=== PATIENT | female | born 1965 | race Caucasian/White ===

== ENCOUNTER → 2017-10-30 14:32 | Outpatient (CLI) | payer MEDICAID, SELFPAY ==
--- NOTE | 2017-10-30 14:34 | RAD_ITS ---
STUDY: X-RAY - LEFT KNEE REASON FOR EXAM: Female, 52 years old. Atraumatic left knee pain. TECHNIQUE: 4 view(s) of the knee. COMPARISON: None. FINDINGS: Normal visualized distal femur. Normal visualized proximal tibia and fibula. Normal proximal tibiofibular articulation. Normal medial femorotibial compartment. Normal lateral femorotibial compartment. Normal patellofemoral articulation. The soft tissue structures are unremarkable. RAD/Knee 4 or More Views IMPRESSION: Normal x-ray examination of the knee. Electronically Signed: Julienne Saxena MD at 17:50 EST , Service support ,
== END ==
PROVIDERS: Visit Provider Orthopaedic Surgery
DX: M25.562 Pain in left knee (principal)
CPT/HCPCS: 73564

== ENCOUNTER → 2018-01-26 06:00 | Outpatient (CLI) | payer MEDICAID, SELFPAY ==
--- NOTE | 2018-01-26 10:19 | EKG12_ITS ---
Test Reason : PRE OP Blood Pressure : / mmHG Vent. Rate : 061 BPM Atrial Rate : 061 BPM P-R Int : 166 ms QRS Dur : 088 ms QT Int : 416 ms P-R-T Axes : 041 001 011 degrees QTc Int : 418 ms Normal sinus rhythm with sinus arrhythmia Normal ECG Confirmed by AMARJIT ROSAS, JULIETA ([id number]), film or videotape editor PATRICK STEWARD ([id number]) on 01/28/2018 12:56:30 PM Referred By: Leonardo Alan Confirmed By:JULIETA OCASIO MD
[2018-01-26 10:39] LABS: Hematocrit 38.6 % (37-47); Hemoglobin 12.2 g/dl (12.0-15.0); Mean Corp Hgb Conc 31.6 g/gl (32-36); Mean Corpuscular Hgb 30.7 pg (27.0-32.0); Mean Platelet Vol. 11.2 fl (6.2-12.0); Platelet Count 225 K/mm3 (150-450); RBC Distribution Width CV 13.1 % (11.6-14.6); RBC Distribution Width SD 46.3 fl (35.1-43.9); Red Blood Count 3.98 M/mm3 (4.2-5.4); Scan Indicated on CBC? Y/N NO; White Blood Count 5.9 K/mm3 (4.4-11.0)
[2018-01-26 10:47] LABS: International Normalized Ratio 1.1; Partial Thromboplast Time 28.6 Seconds (24.1-36.2); Prothrombin Time (Protime)PT. 14.1 SECONDS (11.7-14.9)
[2018-01-26 11:11] LABS: AST(SGOT) 19 U/L (15-37); Alanine Aminotransfer ALT/SGPT 27 U/L (13-56); Albumin, Serum 3.4 g/dL (3.2-5.0); Alkaline Phosphatase 68 U/L (45-117); Anion Gap 5 (5-15); BUN 17 mg/dL (7-18); BUN/Creat Ratio 19.5 RATIO (10-20); Calcium,Total 8.8 mg/dL (8.5-10.1); Chloride 106 mmol/L (98-107); Creatinine, Serum 0.87 mg/dL (0.55-1.02); EST Glomerular Filtration Rate 72 mL/min (>60); Est Glom Filt Rate - Afr Amer 87 mL/min (>60); Globulin 3.7 g/dL (2.2-4.2); Glucose 71 mg/dL (74-106); Potassium 4.1 mmol/L (3.5-5.1); Protein, Total 7.1 g/dL (6.4-8.2); Sodium Level 142 mmol/L (136-145); Thyroid Stim Hormone (TSH) 0.33 uIU/mL (0.358-3.74)
--- OUTSIDE RECORDS SUMMARY | 2018-02-25 20:07 | XMS RPT_ITS ---
:1965 Author Organization OHIP Support Name Relationship Address Phone February Unavailable [address] + [place] [address] SERVANDO ABDUL Unavailable [address] + [place] [address] UE Unavailable Unavailable February Unavailable [address] + [place] [address] SERVANDO ABDUL Unavailable [address] + [place] [address] UE Unavailable Unavailable Unavailable February Unavailable [address] + [place] [address] SERVANDO ABDUL Unavailable [address] + [place] [address] UE Unavailable Unavailable February Unavailable [address] + [place] [address] SERVANDO ABDUL Unavailable [address] + [place] [address] UE Unavailable Unavailable February Unavailable [address] + [place] [address] SERVANDO ABDUL Unavailable [address] + [place] [address] UE Unavailable Unavailable Unavailable February Unavailable [address] + [place] [address] SERVANDO ABDUL Unavailable [address] + [place] [address] UE Unavailable Unavailable February Unavailable [address] + [place] [address] SERVANDO ABDUL Unavailable [address] + [place] [address] UE Unavailable Unavailable Unavailable February Unavailable [address] + [place] [address] RICCO SERVANDO Unavailable [address] + [place] [address] UE Unavailable Unavailable Unavailable February Unavailable [address] + [place] [address] SERVANDO ABDUL Unavailable [address] + [place] [address] UE Unavailable Unavailable Unavailable February Unavailable [address] + [place] [address] RICCO SERVANDO Unavailable [address] + [place] [address] UE Unavailable Unavailable Unavailable February Unavailable [address] + [place] [address] SERVANDO ABDUL Unavailable [address] + [place] [address] UE Unavailable Unavailable Unavailable February Unavailable [address] + [place] [address] RICCO SERVANDO Unavailable [address] + [place] [address] UE Unavailable Unavailable Unavailable February Unavailable [address] + [place] [address] SERVANDO ABDUL Unavailable [address] + [place] [address] UE Unavailable Unavailable Unavailable February Unavailable [address] + [place] [address] RICCO SERVANDO Unavailable [address] + [place] [address] UE Unavailable Unavailable Unavailable Care Team Providers Name Role Phone Brayan, Almas Chi Attending Unavailable Brayan, Almas Chi Primary Care Unavailable Brayan, Almas Chi Attending Unavailable Brayan, Almas Chi Primary Care Unavailable Brayan, Almas Chi Attending Unavailable Brayan, Almas Chi Primary Care Unavailable Brayan, Almas Chi Attending Unavailable Brayan, Almas Chi Primary Care Unavailable Arturo Bueno Attending Unavailable Brayan, Almas Chi Primary Care Unavailable Brayan, Almas Chi Attending Unavailable Brayan, Almas Chi Referring Unavailable Brayan, Almas Chi Attending Unavailable Waqas, Leonardo Attending Unavailable Waqas, Leonardo Attending Unavailable Waqas, Leonardo Attending Unavailable Waqas, Leonardo Attending Unavailable Brayan, Almas Chi Primary Care Unavailable Waqas, Leonardo Referring Unavailable Waqas, Leonardo Attending Unavailable Brayan, Almas Chi Referring Unavailable Waqas, Leonardo Attending Unavailable Brayan, Almas Chi Referring Unavailable Brayan, Almas Chi Primary Care Unavailable Brayan, Almas Chi Primary Care Unavailable Waqas, Leonardo Attending Unavailable Waqas, Leonardo Referring Unavailable PROBLEMS PROBLEMS DATE TYPE CONDITION / CODE ATTENDING STATUS SOURCE 10/30/2017 Unknown M25.562 - Pain in Leonardo Alan Active [place] left knee / Community M25.562(ICD-10) Hospital Repository 10/06/2017 Unknown L81.9 - Disorder Brayan, Almas Chi Active [place] of pigmentation, [facility] unspecified / Hospital L81.9(ICD-10) Repository 04/27/2017 Unknown SOLITARY Bueno, Active [facility] PULMONARY NODULE [facility] / R91.1(ICD-10) Hospital Repository 05/14/2017 Unknown UNILATERAL Brayan, Almas Chi Active [facility] PRIMARY Community OSTEOARTHRITIS, Hospital LEFT KNEE / Repository M17.12(ICD-10) 04/23/2017 Unknown VITAMIN D Brayan, Almas Chi Active [facility] DEFICIENCY, [facility] UNSPECIFIED / Hospital E55.9(ICD-10) Repository 04/23/2017 Unknown OTHER FATIGUE / Brayan, Almas Chi Active [place] R53.83(ICD-10) [facility] Hospital Repository 04/23/2017 Unknown PAIN IN LEFT KNEE Brayan, Almas Chi Active [place] / M25.562(ICD-10) [facility] Hospital Repository 04/23/2017 Unknown GOUT, UNSPECIFIED Brayan, Almas Chi Active [place] / M10.9(ICD-10) [facility] Hospital Repository PROCEDURES PROCEDURES No Procedure Records FoundRESULTS RESULTS INITAL EVALUATION (1) Observed: 02/10/2018 Status: F Source: [place] - PT 1:50 PM [facility] [address] [place] [address] [phone] FaxREHABILITATION SERVICESINITIAL EVALUATIONMR#: [id number] Acct: [id number]: ALEISHA ABDUL Rep #: [id number]: 1965 53 From: Laura L Laporte DPTReferring DrChantel: Leonardo Alan DO Status: REG RCRInsurance: [facility] PAY INSURANCEPatient's Visit InformationALEISHA ABDUL is a 53 year old F referred to Physical Therapy by Leonardo Alan DO with adiagnosis of Left Knee Pain.Date of Evaluation: 02/10/18Physical Therapist: Laura Olivia- Visit PlanFrequency: 2x /WeekDuration: 4 WeeksPlan: Aquatic Therapy- focus on LE strength and core s/s for functional mobility- SubjectiveSubjective: Left knee pain for a couple of years- insidious onset. Pain is getting worse.Pain is located in the knee area under the knee cap- no radiating pain to the hip or ankle.Describes the pain as dull and achy other times it feels like a knife is turning. Worst: 10/10Agg: standing up/sitting down, walking up/down stairs, walking. Best:5/10 Eases: none. [facility] motorized cart. Has been using a cane for about 2weeks. X-rays and MRI. Has been denied surgery 4x from her insurance company. Sleep:disturbed- hard to get comfortable and wakes her up. Sometimes has to pick her leg up and moveit over. Goes back to see Dr. Alan in 4 weeks. PMHx: thyroid, depression. Meds:levothyrixin, prevastatin, esatalopram. Work: does not work outside of her home. 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 Gait: antalgic- uses quad cane in theright hand- poor heel/toe pattern. Stairs: non recip with 2 HR. Palpation: tender alongmedial joint line. HR/TR: able but reports feeling it with TR. Balance: 10 sec withincreased pressure. ROM: 0-115 degrees. Strength: Ankle: 5/5, Knee: 4+/5, Hip: 4/5 Core:fair minus. Flex: HS: moderate, Gastroc: moderate- GoalsGoal 1:: Patient will be I with HEP and progressionGoal Time Frame: 4-6 WeeksGoal 2:: Patient will demo 5/5 strength in LEGoal Time Frame: 4 -6 WeeksGoal 3:: Patient will report 2/10 pain for 1 weekGoal Time Frame: 4-6 WeeksGoal 4:: Patient will ambulate >300 feet with a normalized gait patternGoal Time Frame: 4-6 WeeksGoal 5:: Patient will asc/desc 8 recip with 1 HRGoal Time Frame: 4-6 Weeks- Rehabilitation PotentialPhysical Therapy Diagnosis: Patient presents with hypomobility- she has decreased strength andmuscular endurance leading to increased pain and difficulty with ADL's.Rehabilitation Potential: Fair- Anticipated InterventionsPatient/Client Instruction: Educate patient on: Benefits of Fitness ProgramFor the Purpose of:: To improve ability to perform ADL'sTherapeutic Exercise to Include: Strength training, Endurance training, Balance training,Agility training, Body mechanics, Postural training, Flexibilty training, Gait and locomotortraining, In an aquatic setting, Dynamic Lumbar StabilizationThank you for the opportunity to evaluate your patient.For Medicare and Medicare HMO plans, please review the plan of care and approve it.It will need to be FAXED BACK to us at [phone] for Medicare purposes.Please let me know if there are questions or concerns regarding this plan of care.Physician Signature: Date: &lt ;Electronically signed by Laura Olivia DPT> 02/10/18 1350CC: Leonardo Alan DO; Almas Schmidt MD DT: 02/10/18ELRSignedFor Medicare only, by signing this I certify the plan of care. Physicians Signature Date Observed: 01/29/2018 Status: F Source: [place] MRSA/SAID SCREEN 1:30 PM [facility] REPOSITORY MRSA/SAID SCRNS. AUREUS S. aureus NegativeMRSA MRSA Negative Performed By: #### M100.651 ####[facility] [address] [place], [address] 12 LEAD ELECTROCARDIOGRAM Observed: 01/28/2018 Status: F Source: [place] 12:57 PM [facility] RE[facility]ITORY [facility] [address] [place] [place], [place] [id number] Lead EKG001/26/18 1031MR#: [id number] Acct: [id number]: ROMY ABDULGary Zelaya Rep #: [id number]: 1965 52 From: Kt Ocasio MDAttending Dr: Leonardo Alan DO Status: PRE SDCOrdering Dr: Leonardo Alan DO Date: 01/26/18Location: [place] Sex: F CAdmitted:Test Reason : PRE OPBlood Pressure : / mmHGVent. Rate : 061 BPM Atrial Rate : 061 BPMP-R Int : 166 ms QRS Dur : 088 msQT Int : 416 ms P-R-T Axes : 041 001 011 degreesQTc Int : 418 msNormal sinus rhythm with sinus arrhythmiaNormal ECGConfirmed by AMARJIT ROSAS, KT ([id number]), editor continuity and script PATRICK STEWARD ([id number]) on 2017 12:56:30 PMReferred By: Leonardo Alan Confirmed By:KT OCASIO MD 1256Date Kt Ocasio MDCC: Leonardo Alan DO; Almas Schmidt MD Signed CBC-COMPLETE BLOOD CNT Collected: 01/26/2018 Status: F Source: [place] NO DIFF 10:09 AM [facility] REPOSITORY TYPE CODE TESTS RESULT OUT OF RANGE REFERENCE UNITS LAB L100.1000 Normal 4.4-11.0 K/mm3 WBC 5.9 LAB L100.1200 Low 4.2-5.4 M/mm3 RBC 3.98 LAB L100.1300 Normal 12.0-15.0 g/dl HGB 12.2 LAB L100.1400 Normal 37-47 % HCT 38.6 LAB L100.1500 Normal 81-99 fL MCV 97.0 LAB L100.1600 Normal 27.0-32.0 pg MCH 30.7 LAB L100.1700 Low 32-36 g/gl MCHC 31.6 LAB L100.1810 Normal 11.6-14.6 % RDW 13.1 CV LAB L100.1820 High 35.1-43.9 fl RDW 46.3 SD LAB L100.1900 Normal 150-450 K/mm3 PLT 225 LAB L100.2000 Normal 6.2-12.0 fl MPV 11.2 Performed By: #### L100.0500 ####[facility] [address] [place], [address] PROTHROMBIN TIME W/INR Collected: 01/26/2018 Status: F Source: [place] 10:09 AM [facility] REPOSITORY TYPE CODE TESTS RESULT OUT OF RANGE REFERENCE UNITS LAB L300.4150 Normal 11.7-14.9 SECONDS PROTIME 14.1 LAB L300.4200 Normal INR 1.1 Performed By: #### L300.3900, L300.4310 ####[facility] [address] [place], [place], [address] PARTIAL THROMBOPLAST Collected: 01/26/2018 Status: F Source: [place] TIME 10:09 AM [facility] REPOSITORY TYPE CODE TESTS RESULT OUT OF RANGE REFERENCE UNITS LAB L300.4310 Normal 24.1-36.2 Seconds PTT 28.6 Performed By: #### L300.3900, L300.4310 ####[facility] [address] [place], [address] BASIC METABOLIC Collected: 01/26/2018 Status: F Source: [place] PROFILE (BMP) 10:09 AM [facility] REPOSITORY TYPE CODE TESTS RESULT OUT OF RANGE REFERENCE UNITS LAB L501.0100 Low 74-106 mg/dL GLU 71 Result Comment: Please note revised GLUCOSE reference range jdjbsrinx10/02/2018. LAB L501.1000 Normal 7-18 mg/dL BUN 17 LAB L501.1100 Normal 0.55-1.02 mg/dL CREAT,SERUM 0.87 Result Comment: The validity of the calculated GFR AND GFRAA in patients over70 years has not been determined. Clinical correlation isessential. LAB L501.1110 Normal >60 mL/min EST GFR 72 Result Comment: Non- GFR Calc LAB L501.1115 Normal >60 mL/min EST GFR - 87 AA Result Comment: GFR Calc LAB L501.1300 Normal 10-20 RATIO BUN/CRE 19.5 LAB L501.2200 Normal 8.5-10.1 mg/dL CA 8.8 LAB L501.5300 Normal 136-145 mmol/L NA 142 LAB L501.5600 Normal 3.5-5.1 mmol/L K 4.1 LAB L501.5900 Normal 98-107 mmol/L CL 106 LAB L501.6100 Normal 21.0-32.0 mmol/L CO2 31.0 LAB L501.6200 Normal 5-15 GAP 5 Performed By: #### L500.2500, L500.3400, L501.9520 #### [facility] [address] [facility] [place], [place], [id number] LIVER PROFILE Collected: 01/26/2018 Status: F Source: [place] 10:09 AM [facility] REPOSITORY TYPE CODE TESTS RESULT OUT OF RANGE REFERENCE UNITS LAB L501.1500 Normal 6.4-8.2 g/dL T 7.1 PROT LAB L501.1800 Normal 3.2-5.0 g/dL ALB 3.4 LAB L501.1950 Normal 2.2-4.2 g/dL GLOB 3.7 LAB L501.4100 Normal 15-37 U/L AST 19 LAB L501.4305 Normal 45-117 U/L ALK P 68 LAB L501.4405 Normal 13-56 U/L ALT 27 LAB L501.4600 Normal 0.20-1.00 mg/dL T 0.60 BILI LAB L501.4700 Normal 0.00-0.30 mg/dL D 0.10 BILI Performed By: #### L500.2500, L500.3400, L501.9520 #### [facility] [address] [facility] [address] [place], [place], [id number] THYROID STIM HORMONE Collected: 01/26/2018 Status: F Source: [place] (TSH) 10:09 AM [facility] REPOSITORY TYPE CODE TESTS RESULT OUT OF RANGE REFERENCE UNITS LAB L501.9520 Low 0.358-3.74 uIU/mL TSH 0.33 Performed By: #### L500.2500, L500.3400, L501.9520 #### [facility] [address] [place], [address] ORTHOPEDIC VISIT Observed: 01/13/2018 Status: F Source: [place] REPORT 3:35 PM [facility] REPOSITORY [facility] [address] [phone] VISITDate of Service: 01/11/18MR#: [id number] Acct: [id number]: ALEISHA ABDUL Rep #: [id number]: 1965 Provider: Leonardo Alan DOAge/Sex: 52/F [place] [facility] [place]SMOStatus: SignedIntakeIntakeVisit Reasons: LEFT KNEEIs patient in pain? : YesAllergiestetanus shot Allergy (Mild, Uncoded 12/22/17 14:04)swellingSHELFISH Allergy (Uncoded 12/22/17 14:04)SwellingMedicationsLevothyroxine [Synthroid] 100 mcg PO MOTUWETHFRSA 05/30/15 [History Confirmed 12/22/17]Pravastatin [Pravachol] 40 mg PO QHS 05/30/15 [History Confirmed 12/22/17]calcium carbonate 500 mg calcium (1, 250 mg) tablet 500 mg PO BID tab 10/30/17 [HistoryConfirmed 12/22/17]ergocalciferol ( vitamin D2) 50,000 unit capsule 50,000 unit PO QMONTH 10/30/17 [HistoryConfirmed 12/22/17]escitalopram 20 mg tablet 20 mg PO QDAY 10/30/17 [History Confirmed 12/22/17]multivitamin tablet 1 tab PO QAM 10/30/17 [History Confirmed 12/22/17]Levothyroxine [Synthroid] 50 mcg PO LOUIS 12/22/17 [History Confirmed 12/22/17]PFSHMedical HistoryAsthma (Chronic)Depression (Chronic)Hypothyroidism (Chronic)Seasonal allergies (Chronic)Surgical HistoryS/P (Inactive)S/ P breast biopsy (Inactive)S/P tonsillectomy (Inactive)Family HistoryOther Breast cancerSocial HistorySmoking Status: Never smokerHPILEFT KNEE:Details: ALEISHA ABDUL is a 52 year old F here today for continued left knee pain. She notesthat she continues to have knee pain and describes her pain as a sharp pain. She has popping,clicking and instability. Patients pain is over her anterior knee and around her patella.Patient has increased pain with ambulation. Her surgery was denied by her insurance company andshe would like to discuss her options.ROSConstReports system reviewed and no additional complaints, except as docuEyesReports system reviewed and no additional complaints, except as docuENTReports system reviewed and no additional complaints, except as docuCardReports system reviewed and no additional complaints, except as docuRespReports system reviewed and no additional complaints, except as docuGIReports system reviewed and no additional complaints, except as docuGUReports system reviewed and no additional complaints, except as docuMuscReports joint pain, Reports stiffnessSkin/BreastReports system reviewed and no additional complaints, except as docuNeuroYes system reviewed and no additional complaints, except as docuPsychReports system reviewed and no additional complaints, except as docuEndoReports system reviewed and no additional complaints, except as docuOrtho ExamRight KneeSkin/Wound: Yes CDIContralateral Normal: YesSwelling: NoHomans Sign: NoKnee ROM: Yes ROM-Extension -20 to 0, Yes ROM-Passive Flexion 0-140, Yes ROM-Flexion 0-140, YesROM-Passive Extension -10 to 0Quad Atrophy: NoStability: NML: Anterior Drawer, NML: Delma, NML: Posterior Drawer, NML: Valgus 0, NML: Valgus 30, NML: Varus 0, NML: Varus 30, NML: Dial 90, NML: Dial 30Popliteal Adenopathy: NoPatella Translation: 1Apprehension with Lateral Translation: NoPatellar Tilt Normal: YesPatella Grind: NoLeft KneeContralateral Normal: YesSwelling: YesHomans Sign: No1+: EffusionKnee ROM: Yes ROM-Extension -20 to 0, Yes ROM-Flexion 0-140 , Yes ROM-Passive Extension -10 to0, Yes ROM-Passive Flexion 0-140Examination: Yes Pain with flexion, Yes Crepitus, Yes TTP inf pole patellaQuad Atrophy: NoStability: NML: Anterior Drawer, NML: Delma, NML: Posterior Drawer, NML: Valgus 0, NML: Valgus 30, NML: Varus 0, NML: Varus 30, NML: Dial 90, NML: Dial 30Popliteal Adenopathy: NoPatella Translation: 1Apprehension with Lateral Translation: NoPatellar Tilt Normal: YesPatella Grind: YesKNEE: General:well developed, well nourished in no acute distress.Head:normocephalic and atraumaticPulses:pulses normal in all 4 extremities.Neurologic:no focal deficits, cranial nerves II-XII grossly intact with normal sensation, reflexed,coordination, muscle strength and tone.Axillary Nodes:no significant adenopathy.Psych:alert and cooperative, normal mood and affect, normal attention span and concentration.Heart regular S1-S2 lungs clear to auscultation bilaterally abdomen soft nontender nondistendedno gross specimen or megaly.Patient continues have patellofemoral crepitus pain with palpation she has a +1 effusion.Remains otherwise ligaments stable. She has no calf pain negative Homans. Intact from theL1-S1 distributions.MRI and plain film radiographs have been previously evaluated. Patient shows patellofemoralarthrosis and degenerative changes. Medial lateral compartment appear to be relativelywell-preserved. Knee effusion noted.Assessment AND PlanProblems1. Chronic pain of left knee M25.562; G89.292. Osteoarthritis of left patellofemoral joint M17.12PlanAssessment: Left knee pain left knee patellofemoral Jayce this.Plan: At this point time patient is failed conservative measures to include NSAIDs activemodifications physical therapy and injections. Patient continues to be affected by activitiesof daily living with her associated knee pain and would like to proceed with intervention.Patient was denied a diagnostic knee scope chondroplasty and evaluation of the medialcompartment of patellofemoral joint for possible OCD allograft possible tibial tubercleosteotomy as a staged procedure. There is no significant recommendation by the insurancecompany or the peer to peer review that was provided. At this point time I discussed with thepatient her surgical options and the patient would like to go ahead and proceed with apatellofemoral arthroplasty. I feel this is the best treatment option for the patient due tothe limitations that are provided by her insurance coverage. Patient understands risks andbenefits to include damage to nerves muscles arteries veins, DVT PE infection or .Patient aware that she needs work on good range of motion. Patient had a discussion withmyself about outpatient physical therapy and I will start that within 2 weeks of her initialevaluation. Patient will have a 23 hour observation stay in order to prevent infection andprovide appropriate IV antibiotic coverage and start DVT prophylaxis to include aspirin 325p.o. twice daily with GI prophylaxis. Patient would like to proceed with intervention. It wasmy recommendation the patient get a new insurance plan as I feel in the long run her insurancecompany has failed her in terms of providing adequate care.CodingLevel of Care CodeOff vis,est,level 4DiagnosesChronic pain of left knee M25.562; G89.29Chronicity: chronicOsteoarthritis of left patellofemoral joint M17.12Laterality: left01/13/18 1535 <Electronically signed by Leonardo Alan DO>Date Leonardo Alan DOCosigner Signature: Date (if applicable)CC: ORTHOPEDIC VISIT Observed: 12/13/2017 Status: F Source: [place] REPORT 10:45 AM [facility] REPOSITORY [facility] [id number] [phone] VISITDate of Service: 12/09/17#: [id number] Acct: [id number]: ALEISHA ABDUL Rep #: [id number]: 1965 Provider: Leonardo Alan DOAge/Sex: 52/F [place] [facility] [place]SMOStatus: SignedIntakeIntakeVisit Reasons: LEFT KNEEIs patient in pain? : Yes Pain scale (1-10): 8Allergiestetanus shot Allergy (Mild, Uncoded 10/30/17 14:28)swellingSHELFISH Allergy (Uncoded 09/01/14 21:09)SwellingMedicationsLevothyroxine [Synthroid] 100 mcg PO DAILY 05/30/15 [ History Confirmed 12/09/17]Pravastatin [Pravachol] 20 mg PO QHS 05/30/15 [History Confirmed 12/09/17]calcium carbonate 500 mg calcium (1,250 mg) tablet 500 mg PO BID tab 10/30/17 [HistoryConfirmed 12/09/17]ergocalciferol (vitamin D2) 50,000 unit capsule 50,000 unit PO QMONTH 10/30/17 [HistoryConfirmed 12/09/17]escitalopram 20 mg tablet 20 mg PO QDAY 10/30/17 [History Confirmed 12/09/17]multivitamin tablet 1 tab PO QAM 10/30/17 [History Confirmed 12/09/17]PFSHMedical History Asthma (Chronic)Depression (Chronic)Hypothyroidism (Chronic) Seasonal allergies (Chronic)Surgical History S /P (Inactive)S/P breast biopsy (Inactive)S/P tonsillectomy (Inactive) Family History Other Breast cancerSocial HistorySmoking Status: Never smokerHPILEFT KNEE:Details: ALEISHA ABDUL is a 52 year old F here today for f/u from her left knee injection10/30/17. She states that the injection was not helpful except the first couple days. She hasan antalgic gait today, denies any swelling or locking. She would like to discuss her optionsfor surgery. Denies numbness, tingling or other associated symptoms.ROSMuscReports abnormal walking, Reports joint pain, Reports muscle weakness, Reports decreased musclemass, Reports limited joint movement, Reports stiffness, Reports as per HPINeuroYes abnormal walkingOrtho ExamRight KneeSkin/Wound: Yes CDIContralateral Normal: YesSwelling: NoHomans Sign: NoKnee ROM: Yes ROM-Extension -20 to 0, Yes ROM-Passive Flexion 0-140, Yes ROM-Flexion 0-140, YesROM-Passive Extension -10 to 0Quad Atrophy: NoStability: NML: Anterior Drawer, NML: Delma, NML: Posterior Drawer, NML: Valgus 0, NML:Valgus 30, NML: Varus 0, NML: Varus 30, NML: Dial 90 , NML: Dial 30Popliteal Adenopathy: NoPatella Translation: 1Apprehension with Lateral Translation: NoPatellar Tilt Normal: YesPatella Grind: NoLeft KneeSkin/Wound: Yes CDIContralateral Normal: YesSwelling: YesHomans Sign: No1+: EffusionKnee ROM: Yes ROM-Flexion 0-140Examination: Yes TTP inf pole patella, Yes Pain with flexion, Yes Crepitus, No med jt linetenderness, No Lat jt line tenderness, No Bertha's Test, No Dial at 90, No Dial at 60, NoDuck WalkQuad Atrophy: NoStability: NML: Anterior Drawer, NML: Delma, NML: Posterior Drawer, NML: Valgus 0, NML:Valgus 30, NML : Varus 0, NML: Varus 30, NML: Dial 90, NML: Dial 30Popliteal Adenopathy: NoPatella Translation: 1Apprehension with Lateral Translation: NoPatellar Tilt Normal: NoPatella Grind: YesKNEE: General:well developed, well nourished in no acute distress.Head:normocephalic and atraumaticPulses:pulses normal in all 4 extremities.Neurologic:no focal deficits, cranial nerves II-XII grossly intact with normal sensation, reflexed,coordination, muscle strength and tone.Axillary Nodes:no significant adenopathy.Psych:alert and cooperative, normal mood and affect, normal attention span and concentration.Heart regular S1-S2 lungs clear to auscultation bilaterally abdomen is soft nontendernondistended with no gross hepatosplenomegaly.Left knee continue tender palpation with direct compression of the patella and some crepitus.Remains ligamentously stable. No medial lateral joint line tenderness.X-rays MRI previously evaluated: Patient shows degenerative arthrosis across the patellofemoraljoint. Her medial lateral compartments however appear relatively preserved.Assessment AND PlanProblems1. Osteoarthritis of left patellofemoral joint M17.122. Chronic pain of left knee M25.562; G89.29PlanAssessment: Left knee osteoarthritis and internal derangement the knee [place] Niall of theiliofemoral joint and left knee pain.Plan: At this point time the patient is failed conservative measures to include NSAIDs activitymodifications physical therapy injections and bracing. I discussed with the patient hersurgical options. They include a diagnostic knee scope chondroplasty and global evaluation ofthe knee joint as well as the patient's would be a better candidate either for osteochondralallograft transplantation patella and possible tibial tubercle osteotomy, patellofemoralarthroplasty or total knee arthroplasty. At this point time patient's really most globalchanges across the patellofemoral joint and my plan is for a knee scope and chondroplastypatella again evaluate whether or not she is a better candidate for unicompartmental Orthoplastthe warfarin OCD allograft. I think that her medial lateral compartments are well preservedand she does not require any form of arthroplasty to total knee study. Patient agrees toproceed with a left knee arthroscopy chondroplasty and synovectomy as needed. An evaluationfor future intervention to include patellofemoral arthroplasty versus OCD allograft.Reviewed the pre-operative plans with the patient. Risks and benefits of the procedure werefully explained, including but not limited to infection, neurovascular injury, continued pain,arthritis, stiffness, need for further surgery, re-injury, DVT, PE, general risks ofanesthesia, and loss of limb or life. The patient understands all the risks and does wish toproceed with written consent.CodingLevel of Care CodeOff vis,est,level 4DiagnosesOsteoarthritis of left patellofemoral joint M17.12Laterality: leftChronic pain of left knee M25.562; G89.29Chronicity: /01/18 1045 <Electronically signed by Leonardo Alan DO>Date Leonardo Alan DOCosigner Signature: Date (if applicable)CC: ORTHOPEDIC VISIT Observed: 11/02/2017 Status: F Source: [place] REPORT 8:07 AM [facility] REPOSITORY [facility] [address] [id number] VISITDate of Service: 10/30/17MR#: [id number] Acct: [id number]: ALEISHA ABDUL Rep #: [id number]: 1965 Provider: Leonardo Alan DOAge/Sex: 52/F [place] [facility] [place] SignedIntakeVital Signs10/30/17 Height 5 ft 6 in10/30/17 Weight: 233 lb10/30/17 Body Mass Index (BMI) 37.5IntakeVisit Reasons: left kneeIs patient in pain?: Yes Pain scale (1-10): 7Allergiestetanus shot Allergy (Mild, Uncoded 10/30/17 14:28)swellingSHELFISH Allergy (Uncoded 09/01/14 21:09)SwellingMedicationsLevothyroxine [Synthroid] 100 mcg PO DAILY 05/30/15 [History Confirmed 10/30/17]Pravastatin [Pravachol] 20 mg PO QHS 05/30 [History Confirmed 10/30/17]calcium carbonate 500 mg calcium (1,250 mg) tablet 500 mg PO BID tab 10/30/17 [HistoryConfirmed 10/30/17]ergocalciferol (vitamin D2) 50, 000 unit capsule 50,000 unit PO QMONTH 10/30/17 [HistoryConfirmed 10/30/17] escitalopram 20 mg tablet 20 mg PO QDAY 10/30/17 [History Confirmed 10/30/17]multivitamin tablet 1 tab PO QAM 10/30/17 [History Confirmed 10/30/17]PFSHMedical History Asthma (Chronic)Depression (Chronic)Hypothyroidism (Chronic)Seasonal allergies (Chronic)Surgical HistoryS/ P (Inactive)S/P breast biopsy (Inactive)S/P tonsillectomy (Inactive) Family HistoryOther Breast cancerSocial HistorySmoking Status: Never smokerHPIleft knee:Details: ALEISHA ABDUL is a 52 year old F here today for left knee. She complains ofintermittent pain behind her knee cap, mostly when she is walking or active. No injury. Shedenies radiation of pain. No swelling. No tingling/ numbness. Occasionally the knee will giveout. Denies locking. She was seen by Dr. Schmidt who referred her to our office. No prior x-ray.No prior injection.ROSConstReports system reviewed and no additional complaints, except as docuEyesReports system reviewed and no additional complaints, except as docuENTReports system reviewed and no additional complaints, except as docuCardReports system reviewed and no additional complaints, except as docuRespReports system reviewed and no additional complaints, except as docuGIReports system reviewed and no additional complaints, except as docuGUReports system reviewed and no additional complaints, except as docuMuscReports joint painSkin/BreastReports system reviewed and no additional complaints, except as docuNeuroYes system reviewed and no additional complaints, except as docuPsychReports system reviewed and no additional complaints, except as docuEndoReports system reviewed and no additional complaints, except as docuHema/LymphReports system reviewed and no additional complaints, except as docuAller/ImmunReports system reviewed and no additional complaints, except as docuOrtho ExamRight KneeSkin/ Wound: Yes CDIContralateral Normal: YesSwelling: NoHomans Sign: NoKnee ROM: Yes ROM-Extension -20 to 0, Yes ROM-Passive Flexion 0-140, Yes ROM-Flexion 0-140, YesROM-Passive Extension -10 to 0Quad Atrophy: NoStability: NML: Anterior Drawer, NML: Delma, NML: Posterior Drawer, NML: Valgus 0, NML:Valgus 30, NML: Varus 0 , NML: Varus 30, NML: Dial 90, NML: Dial 30Popliteal Adenopathy: NoPatella Translation : 1Apprehension with Lateral Translation: NoPatellar Tilt Normal: YesPatella Grind: NoLeft KneeSkin/Wound: Yes CDIContralateral Normal: YesSwelling: YesHomans Sign : No1+: EffusionKnee ROM: Yes ROM-Extension -20 to 0, Yes ROM-Flexion 0-140, Yes ROM-Passive Extension -10 to0, Yes ROM-Passive Flexion 0-140Examination: Yes Crepitus, Yes Pain with flexion, Yes TTP inf pole patellaQuad Atrophy: NoStability: NML: Anterior Drawer, NML: Delma, NML: Posterior Drawer, NML: Valgus 0, NML: Valgus 30, NML: Varus 0, NML: Varus 30, NML: Dial 90, NML: Dial 30Popliteal Adenopathy : NoPatella Translation: 1Apprehension with Lateral Translation: NoPatellar Tilt Normal: YesPatella Grind: YesKNEE: Patient is alert and oriented 3 in no acute distress. Appropriate eye contact andaffect. Otherwise intact from L1-S1 distributions. She has a +2 pulses. Patient walks anonantalgic gait. She has no calf pain negative Homans EHL anterior gastrocsoleus peronealsquads hamstrings 5 out of 5. Patient is otherwise ligamentously stable in all planes to herleft knee. She is tender palpation across the patella and has pain with direct compressionacross the patellofemoral joint and positive compression. She has no patellar apprehension orinstability just pain translation and the grinding sensation. Otherwise minimal pain acrossmedial lateral joint lines of popliteal masses.X-rays: Evaluated myself patient joint spaces otherwise were very well-preserved to the mediallateral compartments and easy and even to the patellofemoral joint. MRI: Evaluated myselfpatient-I will review the patient's MRI she shows significant degenerative changes across thepatellofemoral joint she has no cartilage identified through a large area of her patella andshows a patella pop top change. She has a small knee effusion currently. Medial lateralcompartments otherwise well-preserved.Office ProceduresOrtho InjectionsInjectionsYes Knee LeftDetails: Obtained consent for injection. Under sterile conditions, injected the patients rightknee with a 10cc cocktail of 8cc bupivacaine and 2cc kenalog. The patient tolerated theinjection well without any noted complication. Patient should call our office if rednessdevelops, pain worsens or if they have any concerns.Office MedsKenalogPerforming Provider : Leonardo Alan DOAdministered by: Zunilda Rachel DO on 10/30/17 15:13Dose Route Admin Location Lot Number Expiration DateNDC Manufacturer2 mg Intra-Articularleft knee [id number] 11/12/18 7966-1731-81 [facility]ssessment AND PlanProblems1. Osteoarthritis of left patellofemoral joint M17.122. Chronic pain of left knee M25.562; G89.29PlanAssessment: Left knee osteoarthritis patellofemoral joint left knee pain.End: At this point time an extensive discussion with the patient about operative versusnonoperative management. Told the patient for treatment for her patellofemoral changes asneeded consideration for patellofemoral arthroplasty based on what the trochlea looked likeversus consideration for either osteochondral allograft transplantation or patellar total jointarthroplasty. I think that would be not a good choice at this point time based on thepatient's medial lateral compartments. I think consideration could be made for thepatellofemoral arthroplasty but they will will wear out. I think ultimately the patient willdecide about operative intervention I would consider scoping her knee first to evaluate thepatellofemoral joint evaluate of the remaining portion of the knee in which option that she maybe the best for her. Patient does have some history of poor healing ulcers to the legs and isalways concerned about bony healing potentially. We will address that as needed. For now wewill proceed with a left knee injection and see how the patient responds. May give her somerelief.Obtained consent for injection. Under sterile conditions, injected the patients left knee witha 10cc cocktail of 8cc bupivacaine and 2cc kenalog . The patient tolerated the injection wellwithout any noted complication. Patient should call our office if redness develops, painworsens or if they have any concerns.OrdersOrders:MedicationsDiscontinued:Kenalog (triamcinolone acetonide ) 2 mg (0.2 mL) Intra-Articular ONCE NM25.562 Dinesh MaurerDiscontinued Reason: Office MedicaStion has been Documented as givenCodingLevel of Care CodeOff vis,est, level 4DiagnosesOsteoarthritis of left patellofemoral joint M17.12Laterality: leftChronic pain of left knee M25.562; G89.29Chronicity: chronicAdditional Codesrcp.knee ([id number])11/02/17 0807 <Electronically signed by Leonardo Alan DO>Date Leonardo Alan DOCosigner Signature: Date (if applicable)CC: KNEE 4 OR MORE Observed: 10/30/2017 Status: F Source: [facility] 2:35 PM [facility]IT[facility] [address] [place], [place] [address]Thqk 4 or More ViewsMR#: [id number] Acct: [id number]: ALEISHA ABDUL Rep #: [id number]: 1965 F 52 From: Julienne Saxena MDPCP: Status: REG CLIStudy: Knee 4 or More Views Date of Exam: 10/30/17Exam# [id number] Ordering Dr: Leonardo Alan DOSTUDY: X-RAY - LEFT KNEEREASON FOR EXAM: Female, 52 years old. Atraumatic left knee pain.TECHNIQUE: 4 view(s) of the knee.COMPARISON: None. FINDINGS:Normal visualized distal femur. Normal visualized proximal tibia andfibula. Normal proximal tibiofibular articulation.Normal medial femorotibial compartment. Normal lateral femorotibialcompartment. Normal patellofemoral articulation.The soft tissue structures are unremarkable. ORDER #: [id number] RAD/Knee 4 or More ViewsIMPRESSION:Normal x-ray examination of the knee.Electronically Signed:Julienne Saxena MD at 17:50 ESTTel , Service support , [place]: Leonardo Alan DO Tread Cutter:Signed LESION (CHOOSE SITE) Observed: 10/06/2017 Status: F Source: [place] 12:00 AM [facility] REPOSITORY Patient: ALEISHA ABDUL : 1965 (52/F) Acct Num: [id number] Phys: Brayan ROSAS,Almas [facility] Unit Num: [id number] Loc: POLAB3 Specimen: [id number] Received: 10/06/171649 Spec Type: Lesion TISSUES TISSUES: A. Skin of arm B. Skin of leg, NOS C. Hip, NOS GROSS DESCRIPTION A - Received in fixative is one container labeled with the patient's name and designated right arm. The specimen consists of a piece of alvarez-white skin measuring 0.5 x 0.5 x 0.3 cm. The specimen is inked and submitted entirely in one cassette. It will be bisected at the time of embedding. B - Received in fixative is one container labeled with the patient 's name and designated right thigh. The specimen consists of a shave biopsy of alvarez-white skin measuring 0.6 x 0.5 x 0.1 cm. The specimen is inked and submitted entirelyin one cassette. It will be bisected at the time of embedding. C - Received in fixative is one container labeled with the patient's name and designated right hip. The specimen consists of a shave biopsy of alvarez-white skin measuring 0.6 x 0.5 x 0.1 cm. The specimen is inked and submitted entirelyin one cassette. It will be bisected at the time of embedding. / YVES:klai 10/07/17 TC:5 CPT: 30816 x3 HEADER OPERATION: Not noted PRE-OP DIAGNOSIS: L81.9 TISSUE SUBMITTED: A Right arm lesion, B Right thigh lesion, C Left hip lesion MICROSCOPIC DESCRIPTION Slides are reviewed. MICROSCOPIC DIAGNOSIS A. Right arm lesion, biopsy: Verrucoid keratosis. B. Skin lesion of right thigh, biopsy: Verrucoid keratosis. C. Skin lesion of left hip, biopsy: Verrucoid keratosis. AM:kali 10/08/17 Signed Regulo Margarita 10/08/17 < signature on file> Performed By: #### PLES ####[facility] [address] [place], [address] HIP 2-3 VIEWS WITH Observed: 10/05/2017 Status: F Source: [place] PELVIS 12:25 PM [facility] REPOSITORY [facility]ENTERIm[facility] [address] [facility] [place] [place], [place] [address]Tir 2-3 Views with PelvisMR#: [id number] Acct: [id number]: ALEISHA ABDUL Rep #: [id number]: 1965 F 52 From: Galileo Overton [facility] CENTERCP: Status: REG CLIStudy: Hip 2-3 Views with Pelvis Date of Exam: 10/05/17Exam# [id number] Ordering Dr: Almas Schmidt MDSTUDY: X-RAY - PELVIS AND RIGHT HIPREASON FOR EXAM: Female, 52 years old. Six-month history of right hippain.TECHNIQUE: Radiological exam, hip, unilateral, with pelvis whenperformed; 2 or 3 views.COMPARISON: None. FINDINGS:There is a non-specific bowel gas pattern. There are multiple calcifiedphleboliths.Normal bilateral iliac wings, sacroiliac joints and visualized sacrum.Normal bilateral superior and inferior pubic rami. Normal pubic symphysis.Normal bilateral ischial tuberosities.Normal visualized femoral head. Normal acetabulum. Normal hip joint. ORDER #: [id number] RAD/Hip 2-3 Views with PelvisIMPRESSION:Normal x-ray examination of the pelvis and hip.Electronically Signed:Galileo Overton MD at 19:44 ESTTel [phone], Service support , BD: Almas Schmidt MD Tread Cutter:Signed CBC W/DIFF, AUTOMATED Collected: 10/05/2017 Status: F Source: [place] 11:46 AM [facility] REPOSITORY TYPE CODE TESTS RESULT OUT OF RANGE REFERENCE UNITS LAB L100.1000 High 4.4-11.0 K/mm3 WBC 12.9 LAB L100.1200 Low 4.2-5.4 M/mm3 RBC 3.99 LAB L100.1300 Normal 12.0-15.0 g/dl HGB 12.8 LAB L100.1400 Normal 37-47 % HCT 38.8 LAB L100.1500 Normal 81-99 fL MCV 97.2 LAB L100.1600 High 27.0-32.0 pg MCH 32.1 LAB L100.1700 Normal 32-36 g/gl MCHC 33.0 LAB L100.1810 Normal 11.6-14.6 % RDW 13.9 CV LAB L100.1820 High 35.1-43.9 fl RDW 48.1 SD LAB L100.1900 Normal 150-450 K/mm3 PLT 250 LAB L100.2000 Normal 6.2-12.0 fl MPV 11.2 LAB L100.2100 High 47-70 % NEUT% 80.4 LAB L100.2200 Low 19-41 % LY% 12.2 LAB L100.2300 Normal 0-10 % MONO% 6.6 LAB L100.2400 Normal 0-5 % EO% 0.5 LAB L100.2500 Normal 0-1 % BASO% 0.1 LAB L100.2550 Normal 0.0-0.9 % IM 0.200 GRAN % Result Comment: IG% - Immature Granulocytes (promyelocytes, myelocytes andmetamyelocytes) > 1% indicates that a LEFT SHIFT is Present. LAB L100.2620 High 2.0-7.7 X10 3/uL Absolute Neut 10.4 LAB L100.2720 Normal 0.83-4.51 X10 3/ul Absolute Lymph 1.58 Performed By: #### L100.0100 ####[facility] [address] [place], [address] VITAMIN D,25 HYDROXY Collected: 10/05/2017 Status: F Source: [place] 11:46 AM [facility] REPOSITORY TYPE CODE TESTS RESULT OUT OF RANGE REFERENCE UNITS LAB L506.1000 Normal ng/mL Vitamin 38.8 D 25-OH Result Comment: Vitamin D 25(OH) Status Range Deficiency <20 ng/mL (50nmol/L) Insuffciency 20 - 30 ng/mL (50 - 75 nmol/L) Sufficiency 30 - 100 ng/mL (75 - 250 nmol/L) Toxicity >100 ng/mL (>250 nmol/L) Performed By: #### L506.1000 ####[facility] [address] [place], [address] COMPREHENSIVE METABOLIC Collected: 10/05/2017 Status: F Source: [facility] 11:46 AM [facility] REPOSITORY TYPE CODE TESTS RESULT OUT OF RANGE REFERENCE UNITS LAB L501.0100 Normal 70-110 mg/dL GLU 106 LAB L501.1000 High 7-18 mg/dL BUN 19 LAB L501.1100 Normal 0.55-1.02 mg/dL 1.01 CREAT,SERUM Result Comment: The validity of the calculated GFR AND GFRAA in patients over70 years has not been determined. Clinical correlation isessential. LAB L501.1110 Normal >60 mL/min EST GFR 61 Result Comment: Non- GFR Calc LAB L501.1115 Normal >60 mL/min EST GFR - 73 AA Result Comment: GFR Calc LAB L501.1300 Normal 10-20 RATIO BUN/CRE 18.8 LAB L501.1500 Normal 6.4-8.2 g/dL T PROT 7.3 LAB L501.1800 Normal 3.4-5.0 g/dL ALB 3.6 Result Comment: Please note revised Albumin AND Globulin reference rangeeffective 2017. LAB L501.1950 Normal 2.2-4.2 g/dL GLOB 3.7 LAB L501.2000 Normal 0.9-2.4 RATIO A/G 1.0 LAB L501.2200 Normal 8.5-10.1 mg/dL CA 9.1 LAB L501.4100 Normal 15-37 U/L AST 19 LAB L501.4305 Normal 45-117 U/L ALK P 62 LAB L501.4405 Normal 12-78 U/L ALT 36 LAB L501.4600 Normal 0.20-1.00 mg/dL T BILI 0.60 LAB L501.5300 Normal 136-145 mmol/L NA 139 LAB L501.5600 Normal 3.5-5.1 mmol/L K 4.5 LAB L501.5900 Normal 98-107 mmol/L CL 102 LAB L501.6100 Normal 21.0-32.0 mmol/L CO2 29.0 LAB L501.6200 Normal 5-15 GAP 8 Performed By: #### L500.4050, L501.9520 ####[facility] [address] [place], [address] THYROID STIM HORMONE Collected: 10/05/2017 Status: F Source: [place] (TSH) 11:46 AM [facility] REPOSITORY TYPE CODE TESTS RESULT OUT OF RANGE REFERENCE UNITS LAB L501.9520 Normal 0.358-3.74 uIU/mL TSH 1.00 Performed By: #### L500.4050, L501.9520 ####[facility] [address] [place], [place], [address] HEPATITIS C ANTIBODIES Collected: 10/05/2017 Status: F Source: [place] 11:46 AM [facility] REPOSITORY TYPE CODE TESTS RESULT OUT OF RANGE REFERENCE UNITS LAB L3100.0650 Normal 0.0-0.9 s/co ratio HEP C <0.1 AB Result Comment: Negative: < 0.8 Indeterminate: 0.8 - 0.9 Positive: > 0.9 The CDC recommends that a positive HCV antibody result be followed up with a HCV Nucleic Acid Amplification test (161281) .Performed at: - [facility] [address] [id number] Director: Chan Matta PhD, Phone: [phone] Performed By: #### L3100.0625 ####[facility] (refer to report for specific site)refer to report for address and phone number LESION (CHOOSE SITE) Observed: 04/22/2017 Status: F Source: [place] 12:00 AM [facility] REPOSITORY Patient: ALEISHA ABDUL : 1965 (52/F) Acct Num: [id number] Phys: Ximena ROSAS,[place] Unit Num: [id number] Loc: LABSPEC Specimen: [id number] Received: 04/22/171803 Spec Type: Lesion TISSUES TISSUES: COMMENT Clinical correlation and appropriate follow up are necessary. GROSS DESCRIPTION Received in fixative is one container labeled with the patient's name and designated right lower lid. The specimen consists of a single irregular fragment of alvarez tissue measuring 0.4 x 0.4 x 0.2 cm. The specimen is totally submitted in one cassette. / AM:kali 04/23/17 TC:1 CPT: 13794 HEADER OPERATION: RLL lesion PRE-OP DIAGNOSIS: Increased size with scabbing RLL TISSUE SUBMITTED: RLL lesion MICROSCOPIC DESCRIPTION Slides are reviewed. MICROSCOPIC DIAGNOSIS RLL lesion, biopsy: Superficial fragment of squamous papilloma. See comment. SJ:kali 04/24 Signed Marco Juarez <signature on file> Performed By: #### PLES ####[facility] [address] [place], [address] LOWER EXT JOINT ONLY Observed: 04/14/2017 Status: F Source: [place] (ROUTINE) 1:29 PM [facility]IT[facility] [address] [place] [address]Rfdchog 4dLower Ext Joint Only (Routine)MR#: [id number] Acct: [id number]: ALEISHA ABDUL Rep #: [id number]: 1965 F 52 From: Guido Rm MDPCP: Brayan ROSAS,Almas Gant Status : REG CLIStudy: Lower Ext Joint Only (Routine) Date of Exam: 04/14/17Exam# [id number] Ordering Dr: Almas Schmidt MDSTUDY: MRI LEFT KNEEREASON FOR EXAM: Female, 52 years old. Left knee pain posterior to thepatella for 6 months. No known injuryTECHNIQUE: Standardized fat and water weighted pulse sequences wereobtained in all 3 orthogonal planes.COMPARISON: None. FINDINGS:Normal medial meniscus. Normal hyaline cartilage of the medialfemorotibial compartment. Normal medial femoral condyle and tibialplateau.Normal medial collateral ligamentous complex (MCL). Normal distalsemimembranosus, gracilis and semitendinosus tendons.Normal lateral meniscus. Normal hyaline cartilage of the lateralfemorotibial compartment. Normal lateral femoral condyle and tibialplateau.Normal proximal tibiofibular articulation. Normal lateral collateral(fibular) ligament. Normal popliteus tendon. Normal biceps femoristendon.Normal anterior cruciate ligament (ACL). Normal posterior cruciateligament (PCL).Normal congruent patellofemoral articulation. There is diffuse, greaterthan 50% thickness articular cartilage loss of the patellofemoralcompartment with predominant involvement of the lateral facet of thepatella. Normal medial and lateral patellar retinaculum.Normal quadriceps tendon. Normal patellar tendon. Normal Hoffa's fat pad.There is a small volume joint effusion.The soft tissues are unremarkable. The otherwise visualized osseousstructures are unremarkable. ORDER #: [id number] MRI/Lower Ext Joint Only (Routine)IMPRESSION:Moderate patellofemoral degenerative arthrosis.Small joint effusion.No meniscal or ligamentous lesions noted.Electronically Signed:Guido Rm MD, TYBO9305/08/01 at 14:32 [facility] [phone], Service support , SI: Almas Schmidt MD Tread Cutter:Signed CBC W/DIFF, AUTOMATED Collected: 04/07/2017 Status: F Source: [place] 1:04 PM [facility] REPOSITORY TYPE CODE TESTS RESULT OUT OF RANGE REFERENCE UNITS LAB L100.1000 Normal 4.4-11.0 K/mm3 WBC 8.6 LAB L100.1200 Low 4.2-5.4 M/mm3 RBC 4.13 LAB L100.1300 Normal 12.0-15.0 g/dl HGB 13.0 LAB L100.1400 Normal 37-47 % HCT 41.0 LAB L100.1500 High 81-99 fL MCV 99.3 LAB L100.1600 Normal 27.0-32.0 pg MCH 31.5 LAB L100.1700 Low 32-36 g/gl MCHC 31.7 LAB L100.1810 Normal 11.6-14.6 % RDW 13.5 CV LAB L100.1820 High 35.1-43.9 fl RDW 49.1 SD LAB L100.1900 Normal 150-450 K/mm3 PLT 246 LAB L100.2000 Normal 6.2-12.0 fl MPV 11.5 LAB L100.2100 Normal 47-70 % NEUT% 64.5 LAB L100.2200 Normal 19-41 % LY% 23.7 LAB L100.2300 High 0-10 % MONO% 10.3 LAB L100.2400 Normal 0-5 % EO% 1.1 LAB L100.2500 Normal 0-1 % BASO% 0.2 LAB L100.2550 Normal 0.0-0.9 % IM 0.200 GRAN % Result Comment: IG% - Immature Granulocytes (promyelocytes, myelocytes andmetamyelocytes) > 1% indicates that a LEFT SHIFT is Present. LAB L100.2620 Normal 2.0-7.7 X10 3/uL Absolute Neut 5.5 LAB L100.2720 Normal 0.83-4.51 X10 3/ul Absolute Lymph 2.03 Performed By: #### L100.0100 ####[facility] [address] [place], [address] COMPREHENSIVE METABOLIC Collected: 04/07/2017 Status: F Source: [place] PROFIL 1:04 PM [facility] REPOSITORY TYPE CODE TESTS RESULT OUT OF RANGE REFERENCE UNITS LAB L501.0100 Normal 70-110 mg/dL GLU 104 LAB L501.1000 Normal 7-18 mg/dL BUN 18 LAB L501.1100 High 0.55-1.02 mg/dL 1.05 CREAT,SERUM Result Comment: The validity of the calculated GFR AND GFRAA in patients over70 years has not been determined. Clinical correlation isessential. LAB L501.1110 Low >60 mL/min EST GFR 58 Result Comment: Non- GFR Calc LAB L501.1115 Normal >60 mL/min EST GFR - 70 AA Result Comment: GFR Calc LAB L501.1300 Normal 10-20 RATIO BUN/CRE 17.1 LAB L501.1500 Normal 6.4-8.2 g/dL T PROT 7.3 LAB L501.1800 Normal 3.4-5.0 g/dL ALB 3.6 LAB L501.1950 High 2.3-3.5 g/dL GLOB 3.7 LAB L501.2000 Normal 0.9-2.4 RATIO A/G 1.0 LAB L501.2200 Normal 8.5-10.1 mg/dL CA 8.7 LAB L501.4100 Normal 15-37 U/L AST 25 LAB L501.4305 Normal 45-117 U/L ALK P 69 LAB L501.4405 Normal 12-78 U/L ALT 37 LAB L501.4600 Normal 0.20-1.00 mg/dL T BILI 0.30 LAB L501.5300 Normal 136-145 mmol/L NA 142 LAB L501.5600 Normal 3.5-5.1 mmol/L K 4.5 LAB L501.5900 Normal 98-107 mmol/L CL 104 LAB L501.6100 Normal 21.0-32.0 mmol/L CO2 30.0 LAB L501.6200 Normal 5-15 GAP 8 Performed By: #### L500.4050, L501.1400, L501.9520 #### [facility] [address] [place], [address] URIC ACID Collected: 04/07/2017 Status: F Source: SAMI 1:04 PM [facility] REPOSITORY TYPE CODE TESTS RESULT OUT OF RANGE REFERENCE UNITS LAB L501.1400 Normal 2.6-6.0 mg/dL URIC 5.2 Result Comment: The drugs N-Acetylcysteine and Metamizole may falsely deressthis assay. Performed By: #### L500.4050, L501.1400, L501.9520 #### [facility] [address] [place], [address] THYROID STIM HORMONE Collected: 04/07/2017 Status: F Source: SAMI (TSH) 1:04 PM [facility] REPOSITORY TYPE CODE TESTS RESULT OUT OF RANGE REFERENCE UNITS LAB L501.9520 Normal 0.358-3.74 uIU/mL TSH 0.51 Performed By: #### L500.4050, L501.1400, L501.9520 #### [facility] [address] [place], [address] VITAMIN D,25 HYDROXY Collected: 04/07/2017 Status: F Source: SAMI 1:04 PM [facility] REPOSITORY TYPE CODE TESTS RESULT OUT OF RANGE REFERENCE UNITS LAB L506.1000 Normal ng/mL Vitamin 44.3 D 25-OH Result Comment: Vitamin D 25(OH) Status Range Deficiency <20 ng/mL (50nmol/L) Insuffciency 20 - 30 ng/mL (50 - 75 nmol/L) Sufficiency 30 - 100 ng/mL (75 - 250 nmol/L) Toxicity >100 ng/mL (>250 nmol/L) Performed By: #### L506.1000 ####[facility] [address] [place], [address] PT D/C SUMMARY (1) Observed: 04/06/2017 Status: F Source: SAMI 1:47 PM [facility] RE[facility]ORY [facility] [address] [facility], [place] [phone] [phone] FaxREHABILITATION SERVICESDISCHARGE SUMMARYMR#: [id number] Acct: [id number]: ALEISHA ABDUL Rep #: [id number]: 1965 52 From: Naima Castro Dr.: Almas Schmidt MD Status: REG RCRInsurance: [facility] - [facility] D/C SummaryIt has been my pleasure to treat ALEISHA ABDUL under orders from Almas Schmidt, for thediagnosis of Left Knee Pain for a total of 9 visit(s).Discharge Date: 04/06/17Please see the following information for a summary of their discharge status.- SubjectiveSubjective: Patient reports her knee has been feeling good. She has had increase hip pain thelast couple weeks but reports the last couple days it has felt good. She states that hip painmostly noticeable. States she had a sharp pain behind left knee on thursday that gave hersensation that it was going to give out.- Pain left kneePain Intensity (Out of 10): 0- Overall Improvement% Improvement: 25- ObjectiveObjective/Function: Patient re-checked at today's therapy session: Posture: Static standingwith weight equally distributed between BLE. Palpation/Appearance: No tenderness or apparantswelling around right knee; Mild swelling that is pitting (patient has compression socks ) inBLE; L knee cap mobility good with grinding posterior to the knee cap with mobility sarah. sup/inferior glides and R knee cap mobility good no apparent grinding. Balance: Tandem stancebilaterally 30 seconds with mild sway. Strength: BLE grossly 5/5 strength except bilateral hipflexion 4+/5, abduction (seated) 4+/5, bilateral hip extension (seated) 4+/5, bilateral ER 4+/5, left IR 4+/5. Range of Motion: BLE WNL; Right Knee 0-130* L Knee 0-130*. Flexibility: Mildtightness in bilateral hamstrings. Gait: Patient ambulating with slightly antalgic gait withdecrease stance on left lower extremity. She ambulates with a heel/toe progression bilaterallywith weight slightly shifted toward the right. Stair Negotiation: Patient ascends and descendsstairs using an alternating foot pattern with L handrail support and weight turned and shiftedtoward the right mildly. Patient reports a little pain with disco test to medial left knee- GoalsGoal 1:: Patient will increase BLE strength grossly by 1 muscle grade for improved performancewith functional activitiesGoal Progress : Goal MetGoal 2:: Patient will perform a tandem stance for 30 seconds with minimal ankle swayGoal Progress: Goal MetGoal 3:: Patient will increase left knee motion to match right for improved mobilityGoal Progress: Goal MetGoal 4:: Patient will ambulate with a heel/toe foot progression with equal stance time betweenBLE and without sensation of knee giving out to promote improved mobilityGoal Progress: ProgressingGoal 5 :: Patient will ascend/descend stairs using an alternating foot pattern with handrailsupport and without knee pain for improved mobilityGoal Progress: Goal MetGoal 6:: Patient will be independent with HEPGoal Progress: Goal Met- PlanPlan: Discharge with continued HEP- D/C InformationDischarge Comments: Patient demonstrates increased strength, range of motion and balance of BLEresulting in decrease knee pain. She continues to have medial knee pain with special testsincluding disco test. She also continues to have discomfort and grinding with patellamobilization. She has met most of her therapeutic goals. Plan to discharge patient withcontinued HEP and to follow up with referring physician.If there are questions or concerns regarding this patient's physical therapy, please feel freeto call me at [phone]. Thank you for the referral of this patient.Sincerely,Naima Steward, PT<Electronically signed by Naima Steward PT> 04/06/17 1347CC: Almas Schmidt MD DD: JMMSigned INITAL EVALUATION (1) Observed: 03/06/2017 Status: F Source: [place] - PT 2:24 PM [facility] RE[facility] [address] [facility] [place] [address] [phone] [phone] FaxREHABILITATION SERVICESINITIAL EVALUATIONMR#: [id number] Acct: [id number]: ALEISHA ABDUL Rep #: [id number]: 1965 52 From: Naima Steward PTReferring Dr.: Almas Schmidt MD Status: REG RCRInsurance: [facility]Patient's Visit InformationALEISHA ABDUL is a 52 year old F referred to Physical Therapy by Almas Schmidt with adiagnosis of Left Knee Pain.Date of Evaluation: 03/06/17Physical Therapist: Naima Steward, PT- Visit PlanFrequency: 2x /WeekDuration: 4 WeeksPlan: Therapeutic exercises and activities to target BLE strength to provide more hip and kneestability. Exercises and activities also to target balance on stable/unstable surfaces, kneerange of motion, flexibility, gait training and functional mobility. Modalities and Manual asneeded to decrease pain and inflammation and improve range of motion. Incorporate HEP topromote maintainence and independence.- SubjectiveSubjective: Patient presents in therapy with chief complaint of left knee pain. Pain firststarted a couple months ago with no known mechanism of injury. She reports doctor x-ray and noarthritis present. States she normally doesnt have pain until standing, turning or walking shewill get a sharp pain and feel like knee was going to give out. Patient lives in a split leveland states she has to use a lot of stairs which she is fearful due to knee sensation of givingout. No numbness or tingling in BLE. She reports that she doesnt take anything due to painonly lasting duration of sensation of falling. Reports mild pain when turning over in bed.- Pain left kneePain Intensity (Out of 10): 0Pain Intensity Range: 9- ObjectivePosture: Static standing with slight weight shift on RLE. Palpation/ Appearance: No tendernessor apparant swelling around right knee; Moderate swelling that is pitting (patient hascompression socks) in BLE; L knee cap mobility good with grinding posterior to the knee capwith mobility sarah. sup/inferior glides. Balance: Tandem stance bilaterally 30 seconds withmoderate sway. Strength: BLE grossly 4+/5 strength except bilateral hip abduction (seated) 4/5, bilateral hip extension (seated) 4/5, bilateral ER 4-/5, left IR 4/5. Range of Motion: BLEWNL; Right Knee 0-125* L Knee 0-118*. Flexibility: Moderate tightness in bilateral hamstrings.Gait: Patient ambulating with an antalgic gait pattern with decrease stance time on the left.She ambulates with a heel/toe progression on the right and flat foot on the left with weightshifted more on the right. Stair Negotiation: Patient ascends and descends stairs using analternating foot pattern with L handrail support and weight turned and shifted toward theright.- Special TestsL Knee Disco Test - Meniscus: Positive- GoalsGoal 1:: Patient will increase BLE strength grossly by 1 muscle grade for improved performancewith functional activitiesGoal Time Frame: 4-6 WeeksGoal 2:: Patient will perform a tandem stance for 30 seconds with minimal ankle swayGoal Time Frame: 4-6 WeeksGoal 3:: Patient will increase left knee motion to match right for improved mobilityGoal Time Frame: 4-6 WeeksGoal 4:: Patient will ambulate with a heel/toe foot progression with equal stance time betweenBLE and without sensation of knee giving out to promote improved mobilityGoal Time Frame: 4-6 WeeksGoal 5:: Patient will ascend/descend stairs using an alternating foot pattern with handrailsupport and without knee pain for improved mobilityGoal Time Frame: 4-6 WeeksGoal 6:: Patient will be independent with HEPGoal Time Frame: 4-6 Weeks- Rehabilitation PotentialPhysical Therapy Diagnosis: Muscle Weakness, Impaired MobilityRehabilitation Potential: Good- Anticipated InterventionsPatient/Client Instruction: Educate patient on: Condition, Plan of CareFor the Purpose of:: To decrease pain, To decrease swelling/inflammation, To increase ROM, Toimprove muscle performance and motor function, To improve ability to perform ADL's, To improveability of physical actions for home/community/work/leisure, To improve gait and locomotorfunctions, To increase flexibility/ROM, To improve endurance, To improve balance, To improvesafety with gaitTherapeutic Exercise to Include: Strength training, Endurance training, Balance training,Flexibilty training, Gait and locomotor training, Passive ROM, Active ROMFor the Purpose of:: To decrease pain, To increase ROM, To improve muscle performance and motorfunction, To improve ability to perform ADL's, To improve ability of physical actions for home/community/work/leisure, To improve gait and locomotor functions, To increase flexibility/ROM,To improve endurance, To improve balance, To improve safety with gaitFunctional Training to Include: ADL Training, Gait trainingFor the Purpose of:: To improve ability to perform ADL's, To improve ability of physicalactions for home/community/work/ leisure, To improve gait and locomotor functions, To improvesafety with gaitComment: MASSAGE NOT COVEREDFor the Purpose of:: To decrease pain, To decrease swelling/inflammation, To increase ROMIontophoresis (with Dexamethozone, with Acetic acid): - NOT COVEREDFor the Purpose of:: To decrease pain, To decrease swelling/inflammation, To increase ROMThank you for the opportunity to evaluate your patient.For Medicare and Medicare HMO plans, please review the plan of care and approve it.It will need to be FAXED BACK to us at [phone] for Medicare purposes.Please let me know if there are questions or concerns regarding this plan of care.Physician Signature: Date: &lt ;Electronically signed by Naima Steward PT> 03/06/17 1424CC: Almas Schmidt MD DD: JMMSignedFor Medicare only, by signing this I certify the plan of care. Physicians Signature Date CBC W/DIFF, AUTOMATED Collected: 03/05/2017 Status: F Source: SAMI 3:15 PM [facility] REPOSITORY TYPE CODE TESTS RESULT OUT OF RANGE REFERENCE UNITS LAB L100.1000 Normal 4.4-11.0 K/mm3 WBC 9.0 LAB L100.1200 Low 4.2-5.4 M/mm3 RBC 4.13 LAB L100.1300 Normal 12.0-15.0 g/dl HGB 12.9 LAB L100.1400 Normal 37-47 % HCT 40.7 LAB L100.1500 Normal 81-99 fL MCV 98.5 LAB L100.1600 Normal 27.0-32.0 pg MCH 31.2 LAB L100.1700 Low 32-36 g/gl MCHC 31.7 LAB L100.1810 Normal 11.6-14.6 % RDW 13.6 CV LAB L100.1820 High 35.1-43.9 fl RDW 49.1 SD LAB L100.1900 Normal 150-450 K/mm3 PLT 255 LAB L100.2000 Normal 6.2-12.0 fl MPV 11.6 LAB L100.2100 Normal 47-70 % NEUT% 65.3 LAB L100.2200 Normal 19-41 % LY% 25.6 LAB L100.2300 Normal 0-10 % MONO% 7.5 LAB L100.2400 Normal 0-5 % EO% 1.3 LAB L100.2500 Normal 0-1 % BASO% 0.2 LAB L100.2550 Normal 0.0-0.9 % IM 0.100 GRAN % Result Comment: IG% - Immature Granulocytes (promyelocytes, myelocytes andmetamyelocytes) > 1% indicates that a LEFT SHIFT is Present. LAB L100.2620 Normal 2.0-7.7 X10 3/uL Absolute Neut 5.9 LAB L100.2720 Normal 0.83-4.51 X10 3/ul Absolute Lymph 2.29 Performed By: #### L100.0100, L101.9900 ####[facility] [address] [place], [place], [address] ERYTHROCYTE SED RATE Collected: 03/05/2017 Status: F Source: SAMI 3:15 PM [facility] REPOSITORY TYPE CODE TESTS RESULT OUT OF RANGE REFERENCE UNITS LAB L102.0000 Normal 0-30 mm/hr SED 14 RATE Performed By: #### L100.0100, L101.9900 ####[facility] [address] [place], [place], [address] BASIC METABOLIC Collected: 03/05/2017 Status: F Source: SAMI PROFILE (BMP) 3:15 PM [facility] REPOSITORY TYPE CODE TESTS RESULT OUT OF RANGE REFERENCE UNITS LAB L501.0100 Normal 70-110 mg/dL GLU 106 LAB L501.1000 High 7-18 mg/dL BUN 22 LAB L501.1100 High 0.55-1.02 mg/dL 1.20 CREAT,SERUM Result Comment: The validity of the calculated GFR AND GFRAA in patients over70 years has not been determined. Clinical correlation isessential. LAB L501.1110 Low >60 mL/min EST GFR 50 Result Comment: Non- GFR Calc LAB L501.1115 Normal >60 mL/min EST GFR - 60 AA Result Comment: GFR Calc LAB L501.1300 Normal 10-20 RATIO BUN/CRE 18.3 LAB L501.2200 Normal 8.5-10.1 mg/dL CA 9.2 LAB L501.5300 Normal 136-145 mmol/L NA 138 LAB L501.5600 Normal 3.5-5.1 mmol/L K 4.3 LAB L501.5900 Normal 98-107 mmol/L CL 102 LAB L501.6100 Normal 21.0-32.0 mmol/L CO2 29.0 LAB L501.6200 Normal 5-15 GAP 7 Performed By: #### L500.2500, L501.1400, L501.6710 #### [facility] [address] [facility] [address] [place], [place], [address] URIC ACID Collected: 03/05/2017 Status: F Source: [place] 3:15 PM [facility] REPOSITORY TYPE CODE TESTS RESULT OUT OF RANGE REFERENCE UNITS LAB L501.1400 Normal 2.6-6.0 mg/dL URIC 5.9 Result Comment: The drugs N-Acetylcysteine and Metamizole may falsely deressthis assay. Performed By: #### L500.2500, L501.1400, L501.6710 #### [facility] [address] [place], [place], [address] CRP Collected: 03/05/2017 Status: F Source: [place] 3:15 PM [facility] REPOSITORY TYPE CODE TESTS RESULT OUT OF RANGE REFERENCE UNITS LAB L501.6710 Normal 0.0-3.0 mg/L < C-REACTIVE 2.90 PROT Result Comment: C-Reactive Protein (CRP) provides useful information for thediagnosis, therapy and monitoring of inflammatory processesand associated diseases. For the evaluation of Relative Riskfor Cardiovascular Disease, a High Sensitivity CRP (HSCRP)should be ordered. Performed By: #### L500.2500, L501.1400, L501.6710 #### [facility] [address] [place], [address] ALLERGIES ALLERGIES DATE TYPE / CODE NAME / CODE REACTION SEVERITY SOURCE 01/19/2018 Miscellaneous SHELFISH Swelling Unknown Sami Allergy/[id number]([facility] CT) Hospital Repository 01/19/2018 Miscellaneous tetanus shot Swelling AL Sami Allergy/[id number]([facility] CT) Hospital Repository 09/01/2014 FT/[id number](SNOMED SHELFISH Swelling [place]) [facility] Hospital Repository ENCOUNTERS ENCOUNTERS ADMIT/DISCHARGE ACCOUNT ADMITTING ENCOUNTER LOCATION SOURCE NUMBER CLASS 02/10/2018 [id number] Ambulatory Sami [facility] 8 [facility] ing:PT Repository 02/03/2018/ [id number] Ambulatory BMSBuilding:B Sami 8 1 [facility] Repository 01/11/2018/ [id number] Ambulatory BMSBuilding:B Sami 8 6 [facility] Repository 12/22/2017 [id number] Ambulatory [place]i [place] 2 [facility] Hospital ing:SDC Repository 12/09/2017/ [id number] Ambulatory BMSBuilding:B [place] 8 5 [facility] Repository 10/30/2017 [id number] Ambulatory [place] 4 [facility] Hospital ing:HPRAD Repository 10/30/2017/ [id number] Ambulatory BMSBuilding:B [place] 8 2 [facility] Repository 10/06/2017 [id number] [place] [facility] Hospital ing:POLAB3 Repository 10/05/2017 [id number] Ambulatory [place] 8 [facility] Hospital ing:RAD Repository 04/22/2017 [id number] Ambulatory Sami [place] 4 [facility] Hospital ing:LABSPEC Repository 04/14/2017 [id number] Ambulatory Sami [place] 4 [facility] Hospital ing:MRI Repository 04/07/2017 [id number] Ambulatory Sami [place] 5 [facility] Hospital ing:POLAB3 Repository 04/06/2017/ [id number] Ambulatory Sami [place] 7 9 [facility] ing:PT Repository 03/05/2017 [id number] Ambulatory Sami [place] 6 [facility] ing:POLAB3 Repository PAYERS PAYERS ENCOUNTER GUARANTOR PAYER SUBSCRIBER SOURCE 02/10/2018 ALEISHA Zelaya Primary ALEISHA [id number] [place] Insurance:BUCKEYE JOHNSONDOB: [facility] [id number] Hospital [address]Zbz: (330) PLANPolicy Number: Repository [phone] () [id number] Date:0118-66-96AB [address] [place] [address]3007VX: 02/10/2018 Secondary NOT GIVENUNK [place] Insurance:SELF PAY [facility] Number: Effective Repository Date:2018 2018 ALEISHA Zelaya Primary ALEISHA [id number] [place] Insurance:BUCKEYE RICCODOB: [facility] [id number] Hospital [address]Mkg: (330) PLANPolicy Number: Repository [phone] () [id number] Date:6101-39-34SQ [address] [place] [address] 49008VU: 2018 Secondary NOT GIVENUNK [place] Insurance:SELF PAY [facility] Number: Effective Repository Date:2018 01/11/2018 ALEISHA Zelaya Primary ALEISHA [id number] [place] Insurance:BUCKEYE JOHNSONDOB: [facility] [id number] Hospital [address]Vuj: (330) PLANPolicy Number: Repository [phone] () [id number] Date:6698-89-81PW [address] [place] [address] 88231DR: 01/11/2018 Secondary NOT GIVENUNK [place] Insurance:SELF PAY [facility] Number: Effective Repository Date:2018-01-11 12/22/2017 ALEISHA Zelaya Primary ALEISHA [id number] [place] Insurance:BUCKEYE JOHNSONDOB: [address] [address]Tsa: (330) PLANPolicy Number: Repository [phone] () [id number] Date:9602-13-69GI [address] [place] [address] 97561XK: 12/22/2017 Secondary NOT GIVENUNK [place] Insurance:SELF PAY [facility] Effective Repository Date:2017-12-14 12/09/2017 ALEISHA Zelaya Primary ALEISHA [id number] [place] Insurance:BUCKEYE RICCODOB: [place] [id number]: (330) PLANPolicy Number: Repository [phone] () [id number] Date:4200-04-04EW [address] [place] [address] 768[address]EV: 12/09/2017 Secondary NOT GIVENUNK [place] Insurance:SELF PAY [facility] Number: Effective Repository Date:2017-12-09 10/30/2017 ALEISHA Zelaya Primary ALEISHA [id number] [place] Insurance:BUCKEYE RICCODOB: [address] [address]Zrt: (330) PLANPolicy Number: Repository [phone] () [id number] Date:5791-28-07ST [address] [place] [address] 40318ZT: 10/30/2017 Secondary NOT GIVENUNK [place] Insurance:SELF PAY [facility] Number: Effective Repository Date:2017-10-30 10/30/2017 ALEISHA Zelaya Primary ALEISHA [id number] [place] Insurance:BUCKEYE JOHNSONDOB: [address] [address]Xmv: (330) PLANPolicy Number: Repository [phone] () [id number] Date:9376-99-25QR [address] [place] [address] [place] [address]YI: 10/30/2017 Secondary NOT GIVENUNK [place] Insurance:SELF PAY [facility] Number: Effective Repository Date:2017-10-26 10/06/2017 Aleisha Zelaya Primary Aleisha [id number] [place] Insurance:CESAR AvilesB: [facility] [id number] Hospital [address]Xsl: (330) PLANPolicy Number: Repository [phone] () [id number] Date:6046-07-83KV [address] [place] [address]98[address]MH: 10/06/2017 Secondary NOT GIVENUNK [place] Insurance:SELF PAY [facility] Effective Repository Date:2017-10-06 10/05/2017 Aleisha Zelaya Primary Aleisha Abdul5747 [place] Insurance:CESAR AvilesB: [facility] [id number] [id number]: (330) PLANPolicy Number: Repository [phone] () [id number] Date:0093-00-37RM [address] [place] [address] 84[address]HO: 10/05/2017 Secondary NOT GIVENUNK [place] Insurance:SELF PAY [facility] Number: Effective Repository Date:2017-10-05 04/22/2017 ALEISHA Zelaya Primary ALEISHA [id number] [place] Insurance:CESAR AVILESB: [facility] [id number] [address]Jsg: (330) PLANPolicy Number: Repository [phone] () [id number] Date:3162-15-92HJ [address] [place] [address]DR: 04/14/2017 ALEISHA Zelaya Primary ALEISHA [id number] [place] Insurance:CESAR AVILESB: [facility] [id number] [place]ille [id number]: (330) PLANPolicy Number: Repository [phone] () [id number] Date:4654-24-55JO [address] [place] [address] 448[address]WB: 04/07/2017 ALEISHA Zelaya Primary ALEISHA [id number] [place] Insurance:CESAR AVILESB: [facility] [id number] Ville [id number]: (330) PLANPolicy Number: Repository [phone] () [id number] Date:4699-03-38RT [address] [address]WH: 04/06/2017 ALEISHA Nathalie Primary ALEISHA Zelaya Samikorina [id number] [place] Insurance:CESAR AVILESB: [address]05-23[place] [id number]: (330) PLANPolicy Number: Repository [phone] () [id number] Date:8772-61-28HI [address] [address]YN: 03/05/2017 ALEISHA Nathalie Primary ALEISHA [id number] [place] Insurance:CESAR AVILESB: [address]05[place] [id number]: (330) PLANPolicy Number: Repository [phone] () [id number] Date:9560-82-34SD [address] [place] [address]27[address]YU:
== END ==
PROVIDERS: Family Provider Family Medicine Geriatric Medicine; PCP Family Medicine Geriatric Medicine; Visit Provider Orthopaedic Surgery
DX: Z01.818 Encounter for other preprocedural examination (principal)
CPT/HCPCS: 36415; 80048; 80076; 84443; 85027; 85610; 85730; 87081; 93005

== ENCOUNTER 2018-03-12 12:30 | Outpatient (RCR) | payer MEDICAID, SELFPAY ==
--- NOTE | 2018-02-10 13:50 | HP.PTEVAL_ITS ---
Patient's Visit Information LIANNA CHACKO is a 53 year old F referred to Physical Therapy by Leonardo Alan DO with a diagnosis of Left Knee Pain. Date of Evaluation: 02/10/18 Physical Therapist: Laura Olivia - Visit Plan Frequency: 2x /Week Duration: 4 Weeks Plan: Aquatic Therapy- focus on LE strength and core s/s for functional mobility - Subjective Subjective: Left knee pain for a couple of years- insidious onset. Pain is getting worse. Pain is located in the knee area under the knee cap- no radiating pain to the hip or ankle. Describes the pain as dull and achy other times it feels like a knife is turning. Worst: 10/10 Agg: standing up/sitting down, walking up/down stairs, walking. Best:5/10 Eases: none. When she goes to [facility] she has to use the motorized cart. Has been using a cane for about 2 weeks. X-rays and MRI. Has been denied surgery 4x from her insurance company. Sleep: disturbed- hard to get comfortable and wakes her up. Sometimes has to pick her leg up and move it over. Goes back to see Dr. Alan in 4 weeks. PMHx: thyroid, depression. Meds: levothyrixin, prevastatin, esatalopram. Work: does not work outside of her home. 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 - Objective Posture: FH, RS, Increased kyphosis- pt is overweight. Gait: antalgic- uses quad cane in the right hand- poor heel/toe pattern. Stairs: non recip with 2 HR. Palpation: tender along medial joint line. HR/TR: able but reports feeling it with TR. Balance: 10 sec with increased pressure. ROM: 0-115 degrees. Strength: Ankle: 5/5, Knee: 4+/5, Hip: 4/5 Core: fair minus. Flex: HS : moderate, Gastroc: moderate - Goals Goal 1:: Patient will be I with HEP and progression Goal Time Frame: 4-6 Weeks Goal 2:: Patient will demo 5/5 strength in LE Goal Time Frame: 4-6 Weeks Goal 3:: Patient will report 2/10 pain for 1 week Goal Time Frame: 4-6 Weeks Goal 4:: Patient will ambulate >300 feet with a normalized gait pattern Goal Time Frame: 4-6 Weeks Goal 5:: Patient will asc/desc 8 recip with 1 HR Goal Time Frame: 4-6 Weeks - Rehabilitation Potential Physical Therapy Diagnosis: Patient presents with hypomobility- she has decreased strength and muscular endurance leading to increased pain and difficulty with ADL's. Rehabilitation Potential: Fair - Anticipated Interventions Patient/Client Instruction: Educate patient on: Benefits of Fitness Program For the Purpose of:: To improve ability to perform ADL's Therapeutic Exercise to Include: Strength training, Endurance training, Balance training, Agility training, Body mechanics, Postural training, Flexibilty training, Gait and locomotor training, In an aquatic setting, Dynamic Lumbar Stabilization Thank you for the opportunity to evaluate your patient. For Medicare and Medicare HMO plans, please review the plan of care and approve it. It will need to be FAXED BACK to us at [phone] for Medicare purposes. Please let me know if there are questions or concerns regarding this plan of care. Physician Signature: Date:
--- NOTE | 2018-03-12 12:47 | HP.PTREVAL_ITS ---
Leonardo Alan, DO, It has been my pleasure to treat LIANNA CHACKO over the last 9 visits for Left Knee Pain. Please see the progress note below for an update on the physical therapy plan of care! Subjective: Patient reports that she is better. She has a new brace from the MD and is wearing it. Patient reports less pain in the knee. She really likes the pool- has changed her posture and its much better. Has a pool at home. Sees MD on Thursday. No pain unless she is going up/down stairs and not thinking 5/10. Objective/Function: Posture: FH, RS, Increased kyphosis- pt is overweight. Gait : no deviation noted Stairs:recip with 1 HR. Palpation: not tender. HR/TR: able Balance: 10 sec with increased pressure. ROM: 0-115 degrees. Strength : Ankle: 5/5, Knee: 4+/5, Hip: 4+/5 Core: fair minus. Flex: HS: moderate, Gastroc: moderate Plan Plan: Cont with POC Goals Goal 1:: Patient will be I with HEP and progression Goal Time Frame: 4-6 Weeks Goal Progress: Goal Met Goal 2:: Patient will demo 5/5 strength in LE Goal Time Frame: 4-6 Weeks Goal Progress: Progressing Goal 3:: Patient will report 2/10 pain for 1 week Goal Time Frame: 4-6 Weeks Goal Progress: Progressing Goal 4:: Patient will ambulate >300 feet with a normalized gait pattern Goal Time Frame: 4-6 Weeks Goal Progress: Goal Met Goal 5:: Patient will asc/desc 8 recip with 1 HR Goal Time Frame: 4-6 Weeks Goal Progress: Goal Met Anticipated Interventions Patient/Client Instruction: Educate patient on: Benefits of Fitness Program For the Purpose of:: To improve ability to perform ADL's Therapeutic Exercise to Include: Strength training, Endurance training, Balance training, Agility training, Body mechanics, Postural training, Flexibilty training, Gait and locomotor training, In an aquatic setting, Dynamic Lumbar Stabilization Please do not hesitate to contact me at [phone] by phone or Fax: if you have questions or concerns regarding this new plan of care! Sincerely, Laura Olivia
--- NOTE | 2018-06-07 16:45 | HP.PT.NRP ---
HP - Discharge Summary (1) - Patient Information LIANNA CHACKO was seen in my office for initial evaluation on 02/10/18. The following Plan of Care was established for this patient: Initial Frequency: 2x /Week Initial Duration: 4 Weeks - Anticipated Interventions Patient/Client Instruction: Educate patient on: Benefits of Fitness Program For the Purpose of:: To improve ability to perform ADL's Therapeutic Exercise to Include: Strength training, Endurance training, Balance training, Agility training, Body mechanics, Postural training, Flexibilty training, Gait and locomotor training, In an aquatic setting, Dynamic Lumbar Stabilization This patient was last seen in our office . Pertinent comments regarding their Physical therapy will appear below: Patient has not attended physical therapy in over 8 weeks and is appropriate for d/c. At this point I will be discontinuing this patient from physical therapy. I would be happy to see this patient again in the future if found appropriate by the physician. Thank you! Laura Olivia
== END 2018-03-12 19:00 | disposition home or self-care (01) ==
LOC: PT 12:30
PROVIDERS: Family Provider Family Medicine Geriatric Medicine; PCP Family Medicine Geriatric Medicine; Visit Provider Orthopaedic Surgery
DX: M22.42 Chondromalacia patellae, left knee (principal)
CPT/HCPCS: 97113; 97162; 97164

== ENCOUNTER 2018-03-22 21:58 | Emergency (ER) | payer MEDICAID, SELFPAY ==
[2018-03-22 21:59] VITALS: BP 146/82; PULSE 69; RESP 18; TEMP 36.6; O2SAT 99; BMI 38.2
--- NOTE | 2018-03-22 23:03 | ED.VISSUMM ---
- ER Visit Summary Date of Service: 03/22/18 Chief Complaint: Laceration anterior left leg secondary to blunt trauma History of Present Illness: The patient is a 53 F who presents with laceration to her left leg. This occurred when she bumped into a shop vac. This occurred approximately 1 hour prior to presentation. She states she is allergic to tetanus immunization. She denies any paresthesia, anesthesia motors. She is not diabetic. She is on no immunosuppressive meds. She was placed recently on prednisone for sciatica. Physical Examination: Vital signs are marked for an elevated blood pressure 146/82. Patient has venous stasis dermatitis secondary to chronic lymphedema. There is a flap laceration anterior left leg. There is no erythema, warmth, fluctuance, drainage or lymphangitis. DP PT pulses are palpable. There is no pain the patient over the tibia or fibula. Test Results: None Emergency Department Course and Treatment: The wound was anesthetized with 1% lidocaine for local nutrition. The wound was irrigated with 200 cc of normal saline. The wound was closed using luisana. The wound was then cleansed. Bacitracin was applied followed by a non-adhesive dressing. The area was then Escobar wrapped. Treatment Plan: Keep wound absolutely clean and dry for the next 48 hours. [place] out in 14 days. Disposition: Discharged to home with spouse in stable improved condition Impression: 4.8 cm laceration anterior left leg initial encounter This note was generated with [employer] dictation software. It may contain incorrect words, spelling, and punctuation that were not noted in review of the chart prior to signing ED Disposition - Plan for ED Patient: Disposition: Home or Assisted Living Chief Complaint: Laceration Instructions: ED Laceration Ext Sutr Stap Tape Referrals: Almas Schmidt Chi, MD [Primary Care Provider] - 10-14 Days suture removal Additional Instructions: Keep dressing absolutely clean and dry for the next 48 hours. Change dressing twice a day. Sutures out in 14 days April 05.
--- NOTE | 2018-03-22 23:07 | ED.DCSUM_ITS ---
- ER Visit Summary Date of Service: 03/22/18 Chief Complaint: Laceration anterior left leg secondary to blunt trauma History of Present Illness: The patient is a 53 F who presents with laceration to her left leg. This occurred when she bumped into a shop vac. This occurred approximately 1 hour prior to presentation. She states she is allergic to tetanus immunization. She denies any paresthesia, anesthesia motors. She is not diabetic. She is on no immunosuppressive meds. She was placed recently on prednisone for sciatica. Physical Examination: Vital signs are marked for an elevated blood pressure 146/ 82. Patient has venous stasis dermatitis secondary to chronic lymphedema. There is a flap laceration anterior left leg. There is no erythema, warmth, fluctuance, drainage or lymphangitis. DP PT pulses are palpable. There is no pain the patient over the tibia or fibula. Test Results: None Emergency Department Course and Treatment: The wound was anesthetized with 1% lidocaine for local nutrition. The wound was irrigated with 200 cc of normal saline. The wound was closed using luisana. The wound was then cleansed. Bacitracin was applied followed by a non-adhesive dressing. The area was then Escobar wrapped. Treatment Plan: Keep wound absolutely clean and dry for the next 48 hours. [place] out in 14 days. Disposition: Discharged to home with spouse in stable improved condition Impression: 4.8 cm laceration anterior left leg initial encounter This note was generated with [employer] dictation software. It may contain incorrect words, spelling, and punctuation that were not noted in review of the chart prior to signing ED Disposition - Plan for ED Patient: Disposition: Home or Assisted Living Chief Complaint: Laceration Instructions: ED Laceration Ext Sutr Stap Tape Referrals: Almas Schmidt Chi, MD [Primary Care Provider] - 10-14 Days suture removal Additional Instructions: Keep dressing absolutely clean and dry for the next 48 hours. Change dressing twice a day. Sutures out in 14 days April 05.
[2018-03-22 23:18] VITALS: RESP 18
== END 2018-03-22 23:20 | disposition home or self-care (01) ==
PROVIDERS: Emergency Provider Emergency Medicine; Family Provider Family Medicine Geriatric Medicine; PCP Family Medicine Geriatric Medicine
DX: S81.812A Laceration without foreign body, left lower leg, initial encounter (principal); W22.8XXA Striking against or struck by other objects, initial encounter; Y93.9 Activity, unspecified; Y92.9 Unspecified place or not applicable; E66.9 Obesity, unspecified; Z68.38 Body mass index [BMI] 38.0-38.9, adult; E78.00 Pure hypercholesterolemia, unspecified; Z79.899 Other long term (current) drug therapy
CPT/HCPCS: 12002; 99284

== ENCOUNTER → 2018-04-05 16:16 | Outpatient (CLI) | payer MEDICAID, SELFPAY ==
[2018-04-05 17:10] LABS: Absolute Lymphocyte Count 2.22 X10^3/ul (0.83-4.51); Absolute Neutrophil Count 5.9 X10^3/uL (2.0-7.7); Basophil# 0.03 X10^3/uL; Basophil% 0.3 % (0-1); Eosinophil# 0.11 X10^3/uL; Eosinophils% 1.2 % (0-5); Hematocrit 38.7 % (37-47); Hemoglobin 12.5 g/dl (12.0-15.0); Lymphocyte # 2.22 X10^3/ul (4.0); Lymphocyte % 24.5 % (19-41); Mean Corp Hgb Conc 32.3 g/gl (32-36); Mean Corpuscular Hgb 30.9 pg (27.0-32.0); Mean Corpuscular Volume 95.6 fL (81-99); Mean Platelet Vol. 11.4 fl (6.2-12.0); Monocyte# 0.82 X10^3/uL; Monocyte% 9.1 % (0-10); Neutrophil # 5.86 X10^3/uL (2.7-7.7); Neutrophil % 64.7 % (47-70); Platelet Count 239 K/mm3 (150-450); RBC Distribution Width CV 13.8 % (11.6-14.6); RBC Distribution Width SD 46.7 fl (35.1-43.9); Red Blood Count 4.05 M/mm3 (4.2-5.4); White Blood Count 9.1 K/mm3 (4.4-11.0)
[2018-04-05 17:33] LABS: ALB/GLOB Ratio 0.9 RATIO (0.9-2.4); AST(SGOT) 29 U/L (15-37); Alanine Aminotransfer ALT/SGPT 42 U/L (13-56); Albumin, Serum 3.4 g/dL (3.2-5.0); Alkaline Phosphatase 78 U/L (45-117); Anion Gap 4 (5-15); BUN 23 mg/dL (7-18); BUN/Creat Ratio 23.3 RATIO (10-20); Calcium,Total 8.6 mg/dL (8.5-10.1); Chloride 106 mmol/L (98-107); Creatinine, Serum 0.99 mg/dL (0.55-1.02); EST Glomerular Filtration Rate 62 mL/min (>60); Est Glom Filt Rate - Afr Amer 75 mL/min (>60); Globulin 3.7 g/dL (2.2-4.2); Glucose 110 mg/dL (74-106); Potassium 4.2 mmol/L (3.5-5.1); Protein, Total 7.1 g/dL (6.4-8.2); Sodium Level 140 mmol/L (136-145); Thyroid Stim Hormone (TSH) 0.65 uIU/mL (0.358-3.74); Vitamin D,25 Hydroxy 50.6 ng/mL (29.95-100.01)
[2018-04-05 18:17] LABS: POSITIVE COUNT NO; POSITIVE DIFFERENTIAL NO; POSITIVE MORPHOLOGY NO
== END ==
PROVIDERS: Family Provider Family Medicine Geriatric Medicine; PCP Family Medicine Geriatric Medicine; Visit Provider Family Medicine Geriatric Medicine
DX: E55.9 Vitamin D deficiency, unspecified (principal); R53.83 Other fatigue
CPT/HCPCS: 36415; 80053; 82306; 84443; 85025

== ENCOUNTER → 2018-04-08 16:25 | Outpatient (CLI) | payer MEDICAID, SELFPAY | PROVIDERS: Family Provider Family Medicine Geriatric Medicine; PCP Family Medicine Geriatric Medicine; Visit Provider Chiropractor | DX: M99.03 Segmental and somatic dysfunction of lumbar region (principal) | CPT/HCPCS: 72100 ==

== ENCOUNTER 2018-05-05 10:30 | Outpatient (RCR) | payer MEDICAID, SELFPAY ==
--- NOTE | 2018-04-08 18:43 | HP.PTEVAL_ITS ---
Patient's Visit Information LIANNA CHACKO is a 53 year old F referred to Physical Therapy by Almas Schmidt with a diagnosis of sciatica R. Date of Evaluation: 04/08/18 Physical Therapist: Ronan Nelson DPT, OC - Visit Plan Frequency: 2x /Week Duration: 4-6 Weeks Plan: 2x/week for 4-6 weeks for. 1. Monitor Frank ext ex for progression of forces/mobs if needed adn helpful. 2. DLS with postural focus. 3. remodelling flexion ex when no pain in leg]. May need to change to flexion bias , NS ex if leg pain persists. - Subjective Subjective: Had R sciatica for about a year and it is worsening. May have started with bending to pick something up and it has been over a year. Thought it was a pulled muscle and now it got worse and it can't sleep at night. Dr. Schmidt put her on meds whcih did not help and has quit taking some because they made her feel strange in head. Saw ER doctor who took her off the prednisone. Pain is R buttocks and down to R lateral ankle and it is constant but worse at times with steps, lying and rolling in bed or bending too much. Getting up from sitting is problematic. Saw chiropractor who ordered x ray. Sleep is OK now but sleeping pill has helped. 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 Home life makes steps harder. Was on vacation and lots of walking made her worse. - Pain R leg and buttock Pain Intensity (Out of 10): 4 Pain Intensity Range: 4, 9 Comment: rolling in bed worst - Objective reflexes 2/3 patella and achilles. sensation LE WNL to gross light touch. Strength LE 4/5 and symmetrical. LB AROM ext min limited and R pain, R SB hurts , L SB OK, flexion full and painfree. - slump and + SLR R. PA pressure L/S causes R leg symptoms transiently to wrosen. Posture is slouched FW and loss of lordosis in L/S. Repeated ext in lying seems to increae motion SB and ext but no change to pain. Walking is slightly limping on L as she has arthritic knee with brace and dressed cut on L [place]. - Goals Goal 1:: Full L/S AROM without pain Goal Time Frame: 4-6 Weeks Goal 2:: Patient report a 90% decrease in leg pain and 1/10 at worst Goal Time Frame: 4-6 Weeks Goal 3:: Sleep without waking due to pain. Goal Time Frame: 4-6 Weeks Goal 4:: I approp HEP to maintain improvements. Goal Time Frame: 4-6 Weeks - Rehabilitation Potential Physical Therapy Diagnosis: R sciatica, possibly discal pathology Rehabilitation Potential: Fair - Anticipated Interventions Patient/Client Instruction: Educate patient on: Condition, Plan of Care For the Purpose of:: To decrease pain, To increase ROM, To improve ability of physical actions for home/community/work/leisure Therapeutic Exercise to Include: Flexibilty training, Passive ROM, Active ROM, Dynamic Lumbar Stabilization, Frank Exercises For the Purpose of:: To decrease pain, To increase ROM Manual Therapy Techniques to Include: Mobilization Comment: ext For the Purpose of:: To decrease pain, To increase ROM TENS: Yes Thermo therapy (hot pack): Yes For the Purpose of:: To decrease pain, To increase ROM Thank you for the opportunity to evaluate your patient. For Medicare and Medicare HMO plans, please review the plan of care and approve it. It will need to be FAXED BACK to us at [phone] for Medicare purposes. Please let me know if there are questions or concerns regarding this plan of care. Physician Signature: Date:
--- NOTE | 2018-05-05 10:57 | HP.PTDCSUM ---
HP - PT D/C Summary It has been my pleasure to treat LIANNA CHACKO under orders from Almas Schmidt, for the diagnosis of sciatica R for a total of 8 visit(s). Discharge Date: 05/05/18 Please see the following information for a summary of their discharge status. - Subjective Subjective: Did exercises 8x/day bending to floor in chair and no change to overall pain. Sleeping is still hard when it comes to the pain. Pain lying to 8/10 at night and uses heat to try to relieve. Coughing increases pain. Pain still shoots in right leg and denies numbness or tingling. Weekly to 2x/week chirpractic is not helping. - Pain R leg and buttock Pain Intensity (Out of 10): 4 - Overall Improvement % Improvement: 10 - Objective Objective/Function: Spoke with Mary at doctor Dossis office regarding patient. LB AROM ext adn flexion still minimally limited and painful L LB, SB are painfree. strength in LE is symmetrical and 4/5. reflexes patella and achilles 2/3. Sensation WNL in LE grossly to light touch. Pt mildly frustrated with lack of improvement. SHE HAS WORKED AT THERAPY BUT SHOWN VERY LIMITED IMPROVEMENT. RECOMMEND BACK TO DOCTOR FOR NEXT MEDICAL STEP. - Goals Goal 1:: Full L/S AROM without pain Goal Progress: Not Progressing Goal 2:: Patient report a 90% decrease in leg pain and 1/10 at worst Goal Progress: Not Progressing Goal 3:: Sleep without waking due to pain. Goal Progress: Not Progressing Goal 4:: I approp HEP to maintain improvements. Goal Progress: Not Progressing - Plan Plan: D/C, pt to schedule back with Dr. Schmidt for next medical step. - D/C Information Discharge Comments: Pt not responding to PT, recommend back to doctor for next medical step due to patient's frustration with losing sleep to pain. If there are questions or concerns regarding this patient's physical therapy, please feel free to call me at [phone]. Thank you for the referral of this patient. Sincerely, Ronan Nelson, DPT, OC
== END 2018-05-05 19:00 | disposition home or self-care (01) ==
LOC: PT 10:30
PROVIDERS: Family Provider Family Medicine Geriatric Medicine; PCP Family Medicine Geriatric Medicine; Visit Provider Family Medicine Geriatric Medicine
DX: M54.30 Sciatica, unspecified side (principal); M99.03 Segmental and somatic dysfunction of lumbar region
CPT/HCPCS: 72100; 97110; 97140; 97162; 97530

== ENCOUNTER → 2018-05-11 12:32 | Outpatient (CLI) | payer MEDICAID, SELFPAY | PROVIDERS: Family Provider Family Medicine Geriatric Medicine; PCP Family Medicine Geriatric Medicine; Visit Provider Family Medicine Geriatric Medicine | DX: M51.86 Other intervertebral disc disorders, lumbar region (principal) | CPT/HCPCS: 72100 ==

== ENCOUNTER → 2018-08-03 13:36 | Outpatient (CLI) | payer MEDICAID, SELFPAY ==
[2018-05-05 11:07] VITALS: BMI 35.9
--- NOTE | 2018-08-03 13:38 | RAD_ITS ---
STUDY: X-RAY - LEFT KNEE REASON FOR EXAM: Pain. TECHNIQUE: 4 view(s) of the knee. COMPARISON: Radiographs 10/30/2017. FINDINGS: Normal visualized distal femur. Normal visualized proximal tibia and fibula. Normal proximal tibiofibular articulation. Normal medial femorotibial compartment. Normal lateral femorotibial compartment. Normal patellofemoral articulation. The soft tissue structures are unremarkable. RAD/Knee 4 or More Views IMPRESSION: Normal x-ray examination of the left knee. Electronically Signed: Lalo Pedro MD at 15:23 EST Tel , Service support ,
== END ==
PROVIDERS: Family Provider Family Medicine Geriatric Medicine; PCP Family Medicine Geriatric Medicine; Referring Provider Orthopaedic Surgery; Visit Provider Orthopaedic Surgery
DX: M25.562 Pain in left knee (principal)
CPT/HCPCS: 73564

== ENCOUNTER 2018-10-11 13:00 | Outpatient (RCR) | payer MEDICAID, SELFPAY ==
--- NOTE | 2018-08-10 13:49 | HP.PTEVAL ---
Patient's Visit Information LIANNA CHACKO is a 53 year old F referred to Physical Therapy by Zunilda Rachel DO with a diagnosis of Left knee OA. Date of Evaluation: 08/10/18 Physical Therapist: Laura Olivia - Visit Plan Frequency: 1x/Week Duration: 6 Weeks Plan: I HEP every 2 weeks - Subjective Findings: Gato reports the left knee has progressively gotten worse over the last few years. Saw Dr. Alan who sent her to therapy-it did not help- he wanted to scope the knee- Marielena declined it and they continued to send in documentation. Went to see Chiro which didnt help. Saw Dr. Auguste who told her she had to start at the beginning again- had an x-ray and she had to start therapy over again. She wants her to do 6 weeks of PT but only come a few times for a home exercise program. Does not have a HEP currently but does wear a brace. It doesn't help. Pain is located behind the knee cap- Worst: 05/24 Agg: steps (up is worse than down- tends to go down backwards), Rolling over in bed, walking Best: 10 Eases: hasn't found anything - had tried meds, ice, heat, brace. No radiating pain- Describes the pain as continuous pain is more of a shooting pain- but when its really bad it feels like a knife turning. Sounds of popping and grinding happen all the time. Does not feel the knee is getting any beter. Sleep: sometimes disturbed- back sleeper- no pillow under the knees normally but will if it gets really bad. No N/T in the toes. X-rays no current MRI. Patient reports the leg mani- thats why she uses the cane all the time. PMHx: thyroid, cholesterol Meds: synthroid, cholesterol medication, estaloprin - Objective Posture: Fh, rs, increased kyphosis. Gait: slightly antalgic- quad cane- decreased stance on the left LE with poor heel/toe pattern. Stairs: non recip with 1 HR and quad cane and reports pain and buckling. HR/TR: able but reports pain and requires UE A. SLS: unable but can weight shift. Sensation: WNL. ROM:0-110 with pain at end range. Strength: Ankle: 5/5, Knee:4+/5, Hip: 4-/5 throughout - Goals Goal 1:: Patient will be I with HEP and progression Goal Time Frame: 2-4 Weeks Goal 2:: Patient will ambulate >300 feet with LRD and normalized gait pattern Goal Time Frame: 4-6 Weeks Goal 3:: Patient will asc/desc 8 stairs recip with 1 HR and cane Goal 4:: Patient will demo 5/5 strength in LE Goal Time Frame: 4-6 Weeks - Rehabilitation Potential Physical Therapy Diagnosis: Patient presents with hypomobility- she has decreased strength, flexibility and muscular endurance leading to abnormal gait and increased pain with ADL's. Rehabilitation Potential: Fair - Anticipated Interventions Patient/Client Instruction: Educate patient on: Benefits of Fitness Program Therapeutic Exercise to Include: Strength training, Endurance training, Balance training, Body mechanics, Postural training, Flexibilty training, Gait and locomotor training, Dynamic Lumbar Stabilization Thank you for the opportunity to evaluate your patient. For Medicare and Medicare HMO plans, please review the plan of care and approve it. It will need to be FAXED BACK to us at [phone] for Medicare purposes. For Medicare only, by signing this I certify the plan of care. Please let me know if there are questions or concerns regarding this plan of care. Physician Signature: Date:
--- NOTE | 2018-09-10 11:05 | HP.PTEVAL2_ITS ---
Patient's Visit Information LIANNA CHACKO is a 53 year old F referred to Physical Therapy by Zunilda Rachel DO with a diagnosis of LUMBAR PAIN, LUMBOSACRAL RADICULOPATHY, ARTHROPATHY OF LUMBAR FACET JOINT.. Date of Evaluation: 09/10/18 Physical Therapist: Hannah Doherty, PT, Cert MDT - Visit Plan Frequency: 2-3x /Week Duration: 4-6 Weeks Plan: LUMBAR US, E-STIM WITH MH AND STM. POSTURE CORRECTION/STRENGTHENING, INSTRUCTION IN APPROPRIATE BODY MECHANICS AND ACTIVITY MODIFICATIONS. DLS STARTING WITH A NEUTRAL SPINE PROGRESSING ROM TOLERATED. OSKAR LE ROM, STRETCHING AND STRENGTHENING. HEP INSTRUCTION. 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 Disability: YES. ON DISABILITY SINCE APR 2018 FOR MULTIPLE CONDITIONS. Present symptoms: RIGHT LOW BACK AND HIP PAIN. PAIN RADIATING DOWN RIGHT LE TO ANKLE. NO NUMBNESS OR TINGLING. NO PAIN RADIATING DOWN LEFT LE BUT BUT LEFT TKR PENDING. Present since: MARCH 2017. Pain Scale: WORST 9/10, LEAST 5/10. Currently: 6/10. 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 Symptoms at onset: RIGHT BACK. Worse: BENDING, LYING IN BED, TWISTING, TURNING, STEPS, SITTING, GETTING IN/OUT OF VEHICLES, WALKING, LIFTING, AND LAUNDRY, DISHES AND PROLONGED STANDING. Better: NOT TOO MUCH OF ANYTHING HEAT. Disturbed sleep: YES. Previous history/Previous treatment: UNREMARABLE PRIOR TO ONE YEAR AGO. THIS EPISODE SAW DR. CHEATHAM ABOUT 2 TIMES A WEEK FOR 6 WEEKS STARTING IN APR 2018 BUT DIDN'T HELP SO WENT TO PAIN MGMT. NO PAIN MGMT PROCEEDURES YET. NO BACK SURGERY. NO RUSSEL'S. Coughing/sneezing/straining: POSTITIVE. Gait: TIME AND DISTANCE LIMITED. PATIENT REPORTS THAT EVERY TIME SHE STEPS WITH HER RIGHT LEG IT HURTS HER BACK. THE MORE SHE USES HER RIGHT LEG THE WORSE HER PAIN GETS. WALKING SOMETIMES CAUSES SHARP RIGHT LOW BACK PAIN. USES A CANE DUE TO BACK PAIN AND LEFT KNEE PAIN. THE BACK PAIN CAUSE HER TO LIMP. Difficulty initiating urinatin: NO. Accidents: NO. Unexplained weight loss: NO. Imaging: YES - LUMBAR X-RAY APR 2018 - COMPLETELY NORMAL - SEE [facility] EMR. PMH: SEE BELOW. TALKING ABOUT DOING A LEFT TKR SOON. CURRENTLY DEALING WITH CYSTS IN MOUTH FROM UNKNOWN CAUSE AND MAY NEED SURGERY. PLOF (Prior Level of Function): BEGINNING OF THIS YEAR STARTED HAVING PAIN FURTHER DOWN THE RIGHT LEG AND MORE TROUBLW WALKING. WORSENING. STARTED USING THE CANE IN JANUARY 2018. HAS NOT FALLEN SINCE GOT CANE. OTHER: PATIENT REPORTS SHE HAS HAD TO MODIFY HER EX'S FOR HER LEFT KNEE DUE TO THEM INCREASING HER BACK PAIN. - Objective Objective: Sitting/Standing Posture: POOR. Lordosis: REDUCED. Lateral shift: NO. Relevant shift: N/A. Active Correction of posture: WORSE. Other Observations: INDEP ANTALGIC GAIT INTO PT WITH STRAIGHT CANE IN RIGHT UE DUE TO LEFT KNEE PAIN MAINLY BUT ALSO DUE TO RANDOM PAINS DOWN RIGHT LE. PATIENT WALKS WITH DECREASED CADNACE, INCREASED TRUNK FLEXION AND DECREASED OSKAR STRIDE LENGTH. PATIENT UNABLE TO TRANSFER SIT TO STAND WITHOUT UE ASSIST. Motor deficit: LLE NT. PATIENT CURRENTLY IN PT HERE WITH BEULAH RANSOM FOR LEFT KNEE. Sensory deficit: OSKAR LE LIGHT TOUCH SENSATION INTACT AND SYMMETRICAL. ROM deficit: RIGHT LE WFL. Reflexes: 2/3. Dural Signs: POSITIVE RIGHT LE. Lumbar mvmt loss: flex - MIN - INCREASES RIGHT LBP. ext - JAMA - INCREASES RIGHT LBP. R SG - JAMA - INCREASES RIGHT LBP. L SG - MOD - INCREASES RIGHT LBP. Core strength: POOR. Palpation: NO ACUTE TENDERNESS WITH PALPATION OF THE LOWER THORACIC, ENTIRE LUMBAR, SACRAL AND RIGHT HIP REGIONS AND INTO BUTTOCKS. - Goals Goal 1:: DECREASE C/O RIGHT LOW BACK AND LE PAIN Goal Time Frame: 4-6 Weeks Goal 2:: IMPROVE SITTING, STANDING, WALKING, LYING DOWN, SLEEP, BENDING, LIFTING, ADL, TRANSFER AND STAIR CLIMBING FUNCTION Goal Time Frame: 4-6 Weeks Goal 3:: INSTRUCT IN PROPHYLAXIS Goal Time Frame: 4-6 Weeks - Rehabilitation Potential Rehabilitation Potential: Fair - Anticipated Interventions Patient/Client Instruction: Educate patient on: Condition, Plan of Care, Risk Factors, Benefits of Fitness Program For the Purpose of:: To improve self management Therapeutic Exercise to Include: Strength training, Body mechanics, Postural training, Flexibilty training, Gait and locomotor training, Active ROM, Dynamic Lumbar Stabilization For the Purpose of:: To decrease pain, To increase ROM, To improve muscle performance and motor function, To increase tolerance to activity/condition/position, To improve ability of physical actions for home/community/work/leisure, To improve gait and locomotor functions Manual Therapy Techniques to Include: Soft tissue mobilization For the Purpose of:: To decrease pain, To improve nutrient delivery to tissue TENS: Yes IF ES: Yes Cryotherapy (ice pack, ice massage): Yes Thermo therapy (hot pack): Yes Ultrasound (thermal/non thermal): Yes For the Purpose of:: To decrease pain, To decrease swelling/inflammation, To increase ROM, To improve nutrient delivery to tissue Thank you for the opportunity to evaluate your patient. For Medicare and Medicare HMO plans, please review the plan of care and approve it. It will need to be FAXED BACK to us at [phone] for Medicare purposes. For Medicare only, by signing this I certify the plan of care. Please let me know if there are questions or concerns regarding this plan of care. Physician Signature: Date:
--- NOTE | 2018-09-10 11:16 | HP.PTDCSUM ---
HP - PT D/C Summary It has been my pleasure to treat LIANNA CHACKO under orders from Zunilda Rachel DO, for the diagnosis of Left knee OA for a total of 3 visit(s). Discharge Date: Please see the following information for a summary of their discharge status. - Subjective Subjective: Has a pinched nerve in her back and is going to see PT Hannah Doherty 3x a week for 3 weeks. The knee is not getting any better- had to revise the exercises due to her back pain. No changes. Sees Dr. Hudson in the next few weeks and she is hoping that he is going to get the knee taken care of. Worst: 04/23 Agg: walking, turning, steps Eases: nothing Best: 01/21. - Objective Objective/Function: Posture: Fh, rs, increased kyphosis- does not correct with verbal cueing. Gait: slightly antalgic- quad cane- decreased stance on the left LE with poor heel/toe pattern. Stairs: non recip with 1 HR and quad cane descend she turns her body to the right. HR/TR: able but reports pain and requires UE A. SLS: able for appox 3 seconds then required UE A and putting the other foot down and reports pain. Sensation: WNL. ROM:0-110 with pain at end range. Strength: Ankle: 5/5, Knee:4+/5, Hip: 4-/5 throughout all knee and ankle strength increases pain - Goals Goal 1:: Patient will be I with HEP and progression Goal Progress: Goal Met Goal 2:: Patient will ambulate >300 feet with LRD and normalized gait pattern Goal Progress: Not Progressing Goal 3:: Patient will asc/desc 8 stairs recip with 1 HR and cane Goal Progress: Not Progressing Goal 4:: Patient will demo 5/5 strength in LE Goal Progress: Not Progressing - Plan Plan: Discharge to MD for further evaluation - D/C Information If there are questions or concerns regarding this patient's physical therapy, please feel free to call me at [phone]. Thank you for the referral of this patient. Sincerely, Laura Olivia DPT
--- NOTE | 2018-10-01 14:53 | HP.PTREVAL ---
Zunilda Rachel, DO, It has been my pleasure to treat LIANNA CHACKO over the last 3 visits for Left knee OA. Please see the progress note below for an update on the physical therapy plan of care! Subjective: Has a pinched nerve in her back and is going to see PT Hannah Doherty 3x a week for 3 weeks. The knee is not getting any better- had to revise the exercises due to her back pain. No changes. Sees Dr. Hudson in the next few weeks and she is hoping that he is going to get the knee taken care of. Worst: 04/23 Agg: walking, turning, steps Eases: nothing Best: 01/21. Objective/Function: Posture: Fh, rs, increased kyphosis- does not correct with verbal cueing. Gait: slightly antalgic- quad cane- decreased stance on the left LE with poor heel/toe pattern. Stairs: non recip with 1 HR and quad cane descend she turns her body to the right. HR/TR: able but reports pain and requires UE A. SLS: able for appox 3 seconds then required UE A and putting the other foot down and reports pain. Sensation: WNL. ROM:0-110 with pain at end range. Strength: Ankle: 5/5, Knee:4+/5, Hip: 4-/5 throughout all knee and ankle strength increases pain Plan Plan: Discharge to MD for further evaluation Goals Goal 1:: Patient will be I with HEP and progression Goal Time Frame: 2-4 Weeks Goal Progress: Goal Met Goal 2:: Patient will ambulate >300 feet with LRD and normalized gait pattern Goal Time Frame: 4-6 Weeks Goal Progress: Not Progressing Goal 3:: Patient will asc/desc 8 stairs recip with 1 HR and cane Goal Progress: Not Progressing Goal 4:: Patient will demo 5/5 strength in LE Goal Time Frame: 4-6 Weeks Goal Progress: Not Progressing Anticipated Interventions Patient/Client Instruction: Educate patient on: Benefits of Fitness Program Therapeutic Exercise to Include: Strength training, Endurance training, Balance training, Body mechanics, Postural training, Flexibilty training, Gait and locomotor training, Dynamic Lumbar Stabilization Please do not hesitate to contact me at [phone] by phone or if you have questions or concerns regarding this new plan of care! Sincerely, Hannah Doherty, PT, Cert MDT
--- NOTE | 2018-10-01 14:58 | HP.PTRE(2) ---
Zunilda Rachel, DO, It has been my pleasure to treat LIANNA CHACKO over the last 7 visits for LUMBAR PAIN, LUMBOSACRAL RADICULOPATHY, ARTHROPATHY OF LUMBAR FACET JOINT.. Please see the progress note below for an update on the physical therapy plan of care! Subjective: PATIENT REPORTS HER LOW BACK PAIN IS GOOD. HOME EX PROGRAM IS GOING GOOD. NOT EVEN HAVING LEFT KNEE PAIN. SHE REPORTS SHE IS WALKING BETTER AND EVEN PLANS TO GROCERY SHOP AFTER PT SESSION TODAY. PATIENT REPORTS HER BACK PAIN IS TO ALMOST ZERO NOW BUT THERE IS SOMETHING LITTLE STILL THERE. PATIENT REPORTS THE TREATMENTS HAVE HELPED A LOT AND WOULD LIKE TO TRY ONE MORE US IF POSSIBLE. STATES SHE BROUGHT HER CANE TODAY DUE TO RECENT ORAL SURGERY BUT STATES SHE REALLY DOESN'T NEED IT ANYMORE. STATES HER LEGS HAVE NOT BEEN GIVING OUT ON HER AND SHE CAN GO UP AND DOWN STEPS NORMALLY NOW. PATIENT REPORTS SHE HAD A FOLLOW UP WITH DR. GRANT SHE DECLINED MRI BECAUSE SHE IS SO MUCH BETTER. SHE PLANS TO FOLLOW UP WITH PAIN MGMT 10/13/18 AND HOPING TO BE DISCHARGED. PATIENT REPORTS SHE IS AFRAID TO STOP PT TOO SOON THOUGH. Objective/Function/Assessment: PATIENT TOLERATED NEW EX'S WELL. WRITTEN INSTRUCTIONS GIVEN. NO PAIN AT DEPARTURE. GREAT PROGRESS TOWARD ALL PT GOALS. UPON EXAM TODAY: PATIENT DEMO'S INDEP AND SAFE GAIT INTO PT WITHOUT DEPENDENCE ON CANE. SHE IS ABLE TO TRANSFER INDEP'LY FROM SIT TO STAND WITHOUT UE ASSIST. SHE IS ABLE TO BALANCE ON EACH LE X > 10 SEC WITHOUT UE OTTONIEL OR LOB. Motor deficit: OSKAR LE STRENGTH 5/5 WITH MMT'ING. Sensory deficit: OSKAR LE LIGHT TOUCH SENSATION INTACT AND SYMMETRICAL. ROM deficit: OSKAR LE'S WFL. Dural Signs: NEGATIVE OSKAR LE'S. Lumbar mvmt loss: flex - MIN. ext - MIN. R SG - MIN. L SG - MIN. PATIENT DENIES INCREASED PAIN WITH TESTING. Core strength: POOR. Palpation: NO ACUTE TENDERNESS. Plan Plan: CONT PER POC X 2-4 MORE WEEKS TO PROGRESS HEP FOR CORE AND LE STRENGTH AND STABILITY TOLERATED. PATIENT IS AGREEABLE. Goals - Goals Goal 1:: DECREASE C/O RIGHT LOW BACK AND LE PAIN Goal Time Frame: 4-6 Weeks Goal 2:: IMPROVE SITTING, STANDING, WALKING, LYING DOWN, SLEEP, BENDING, LIFTING, ADL, TRANSFER AND STAIR CLIMBING FUNCTION Goal Time Frame: 4-6 Weeks Goal 3:: INSTRUCT IN PROPHYLAXIS Goal Time Frame: 4-6 Weeks Anticipated Interventions Patient/Client Instruction: Educate patient on: Condition, Plan of Care, Risk Factors, Benefits of Fitness Program For the Purpose of:: To improve self management Therapeutic Exercise to Include: Strength training, Body mechanics, Postural training, Flexibilty training, Gait and locomotor training, Active ROM, Dynamic Lumbar Stabilization For the Purpose of:: To decrease pain, To increase ROM, To improve muscle performance and motor function, To increase tolerance to activity/condition/position, To improve ability of physical actions for home/community/work/leisure, To improve gait and locomotor functions Manual Therapy Techniques to Include: Soft tissue mobilization For the Purpose of:: To decrease pain, To improve nutrient delivery to tissue TENS: Yes IF ES: Yes Cryotherapy (ice pack, ice massage): Yes Thermo therapy (hot pack): Yes Ultrasound (thermal/non thermal): Yes For the Purpose of:: To decrease pain, To decrease swelling/inflammation, To increase ROM, To improve nutrient delivery to tissue Please do not hesitate to contact me at [phone] by phone or if you have questions or concerns regarding this new plan of care! Sincerely, Hannah Doherty, PT, Cert MDT
[2018-10-06 17:23] LABS: Absolute Lymphocyte Count 2.02 X10^3/ul (0.83-4.51); Basophil# 0.03 X10^3/uL; Basophil% 0.4 % (0-1); Eosinophil# 0.21 X10^3/uL; Hematocrit 38.6 % (37-47); Hemoglobin 12.5 g/dl (12.0-15.0); Lymphocyte # 2.02 X10^3/ul (4.0); Lymphocyte % 28.8 % (19-41); Mean Corp Hgb Conc 32.4 g/gl (32-36); Mean Corpuscular Hgb 31.7 pg (27.0-32.0); Mean Platelet Vol. 11.9 fl (6.2-12.0); Monocyte# 0.75 X10^3/uL; Monocyte% 10.7 % (0-10); Neutrophil # 3.99 X10^3/uL (2.7-7.7); Platelet Count 212 K/mm3 (150-450); RBC Distribution Width CV 13.3 % (11.6-14.6); Red Blood Count 3.94 M/mm3 (4.2-5.4)
[2018-10-06 17:34] LABS: POSITIVE COUNT NO; POSITIVE DIFFERENTIAL NO; POSITIVE MORPHOLOGY NO
[2018-10-06 17:42] LABS: Vitamin D,25 Hydroxy 50.3 ng/mL (29.95-100.01)
[2018-10-06 17:52] LABS: ALB/GLOB Ratio 1.1 RATIO (0.9-2.4); AST(SGOT) 20 U/L (15-37); Alanine Aminotransfer ALT/SGPT 31 U/L (13-56); Albumin, Serum 3.7 g/dL (3.2-5.0); Alkaline Phosphatase 73 U/L (45-117); Anion Gap 9 (5-15); BUN 14 mg/dL (7-18); BUN/Creat Ratio 13.1 RATIO (10-20); Calcium,Total 9.2 mg/dL (8.5-10.1); Chloride 105 mmol/L (98-107); Creatinine, Serum 1.07 mg/dL (0.55-1.02); EST Glomerular Filtration Rate 56 mL/min (>60); Est Glom Filt Rate - Afr Amer 68 mL/min (>60); Globulin 3.4 g/dL (2.2-4.2); Glucose 105 mg/dL (74-106); Potassium 4.2 mmol/L (3.5-5.1); Protein, Total 7.1 g/dL (6.4-8.2); Sodium Level 143 mmol/L (136-145); Uric Acid 5.4 mg/dL (2.6-6.0)
--- NOTE | 2018-10-11 13:59 | HP.PTDCS(2) ---
HP - PT D/C Summary (2) It has been my pleasure to treat LIANNA CHACKO under orders from Zunilda Rachel DO, for the diagnosis of LUMBAR PAIN, LUMBOSACRAL RADICULOPATHY, ARTHROPATHY OF LUMBAR FACET JOINT. for a total of 10 visit(s). Discharge Date: Please see the following information for a summary of their discharge status. - Subjective Subjective: PATIENT REPORTS SHE IS DOING A LOT BETTER OVER-ALL. SHE IS PLANNING A TRIP TO SEE HER SISTER IN [place] AND SHE IS GOING TO FLY. SHE REPORTS SHE ISN'T SURE WHAT GYM SHE IS GOING TO JOIN YET BUT PLANS TO CONTINUE HER HEP IN THE MEAN TIME. PATIENT REPORTS PARENTS ARE BACK FROM [place] VACATION AND SURPRISED TO SEE HOW GOOD PATIENT IS DOING AND THAT SHE IS NOT USING HER CANE ANYMORE. - Overall Improvement % Improvement: 85 - Objective Objective/Function/Assessment: NO PAIN POST SESSION. ALL GOALS MET. D/C TO INDEP HOME AND/OR GYM EX. UPON EXAM TODAY: PATIENT DEMO'S INDEP AND SAFE GAIT INTO PT WITHOUT AD. SHE IS ABLE TO TRANSFER INDEP'LY FROM SIT TO STAND WITHOUT UE ASSIST. Motor deficit: OSKAR LE STRENGTH 5/5 WITH MMT'ING. Sensory deficit: OSKAR LE LIGHT TOUCH SENSATION INTACT AND SYMMETRICAL. ROM deficit: OSKAR LE'S WFL. Dural Signs: NEGATIVE OSKAR LE'S. Lumbar mvmt loss: flex - MIN. ext - MIN. R SG - MIN. L SG - MIN. PATIENT DENIES INCREASED PAIN WITH TESTING. Core strength: POOR - Goals Patient Goals: Improve Mobility, Improve Function, Decrease Pain, Walk Normal, Maneuver Steps, Improve ROM, Sleep Normal Goal 1:: DECREASE C/O RIGHT LOW BACK AND LE PAIN Goal Progress: Goal Met Goal 2:: IMPROVE SITTING, STANDING, WALKING, LYING DOWN, SLEEP, BENDING, LIFTING, ADL, TRANSFER AND STAIR CLIMBING FUNCTION Goal Progress: Goal Met Goal 3:: INSTRUCT IN PROPHYLAXIS Goal Progress: Goal Met - Plan Plan: D/C - PATIENT AGREEABLE. - D/C Information If there are questions or concerns regarding this patient's physical therapy, please feel free to call me at [phone]. Thank you for the referral of this patient. Sincerely, Hannah Doherty, PT, Cert MDT
== END 2018-10-11 19:00 | disposition home or self-care (01) ==
LOC: PT 13:00
PROVIDERS: Family Provider Family Medicine Geriatric Medicine; PCP Family Medicine Geriatric Medicine; Referring Provider Orthopaedic Surgery; Visit Provider Orthopaedic Surgery
DX: M22.42 Chondromalacia patellae, left knee (principal); M17.12 Unilateral primary osteoarthritis, left knee
CPT/HCPCS: 36415; 80053; 82306; 84443; 84550; 85025; 97014; 97035; 97110; 97161; 97164; 97530; G0283

== ENCOUNTER → 2018-11-20 10:39 | Outpatient (CLI) | payer MEDICAID, SELFPAY ==
[2018-05-05 11:07] VITALS: BMI 35.9
--- NOTE | 2018-11-20 10:46 | BI_ITS ---
MAMMOGRAPHY - BILATERAL SCREENING REASON FOR EXAM: Female, 53 years old. Routine annual screening examination. PERTINENT HISTORY: Grandmother with breast cancer. Aunt with breast cancer. Prior left stereotactic breast biopsy and left ultrasound-guided breast biopsy. TECHNIQUE: Digital bilateral breast jeison (3D mammographic acquisition) in the CC and MLO projections. 2-D mediolateral oblique (MLO) and craniocaudad (CC) views of both breasts were obtained. CAD: Full Field Digital Mammography with Computer Added Detection was performed. COMPARISON: Comparison is made with prior study dated November 03, 2016 and October 03, 2014. FINDINGS: Breast Composition: The breasts are heterogeneously dense, which may obscure small masses. There are no dominant masses or suspicious calcifications. A tissue clip marker is once again seen in the slightly upper lateral aspect of the left breast. No other significant abnormalities are identified. There has been no significant change since the prior study. BI/SCREENING MAMM (CAD), BILAT IMPRESSION: Stable bilateral screening mammogram. Yearly follow-up mammogram recommended. (A) ASSESSMENT CATEGORY: BIRADS Category 2: Benign. A letter regarding these results will be sent to the patient by the facility within 30 days. Approximately 10% of breast cancers are not detected by mammography. A normal mammogram should not delay biopsy of a clinically suspicious abnormality. [id number] Electronically Signed: Galileo Overton, at 10:20 EDT , Service support ,
== END ==
PROVIDERS: Family Provider Family Medicine Geriatric Medicine; PCP Family Medicine Geriatric Medicine; Visit Provider Family Medicine Geriatric Medicine
DX: Z12.31 Encounter for screening mammogram for malignant neoplasm of breast (principal); Z80.3 Family history of malignant neoplasm of breast
CPT/HCPCS: 77063; 77067

== ENCOUNTER → 2018-11-30 16:40 | Outpatient (CLI) | payer SELFPAY ==
--- NOTE | 2018-11-30 17:10 | RAD_ITS ---
HISTORY: right second digit pain, swelling and pain in foot x 1 week COMPARISON: None FINDINGS: XR right foot 3 views No fracture, dislocation, or bony abnormality. Joint spaces appear preserved. No bony erosions. The plantar arch is maintained. As visualized, the soft tissues are negative. RAD/Foot min 3 Views IMPRESSION: Normal examination, right foot. at 0321 Reported and signed by: Salvador Silveira MD Electronically Signed: Salvador Silveira, at 3:20 EDT Tel , Service support ,
[2018-11-30 17:37] LABS: Absolute Lymphocyte Count 2.47 X10^3/ul (0.83-4.51); Absolute Neutrophil Count 3.5 X10^3/uL (2.0-7.7); Basophil# 0.03 X10^3/uL; Basophil% 0.4 % (0-1); Eosinophil# 0.12 X10^3/uL; Eosinophils% 1.7 % (0-5); Hematocrit 39.9 % (37-47); Hemoglobin 12.5 g/dl (12.0-15.0); Lymphocyte # 2.47 X10^3/ul (4.0); Mean Corp Hgb Conc 31.3 g/gl (32-36); Mean Corpuscular Hgb 30.5 pg (27.0-32.0); Mean Corpuscular Volume 97.3 fL (81-99); Mean Platelet Vol. 11.7 fl (6.2-12.0); Monocyte# 0.72 X10^3/uL; Monocyte% 10.5 % (0-10); Neutrophil # 3.52 X10^3/uL (2.7-7.7); Neutrophil % 51.3 % (47-70); Platelet Count 222 K/mm3 (150-450); RBC Distribution Width CV 13.1 % (11.6-14.6); RBC Distribution Width SD 45.4 fl (35.1-43.9); White Blood Count 6.9 K/mm3 (4.4-11.0)
[2018-11-30 17:58] LABS: POSITIVE COUNT NO; POSITIVE DIFFERENTIAL NO; POSITIVE MORPHOLOGY NO
[2018-11-30 18:02] LABS: Anion Gap 8 (5-15); BUN 17 mg/dL (7-18); BUN/Creat Ratio 17.6 RATIO (10-20); CRP < 2.90 mg/L (0.0-3.0); Chloride 105 mmol/L (98-107); Creatinine, Serum 0.97 mg/dL (0.55-1.02); EST Glomerular Filtration Rate 64 mL/min (>60); Erythrocyte Sedimentation Rate 9 mm/hr (0-30); Est Glom Filt Rate - Afr Amer 77 mL/min (>60); Glucose 95 mg/dL (74-106); Potassium 4.3 mmol/L (3.5-5.1); Sodium Level 141 mmol/L (136-145)
[2018-11-30 19:57] LABS: M R Staph aureus DNA By PCR Negative (Negative); Staph aureus DNA By PCR POSITIVE (Negative)
[2018-11-30 19:58] LABS: Probe Check PASS
== END ==
LOC: POLAB3 16:41 → RAD 16:59
PROVIDERS: Family Provider Family Medicine Geriatric Medicine; PCP Family Medicine Geriatric Medicine; Referring Provider Family Medicine Geriatric Medicine; Visit Provider Family Medicine Geriatric Medicine
DX: M79.671 Pain in right foot (principal); L03.039 Cellulitis of unspecified toe; L03.119 Cellulitis of unspecified part of limb; B95.62 Methicillin resistant Staphylococcus aureus infection as the cause of diseases classified elsewhere
CPT/HCPCS: 36415; 73630; 80048; 85025; 85652; 86140; 87070; 87077; 87186; 87205; 87640

== ENCOUNTER → 2019-03-24 12:52 | Outpatient (CLI) | payer OTHER, SELFPAY ==
[2019-03-08 12:11] VITALS: BMI 38.7
--- NOTE | 2019-03-24 12:55 | ECHOCS_ITS ---
Reason For Study: DYSPNEA Procedure This was a 2D Doppler, Color Flow transthoracic echocardiogram. The exam was of fair technical quality due to body habitus. Exam performed in department. Left Ventricle Normal LV size. Left ventricular systolic function is normal. The estimated ejection fraction is 65 %. Stage 2 diastolic dysfunction. No regional wall motion abnormalities noted. Right Ventricle Normal RV size. Normal systolic function. Atria The left atrium is mildly enlarged. Normal right atrium. Mitral Valve Normal mitral valve. Tricuspid Valve Normal tricuspid valve. Aortic Valve Normal aortic valve. Pulmonic Valve Normal pulmonic valve. Great Vessels Normal aortic root. The pulmonary artery is normal size. Normal inferior vena cava. Pericardium/Pleural No pericardial effusion. Medication 22 gauge I.V. with prn adaptor inserted into right arm. Diluted definity 2ml given slow IV push to enhance endocardial definition. MMode/2D Measurements & Calculations LVIDd: 4.7 cm IVSd: 0.73 cm Ao root diam: 2.8 cm LVIDs: 3.6 cm LVPWd: 0.73 cm RVDd: 3.3 cm FS: 23.9 % LAV(MOD-bp): 54.2 ml EDV(MOD-sp4): 103.7 ml EDV(MOD-sp2): 113.9 ml LAV(MOD-bp) Indexed: 25.4 ml/m2 ESV(MOD-sp4): 43.4 ml EF(MOD-sp2): 68.0 % LAV(MOD-sp2): 39.1 ml EF(MOD-sp4): 58.1 % LAV(MOD-sp4): 63.8 ml SV(MOD-sp4): 60.2 ml SV(MOD-sp2): 77.4 ml LA A4 area: 21.5 cm2 LA dimension(2D): 3.6 cm RA A4 area: 13.8 cm2 Time Measurements MV dec time: 0.21 sec Doppler Measurements & Calculations MV E max radhames: 85.8 cm/sec Lat Peak E' Radhames: 11.3 cm/sec Med Peak E' Radhames: 10.3 cm/sec MV A max radhames: 44.4 cm/sec E/E' lat: 7.6 E/E' med: 8.4 MV E/A: 1.9 Ao V2 max: 147.1 cm/sec LV V1 max: 140.1 cm/sec PA V2 max: 101.9 cm/sec Ao max P.7 mmHg LV V1 max P.9 mmHg TR max radhames: 229.7 cm/sec TR max P.2 mmHg Interpretation Summary Normal LV size. Left ventricular systolic function is normal. The estimated ejection fraction is 65 %. Stage 2 diastolic dysfunction. Contrast injection was performed. Ordering Physician: Ronny Mallory Referring Physician: LITZY VILLEGAS CHI Performed By: Pooja Martinez, KELLY, RVT
== END ==
PROVIDERS: Family Provider Family Medicine Geriatric Medicine; PCP Family Medicine Geriatric Medicine; Referring Provider Internal Medicine Cardiovascular Disease; Visit Provider Internal Medicine Cardiovascular Disease
DX: R60.0 Localized edema (principal)
CPT/HCPCS: 93306; Q9957; A4216; C8929

== ENCOUNTER 2019-03-26 12:31 | Emergency (ER) | payer OTHER, SELFPAY ==
[2019-03-08 12:11] VITALS: BMI 38.7
[2019-03-26 12:32] VITALS: BP 117/66; PULSE 75; RESP 18; TEMP 36.2; O2SAT 95; BMI 38.9
--- NOTE | 2019-03-26 13:08 | ED.VIS.GEN ---
History of Present Illness Chief Complaint: Wound Informant: Patient Onset: Today Timing: Continuous Current Severity: Mild Maximum Severity: Mild Narrative: Patient has a chronic right lower extremity wound, it was healing well, she went swimming and the scab came off. Apparently it was getting slightly worse before that and she is now on antibiotics for the past 4 days. She has no fever chills or any other symptoms. She wants to make sure the infection is not any worse. Past Medical History - Allergies and Home Meds Allergies/Adverse Reactions: Allergies SHELFISH Allergy (Severe, Uncoded 03/26/19 12:35) Swelling tetanus shot Allergy (Mild, Uncoded 03/26/19 12:35) swelling Primary Care Physician: Almas Schmidt Chi, MD [Primary Care Provider] - Past Medical History: - - Hypercholesterolemia Smoking Status: Never smoker Review of Systems General: Denies: Fever Musculoskeletal: Reports: Extremity Pain Skin: Reports: Wounds Neurological: Denies: Weakness Hematologic: Denies: Easy bleeding Physical Exam Vital Signs/Narrative: Vital Signs Temp Pulse Resp BP Pulse Ox 03/26/19 12:32 97.2 F L 75 18 117/66 95 General: Well nourished, Well developed Cardiovascular: Regular rate, Regular rhythm Respiratory: No distress, CTA bilaterally Abdomen: Soft Back: Normal Inspection Extremities: - - There is a 2 cm wound lower extremity lateral mid tibial region. There is pink granulation tissue, there is no surrounding erythema, no Callard no signs of infection. Skin: - - As above Neurological: Normal Sensation Diagnostic/Tx/Re-eval - Medical Decision Making Patient is reassured, there is no signs of infections I will discharge her she is to continue her antibiotics. Discharge stable condition ED Disposition - Plan for ED Patient: Disposition: Home or Assisted Living Diagnosis: Wound dehiscence Instructions: Wound Care Referrals: Almas Schmidt Chi, MD [Primary Care Provider] - 3-5 Days
[2019-03-26 13:25] VITALS: RESP 18
== END 2019-03-26 13:26 | disposition home or self-care (01) ==
LOC: ED 13:19
PROVIDERS: Emergency Provider Emergency Medicine; Family Provider Family Medicine Geriatric Medicine; PCP Family Medicine Geriatric Medicine
DX: T81.30XA Disruption of wound, unspecified, initial encounter (principal)
CPT/HCPCS: 99282

== ENCOUNTER → 2019-04-07 08:51 | Outpatient (CLI) | payer OTHER, SELFPAY ==
[2019-03-26 12:32] VITALS: BMI 38.9
[2019-04-07 17:04] LABS: Absolute Lymphocyte Count 2.01 X10^3/uL (0.83-4.51); Absolute Neutrophil Count 3.5 X10^3/uL (2.0-7.7); Basophil# 0.03 X10^3/uL; Basophil% 0.5 % (0-1); Eosinophil# 0.12 X10^3/uL; Eosinophils% 1.9 % (0-5); Hematocrit 39.5 % (37-47); Hemoglobin 13.1 g/dL (12.0-15.0); Lymphocyte # 2.01 X10^3/ul (4.0); Lymphocyte % 32.2 % (19-41); Mean Corp Hgb Conc 33.2 g/dL (32-36); Mean Corpuscular Hgb 31.6 pg (27.0-32.0); Mean Corpuscular Volume 95.2 fL (81-99); Mean Platelet Vol. 11.9 fl (6.2-12.0); Monocyte# 0.63 X10^3/uL; Monocyte% 10.1 % (0-10); NRBC Flagged by Analyzer 0 % (0-5); Neutrophil # 3.45 X10^3/uL (2.7-7.7); Neutrophil % 55.1 % (47-70); Platelet Count 226 K/mm3 (150-450); RBC Distribution Width CV 12.9 % (11.6-14.6); RBC Distribution Width SD 45.3 fl (35.1-43.9); Red Blood Count 4.15 M/mm3 (4.2-5.4); White Blood Count 6.3 K/mm3 (4.4-11.0)
[2019-04-07 17:51] LABS: Vitamin D,25 Hydroxy 48.6 ng/mL (29.95-100.01)
[2019-04-07 18:02] LABS: ALB/GLOB Ratio 1.1 RATIO (0.9-2.4); AST(SGOT) 30 U/L (15-37); Alanine Aminotransfer ALT/SGPT 42 U/L (13-56); Albumin, Serum 3.8 g/dL (3.2-5.0); Alkaline Phosphatase 82 U/L (45-117); Anion Gap 9 (5-15); BUN 18 mg/dL (7-18); BUN/Creat Ratio 17.8 RATIO (10-20); Calcium,Total 8.9 mg/dL (8.5-10.1); Chloride 102 mmol/L (98-107); Creatinine, Serum 1.01 mg/dL (0.55-1.02); EST Glomerular Filtration Rate 60 mL/min (>60); Est Glom Filt Rate - Afr Amer 73 mL/min (>60); Globulin 3.6 g/dL (2.2-4.2); Glucose 109 mg/dL (74-106); Potassium 4.1 mmol/L (3.5-5.1); Protein, Total 7.4 g/dL (6.4-8.2); Sodium Level 140 mmol/L (136-145); Thyroid Stim Hormone (TSH) 1.62 uIU/mL (0.358-3.74); Uric Acid 6.7 mg/dL (2.6-6.0)
== END ==
PROVIDERS: Family Provider Family Medicine Geriatric Medicine; PCP Family Medicine Geriatric Medicine; Visit Provider Family Medicine Geriatric Medicine
DX: E55.9 Vitamin D deficiency, unspecified (principal); M10.9 Gout, unspecified; R53.83 Other fatigue
CPT/HCPCS: 36415; 80053; 82306; 84443; 84550; 85025

== ENCOUNTER → 2019-10-11 15:13 | Outpatient (CLI) | payer OTHER, SELFPAY ==
[2019-08-23 13:49] VITALS: BMI 35.8
[2019-10-11 16:52] LABS: Absolute Lymphocyte Count 2.14 X10^3/uL (0.83-4.51); Absolute Neutrophil Count 4.5 X10^3/uL (2.0-7.7); Basophil# 0.03 X10^3/uL; Basophil% 0.4 % (0-1); Eosinophil# 0.14 X10^3/uL; Eosinophils% 1.9 % (0-5); Hematocrit 39.3 % (37-47); Hemoglobin 12.8 g/dL (12.0-15.0); Lymphocyte # 2.14 X10^3/ul (4.0); Lymphocyte % 29.2 % (19-41); Mean Corp Hgb Conc 32.6 g/dL (32-36); Mean Corpuscular Hgb 32.2 pg (27.0-32.0); Mean Corpuscular Volume 98.7 fL (81-99); Mean Platelet Vol. 11.3 fl (6.2-12.0); Monocyte# 0.53 X10^3/uL; Monocyte% 7.2 % (0-10); NRBC Flagged by Analyzer 0 % (0-5); Neutrophil # 4.48 X10^3/uL (2.7-7.7); Neutrophil % 61.2 % (47-70); Platelet Count 228 K/mm3 (150-450); RBC Distribution Width SD 50.9 fl (35.1-43.9); Red Blood Count 3.98 M/mm3 (4.2-5.4); White Blood Count 7.3 K/mm3 (4.4-11.0)
[2019-10-11 17:12] LABS: Vitamin D,25 Hydroxy 58.2 ng/mL (29.95-100.01)
[2019-10-11 17:13] LABS: AST(SGOT) 23 U/L (15-37); Alanine Aminotransfer ALT/SGPT 37 U/L (13-56); Albumin, Serum 3.7 g/dL (3.2-5.0); Alkaline Phosphatase 80 U/L (45-117); Anion Gap 5 (5-15); BUN 21 mg/dL (7-18); BUN/Creat Ratio 17.4 RATIO (10-20); Calcium,Total 9.1 mg/dL (8.5-10.1); Chloride 103 mmol/L (98-107); Creatinine, Serum 1.21 mg/dL (0.55-1.02); EST Glomerular Filtration Rate 49 mL/min (>60); Est Glom Filt Rate - Afr Amer 59 mL/min (>60); Globulin 3.8 g/dL (2.2-4.2); Glucose 119 mg/dL (74-106); Potassium 3.6 mmol/L (3.5-5.1); Protein, Total 7.5 g/dL (6.4-8.2); Sodium Level 138 mmol/L (136-145); Thyroid Stim Hormone (TSH) 1.15 uIU/mL (0.358-3.74); Uric Acid 6.2 mg/dL (2.6-6.0)
== END ==
PROVIDERS: PCP Family Medicine Geriatric Medicine; Visit Provider Family Medicine Geriatric Medicine
DX: E55.9 Vitamin D deficiency, unspecified (principal); M10.9 Gout, unspecified; R53.83 Other fatigue
CPT/HCPCS: 36415; 80053; 82306; 84443; 84550; 85025

== ENCOUNTER → 2020-04-10 14:12 | Outpatient (CLI) | payer MEDICARE, SELFPAY ==
[2019-08-23 13:49] VITALS: BMI 35.8
[2020-04-10 15:49] LABS: Absolute Lymphocyte Count 2.01 X10^3/uL (0.83-4.51); Absolute Neutrophil Count 3.1 X10^3/uL (2.0-7.7); Basophil# 0.05 X10^3/uL; Basophil% 0.9 % (0-1); Eosinophil# 0.08 X10^3/uL; Eosinophils% 1.4 % (0-5); Hematocrit 39.9 % (37-47); Hemoglobin 12.8 g/dL (12.0-15.0); Lymphocyte # 2.01 X10^3/ul (4.0); Lymphocyte % 34.2 % (19-41); Mean Corp Hgb Conc 32.1 g/dL (32-36); Mean Corpuscular Hgb 31.8 pg (27.0-32.0); Monocyte% 10.2 % (0-10); NRBC Flagged by Analyzer 0 % (0-5); Neutrophil # 3.12 X10^3/uL (2.7-7.7); Neutrophil % 53.1 % (47-70); Platelet Count 228 K/mm3 (150-450); RBC Distribution Width SD 47.5 fl (35.1-43.9); Red Blood Count 4.03 M/mm3 (4.2-5.4); White Blood Count 5.9 K/mm3 (4.4-11.0)
[2020-04-10 16:17] LABS: Vitamin D,25 Hydroxy 56.8 ng/mL
[2020-04-10 16:21] LABS: AST(SGOT) 21 U/L (15-37); Alanine Aminotransfer ALT/SGPT 31 U/L (13-56); Albumin, Serum 3.6 g/dL (3.2-5.0); Alkaline Phosphatase 86 U/L (45-117); Anion Gap 1 (5-15); BUN 19 mg/dL (7-18); Calcium,Total 8.7 mg/dL (8.5-10.1); Chloride 106 mmol/L (98-107); EST Glomerular Filtration Rate 61 mL/min (>60); Est Glom Filt Rate - Afr Amer 74 mL/min (>60); Globulin 3.7 g/dL (2.2-4.2); Glucose 96 mg/dL (74-106); Potassium 4.1 mmol/L (3.5-5.1); Protein, Total 7.3 g/dL (6.4-8.2); Sodium Level 139 mmol/L (136-145); Thyroid Stim Hormone (TSH) 1.76 uIU/mL (0.358-3.74)
== END ==
PROVIDERS: PCP Family Medicine Geriatric Medicine; Visit Provider Family Medicine Geriatric Medicine
DX: E55.9 Vitamin D deficiency, unspecified (principal); M10.9 Gout, unspecified; R53.83 Other fatigue
CPT/HCPCS: 36415; 80053; 82306; 84443; 84550; 85025

== ENCOUNTER → 2020-05-10 17:45 | Outpatient (CLI) | payer MEDICARE, SELFPAY ==
[2019-08-23 13:49] VITALS: BMI 35.8
== END ==
PROVIDERS: PCP Family Medicine Geriatric Medicine; Referring Provider Family Medicine Geriatric Medicine; Visit Provider Family Medicine Geriatric Medicine
DX: R53.83 Other fatigue (principal)
CPT/HCPCS: 87635; U0003

== ENCOUNTER → 2020-07-18 10:59 | Outpatient (CLI) | payer MEDICARE, SELFPAY ==
[2020-05-17 14:21] VITALS: BMI 35.8
--- NOTE | 2020-07-18 13:41 | NEURO_ITS ---
NCS and/or EMG Patient Report Ordering Doctor: Almas Schmidt Chi DATE OF SERVICE: 07/18/20 Aleisha Abdul is a 55-year-old female who presents for electrodiagnostic testing of the upper limbs. She reports pain in both hands and wrists with some tingling in the left hand. Electrodiagnostic findings: Median motor nerve demonstrates normal distal latency, amplitude and conduction velocity bilaterally. Normal ulnar motor response bilaterally, including conduction across the elbow. Normal median and ulnar F waves. Sensory responses are normal bilaterally. Needle EMG, all muscles tested in the upper limbs show no evidence of denervation with normal motor unit action potentials. Electrodiagnostic assessment: This is a normal electrodiagnostic study in the upper limbs. There is no electrodiagnostic evidence for peripheral neuropathy, including carpal tunnel or cubital tunnel syndrome. There is no electrodiagnos tic evidence for cervical radiculopathy. If there are any further questions, please not hesitate to contact me.
== END ==
PROVIDERS: PCP Family Medicine Geriatric Medicine; Referring Provider Family Medicine Geriatric Medicine; Visit Provider Family Medicine Geriatric Medicine
DX: G56.00 Carpal tunnel syndrome, unspecified upper limb (principal); M79.642 Pain in left hand; M79.641 Pain in right hand
CPT/HCPCS: 95886; 95913

== ENCOUNTER → 2020-10-15 13:10 | Outpatient (CLI) | payer MEDICARE, SELFPAY ==
--- NOTE | 2020-10-15 13:57 | RAD_ITS ---
HISTORY: WATERY STOOLS X 6 MONTHS ADDITIONAL HISTORY: None. COMPARISON: None EXAMINATION/TECHNIQUE: XR Abdomen W/ Decub and/or Erect Views Number of images including paperwork: 3 FINDINGS: FREE AIR: None detected. BOWEL GAS PATTERN: Nonobstructive. CALCIFICATIONS: No definite urinary tract calculi. ORGANS: Prominent hepatic shadow. SOFT TISSUES: Unremarkable. BONES: No acute skeletal findings. DEVICES: None. RAD/Abd Inc Decub and/or Erect IMPRESSION: No acute abdominal abnormality is radiographically apparent. Hepatomegaly. at 0736 Reported and signed by: Marilee Zabala MD Electronically Signed: Marilee Zabala MD at 7:36 EST Tel , Service support ,
[2020-10-15 14:45] LABS: Absolute Lymphocyte Count 1.92 X10^3/uL (0.83-4.51); Absolute Neutrophil Count 3.7 X10^3/uL (2.0-7.7); Basophil# 0.04 X10^3/uL; Basophil% 0.6 % (0-1); Eosinophil# 0.11 X10^3/uL; Eosinophils% 1.7 % (0-5); Hematocrit 38.5 % (37-47); Hemoglobin 12.8 g/dL (12.0-15.0); Lymphocyte # 1.92 X10^3/ul (4.0); Lymphocyte % 29.6 % (19-41); Mean Corp Hgb Conc 33.2 g/dL (32-36); Mean Corpuscular Hgb 32.7 pg (27.0-32.0); Mean Corpuscular Volume 98.2 fL (81-99); Mean Platelet Vol. 11.4 fl (6.2-12.0); Monocyte# 0.75 X10^3/uL; Monocyte% 11.6 % (0-10); NRBC Flagged by Analyzer 0 % (0-5); Neutrophil # 3.66 X10^3/uL (2.7-7.7); Neutrophil % 56.3 % (47-70); Platelet Count 209 K/mm3 (150-450); RBC Distribution Width CV 13.6 % (11.6-14.6); RBC Distribution Width SD 48.8 fl (35.1-43.9); Red Blood Count 3.92 M/mm3 (4.2-5.4); White Blood Count 6.5 K/mm3 (4.4-11.0)
[2020-10-15 15:05] LABS: Vitamin D,25 Hydroxy 45.4 ng/mL
[2020-10-15 15:45] LABS: AST(SGOT) 18 U/L (15-37); Alanine Aminotransfer ALT/SGPT 32 U/L (13-56); Albumin, Serum 3.6 g/dL (3.2-5.0); Alkaline Phosphatase 84 U/L (45-117); Anion Gap 5 (5-15); BUN 17 mg/dL (7-18); BUN/Creat Ratio 17.1 RATIO (10-20); Calcium,Total 8.9 mg/dL (8.5-10.1); Chloride 106 mmol/L (98-107); EST Glomerular Filtration Rate 61 mL/min (>60); Est Glom Filt Rate - Afr Amer 74 mL/min (>60); Globulin 3.5 g/dL (2.2-4.2); Glucose 92 mg/dL (74-106); Potassium 4.2 mmol/L (3.5-5.1); Protein, Total 7.1 g/dL (6.4-8.2); Sodium Level 139 mmol/L (136-145); Thyroid Stim Hormone (TSH) 2.77 uIU/mL (0.358-3.74); Uric Acid 4.7 mg/dL (2.6-6.0)
== END ==
PROVIDERS: PCP Family Medicine Geriatric Medicine; Visit Provider Family Medicine Geriatric Medicine
DX: E55.9 Vitamin D deficiency, unspecified (principal); M10.9 Gout, unspecified; R53.83 Other fatigue
CPT/HCPCS: 36415; 74019; 80053; 82306; 84443; 84550; 85025

== ENCOUNTER → 2020-10-18 08:58 | Outpatient (CLI) | payer MEDICARE, SELFPAY ==
--- NOTE | 2020-10-18 09:22 | US_ITS ---
STUDY: ABDOMINAL ULTRASOUND - RIGHT UPPER QUADRANT REASON FOR VISIT: Female, 55 years old hepatomegaly TECHNIQUE: Ultrasound evaluation of the right upper quadrant was performed with real-time and static gupta-scale imaging. TECHNICAL QUALITY: Adequate. COMPARISON: None. FINDINGS: Liver: The liver measures 17.2 cm. There is increased echogenicity consistent with mild degree of fatty infiltration. The bile ducts are within normal limits. There is hepatic color flow. The direction of portal flow is hepatopetal. There is no demonstrated mass lesion. Gallbladder: Normal distended gallbladder. The gallbladder wall measures 2.0 mm. There is a negative sonographic Jose''s sign. There is no pericholecystic fluid. There are no gallstones. Common Bile Duct (C.B.D.): The common bile duct measures 2.6 mm. Pancreas: Normal size of the head, body of the pancreas. The tail portion is obscured due to overlying bowel gas. There is normal echogenicity of the pancreas. There is no demonstrated pancreatic mass or cyst. Right Kidney: Normal size of the right kidney. The right kidney measures 9.2 cm x 4.8 cm x 4.3 cm. Normal renal cortex. The right cortex measures 1.5 cm. There is no demonstrated renal mass or cyst. There is no right hydronephrosis. US/Abdomen Limited IMPRESSION: Mild degree of fatty infiltration of the liver. Electronically Signed: Galileo Overton MD at 10:47 EST , Service support ,
== END ==
PROVIDERS: PCP Family Medicine Geriatric Medicine; Referring Provider Family Medicine Geriatric Medicine; Visit Provider Family Medicine Geriatric Medicine
DX: R19.7 Diarrhea, unspecified (principal)
CPT/HCPCS: 76705; 82274; 83630; 87177; 87209; 87506

== ENCOUNTER → 2020-10-30 07:56 | Outpatient (CLI) | payer MEDICARE, SELFPAY ==
--- NOTE | 2020-10-30 07:58 | US_ITS ---
STUDY: ABDOMINAL ULTRASOUND - ELASTOGRAPHY REASON FOR VISIT: Female, 55 years old. Fatty infiltration of the liver. TECHNIQUE: Liver stiffness measurements were obtained on a JDF RS 85 ultrasound machine using a CA 1-7 probe following the SRU guidelines. 3 measurements were obtained using a 2-D-SWE method. The IQR/M was 22% suggesting a quality data set. TECHNICAL QUALITY: Adequate. COMPARISON: Comparison is made with prior sonogram dated 10/18/2020. FINDINGS: Liver: Diffuse fatty infiltration of the liver. Median liver stiffness measured 6.5 kPa. US/Elastography Parenchyma/Organ IMPRESSION: Liver stiffness measures 6.5 kPa compatible with F2 --F 3 Metavir score. Electronically Signed: Galileo Overton MD at 9:36 EST , Service support ,
== END ==
PROVIDERS: PCP Family Medicine Geriatric Medicine; Referring Provider Family Medicine Geriatric Medicine; Visit Provider Family Medicine Geriatric Medicine
DX: K76.0 Fatty (change of) liver, not elsewhere classified (principal)
CPT/HCPCS: 76981

== ENCOUNTER → 2021-04-08 13:25 | Outpatient (CLI) | payer MEDICARE, SELFPAY ==
[2021-02-13 13:06] VITALS: BMI 35.8
[2021-04-08 14:21] LABS: Absolute Lymphocyte Count 1.81 X10^3/uL (0.83-4.51); Absolute Neutrophil Count 2.7 X10^3/uL (2.0-7.7); Basophil# 0.04 X10^3/uL; Basophil% 0.7 % (0-1); Eosinophil# 0.11 X10^3/uL; Hematocrit 42.3 % (37-47); Hemoglobin 13.8 g/dL (12.0-15.0); Lymphocyte # 1.81 X10^3/ul (0.83-4.51); Lymphocyte % 33.6 % (19-41); Mean Corp Hgb Conc 32.6 g/dL (32-36); Mean Corpuscular Hgb 31.2 pg (27.0-32.0); Mean Corpuscular Volume 95.5 fL (81-99); Mean Platelet Vol. 11.1 fl (6.2-12.0); Monocyte# 0.74 X10^3/uL; Monocyte% 13.8 % (0-10); NRBC Flagged by Analyzer 0 % (0-5); Neutrophil # 2.67 X10^3/uL (2.7-7.7); Neutrophil % 49.7 % (47-70); Platelet Count 253 K/mm3 (150-450); RBC Distribution Width CV 12.9 % (11.6-14.6); Red Blood Count 4.43 M/mm3 (4.2-5.4); White Blood Count 5.4 K/mm3 (4.4-11.0)
[2021-04-08 14:34] LABS: ALB/GLOB Ratio 0.9 RATIO (0.9-2.4); AST(SGOT) 34 U/L (15-37); Alanine Aminotransfer ALT/SGPT 47 U/L (13-56); Albumin, Serum 3.6 g/dL (3.2-5.0); Alkaline Phosphatase 84 U/L (45-117); Anion Gap 7 (5-15); BUN 13 mg/dL (7-18); BUN/Creat Ratio 11.2 RATIO (10-20); Calcium,Total 8.9 mg/dL (8.5-10.1); Chloride 103 mmol/L (98-107); Creatinine, Serum 1.16 mg/dL (0.55-1.02); EST Glomerular Filtration Rate 51 mL/min (>60); Est Glom Filt Rate - Afr Amer 62 mL/min (>60); Globulin 4.1 g/dL (2.2-4.2); Glucose 119 mg/dL (74-106); Potassium 4.1 mmol/L (3.5-5.1); Protein, Total 7.7 g/dL (6.4-8.2); Sodium Level 137 mmol/L (136-145)
--- NOTE | 2021-04-08 15:16 | RAD_ITS ---
STUDY: X-RAY - ABDOMEN/PELVIS REASON FOR EXAM: Female, 56 years old. 5 day history of diarrhea. TECHNIQUE: AP supine and upright views of the abdomen and pelvis. COMPARISON: None. FINDINGS: Normal visualized lung bases. There is an unremarkable bowel gas pattern. There is no demonstrated free abdominal air. The visualized liver, spleen and kidneys are grossly normal in size and morphology. Normal soft tissue structures. Normal visualized osseous structures. RAD/Abd Inc Decub and/or Erect IMPRESSION: Nonspecific bowel gas pattern. Electronically Signed: Galileo Overton MD at 15:10 EDT , Service support ,
== END ==
LOC: POLAB3 13:26 → RAD 15:05
PROVIDERS: PCP Family Medicine Geriatric Medicine; Referring Provider Family Medicine Geriatric Medicine; Visit Provider Family Medicine Geriatric Medicine
DX: R19.7 Diarrhea, unspecified (principal)
CPT/HCPCS: 36415; 74019; 80053; 85025

== ENCOUNTER → 2021-04-15 13:04 | Outpatient (CLI) | payer MEDICARE, SELFPAY ==
[2021-02-13 13:06] VITALS: BMI 35.8
[2021-04-15 16:01] LABS: Absolute Lymphocyte Count 2.12 X10^3/uL (0.83-4.51); Absolute Neutrophil Count 3.6 X10^3/uL (2.0-7.7); Basophil# 0.04 X10^3/uL; Basophil% 0.6 % (0-1); Eosinophil# 0.15 X10^3/uL; Eosinophils% 2.3 % (0-5); Hematocrit 38.3 % (37-47); Hemoglobin 12.3 g/dL (12.0-15.0); Lymphocyte # 2.12 X10^3/ul (0.83-4.51); Lymphocyte % 32.4 % (19-41); Mean Corp Hgb Conc 32.1 g/dL (32-36); Mean Corpuscular Hgb 31.2 pg (27.0-32.0); Mean Corpuscular Volume 97.2 fL (81-99); Mean Platelet Vol. 11.1 fl (6.2-12.0); Monocyte# 0.59 X10^3/uL; NRBC Flagged by Analyzer 0 % (0-5); Neutrophil # 3.63 X10^3/uL (2.7-7.7); Neutrophil % 55.4 % (47-70); Platelet Count 266 K/mm3 (150-450); RBC Distribution Width CV 13.3 % (11.6-14.6); RBC Distribution Width SD 47.7 fl (35.1-43.9); Red Blood Count 3.94 M/mm3 (4.2-5.4); White Blood Count 6.6 K/mm3 (4.4-11.0)
[2021-04-15 16:30] LABS: ALB/GLOB Ratio 0.9 RATIO (0.9-2.4); AST(SGOT) 27 U/L (15-37); Alanine Aminotransfer ALT/SGPT 49 U/L (13-56); Albumin, Serum 3.3 g/dL (3.2-5.0); Alkaline Phosphatase 78 U/L (45-117); Anion Gap 5 (5-15); BUN 15 mg/dL (7-18); BUN/Creat Ratio 17.4 RATIO (10-20); Calcium,Total 8.5 mg/dL (8.5-10.1); Chloride 107 mmol/L (98-107); Creatinine, Serum 0.86 mg/dL (0.55-1.02); EST Glomerular Filtration Rate 72 mL/min (>60); Est Glom Filt Rate - Afr Amer 87 mL/min (>60); Globulin 3.5 g/dL (2.2-4.2); Glucose 87 mg/dL (74-106); Potassium 4.4 mmol/L (3.5-5.1); Protein, Total 6.8 g/dL (6.4-8.2); Sodium Level 140 mmol/L (136-145); Thyroid Stim Hormone (TSH) 0.47 uIU/mL (0.358-3.74); Uric Acid 5.7 mg/dL (2.6-6.0)
== END ==
PROVIDERS: PCP Family Medicine Geriatric Medicine; Visit Provider Family Medicine Geriatric Medicine
DX: E55.9 Vitamin D deficiency, unspecified (principal); M10.9 Gout, unspecified; R53.83 Other fatigue
CPT/HCPCS: 36415; 80053; 82306; 84443; 84550; 85025

== ENCOUNTER 2021-05-23 18:27 | Emergency (ER) | payer MEDICARE, SELFPAY ==
[2021-05-23 18:30] VITALS: BP 127/75; PULSE 75; RESP 16; TEMP 36.3; O2SAT 99; BMI 35.0
--- NOTE | 2021-05-23 18:34 | RAD_ITS ---
HISTORY: Trauma, ankle injury EXAMINATION/TECHNIQUE: XR Ankle Min 3 Views: COMPARISON: 11/30/18 FINDINGS: BONES/JOINTS: No acute fracture or dislocation. Preservation of the joint spaces. No sclerotic or destructive changes observed. SOFT TISSUES: No soft tissue swelling or gas. No radiopaque foreign body. RAD/Ankle min 3 Views IMPRESSION: No acute bony abnormality. at 1855 Reported and signed by: Boogie Taveras MD Electronically Signed: Boogie Taveras MD at 18:54 EDT Tel , Service support ,
--- NOTE | 2021-05-23 21:16 | ED.VIS.LOWEX ---
HPI History of Present Illness Chief Complaint: Lower Extremity Injury Informant: patient Occured/Mechanism Mechanism/Context: Yes fall Onset/Context/Timing Onset: Today Current Severity: Mild Maximum Severity: Moderate Worsened by: Weightbearing, movement, palpation Narrative Narrative: Patient presents secondary to right ankle injury. 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 She turned to try to move something behind her and her foot hit the gas pedal. The tractor moved forward striking a shed and she was knocked off the tractor to the ground. She rolled her right ankle. She states she was initially able to walk on it but as the evening is worn on has become more painful and more difficult to weight-bear. She has not taken anything for pain at this time. She has abrasions to her right elbow but denies any other injury. [facility] Medical History Arthritis Arthritis of carpometacarpal (CMC) joint of both thumbs Asthma Chronic diastolic (congestive) heart failure Depression Diastolic dysfunction Hyperlipidemia Hypothyroidism Lower extremity edema Obesity Seasonal allergies Segmental and somatic dysfunction of lumbar region Segmental and somatic dysfunction of pelvic region Segmental and somatic dysfunction of thoracic region Home Medications escitalopram oxalate 20 mg tablet 20 mg PO QDAY 10/30/17 [History Last Taken Unknown] multivitamin 1 tab PO QAM 10/30/17 [History Last Taken Unknown] calcium carbonate-vitamin D3 1 ea PO DAILY 01/19/18 [History Last Taken Unknown] levothyroxine 100 mcg tablet 100 mcg PO QDAY tab 03/10/18 [History Last Taken Unknown] acetaminophen 500 mg tablet 1,000 mg PO DAILY tab 08/23/19 [History Last Taken Unknown] albuterol sulfate 90 mcg/actuation breath activated powder inhaler 1 inh INHALATION Q4H PRN 08/23/19 [History Last Taken Unknown] doxepin 25 mg capsule 25 mg PO cap 02/13/21 [History Last Taken Unknown] hydrocodone-acetaminophen 1 tab PO Q6H PRN 3 Days #10 tab 05/23/21 [Rx Last Taken Unknown] Allergy/AdvReac Type Severity Reaction Status Date / Time pravastatin AdvReac Intermediate Unknown Verified 05/23/21 18:30 SHELFISH Allergy Severe Swelling Uncoded 05/23/21 18:30 tetanus shot Allergy Mild swelling Uncoded 05/23/21 18:30 Family History Father CAD (coronary artery disease) CABG age 80 Other Breast cancer Surgical History History of breast biopsy History of History of tonsillectomy Social History Smoking Status: Current every day smoker ROS ROS ED Constitutional Constitutional ED: Denies chills or fever(s) Eyes Eyes: Denies change in vision Cardiovascular Cardiovascular: Denies chest pain Respiratory/Chest Respiratory/Chest: Denies cough or dyspnea Gastrointestinal Gastrointestinal: Denies abdominal pain or vomiting Musculoskeletal Musculoskeletal: Reports arthralgias; Denies back pain or neck pain Integumentary Denies rash Neurologic Neurologic: Denies headache(s), paresthesias or weakness Allergic/Immunologic Allergic/Immunologic ED: Denies urticaria EXAM Physical Exam Const Vital Signs: 05/23/21 18:30 Temperature 97.3 F L Temperature Source Temporal Pulse Rate 75 Respiratory Rate 16 Blood Pressure 127/75 H Blood Pressure Mean 92 Pulse Ox 99 Oxygen Delivery Method Room Air Positive well nourished and well developed General Appearance ED: well developed HEENT Reports normocephalic and head/scalp atraumatic Eyes PERRL and EOMs intact bilaterally Neck supple Chest Wall inspection of chest normal and palpation of chest normal Resp normal respiratory effort and clear to auscultation bilaterally Cardio regular rate and regular rhythm GI normal to inspection, nondistended, normoactive bowel sounds Palpation: soft Extremity Extremity Narrative: Superficial abrasions to the extensor surface of the right elbow with no bony tenderness. Full range of motion. Tenderness to palpation mild edema to the lateral malleolus of the right ankle. No abrasions or ecchymoses. Strong distal pulses with normal cap refill. No tenderness at the knee or hip. Neuro oriented x3 and no sensory deficits noted Sensorium / Orientation: alert Motor Exam: strength 5/5 throughout Psych mental status grossly normal MDM MDM MDM Narrative Medical decision making narrative: Right ankle x-rays were obtained per nursing protocol. Radiography Diagnostic Testing: Radiology Impression Ankle X-Ray 05/23/21 18:34 IMPRESSION: No acute bony abnormality. at 1855 Reported and signed by: Boogie Taveras MD Electronically Signed: Boogie Taveras MD at 18:54 EDT Tel , Service support , Treatment and Re-Evaluation Comments:: Right ankle x-rays per my interpretation reveal no acute fracture. Radiologist interpretation is reviewed. Patient be given a dose of [place] and an air stirrup splint. She has both crutches and a walker at home that she can use to help her get around. She will be given a paper prescription of [place] that she states she will fill only if needed. She has seen orthopedics at [facility] previously and referred back to them if not improving. Discharge Plan Triage Chief Complaint: Lower Extremity Injury ED Provider: Octavia Villegas Dx/Rx/DC Orders Clinical Impression: Right ankle sprain Instructions: ED Ankle Sprain (Adult) Prescriptions: New hydrocodone-acetaminophen 5-325 mg tablet 1 tab PO Q6H PRN (Reason: pain) 3 Days Qty: 10 RF: 0 No Action multivitamin tablet 1 tab PO QAM RF: 0 escitalopram oxalate 20 mg tablet 20 mg PO QDAY RF: 0 acetaminophen [Tylenol Extra Strength] 500 mg tablet 1,000 mg PO DAILY RF: 0 albuterol sulfate 90 mcg/actuation aerosol powdr breath activated 1 inh INHALATION Q4H PRNRF: 0 doxepin 25 mg capsule 25 mg PO RF: 0 levothyroxine 100 mcg tablet 100 mcg PO QDAY RF: 0 calcium carbonate-vitamin D3 1 EACH tablet,chewable 1 ea PO DAILY RF: 0 Primary Care Provider: Almas Schmidt Chi Referrals: Oswaldo Flores DO [STAFF PHYSICIAN] - As Needed Almas Schmidt Chi, MD [Primary Care Provider] - Disposition Disposition: Home, Self Care
[2021-05-23] MEDS: HYDROcodone Bitartrate/Apap 5/325 Tablet PO (21:40)
== END 2021-05-23 21:53 | disposition home or self-care (01) ==
LOC: ED 21:20
PROVIDERS: Emergency Provider Emergency Medicine; PCP Family Medicine Geriatric Medicine
DX: S93.401A Sprain of unspecified ligament of right ankle, initial encounter (principal); F17.200 Nicotine dependence, unspecified, uncomplicated; X50.1XXA Overexertion from prolonged static or awkward postures, initial encounter
CPT/HCPCS: 73610; 99283

== ENCOUNTER 2021-05-27 14:51 | Outpatient (RCR) | payer MEDICARE, SELFPAY ==
--- NOTE | 2021-05-30 07:34 | HP.OTEVAL_ITS ---
Patient's Visit Information LIANNA CHACKO is a 56 year old F, referred to Occupational Therapy by MARISA Cross, with a diagnosis of bialteral OA cmc. Date of Evaluation: 05/28/21 Occupational Therapist: Aisha Georges, OTR/L, CHT - Subjective This 56 year old female was seen for OT eval with dx bilateral cmc OA. pt ar escobar for CMC braces- pt states she has had issues with her thumbs for awhile. states she has had two or more cortisone shots and they since has stopped working- pt is going to see hand specialist in next few weeks. pt would like to know what she can do to prevent pain in bother her hands and still use them for ADLS. - Pain bilateral 2 Pain Intensity Range: 8 - ROM Wrist: left 70/65 right 65/70 CMC: left 10 right 20 MP: left 55 left 40 IP: left 65 left 60 ROM Comments: noted thumb instability with MP hyper ext. and cmc collapse - Strength Photo Technician: right 55# left 35# Lateral Pinch: right 6# left 4# Tripod Pinch: right 10# left 8# - Sensation Sensation Comments: denies - Special Tests CMC Grind: positive bilateral - Quick DASH-Disab of Arm,Shoulder& Hand Quick DASH Score: 54.5450 - Hand/Wrist Evaluation Total Score of Pain & Functional Sections: 74 - Goals Goal:: pt will report no pain greater than 3/10 with use of bilateral cmc thumb braces by dc Goal:: Pt will demo understanding of joint protection and ergonomics when performing BADLs and IADLs by d/c. Pt will demo understanding of adaptive Equipment use to decrease stress on joints to allow pt to perform BADSL and IADLS at LARISSA level. Goal:: pt will demo ind. doffing and donning of bilateral CMC braces with MP stabilization by d.c - Rehabilitation General Assessment: pt demo with bilateral CMC OA. and thumb instability with ADLs. this has increased pain and limited pts ind. with ADLs and IADLS. pt would benefit from OT services 2-3 visits to ed. pt on joint protection- ensure proper fit of CMC brace and home modification to limit stress on joints. Due to $40 co- pay pt is reluctant to return to center- Today therapist ed. pt on bracing that supports not only cmc but her MPJ as well as the stability is compromised. Therapist ed. pt on joint protection and work simplification tasks along with ad. devices to increase her ind. pt demo understanding an agree to seek bracing and change her activities. Pt to return in two weeks to ensure bracing is approp riate and pt has no other needs. Rehabilitation Potential: Questionable - Anticipated Interventions A/AAROM/PROM, Triggerpoint Release, Modalities, Orthoses, Joint Protection/Energy Conservation, Ergonomic Education, ADL Training, Education re assistive Equipment, Education re Diagnosis, Home Program - Visit Plan TEXT: Thank you for the opportunity to evaluate your patient. For Medicare and Medicare HMO plans, please review the plan of care and approve it. It will need to be FAXED BACK to us at [phone] for Medicare purposes. Please let me know if there are questions or concerns regarding this plan of care. Physician Signature: Date:
== END 2021-05-27 19:00 | disposition home or self-care (01) ==
LOC: OT 14:51
PROVIDERS: PCP Family Medicine Geriatric Medicine; Referring Provider Physician Assistant; Visit Provider Physician Assistant
DX: M19.041 Primary osteoarthritis, right hand (principal); M19.042 Primary osteoarthritis, left hand
CPT/HCPCS: 97166; 97530

== ENCOUNTER → 2021-07-22 06:22 | Outpatient (CLI) | payer MEDICARE, SELFPAY ==
--- NOTE | 2021-07-22 13:08 | STRESSREP ---
Stress Test Report Date: 07-22-2021 Procedure: Exercise tolerance test/imaging study Indications: Abnormal ECG; preoperative cardiovascular evaluation Consent: Per the patient Procedure: The patient exercised on a Tip protocol for 5 minutes and 30 seconds completing Stage II and 2 minutes and 30 seconds of Stage III achieving a peak heart rate of 140 bpm (87% predicted maximal heart rate) with a peak blood pressure 138/70 mmHg and a peak MET capacity of 7 METs. The baseline ECG demonstrated sinus rhythm. The peak exercise ECG demonstrated no obvious ECG changes. There were no cardiac dysrhythmias pretest, during exercise, or recovery. The functional capacity was considered average. There was no complaint of chest discomfort during exercise or recovery. The examination was discontinued secondary to dyspnea. Impression: 1. Technically adequate (percent predicted maximal heart rate greater than 85%) exercise tolerance test 2. Peak exercise ECG with no obvious ECG changes 3. There were no cardiac dysrhythmias pretest, during exercise, or recovery 4. Nuclear images pending Myocardial perfusion imaging study: Technique: The patient was injected with 14.5 mCi of technetium 99m Cardiolite and subsequently rest SPECT Cardiolite nuclear imaging was obtained in the horizontal long, vertical long, and short axis views. The patient exercised on a Tip protocol for 5 minutes and 30 seconds completing Stage II and 2 minutes and 30 seconds of Stage III achieving a peak heart rate of 140 bpm (87% predicted maximal heart rate) with a peak blood pressure 138/70 mmHg and a peak MET capacity of 7 METs. The patient was injected with 44.5 mCi of technetium 99m Cardiolite and subsequently stress SPECT Cardiolite nuclear imaging was obtained in the horizontal long, vertical long, and short axis views. A gated Cardiolite study at peak stress was obtained. Interpretation: Rest and stress SPECT Cardiolite nuclear imaging status post realignment, normalization, and attenuation correction, demonstrates the appearance of relative uniform tracer uptake and myocardial perfusion appearing within normal limits. There is end systolic thickening and brightening. The gated Cardiolite study demonstrates myocardial thickening and inward wall motion. The reported LVEF is 78%. Impression: 1. Rest and stress SPECT Cardiolite nuclear imaging demonstrate relative uniform tracer uptake and myocardial perfusion appearing within normal limits. 2. The gated Cardiolite study reports an LVEF of 78%. This note was generated with [employer] software. It may contain incorrect words, spelling, and punctuation that were not noted in checking the note before signing.
== END ==
PROVIDERS: PCP Family Medicine Geriatric Medicine; Referring Provider Nurse Practitioner Gerontology; Visit Provider Nurse Practitioner Gerontology
DX: R94.31 Abnormal electrocardiogram [ECG] [EKG] (principal)
CPT/HCPCS: 78452; 93017; A9500; A4216

== ENCOUNTER 2021-10-16 14:04 | Outpatient (CLI) | payer MEDICARE, SELFPAY ==
[2021-10-16 14:43] LABS: Absolute Lymphocyte Count 2.41 X10^3/uL (0.83-4.51); Absolute Neutrophil Count 2.9 X10^3/uL (2.0-7.7); Basophil# 0.04 X10^3/uL; Basophil% 0.7 % (0-1); Eosinophil# 0.28 X10^3/uL; Eosinophils% 4.6 % (0-5); Hematocrit 38.6 % (37-47); Hemoglobin 12.7 g/dL (12.0-15.0); Lymphocyte # 2.41 X10^3/ul (0.83-4.51); Lymphocyte % 39.4 % (19-41); Mean Corp Hgb Conc 32.9 g/dL (32-36); Mean Corpuscular Hgb 31.1 pg (27.0-32.0); Mean Corpuscular Volume 94.4 fL (81-99); Mean Platelet Vol. 11.3 fl (6.2-12.0); Monocyte# 0.48 X10^3/uL; Monocyte% 7.9 % (0-10); NRBC Flagged by Analyzer 0 % (0-5); Neutrophil # 2.89 X10^3/uL (2.7-7.7); Neutrophil % 47.2 % (47-70); Platelet Count 240 K/mm3 (150-450); RBC Distribution Width CV 13.2 % (11.6-14.6); RBC Distribution Width SD 45.8 fl (35.1-43.9); Red Blood Count 4.09 M/mm3 (4.2-5.4); White Blood Count 6.1 K/mm3 (4.4-11.0)
[2021-10-16 14:55] LABS: Vitamin D,25 Hydroxy 48.8 ng/mL
[2021-10-16 15:02] LABS: AST(SGOT) 17 U/L (15-37); Alanine Aminotransfer ALT/SGPT 25 U/L (13-56); Albumin, Serum 3.6 g/dL (3.2-5.0); Alkaline Phosphatase 79 U/L (45-117); Anion Gap 5 (5-15); BUN 17 mg/dL (7-18); BUN/Creat Ratio 16.7 RATIO (10-20); Calcium,Total 8.9 mg/dL (8.5-10.1); Chloride 106 mmol/L (98-107); Creatinine, Serum 1.02 mg/dL (0.55-1.02); EST Glomerular Filtration Rate 59 mL/min (>60); Est Glom Filt Rate - Afr Amer 71 mL/min (>60); Globulin 3.6 g/dL (2.2-4.2); Glucose 124 mg/dL (74-106); Potassium 4.3 mmol/L (3.5-5.1); Protein, Total 7.2 g/dL (6.4-8.2); Sodium Level 138 mmol/L (136-145); Thyroid Stim Hormone (TSH) 2.27 uIU/mL (0.358-3.74); Uric Acid 5.4 mg/dL (2.6-6.0)
== END 2021-10-16 23:59 | disposition short-term general hospital (02) ==
LOC: POLAB3 14:05
PROVIDERS: PCP Family Medicine Geriatric Medicine; Visit Provider Family Medicine Geriatric Medicine
DX: E55.9 Vitamin D deficiency, unspecified (principal); R53.83 Other fatigue; M10.9 Gout, unspecified
CPT/HCPCS: 36415; 80053; 82306; 84443; 84550; 85025

== ENCOUNTER 2021-10-30 11:13 | Outpatient (CLI) | payer MEDICARE, MEDICAID, SELFPAY ==
--- NOTE | 2021-10-30 11:25 | US_ITS ---
STUDY: ABDOMINAL ULTRASOUND - RIGHT UPPER QUADRANT REASON FOR VISIT: Female, 56 years old hepatomegaly, hepatic fibrosis TECHNIQUE: Ultrasound evaluation of the right upper quadrant was performed with real-time and static gupta-scale imaging. TECHNICAL QUALITY: Adequate. COMPARISON: Comparison is made with prior examination of 10/18/2020. FINDINGS: Liver: The liver measures 15.6 cm. There is increased echogenicity consistent with fatty infiltration. The bile ducts are within normal limits. There is hepatic color flow. The direction of portal flow is hepatopetal. 1.3 cm x 1.5 cm x 1.5 cm echogenic nodule in the right lobe of the liver suggestive of a small hemangioma. This abuts the right hemidiaphragm. Gallbladder: Normal distended gallbladder. The gallbladder wall measures 1.4 mm. There is a negative sonographic Jose''s sign. There is no pericholecystic fluid. There are no gallstones. Common Bile Duct (C.B.D.): The common bile duct measures 1.9 mm. Pancreas: Normal size of the head, body and tail of the pancreas. There is normal echogenicity of the pancreas. There is no demonstrated pancreatic mass or cyst. Right Kidney: Normal size of the right kidney. The right kidney measures 10.8 cm x 5.1 cm x 4.4 cm. Normal renal cortex. The right cortex measures 1 cm. There is no demonstrated renal mass or cyst. There is no right hydronephrosis. IMPRESSION: Fatty infiltration of the liver. Findings suggestive of a 1.3 cm x 1.5 cm x 1.5 cm hemangioma in the dome of the right lobe of the liver. Electronically Signed: Galileo Overton MD at 12:34 EST , STUDY: ABDOMINAL ULTRASOUND - ELASTOGRAPHY REASON FOR VISIT: Female, 56 years old. Hepatic fibrosis. TECHNIQUE: Liver stiffness measurements were obtained on a [employer] RS 85 ultrasound machine using a CA 1-7 probe following the SRU guidelines. 3 measurements were obtained using a 2-D-SWE method. The IQR/M was 10% suggesting a quality data set. TECHNICAL QUALITY: Adequate. COMPARISON: Comparison is made with prior study done earlier today. FINDINGS: Liver: Fatty infiltration of the liver. Median liver stiffness measured 10.5 kPa. US/Abdomen Limited IMPRESSION: Liver stiffness measures 10.5 kPa compatible with F3 Metavir score. Electronically Signed: Galileo Overton MD at 12:35 EST ,
--- NOTE | 2021-10-30 12:42 | BI_ITS ---
MAMMOGRAPHY - BILATERAL SCREENING REASON FOR EXAM: Female, 56 years old. Routine annual screening examination. PERTINENT HISTORY: Grandmother with breast cancer. Aunt with breast cancer. Remote left stereotactic and left ultrasound-guided breast biopsy. TECHNIQUE: Digital bilateral breast yulisa (3D mammographic acquisition) in the CC and MLO projections. 2-D mediolateral oblique (MLO) and craniocaudad (CC) views of both breasts were obtained. CAD: Full Field Digital Mammography with Computer Added Detection was performed. COMPARISON: Comparison is made with prior study dated 11/20/2018 and 11/03/2016. FINDINGS: Breast Composition: The breasts are heterogeneously dense, which may obscure small masses. There are no dominant masses or suspicious calcifications. A tissue marker is seen in the slightly lateral retroareolar region of the left breast. No other significant abnormalities are identified. There has been no significant change since the prior study. BI/SCRN MAMM (CAD)W/YULISA BILAT IMPRESSION: Stable bilateral screening mammogram. Yearly follow-up mammogram recommended. (A) ASSESSMENT CATEGORY: BIRADS Category 2: Benign. A letter regarding these results will be sent to the patient by the facility within 30 days. Approximately 10% of breast cancers are not detected by mammography. A normal mammogram should not delay biopsy of a clinically suspicious abnormality. [id number] Electronically Signed: Galileo Overton MD at 13:29 EST ,
== END 2021-10-30 23:59 | disposition home or self-care (01) ==
LOC: US 11:16
PROVIDERS: PCP Family Medicine Geriatric Medicine; Referring Provider Family Medicine Geriatric Medicine; Visit Provider Family Medicine Geriatric Medicine
DX: K74.69 Other cirrhosis of liver (principal); R16.0 Hepatomegaly, not elsewhere classified; Z12.31 Encounter for screening mammogram for malignant neoplasm of breast
CPT/HCPCS: 76705; 76981; 77063; 77067

== ENCOUNTER 2021-11-14 12:05 | Outpatient (CLI) | payer MEDICARE, MEDICAID, SELFPAY | END 2021-11-14 23:59 | disposition home or self-care (01) | PROVIDERS: PCP Family Medicine Geriatric Medicine; Referring Provider Family Medicine Geriatric Medicine; Visit Provider Family Medicine Geriatric Medicine | DX: R68.83 Chills (without fever) (principal) | CPT/HCPCS: 87635; 87804; 87807; C9803; U0003; U0005 ==

== ENCOUNTER 2021-11-14 14:00 | Outpatient (RCR) | payer MEDICARE, MEDICAID, SELFPAY ==
--- NOTE | 2021-08-21 09:42 | HP.OTEVAL_ITS ---
Patient's Visit Information LIANNA CHACKO is a 56 year old F, referred to Occupational Therapy by Dr. Cherry Blake MD, with a diagnosis of left unilateral primary osteoarthritis. Date of Evaluation: 08/19/21 Occupational Therapist: Aisha Georges, TOÑAR/Lydia, CHT - Subjective This 56 year old female was seen for OT eval with dx left primary osteoarthritis of 1st carpometacarpal joint left hand- pt states she has had pain for about 2 years. pt 3 weeks and 4 days s/p CMC arthroplasty with internal brace and adductor release. pt states she is feeling well, denies issues with pin site - orthosis in need of small adjustment at wrist- radial side- fingers moving well and IPJ moving well also- pt is limited with use of left hand with ADls and IADls at this time. pt would like to return to cooking, cleaning and bathing at ind. level. - ADLs Dressing: Button shirt, Pants, Socks Fasteners: Tie shoes, Buttons, Zippers, Snaps Eating: Use silverware, Cut food, Butter bread Bathing: Handle washcloth & soap, Wash hair, Squeeze shampoo bottle Toileting: Manage clothing Kitchen: Chop with knife, Peel fruits & vegetables, Open jars, Open bottle caps, Ziplock bags - ROM Wrist: right 65/75 left 30/15 CMC: right 20 left NT MP: right 45 left NT IP: right 65 left 15 Radial Abduction: right 40 left NT - Strength Strength Comments: will test later date - Sensation Sensation Comments: denies - Goals Goal:100% adherence to protocol: Yes Comment: Dr. Soto cmc arthroplasty guidelines revised 01/2021 Goal:Daily scar massage when approriate: Yes Goal:ROM equal to unaffected hand: Yes Goal:Data Warehousing Architect/Pinch strength at least 75% of unaffected hand: Yes Goal:Decrease scar hypersensitivity: Yes - Rehabilitation General Assessment: Pt arrives to OT 3 weeks and 4 days s/p from cmc arthroplasty, with internal brace and adductor release . pt arrives with custom orthosis on- pin site clean and healthy- pt limited with use of left hand with daily occupations- pt would benefit from skilled OT services 1-2x week for 8 weeks to return pt to PLOF. Today therapist reviewed Dr. Soto's cmc arthroplasty protocol, scar mtg, wrist and IP ROM finger ROM- pt demo understanding and agree to POC. Rehabilitation Potential: Excellent - Anticipated Interventions A/AAROM/PROM, Strengthening, Scar Care, Triggerpoint Release, Desensitization, Modalities, Orthoses, Joint Protection/Energy Conservation, Ergonomic Education, Fine Motor Coord/Lopez, Education re assistive Equipment, Education re Diagnosis, Home Program - Visit Plan Frequency: 1-2x /Week Duration: 6 Weeks General Plan: Dr. Soto CMC arthroplasty guide. 2weeks s/p custom thumb spica IPJ free. scar care, full finger ROM, full wrist ROM , MP and IPJ motion of thumb, Opposition to small finger while supporting CMC to prevent rocking at base of thumb and hand flat. 4wks s/p PROM cmc motion. 5-6wks pre-tod thumb orthotic daytime use -custom orthosis use and night and with heavy activity until 12 weeks s/p. 6-7wks strengthening. at [address] parada full finger & wrist motion- hand flat and opposition to small finger between DIPJ & PIPJ. Discontinue custom orthosis use at 12 weeks TEXT: Thank you for the opportunity to evaluate your patient. For Medicare and Medicare HMO plans, please review the plan of care and approve it. It will need to be FAXED BACK to us at [phone] for Medicare purposes. Please let me know if there are questions or concerns regarding this plan of care. Physician Signature: Date:
--- NOTE | 2021-09-03 15:58 | OTREVAL_ITS ---
Dr. Cherry Blake MD, It has been my pleasure to treat LIANNA CHACKO over the last 3 visits for left unilateral primary osteoarthritis. Please see the progress note below for an update on the occupational therapy plan of care! Subjective: pt arrives 5 weeks and 1 day s/p. pt arrives states orthosis is fitting well-. ready to have pin out tomorrow Objective/Function: left wrist 45/45. IP flexion 25*. pt demo clean pin site. advised pt in ordering comfort cool cmc thumb brace- pt demo understanding and would order or get one at dr. office tomorrow depending on cost. therapist will cont. with DR. CALLAWAY protocol Plan Frequency: 1-2x /Week Duration: 6 Weeks Plan: cont with POC following Dr. CALLAWAY protocol Goals - Goals Patient Goals: Regain Mobility, Decrease Pain, Use Hand/Wrist/Arm Normally Again Goal:100% adherence to protocol: Yes Goal:Daily scar massage when approriate: Yes Goal:ROM equal to unaffected hand: Yes Goal:Data Base Administrator/Pinch strength at least 75% of unaffected hand: Yes Goal:Decrease scar hypersensitivity: Yes Anticipated Interventions Anticipated Interventions: A/AAROM/PROM, Strengthening, Scar Care, Triggerpoint Release, Desensitization, Modalities, Orthoses, Joint Protection/Energy Conservation, Ergonomic Education, Fine Motor Coord/Lopez, Education re assistive Equipment, Education re Diagnosis, Home Program Please do not hesitate to contact me at [phone] by phone or if you have questions or concerns regarding this new plan of care! Sincerely, Aisha Georges, OTR/L, CHT
--- NOTE | 2021-10-15 13:35 | HP.OTREVAL ---
Dr. Cherry Blake MD, It has been my pleasure to treat LIANNA CHACKO over the last 9 visits for left unilateral primary osteoarthritis. Please see the progress note below for an update on the occupational therapy plan of care! 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 pt reports she is able to peel potatoes and scrub veggies. pt is manipulating cards and coins to increase distal finger and tip pinch- Objective/Function: pt making gains with use of left UE with ADLs- pt c/o stiffness, but therapist ed. this feeling may last 6-9 month-. left tray service worker strength 24#. left CMC 20*. left MP 40*. left IP 50*. opposition to tip of LF. pt states she feels she has returned to preforming 75% of her ADLs- pt use of comfort cool only when out of house-. pts tray service worker strength is slower to return as cost of t-putty was not feasible. Plan Plan: pt to return to dr. maldonado pt she is progressing well but slower return of strength- Goals - Goals Patient Goals: Regain Mobility, Decrease Pain, Use Hand/Wrist/Arm Normally Again Goal:100% adherence to protocol: Yes Goal:Daily scar massage when approriate: Yes Goal:ROM equal to unaffected hand: Yes Goal:Care Connector/Pinch strength at least 75% of unaffected hand: Yes Goal:Decrease scar hypersensitivity: Yes Anticipated Interventions Anticipated Interventions: A/AAROM/PROM, Strengthening, Scar Care, Triggerpoint Release, Desensitization, Modalities, Orthoses, Joint Protection/Energy Conservation, Ergonomic Education, Fine Motor Coord/Lopez, Education re assistive Equipment, Education re Diagnosis, Home Program Please do not hesitate to contact me at [phone] by phone or if you have questions or concerns regarding this new plan of care! Sincerely, Aisha Georges, OTR/L, CHT
--- NOTE | 2021-11-19 12:19 | HP.OTDCSUM_ITS ---
It has been my pleasure to treat LIANNA CHACKO under orders from Dr. Abdulkadir Soto MD, for the diagnosis of left unilateral primary osteoarthritis for a total of 12 visit(s). Please see the following information for a summary of their discharge status. % Improvement: 90 Objective/Function: left adapted physical education teacher strength 40# right adapted physical education teacher 60#. left lateral pinch 4#. left tripod pinch 2#. pt making gains with use of left UE with ADLs- pt c/o stiffness, but therapist ed. this feeling may last 6-9 month-. left CMC 20*. left MP 40*. left IP 50*. pt demo good ROM following her CMC arthroplasty and MP fusion. pt leaving town for vacation again and request D/C with HEP Patient Goals: Regain Mobility, Decrease Pain, Use Hand/Wrist/Arm Normally Again Goal:100% adherence to protocol: Yes Goal:Daily scar massage when approriate: Yes Goal:ROM equal to unaffected hand: Yes Goal:Courtroom Clerk/Pinch strength at least 75% of unaffected hand: Yes Goal:Decrease scar hypersensitivity: Yes Plan: Pt ready to be discharged, stating she is doing all she needs to do IND. Discharge Comments: pt leaving for vac. request d/c with HEP-. pt making gains with functional use of ADls and IADLS- does not limit her with most tasks- pt demo understanding of her HEP and agree to POC of d.c If there are questions or concerns regarding this patient's occupational therapy, please fell free to call me at [phone]. Thank you for the referral of this patient. Sincerely, Aisha Georges, OTR/L, CHT
== END 2021-11-14 19:00 | disposition home or self-care (01) ==
LOC: OT 14:00
PROVIDERS: PCP Family Medicine Geriatric Medicine; Referring Provider Orthopaedic Surgery; Visit Provider Orthopaedic Surgery
DX: M18.12 Unilateral primary osteoarthritis of first carpometacarpal joint, left hand (principal)
CPT/HCPCS: 97110; 97140; 97166; 97530

== ENCOUNTER 2021-12-05 10:19 | Outpatient (CLI) | payer MEDICARE, MEDICAID, SELFPAY ==
[2021-12-05 11:13] LABS: Ammonia < 10.0 umol/L (11-32)
[2021-12-05 11:15] LABS: Erythrocyte Sedimentation Rate 10 mm/hr (0-30)
[2021-12-05 11:39] LABS: Hemoglobin A1c 5.3 % (3.8-5.6)
[2021-12-05 11:46] LABS: CRP < 2.90 mg/L (0.0-3.0); Ferritin 94 ng/mL (8-252); LDH 220 U/L (84-246)
[2021-12-06 13:08] LABS: Anti-Centromere B Ab <0.2 AI (0.0-0.9); Anti-Chromatin <0.2 AI (0.0-0.9); Anti-Jo <0.2 AI (0.0-0.9); Anti-Scleroderma-70 AB <0.2 AI (0.0-0.9); RNP Ab <0.2 AI (0.0-0.9); SJOGREN'S Anti-SS-A test < 0.2 AI (0.0-0.9); SJOGREN'S Anti-SS-B test < 0.2 AI (0.0-0.9); Smith Ab <0.2 AI (0.0-0.9)
[2021-12-06 15:47] LABS: Anti-Mitochondrial AB <20.0 Units (0.0-20.0); Anti-dsDNA Ab <1 IU/mL (0-9)
[2021-12-11 00:07] LABS: Angiotensin Convert Enzyme 45 U/L (14-82); Cytoplasmic Ab (C-ANCA) <1:20 titer (Neg:<1:20)
[2021-12-11 14:50] LABS: Anti-Smooth Muscle ABS 12 Units (0-19); Copper, Serum or Plasma 108 ug/dL (80-158); Haptoglobin 98 mg/dL (33-346); Perinuclear Ab (P-ANCA) <1:20 titer (Neg:<1:20)
== END 2021-12-05 23:59 | disposition home or self-care (01) ==
LOC: LAB 10:20
PROVIDERS: PCP Family Medicine Geriatric Medicine; Referring Provider Internal Medicine Gastroenterology; Visit Provider Internal Medicine Gastroenterology
DX: R73.09 Other abnormal glucose (principal); K76.0 Fatty (change of) liver, not elsewhere classified
CPT/HCPCS: 36415; 82140; 82164; 82390; 82525; 82728; 83010; 83036; 83516; 83615; 85652; 86140; 86225; 86235; 86256

== ENCOUNTER 2021-12-23 08:53 | Outpatient (CLI) | payer MEDICARE, MEDICAID, SELFPAY ==
[2021-12-23] VITALS (9 sets, daily range): BP systolic 99–135; BP diastolic 71–86; PULSE 55–75; RESP 10–20; TEMP 36.6; O2SAT 94–99; BMI 37.1
--- NOTE | 2021-12-23 09:08 | CT_ITS ---
PROCEDURE: CT DIRECTED CORE LIVER BIOPSY INDICATION: Female, 56 years old. Fatty liver PHYSICIAN: Dr. MICHEL Borja CONSENT: Written informed consent was obtained having explained the risks, benefits and alternatives in detail with the patient who accepted the risks and agreed to proceed. Laboratory review and clinical assessment was performed. CONSCIOUS SEDATION PROTOCOL: The Drugs used were: 2 mg Versed, IV., and 50 mcg Fentanyl, IV. The sedation time was: 20 minutes. Conscious sedation was started at 10:01 AM and terminated at 10:21 AM The conscious sedation protocol was independently monitored. RADIATION DOSAGE (If Supplied By Facility): CTDIvol = ( 23.5 ) mGy, DLP = ( 684.38 ) mGycm Individualized dose optimization techniques were used for this CT. TECHNIQUE: Using CT image guidance with image documentation, a suitable location in the right lobe of the liver was identified. Using an anterior approach, puncture of the liver was uneventful with an 18-gauge core needle system. 3, 18-gauge core samples were obtained, and submitted in formalin to the pathologist for further assessment. Followup CT scan revealed no distinct sequelae. CT/Biopsy/Inj or Needle Placement IMPRESSION: 1. CT directed core needle biopsy of the liver, using CT image guidance with image documentation as described. 2. Conscious Sedation protocol utilized with independent monitoring. Electronically Signed: Galileo Overton MD at 10:52 EDT ,
[2021-12-23 09:09] LABS: Platelet Count 222 K/mm3 (150-450)
[2021-12-23 09:15] LABS: International Normalized Ratio 1.1; Prothrombin Time (Protime)PT. 13.1 SECONDS (11.7-14.9)
[2021-12-23 09:22] LABS: Partial Thromboplast Time 27.5 Seconds (24.1-36.2)
[2021-12-23] MEDS: Midazolam 2 MG/2 ML Syringe IV (10:01)
[2021-12-23] MEDS: fentaNYL 100 MCG/2 ML Ampul IV (10:01)
[2021-12-23] MEDS: Lidocaine 2% (20 ml mdv) 20 ML Vial INFILT (10:18)
--- NOTE | 2021-12-23 10:20 | LIVB_PTH ---
PATIENT: LIANNA CHACKO LOC: CT U#:[id number] AGE/SX: 56/F ROOM: RE12/23/[address]: Dr. Alejandro Solis DO : 1965 BED: DIS: 12/23/2021 SPEC #: [id number] RECD: 12/23/21 10:37 STATUS: SABIHA REQ #: [id number] TIP: 12/23/21 10:[address]: Alejandro Solis DEPT: SURGICAL PATHOLOGY RECD BY: Josefina Zuniga ENTERED: 12/23/21 11:05 SP TYPE: LIVER BX JOVANI DR: Dr. Almas Schmidt MD Tissues: Liver, NOS Procedures: PAS with Diastase (control) Trichrome (control) Special Stain Group II PAS Stain (control) Surgery Specimen Level V Retic (control) Iron Stain (control) HEADER OPERATION: CT-guided liver biopsy PRE-OP DIAGNOSIS: Fatty liver TISSUE SUBMITTED: Liver 18-gauge x3 MICROSCOPIC DIAGNOSIS Liver, CT-guided core biopsy: Minimal change. No evidence of cirrhosis. See comment. AM:kali 12/24/2021 COMMENT Sections show mildly increased intraparenchymal iron deposition. There is mild bile stasis also present. There is no accumulation of abnormal proteins and no evidence of cirrhosis. No significant inflammation is identified. Clinical correlation is suggested. Trichrome, reticulin, PAS, PASD and iron stains with matched controls are appropriate. MICROSCOPIC DESCRIPTION Slides are reviewed. GROSS DESCRIPTION Received is one container labeled with the patient's name and not further designated. The specimen consists of four elongated fragments of alvarez tissue ranging in length from 1 to 1.5 cm and averaging 0.1 cm in diameter each. The specimen is totally submitted in one cassette. / AM:kali 12/23/2021 TC:5 CPT: 27575, 90393 x5
== END 2021-12-23 23:59 | disposition home or self-care (01) ==
LOC: CT 08:54
PROVIDERS: PCP Family Medicine Geriatric Medicine; Referring Provider Internal Medicine Gastroenterology; Visit Provider Internal Medicine Gastroenterology
DX: K76.0 Fatty (change of) liver, not elsewhere classified (principal); R73.09 Other abnormal glucose
CPT/HCPCS: 47000; 36415; 77012; 85049; 85610; 85730; 88307; 88313; 99156; J7040; A4216

== ENCOUNTER → 2022-07-08 | Outpatient (CLI) | payer MEDICARE, MEDICAID, SELFPAY ==
--- NOTE | 2022-07-08 | LES_PTH ---
PATIENT: LIANNA CHACKO LOC: [facility] U#:[id number] AGE/SX: 57/F ROOM: RE07/08/[address]: Dr. Almas Schmidt MD : 1965 BED: DIS: 07/08/2022 SPEC #: [id number] RECD: 07/08/22 13:25 STATUS: SABIHA DEANDRE #: [id number] TIP: 07/08/22 00:[address]: Almas Schmidt Chi DEPT: SURGICAL PATHOLOGY RECD BY: Josefina Zuniga Tissues: Skin of arm Procedures: Surgery Specimen Level IV HEADER OPERATION: Biopsy PRE-OP DIAGNOSIS: L81.9 TISSUE SUBMITTED: Right arm MICROSCOPIC DIAGNOSIS Skin lesion of right arm, shave biopsy: Seborrheic keratosis, hyperkeratotic type. AM:kali 07/09/2022 MICROSCOPIC DESCRIPTION Slides are reviewed. GROSS DESCRIPTION Received is one container labeled with the patient's name and not further designated. The specimen consists of an irregular fragment of shave alvarez tissue measuring 0.7 x 0.4 x 0.2 cm. The specimen is totally submitted in one cassette. / AM:kali 07/08/2022 :5 CPT: 46241
== END | disposition home or self-care (01) ==
LOC: LABSPEC 11:49
PROVIDERS: PCP Family Medicine Geriatric Medicine; Visit Provider Family Medicine Geriatric Medicine
DX: L81.9 Disorder of pigmentation, unspecified (principal)
CPT/HCPCS: 88305

== ENCOUNTER 2022-07-24 11:00 | Outpatient (RCR) | payer MEDICARE, MEDICAID, SELFPAY ==
--- NOTE | 2022-05-30 11:20 | HP.OTEVAL_ITS ---
Patient's Visit Information LIANNA CHACKO is a 57 year old F, referred to Occupational Therapy by Dr. Cherry Blake MD, with a diagnosis of right unilateral primary osteoarthritis CMC. Date of Evaluation: 05/30/22 Occupational Therapist: Aisha Georges, TOÑAR/Lydia, CHT - Subjective This 57 year old female was seen for OT eval with dx of right unilateral primary osteoarthritis of first carpometacarpal joint. Pt states for years she has had pain and limited strength for ADLs and IADls. Pt after conservative methods had failed opted for sx. Sx date May 08 2022- pt arrives with orthosis on need of slight adj. for comfort. states she is limited with all ADLs and IADls at this time but and family is helping her. pt would like to return to her PLOF. 3 weeks and 1 day s/p from right cmc arthroplasty - Pain right wrist/hand 3 Pain Intensity Range: 3, 4 - ROM Wrist: right 40/35 left 45/60 CMC: right 5 left 20 MP: right 20 left 45 IP: right 20 left 60 Opposition: right 4 left 10 - Strength Software Development Coordinator: right NT left 40# Lateral Pinch: right NT left 2# Tripod Pinch: right NT left NT - Quick DASH-Disab of Arm,Shoulder& Hand Quick DASH Score: 86.6650 - Goals Goal:100% adherence to protocol: Yes Comment: Dr. Soto cmc arthroplasty protocol Goal:Daily scar massage when approriate: Yes Goal:ROM equal to unaffected hand: Yes Goal:Software Development Coordinator/Pinch strength at least 75% of unaffected hand: Yes Goal:No pain with affected hand use: Yes Goal:Full use of affected hand in daily activities including: Yes Goal:Decrease scar hypersensitivity: Yes - Rehabilitation General Assessment: pt arrives to OT session 3 weeks and 1 day s/p cmc arthroplasty suspensionplasty right thumb CMCJ with internal brace adductor right thumb Tenosynovectomy right 1st dorsal compartment. pt demo with newly healing structures, limited ROM and weakness increasing need of assistance with all ADLs and IADls. Pt would benefit from skilled OT services 1-2x week for 6-8 weeks to return pt to PLOF. PT agrees with PLOC. Rehabilitation Potential: Excellent - Anticipated Interventions A/AAROM/PROM, Strengthening, Scar Care, Modalities, Orthoses, Joint Protection/Energy Conservation, Ergonomic Education, Fine Motor Coord/Lopez, Education re assistive Equipment, Education re Diagnosis - Visit Plan Frequency: 1-2x /Week Duration: 6 Weeks General Plan: Dr. Soto CMC arthroplasty guide. 2weeks s/p custom thumb spica IPJ free. scar care, full finger ROM, full wrist ROM , MP and IPJ motion of thumb, Opposition to small finger while supporting CMC to prevent rocking at base of thumb and hand flat. 4wks s/p PROM cmc motion. 5-6wks pre-tod thumb orthotic daytime use -custom orthosis use and night and with heavy activity until 12 weeks s/p. 6-7wks strengthening. at [address] parada full finger & wrist motion- hand flat and opposition to small finger between DIPJ & PIPJ. Discontinue custom orthosis use at 12 weeks TEXT: Thank you for the opportunity to evaluate your patient. For Medicare and Medicare HMO plans, please review the plan of care and approve it. It will need to be FAXED BACK to us at [phone] for Medicare purposes. Please let me know if there are questions or concerns regarding this plan of care. Physician Signature: Date:
--- NOTE | 2022-06-23 12:30 | OTREVAL_ITS ---
Dr. Cherry Blake MD, It has been my pleasure to treat LIANNA CHACKO over the last 5 visits for right unilateral primary osteoarthritis CMC. Please see the progress note below for an update on the occupational therapy plan of care! Subjective: pt arrives 6 weeks and 3 days s/p from right cmc arthroplasty. pt states she is IND bathing/dressing- but can do light cooking- but not heavy skillet/ frying pain-. pt can do laundry. pt is doing her HEP of AROM, wrist strengthening, light wire loop machine operator strength with resistive sponge. Objective/Function: right wrist 50/55. right CMC flex 10*. right MP flex 20*. right IP flex 35*. right wire loop machine operator strength 15# left 35#. pt demo some scar adhesions she is working on scar massage at home. pt does have a grandson that is 6 years old and she will keep her splint or brace on while he is around her- when he is at school she takes the brace off-. pt making gains with ROM and strength- and would benefit from skilled OT services 1-2x week for 4 more weeks. Plan Frequency: 2x /Week Duration: 4 Weeks Plan: will continue with BTE to increase wire loop machine operator strength. putty. resistive sponge. thumb stabilization ex. Goals - Goals Patient Goals: Improve Fine Motor Skills, Use Hand/Wrist/Arm Normally Again Goal:100% adherence to protocol: Yes Goal:Daily scar massage when approriate: Yes Goal:ROM equal to unaffected hand: Yes Goal:Java Security Engineer/Pinch strength at least 75% of unaffected hand: Yes Goal:No pain with affected hand use: Yes Goal:Full use of affected hand in daily activities including: Yes Goal:Decrease scar hypersensitivity: Yes Anticipated Interventions Anticipated Interventions: A/AAROM/PROM, Strengthening, Scar Care, Modalities, Orthoses, Joint Protection/Energy Conservation, Ergonomic Education, Fine Motor Coord/Lopez, Education re assistive Equipment, Education re Diagnosis Please do not hesitate to contact me at [phone] by phone or if you have questions or concerns regarding this new plan of care! Sincerely, Aisha Georges, OTR/L, CHT
--- NOTE | 2022-08-27 15:16 | HP.OTDCSUM_ITS ---
It has been my pleasure to treat LIANNA CHACKO under orders from Dr. Cherry Blake MD, for the diagnosis of right unilateral primary osteoarthritis CMC for a total of 14 visit(s). Please see the following information for a summary of their discharge status. % Improvement: 75 Objective/Function: right molding press operator strength 40# left 57#. right lat. pinch 8# left- 12#. right tripod pinch-8# left 11#. pt demo wrist 60/45. right CMC 10*. right MP 20*. right IP 40*. RD 15*. UD 15*. pt has pain with thumb PA since she opened the door yesterday- therapist took her throughout all plans of thumb motion Patient Goals: Improve Fine Motor Skills, Use Hand/Wrist/Arm Normally Again Goal:100% adherence to protocol: Yes Goal:Daily scar massage when approriate: Yes Goal:ROM equal to unaffected hand: Yes Goal:Orchestra Musician/Pinch strength at least 75% of unaffected hand: Yes Goal:No pain with affected hand use: Yes Goal:Full use of affected hand in daily activities including: Yes Goal:Decrease scar hypersensitivity: Yes Plan: will continue with BTE to increase molding press operator and free wts strength. thumb stabilization ex. If there are questions or concerns regarding this patient's occupational therapy, please fell free to call me at [phone]. Thank you for the referral of this patient. Sincerely, Aisha Georges, OTR/L, CHT
== END 2022-07-24 19:00 | disposition home or self-care (01) ==
LOC: OT 11:00
PROVIDERS: PCP Family Medicine Geriatric Medicine
DX: M18.11 Unilateral primary osteoarthritis of first carpometacarpal joint, right hand (principal); Z47.89 Encounter for other orthopedic aftercare
CPT/HCPCS: 97110; 97140; 97166; 97530

== ENCOUNTER → 2022-09-25 | Outpatient (CLI) | payer MEDICARE, MEDICAID, SELFPAY ==
--- NOTE | 2022-09-25 07:18 | US_ITS ---
STUDY: ABDOMINAL ULTRASOUND - RIGHT UPPER QUADRANT REASON FOR VISIT: Female, 57 years old fatty liver TECHNIQUE: Ultrasound evaluation of the right upper quadrant was performed with real-time and static gupta-scale imaging. TECHNICAL QUALITY: Adequate. COMPARISON: Comparison is made with prior study of 07/30/2022 FINDINGS: Liver: The liver measures 18.3 cm. There is increased echogenicity consistent with fatty infiltration. The bile ducts are within normal limits. There is hepatic color flow. The direction of portal flow is hepatopetal. There is no demonstrated mass lesion. Gallbladder: Normal distended gallbladder. The gallbladder wall measures 2.0 mm. There is a negative sonographic Jose''s sign. There is no pericholecystic fluid. There are no gallstones. Common Bile Duct (C.B.D.): The common bile duct measures 2.4 mm. Pancreas: Normal size of the head, body of the pancreas. The tail portion is obscured due to overlying bowel gas. There is normal echogenicity of the pancreas. There is no demonstrated pancreatic mass or cyst. Right Kidney: Normal size of the right kidney. The right kidney measures 10.4 cm x 5.3 cm x 5.1 cm. Normal renal cortex. The right cortex measures 1.7 cm. There is no demonstrated renal mass or cyst. There is no right hydronephrosis. US/Abdomen Limited IMPRESSION: Mild hepatomegaly and diffuse fatty infiltration of the liver. Electronically Signed: Galileo Overton MD at 8:44 EST ,
--- NOTE | 2022-09-25 07:18 | US_ITS ---
STUDY: ABDOMINAL ULTRASOUND - ELASTOGRAPHY REASON FOR VISIT: Female, 57 years old. Fatty infiltration of the liver. TECHNIQUE: Liver stiffness measurements were obtained on a [employer] RS 85 ultrasound machine using a CA 1-7 probe following the SRU guidelines. 3 measurements were obtained using a 2-D-SWE method. The IQR/M was 20% suggesting a quality data set. TECHNICAL QUALITY: Adequate. COMPARISON: Comparison is made with prior study done earlier in the day. FINDINGS: Liver: Mild hepatomegaly and fatty infiltration of the liver. Median liver stiffness measured 13 kPa. US/Elastography Parenchyma/Organ IMPRESSION: Liver stiffness measures 13 kPa compatible with F3-F4 (Moderate to severe liver fibrosis) Metavir score. Electronically Signed: Galileo Overton MD at 8:46 EST ,
== END | disposition home or self-care (01) ==
LOC: US 07:18
PROVIDERS: PCP Family Medicine Geriatric Medicine; Visit Provider Internal Medicine Gastroenterology
DX: K76.0 Fatty (change of) liver, not elsewhere classified (principal)
CPT/HCPCS: 76705; 76981

== ENCOUNTER → 2022-10-21 | Outpatient (CLI) | payer MEDICARE, MEDICAID, SELFPAY ==
[2022-10-21 14:11] LABS: Absolute Lymphocyte Count 2.17 X10^3/uL (0.83-4.51); Absolute Neutrophil Count 3.2 X10^3/uL (2.0-7.7); Basophil# 0.03 X10^3/uL; Basophil% 0.5 % (0-1); Eosinophil# 0.12 X10^3/uL; Hematocrit 38.7 % (37-47); Hemoglobin 12.6 g/dL (12.0-15.0); Lymphocyte # 2.17 X10^3/ul (0.83-4.51); Lymphocyte % 35.9 % (19-41); Mean Corp Hgb Conc 32.6 g/dL (32-36); Mean Corpuscular Hgb 30.8 pg (27.0-32.0); Mean Corpuscular Volume 94.6 fL (81-99); Mean Platelet Vol. 11.4 fl (6.2-12.0); Monocyte# 0.57 X10^3/uL; Monocyte% 9.4 % (0-10); NRBC Flagged by Analyzer 0 % (0-5); Neutrophil # 3.15 X10^3/uL (2.7-7.7); Platelet Count 215 K/mm3 (150-450); RBC Distribution Width CV 13.5 % (11.6-14.6); Red Blood Count 4.09 M/mm3 (4.2-5.4); White Blood Count 6.1 K/mm3 (4.4-11.0)
[2022-10-21 14:52] LABS: Vitamin D,25 Hydroxy 45.8 ng/mL
[2022-10-21 15:03] LABS: Cholesterol 175 mg/dL (200); High Density Lipoprotein 34 mg/dL; Triglycerides 179 mg/dL; Very Low Density Lipoprotein 36 mg/dL (5-40)
[2022-10-21 15:07] LABS: ALB/GLOB Ratio 1.1 RATIO (0.9-2.4); AST(SGOT) 18 U/L (15-37); Alanine Aminotransfer ALT/SGPT 18 U/L (13-56); Albumin, Serum 3.8 g/dL (3.2-5.0); Alkaline Phosphatase 87 U/L (45-117); Anion Gap 5 (5-15); BUN 16 mg/dL (7-18); BUN/Creat Ratio 14.4 RATIO (10-20); Calcium,Total 9.1 mg/dL (8.5-10.1); Chloride 106 mmol/L (98-107); Creatinine, Serum 1.11 mg/dL (0.55-1.02); EST Glomerular Filtration Rate 53 mL/min (>60); Est Glom Filt Rate - Afr Amer 65 mL/min (>60); Globulin 3.6 g/dL (2.2-4.2); Glucose 130 mg/dL (74-106); Protein, Total 7.4 g/dL (6.4-8.2); Sodium Level 141 mmol/L (136-145); Thyroid Stim Hormone (TSH) 5.21 uIU/mL (0.358-3.74)
== END | disposition home or self-care (01) ==
LOC: POLAB3 13:44
PROVIDERS: Internal Medicine Gastroenterology; PCP Family Medicine Geriatric Medicine; Visit Provider Family Medicine Geriatric Medicine
DX: E55.9 Vitamin D deficiency, unspecified (principal); R53.83 Other fatigue; E78.5 Hyperlipidemia, unspecified
CPT/HCPCS: 36415; 80053; 80061; 82306; 84443; 85025

== ENCOUNTER → 2022-12-09 | Outpatient (CLI) | payer MEDICARE, MEDICAID, SELFPAY ==
[2022-12-09 13:18] LABS: Thyroid Stim Hormone (TSH) 1.35 uIU/mL (0.358-3.74)
== END | disposition home or self-care (01) ==
LOC: LAB 11:30
PROVIDERS: PCP Family Medicine Geriatric Medicine; Referring Provider Family Medicine Geriatric Medicine; Visit Provider Family Medicine Geriatric Medicine
DX: E03.9 Hypothyroidism, unspecified (principal); E55.9 Vitamin D deficiency, unspecified; M10.9 Gout, unspecified; R53.83 Other fatigue
CPT/HCPCS: 36415; 84443

== ENCOUNTER → 2022-12-23 | Outpatient (CLI) | payer MEDICARE, MEDICAID, SELFPAY ==
--- NOTE | 2022-12-23 12:57 | BI_ITS ---
MAMMOGRAPHY - BILATERAL SCREENING 3-D TOMOSYNTHESIS REASON FOR EXAM: Female, 57 years old. Routine screening PERTINENT HISTORY: Grandmother and aunt with breast cancer.. TECHNIQUE: 2-D mammograms and 3-D Tomosynthesis of the breast (s) were performed. CAD was performed. COMPARISON: 10/30/2021 FINDINGS: The breast composition is composed of scattered fibroglandular density. Scattered benign calcifications are seen. No dense spiculated masses or suspicious microcalcifications are identified. No architectural distortion is identified. There is no skin thickening or retraction. There has been no significant change since the prior study. BI/SCRN MAMM (CAD)W/YULISA BILAT IMPRESSION: No mammographic signs of malignancy. Routine yearly mammograms recommended. ASSESSMENT CATEGORY: BIRADS Category 2: Benign. A letter regarding these results will be sent to the patient by the facility within 30 days. FOLLOW UP RECOMMENDATION: Yearly follow up mammogram recommended. (A) Approximately 10% of breast cancers are not detected by mammography. A normal mammogram should not delay biopsy of a clinically suspicious abnormality. Electronically Signed: Gaston Madrigal MD at 15:00 EDT ,
== END | disposition home or self-care (01) ==
PROVIDERS: PCP Family Medicine Geriatric Medicine; Visit Provider Family Medicine Geriatric Medicine
DX: Z12.31 Encounter for screening mammogram for malignant neoplasm of breast (principal)
CPT/HCPCS: 77063; 77067

== ENCOUNTER → 2023-05-14 | Outpatient (CLI) | payer MEDICARE, MEDICAID, SELFPAY ==
--- NOTE | 2023-05-14 09:14 | US_ITS ---
STUDY: ABDOMINAL ULTRASOUND - RIGHT UPPER QUADRANT; ELASTOGRAPHY REASON FOR VISIT: Female, 58 years old. PINO TECHNIQUE: Ultrasound evaluation of the right upper quadrant was performed with real-time and static gupta-scale imaging. Point quantification shear wave elastography was performed ([employer]). TECHNICAL QUALITY: Adequate. COMPARISON: Comparison is made with prior study dated March 25, 2023. FINDINGS: Liver: The liver measures 16 cm. There is increased echogenicity consistent with fatty infiltration. The bile ducts are within normal limits. There is hepatic color flow. The direction of portal flow is hepatopetal. There is no demonstrated mass lesion. Median liver stiffness measured 11.3 kPa. Gallbladder: Normal distended gallbladder. The gallbladder wall measures 2.7 mm. There is a negative sonographic Jose''s sign. There is no pericholecystic fluid. There are no gallstones. Common Bile Duct (C.B.D.): The common bile duct measures 4.0 mm. Pancreas: There is normal echogenicity of the visualized pancreas. There is no demonstrated pancreatic mass or cyst. Right Kidney: Normal size of the right kidney. The right kidney measures 10.2 cm x 4.6 x 4.8 cm. Normal renal cortex. The right cortex measures 1.3 cm. There is no demonstrated renal mass or cyst. There is no right hydronephrosis. US/ABD Limited w/ Elastography IMPRESSION: 1. Liver stiffness measures 11.3 kPa compatible with F2-F3 (Mild to moderate liver fibrosis) Metavir score. Electronically Signed: Galileo Overton MD at 13:50 EDT ,
== END | disposition home or self-care (01) ==
PROVIDERS: PCP Family Medicine Geriatric Medicine; Referring Provider Internal Medicine Gastroenterology; Visit Provider Internal Medicine Gastroenterology
DX: K75.81 Nonalcoholic steatohepatitis (NASH) (principal)
CPT/HCPCS: 76705; 76981

== ENCOUNTER → 2023-05-26 | Outpatient (CLI) | payer MEDICARE, MEDICAID, SELFPAY ==
[2023-05-26 15:10] LABS: Absolute Lymphocyte Count 2.16 X10^3/uL (0.83-4.51); Absolute Neutrophil Count 2.8 X10^3/uL (2.0-7.7); Basophil# 0.04 X10^3/uL; Basophil% 0.7 % (0-1); Eosinophil# 0.12 X10^3/uL; Eosinophils% 2.1 % (0-5); Hemoglobin 12.4 g/dL (12.0-15.0); Lymphocyte # 2.16 X10^3/ul (0.83-4.51); Lymphocyte % 37.6 % (19-41); Mean Corp Hgb Conc 32.6 g/dL (32-36); Mean Corpuscular Hgb 31.7 pg (27.0-32.0); Mean Corpuscular Volume 97.2 fL (81-99); Mean Platelet Vol. 12.1 fl (6.2-12.0); Monocyte# 0.57 X10^3/uL; Monocyte% 9.9 % (0-10); NRBC Flagged by Analyzer 0 % (0-5); Neutrophil # 2.84 X10^3/uL (2.7-7.7); Neutrophil % 49.5 % (47-70); Platelet Count 184 K/mm3 (150-450); RBC Distribution Width CV 13.4 % (11.6-14.6); RBC Distribution Width SD 47.8 fl (35.1-43.9); Red Blood Count 3.91 M/mm3 (4.2-5.4); White Blood Count 5.7 K/mm3 (4.4-11.0)
[2023-05-26 16:08] LABS: ALB/GLOB Ratio 1.1 RATIO (0.9-2.4); AST(SGOT) 24 U/L (15-37); Alanine Aminotransfer ALT/SGPT 21 U/L (13-56); Albumin, Serum 3.8 g/dL (3.2-5.0); Alkaline Phosphatase 106 U/L (45-117); Anion Gap 5 (5-15); BUN 18 mg/dL (7-18); BUN/Creat Ratio 18.7 RATIO (10-20); Chloride 106 mmol/L (98-107); Cholesterol 129 mg/dL (200); Creatinine, Serum 0.96 mg/dL (0.55-1.02); EST Glomerular Filtration Rate 63 mL/min (>60); Est Glom Filt Rate - Afr Amer 76 mL/min (>60); Globulin 3.4 g/dL (2.2-4.2); Glucose 97 mg/dL (74-106); High Density Lipoprotein 35 mg/dL; Potassium 4.3 mmol/L (3.5-5.1); Protein, Total 7.2 g/dL (6.4-8.2); Sodium Level 140 mmol/L (136-145); Thyroid Stim Hormone (TSH) 0.83 uIU/mL (0.358-3.74); Triglycerides 80 mg/dL; Very Low Density Lipoprotein 16 mg/dL (5-40)
== END | disposition home or self-care (01) ==
LOC: POLAB3 14:13
PROVIDERS: PCP Family Medicine Geriatric Medicine; Visit Provider Family Medicine Geriatric Medicine
DX: R53.83 Other fatigue (principal); E78.5 Hyperlipidemia, unspecified
CPT/HCPCS: 36415; 80053; 80061; 84443; 85025

== ENCOUNTER → 2023-10-29 | Outpatient (CLI) | payer MEDICARE, MEDICAID, SELFPAY ==
[2023-10-29 12:22] LABS: Absolute Lymphocyte Count 1.86 X10^3/uL (0.83-4.51); Absolute Neutrophil Count 2.7 X10^3/uL (2.0-7.7); Basophil# 0.04 X10^3/uL; Basophil% 0.8 % (0-1); Eosinophils% 1.9 % (0-5); Hematocrit 37.6 % (37-47); Hemoglobin 12.3 g/dL (12.0-15.0); Lymphocyte # 1.86 X10^3/ul (0.83-4.51); Lymphocyte % 35.3 % (19-41); Mean Corp Hgb Conc 32.7 g/dL (32-36); Mean Corpuscular Hgb 31.8 pg (27.0-32.0); Mean Corpuscular Volume 97.2 fL (81-99); Mean Platelet Vol. 11.7 fl (6.2-12.0); Monocyte# 0.52 X10^3/uL; Monocyte% 9.9 % (0-10); NRBC Flagged by Analyzer 0 % (0-5); Neutrophil # 2.74 X10^3/uL (2.7-7.7); Neutrophil % 51.9 % (47-70); Platelet Count 214 K/mm3 (150-450); RBC Distribution Width CV 13.4 % (11.6-14.6); Red Blood Count 3.87 M/mm3 (4.2-5.4); White Blood Count 5.3 K/mm3 (4.4-11.0)
[2023-10-29 13:33] LABS: AST(SGOT) 21 U/L (15-37); Alanine Aminotransfer ALT/SGPT 22 U/L (13-56); Albumin, Serum 3.5 g/dL (3.2-5.0); Alkaline Phosphatase 91 U/L (45-117); Anion Gap 1 (5-15); BUN 20 mg/dL (7-18); BUN/Creat Ratio 22.7 RATIO (10-20); Calcium,Total 8.8 mg/dL (8.5-10.1); Chloride 111 mmol/L (98-107); Cholesterol 128 mg/dL (200); Creatinine, Serum 0.88 mg/dL (0.55-1.02); EST Glomerular Filtration Rate 70 mL/min (>60); Est Glom Filt Rate - Afr Amer 84 mL/min (>60); Globulin 3.6 g/dL (2.2-4.2); Glucose 89 mg/dL (74-106); High Density Lipoprotein 40 mg/dL; Potassium 4.7 mmol/L (3.5-5.1); Protein, Total 7.1 g/dL (6.4-8.2); Sodium Level 141 mmol/L (136-145); Thyroid Stim Hormone (TSH) 1.05 uIU/mL (0.358-3.74); Triglycerides 79 mg/dL; Very Low Density Lipoprotein 16 mg/dL (5-40)
--- OUTSIDE RECORDS SUMMARY | 2023-10-29 17:47 | XMS RPT_ITS | CCD ---
Author Name Unknown Address [address] [place] [address] Organization [facility] Allergies Allergy Classification Reported Allergen(s) Allergy Type Date of Onset Reaction(s) Facility (1 source) Shellfish; Translations: [SHELLFISH DERIVED] Propensity to adverse reactions to drug (disorder) 6 [facility] Repository Results Test Name Value Interpretation Reference Range Facil ity Encounters Encounter Date Encounter Type Care Provider Facility Start: 10-20-2018 End: 10-21-2018 [facility] Family History No Family History Records Found Advance Directives No Advanced Directives Records Found Additional Source Comments INFORMATION SOURCE (unrecogn ized section and content) FOR RECORDS PERTAINING TO PATIENTS WHO ARE OR HAVE BEEN ENROLLED IN A CHEMICAL DEPENDENCY/SUBSTANCEABUSE PROGRAM, SOME INFORMATION MAY BE OMITTED. This clinical summary was aggregated from multiple sources. Caution should be exercised in using it in the provision of clinical care. This summary normalizes information from multiple sources, and as a consequence, information in this document may materially change the coding, format and clinical context of patient data. In addition, data may be omitted in some cases. CLINICAL DECISIONS SHOULD BE BASED ON THE PRIMARY CLINICAL RECORDS. [employer] provides no warranty or guarantee of the accuracy or completeness of information in this document.
== END | disposition home or self-care (01) ==
LOC: POLAB3 11:46
PROVIDERS: PCP Family Medicine Geriatric Medicine; Visit Provider Family Medicine Geriatric Medicine
DX: R53.83 Other fatigue (principal); E78.5 Hyperlipidemia, unspecified
CPT/HCPCS: 36415; 80053; 80061; 84443; 85025

== ENCOUNTER → 2023-11-12 | Outpatient (CLI) | payer MEDICARE, MEDICAID, SELFPAY ==
[2023-11-12 17:31] LABS: Absolute Lymphocyte Count 2.21 X10^3/uL (0.83-4.51); Absolute Neutrophil Count 4.1 X10^3/uL (2.0-7.7); Basophil# 0.04 X10^3/uL; Basophil% 0.6 % (0-1); Eosinophil# 0.11 X10^3/uL; Eosinophils% 1.5 % (0-5); Hematocrit 36.5 % (37-47); Hemoglobin 11.7 g/dL (12.0-15.0); Lymphocyte # 2.21 X10^3/ul (0.83-4.51); Mean Corp Hgb Conc 32.1 g/dL (32-36); Mean Corpuscular Hgb 30.7 pg (27.0-32.0); Mean Corpuscular Volume 95.8 fL (81-99); Mean Platelet Vol. 11.8 fl (6.2-12.0); Monocyte# 0.64 X10^3/uL; NRBC Flagged by Analyzer 0 % (0-5); Neutrophil % 57.6 % (47-70); Platelet Count 212 K/mm3 (150-450); RBC Distribution Width CV 13.2 % (11.6-14.6); RBC Distribution Width SD 46.5 fl (35.1-43.9); Red Blood Count 3.81 M/mm3 (4.2-5.4); White Blood Count 7.1 K/mm3 (4.4-11.0)
[2023-11-12 18:01] LABS: ALB/GLOB Ratio 1.1 RATIO (0.9-2.4); AST(SGOT) 16 U/L (15-37); Alanine Aminotransfer ALT/SGPT 21 U/L (13-56); Albumin, Serum 3.6 g/dL (3.2-5.0); Alkaline Phosphatase 91 U/L (45-117); Amylase 49 U/L (25-115); Anion Gap 3 (5-15); BUN 27 mg/dL (7-18); BUN/Creat Ratio 18.9 RATIO (10-20); Calcium,Total 8.6 mg/dL (8.5-10.1); Chloride 109 mmol/L (98-107); Creatinine, Serum 1.43 mg/dL (0.55-1.02); EST Glomerular Filtration Rate 40 mL/min (>60); Est Glom Filt Rate - Afr Amer 48 mL/min (>60); Globulin 3.3 g/dL (2.2-4.2); Glucose 103 mg/dL (74-106); Lipase 40 U/L (13-75); Potassium 3.8 mmol/L (3.5-5.1); Protein, Total 6.9 g/dL (6.4-8.2); Sodium Level 139 mmol/L (136-145)
== END | disposition home or self-care (01) ==
LOC: POLAB3 16:50
PROVIDERS: PCP Family Medicine Geriatric Medicine; Visit Provider Family Medicine Geriatric Medicine
DX: R07.9 Chest pain, unspecified (principal); R10.13 Epigastric pain
CPT/HCPCS: 36415; 80053; 82150; 83690; 85025

== ENCOUNTER → 2023-11-17 | Outpatient (CLI) | payer MEDICARE, MEDICAID, SELFPAY ==
--- NOTE | 2023-11-17 13:31 | EKG12_ITS ---
Test Reason : PREOP Blood Pressure : / mmHG Vent. Rate : 071 BPM Atrial Rate : 071 BPM P-R Int : 160 ms QRS Dur : 088 ms QT Int : 422 ms P-R-T Axes : 075 019 056 degrees QTc Int : 458 ms Normal sinus rhythm with sinus arrhythmia Normal ECG Confirmed by Leonardo Garcia ([id number]), publications editor MAULIK MCKEON ([id number]) on 11/18/2023 9:21:43 AM Referred By: Almas Schmidt Confirmed By:Leonardo Garcia
--- OUTSIDE RECORDS SUMMARY | 2023-11-17 17:59 | XMS RPT_ITS | CCD ---
Author Name Unknown Address [address] [place] [address] Organization [facility] Allergies Allergy Classification Reported Allergen(s) Allergy Type Date of Onset Reaction(s) Facility (1 source) Shellfish; Translations: [SHELLFISH DERIVED] Propensity to adverse reactions to drug (disorder) [address] [facility] Repository Results Test Name Value Interpretation Reference Range Facil ity Encounters Encounter Date Encounter Type Care Provider Facility Start: 10-20-2018 End: 10-21-2018 [facility] Family History No Family History [...] BE BASED ON THE PRIMARY CLINICAL RECORDS. [employer] provides no warranty or guarantee of the accuracy or completeness of information in this document.
== END | disposition home or self-care (01) ==
LOC: PSN 13:28
PROVIDERS: PCP Family Medicine Geriatric Medicine; Referring Provider Family Medicine Geriatric Medicine; Visit Provider Family Medicine Geriatric Medicine
DX: R10.13 Epigastric pain (principal)
CPT/HCPCS: 93005

== ENCOUNTER → 2023-11-26 | Outpatient (CLI) | payer MEDICARE, MEDICAID, SELFPAY ==
--- NOTE | 2023-11-26 10:24 | US_ITS ---
STUDY: ABDOMINAL ULTRASOUND - RIGHT UPPER QUADRANT REASON FOR VISIT: Female, 58 years old EPIGASTRIC PAIN TECHNIQUE: Ultrasound evaluation of the right upper quadrant was performed with real-time and static gupta-scale imaging. TECHNICAL QUALITY: Adequate. COMPARISON: Comparison is made with prior study May 14, 2023. FINDINGS: Liver: The liver measures 16 cm. There is increased echogenicity consistent with fatty infiltration. The bile ducts are within normal limits. There is hepatic color flow. The direction of portal flow is hepatopetal. There is no demonstrated mass lesion. Gallbladder: Normal distended gallbladder. The gallbladder wall measures 3 mm. There is a negative sonographic Jose''s sign. There is no pericholecystic fluid. There are no gallstones. Findings suggestive of a small gallbladder polyp. Common Bile Duct (C.B.D.): The common bile duct measures 4 mm. Pancreas: Normal size of the head, body and tail of the pancreas. There is normal echogenicity of the pancreas. There is no demonstrated pancreatic mass or cyst. Right Kidney: Normal size of the right kidney. The right kidney measures 9.7 cm x 5.6 cm x 4.6 cm. Normal renal cortex. The right cortex measures 1.5 cm. There is no demonstrated renal mass or cyst. There is no right hydronephrosis. US/Abdomen Limited IMPRESSION: Fatty infiltration of the liver. Small gallbladder polyp. Electronically Signed: Galileo Overton MD at 15:37 EDT ,
--- OUTSIDE RECORDS SUMMARY | 2023-11-26 17:46 | XMS RPT_ITS | CCD ---
Author Name Unknown Address [address] [place] [address] Organization [facility] Allergies Allergy Classification Reported Allergen(s) Allergy Type Date of Onset Reaction(s) Facility (1 source) Shellfish; Translations: [SHELLFISH DERIVED] Propensity to adverse reactions to drug (disorder) 6 [facility] Repository Results Test Name Value Interpretation Reference Range Facil ity Encounters Encounter Date Encounter Type Care Provider Facility Start: 10-20-2018 End: 10-21-2018 [facility] Family History No Family History [...] BE BASED ON THE PRIMARY CLINICAL RECORDS. [employer] provides no warranty or guarantee of the accuracy or completeness of information in this document.
== END | disposition home or self-care (01) ==
LOC: US 10:23
PROVIDERS: PCP Family Medicine Geriatric Medicine; Referring Provider Family Medicine Geriatric Medicine; Visit Provider Family Medicine Geriatric Medicine
DX: R10.13 Epigastric pain (principal)
CPT/HCPCS: 76705

== ENCOUNTER → 2023-12-01 | Outpatient (CLI) | payer MEDICARE, MEDICAID, SELFPAY ==
--- NOTE | 2023-12-01 07:53 | AAAS_ITS ---
Reason For Study: Screening Aorta Measurements Aorta Doppler Measurements Proximal aorta measures2.14 x 2.18cm. in cross- Peak systolic flow velocities within the proximal sectional axis. aorta measure 84.6 cm/sec. Proximal aorta measures2.17cm. in longitudinal Peak systolic flow velocities within the mid aorta axis. measure 77.3 cm/sec. Mid aorta measures1.83 x 1.81cm. in cross- Peak systolic flow velocities within the distal sectional axis. aorta measure 65.0 cm/sec. Mid aorta measures1.85cm. in longitudinal axis. Distal aorta measures1.74 x 1.73cm. in cross- sectional axis. Distal aorta measures1.71cm. in longitudinal axis. Left Iliac Artery Left iliac artery measures 0.88 x 0.92 cm. in the cross-sectional axis. Left iliac artery measures 0.89 cm. in the longitudinal axis. Peak systolic velocity in the left iliac artery measures 95.6 cm/sec. Right Iliac Artery Right iliac artery measures 0.90 x 0.93 cm. in the cross-sectional axis. Right iliac artery measures 0.94 cm. in the longitudinal axis. Peak systolic velocity in the right iliac artery measures 106.0 cm/sec. Procedure Aorta IVC Iliac vasculature or bypass grafts [id number]. The exam was diagnostic. Exam performed in department. VL/AAA Screening Interpretation Summary The dimensions of the intra-abdominal aorta are normal, without evidence of ane urysmal dilatation. The iliac arteries are also normal in size bilaterally. The intra-abdominal aor ta and iliac arteries appear patent, demonstrating normal, pulsatile flow and normal peak systolic ve locities. Ordering Physician: Almas Schmidt Chi Referring Physician: Almas Schmidt Chi Performed By: Donal Riojas, RVT
== END | disposition home or self-care (01) ==
PROVIDERS: PCP Family Medicine Geriatric Medicine; Referring Provider Family Medicine Geriatric Medicine; Visit Provider Family Medicine Geriatric Medicine
DX: R10.13 Epigastric pain (principal)
CPT/HCPCS: 76706

== ENCOUNTER → 2023-12-31 | Outpatient (CLI) | payer MEDICARE, MEDICAID, SELFPAY ==
--- NOTE | 2023-12-31 11:03 | BI_ITS ---
MAMMOGRAPHY - BILATERAL SCREENING REASON FOR EXAM: Female, 58 years old. Routine annual screening examination. PERTINENT HISTORY: Grandmother with breast cancer. Aunt with breast cancer. Prior left stereotactic and the left ultrasound-guided breast biopsy. TECHNIQUE: Digital bilateral breast yulisa (3D mammographic acquisition) in the CC and MLO projections. 2-D mediolateral oblique (MLO) and craniocaudad (CC) views of both breasts were obtained. CAD: Full Field Digital Mammography with Computer Added Detection was performed. COMPARISON: Comparison is made with prior study dated December 23, 2022 and August 29, 2022. FINDINGS: Breast Composition: There are scattered areas of fibroglandular density. There are no dominant masses or suspicious calcifications. A tissue clip marker is seen in the central lateral aspect of the left breast. No other significant abnormalities are identified. There has been no significant change since the prior study. BI/SCRN MAMM (CAD)W/YULISA BILAT IMPRESSION: Stable bilateral screening mammogram. Yearly follow-up mammogram recommended. (A) ASSESSMENT CATEGORY: BIRADS Category 2: Benign. A letter regarding these results will be sent to the patient by the facility within 30 days. Approximately 10% of breast cancers are not detected by mammography. A normal mammogram should not delay biopsy of a clinically suspicious abnormality. [id number] Electronically Signed: Galileo Overton MD at 13:23 EDT ,
== END | disposition home or self-care (01) ==
LOC: OPBI 11:01
PROVIDERS: PCP Family Medicine Geriatric Medicine; Referring Provider Family Medicine Geriatric Medicine; Visit Provider Family Medicine Geriatric Medicine
DX: Z12.31 Encounter for screening mammogram for malignant neoplasm of breast (principal)
CPT/HCPCS: 77063; 77067

== ENCOUNTER → 2024-01-28 | Outpatient (CLI) | payer MEDICARE, MEDICAID, SELFPAY ==
--- NOTE | 2024-01-28 09:28 | US_ITS ---
STUDY: ABDOMINAL ULTRASOUND - ELASTOGRAPHY REASON FOR VISIT: Female, 58 years old. PINO TECHNIQUE: Liver stiffness measurements were obtained on a [employer] RS 85 ultrasound machine using a CA 1-7 probe following the SRU guidelines. 3 measurements were obtained using a 2-D-SWE method. TheIQR/M was 12% suggesting a quality data set. TECHNICAL QUALITY: Adequate. COMPARISON: None. FINDINGS: Liver: There is no demonstrated mass lesion. Median liver stiffness measured 10.3 kPa. Abdomen: There is no demonstrated mass lesion. US/Elastography Parenchyma/Organ IMPRESSION: Liver stiffness measures 10.3 kPa compatible with F2-F3 (Mild to moderate liver fibrosis) Metavir score. Electronically Signed: Galileo Overton MD at 11:03 EDT ,
== END | disposition home or self-care (01) ==
LOC: US 09:27
PROVIDERS: PCP Family Medicine Geriatric Medicine; Referring Provider Internal Medicine; Visit Provider Internal Medicine
DX: K75.81 Nonalcoholic steatohepatitis (NASH) (principal); E66.9 Obesity, unspecified
CPT/HCPCS: 76981

== ENCOUNTER 2024-02-17 14:27 | Outpatient (CLI) | payer MEDICARE, MEDICAID, SELFPAY ==
[2024-02-17 15:23] LABS: Absolute Lymphocyte Count 1.53 X10^3/uL (0.83-4.51); Absolute Neutrophil Count 2.4 X10^3/uL (2.0-7.7); Basophil# 0.01 X10^3/uL; Basophil% 0.2 % (0-1); Eosinophil# 0.06 X10^3/uL; Eosinophils% 1.4 % (0-5); Hematocrit 36.1 % (37-47); Hemoglobin 11.8 g/dL (12.0-15.0); Lymphocyte # 1.53 X10^3/ul (0.83-4.51); Lymphocyte % 34.9 % (19-41); Mean Corp Hgb Conc 32.7 g/dL (32-36); Mean Corpuscular Volume 94.8 fL (81-99); Mean Platelet Vol. 11.6 fl (6.2-12.0); Monocyte# 0.37 X10^3/uL; Monocyte% 8.4 % (0-10); NRBC Flagged by Analyzer 0 % (0-5); Neutrophil # 2.41 X10^3/uL (2.7-7.7); Neutrophil % 54.9 % (47-70); Platelet Count 168 K/mm3 (150-450); RBC Distribution Width CV 13.2 % (11.6-14.6); RBC Distribution Width SD 46.5 fl (35.1-43.9); Red Blood Count 3.81 M/mm3 (4.2-5.4); White Blood Count 4.4 K/mm3 (4.4-11.0)
[2024-02-17 15:33] LABS: International Normalized Ratio 1.1; Prothrombin Time (Protime)PT. 14.6 SECONDS (11.7-14.9)
[2024-02-17 16:05] LABS: ALB/GLOB Ratio 1.1 RATIO (0.9-2.4); AST(SGOT) 26 U/L (15-37); Alanine Aminotransfer ALT/SGPT 25 U/L (13-56); Albumin, Serum 3.5 g/dL (3.2-5.0); Alkaline Phosphatase 80 U/L (45-117); Anion Gap 3 (5-15); BUN 15 mg/dL (7-18); BUN/Creat Ratio 13.9 RATIO (10-20); CRP < 2.90 mg/L (0.0-3.0); Calcium,Total 9.1 mg/dL (8.5-10.1); Chloride 106 mmol/L (98-107); Creatinine, Serum 1.08 mg/dL (0.55-1.02); EST Glomerular Filtration Rate 55 mL/min (>60); Est Glom Filt Rate - Afr Amer 66 mL/min (>60); GGTP 8 U/L (5-55); Globulin 3.1 g/dL (2.2-4.2); Glucose 108 mg/dL (74-106); Potassium 4.5 mmol/L (3.5-5.1); Protein, Total 6.6 g/dL (6.4-8.2); Sodium Level 137 mmol/L (136-145)
[2024-02-19 04:08] LABS: AFP, Tumor Marker 2.2 ng/mL (0.0-9.2)
== END 2024-02-17 23:59 | disposition home or self-care (01) ==
LOC: LAB 14:28
PROVIDERS: PCP Family Medicine Geriatric Medicine; Referring Provider Internal Medicine; Visit Provider Internal Medicine
DX: E66.01 Morbid (severe) obesity due to excess calories (principal); I50.32 Chronic diastolic (congestive) heart failure; Z68.35 Body mass index [BMI] 35.0-35.9, adult; K75.81 Nonalcoholic steatohepatitis (NASH); E78.5 Hyperlipidemia, unspecified; I89.0 Lymphedema, not elsewhere classified; E03.9 Hypothyroidism, unspecified
CPT/HCPCS: 36415; 80053; 82105; 82977; 85025; 85610; 86140

== ENCOUNTER → 2024-04-21 | Outpatient (CLI) | payer MEDICARE, MEDICAID, SELFPAY ==
--- NOTE | 2024-04-21 13:48 | VDLE_ITS ---
Reason For Study: BLE Edema RIGHT LEFT CFV is compressible, spontaneous, phasic, CFV is compressible, spontaneous, phasic, competent and demonstrates normal competent, and demonstrates normal augmentation. augmentation. FV is compressible, spontaneous, phasic, FV is compressible, spontaneous, phasic, competent and demonstrates normal competent and demonstrates normal augmentation. augmentation. POP V is compressible, spontaneous, phasic, POP V is compressible, spontaneous, phasic, competent and demonstrates normal competent and demonstrates normal augmentation. augmentation. T/P Trunk is compressible. T/P Trunk is compressible. PTV is compressible. PTV is compressible. RT PerV is compressible. LT PerV is compressible. SFJ is competent and measures 0.64 cm. SFJ is competent and measures 0.70 cm. GSV proximal thigh measures 0.33 x 0.40 cm. GSV proximal thigh measures 0.49 x 0.46 cm. GSV at knee measures 0.38 x 0.40 cm. GSV at knee measures 0.55 x 0.54 cm. GSV above knee is competent. GSV is competent throughout. GSV below knee is INCOMPETENT for greater ASV mid calf is INCOMPETENT for greater than than 0.5 seconds. 0.5 seconds and measures 0.40 x 0.44 cm. SSV proximal calf is competent and measures SSV proximal calf is competent and measures 0.20 x 0.21 cm. 0.29 x 0.31 cm. Procedure This is a venous duplex using B-mode, color flow and spectral Doppler. Exam performed in department. The exam was diagnostic. VL/Venous Duplex US - Heber Extrem Interpretation Summary Deep veins of the bilateral lower extremities are patent and compressible segme ntally. There is no evidence of bilateral lower extremity deep vein thrombosis. The bilateral great saphenous veins appear patent and compressible segmentally. Positive for reflux in the right great saphenous vein below the knee. Positive for reflux in left calf accessory saphenous vein. Ordering Physician: Zoya Jenkins Referring Physician: Almas Schmidt Chi Performed By: Donal Riojas RVT
== END | disposition home or self-care (01) ==
PROVIDERS: PCP Family Medicine Geriatric Medicine; Referring Provider Physician Assistant; Visit Provider Physician Assistant
DX: R60.0 Localized edema (principal)
CPT/HCPCS: 93970

== ENCOUNTER 2024-08-20 13:57 | Emergency (ER) | payer MEDICARE, MEDICAID, SELFPAY ==
[2024-08-20 13:58] VITALS: BP 117/60; PULSE 77; RESP 15; TEMP 35.9; O2SAT 99; BMI 35.5
--- NOTE | 2024-08-20 14:09 | EDS_ITS ---
HPI History of Present Illness Chief Complaint: Back [facility] Medical History Fatty liver Elevated random blood glucose level Acute bronchitis, unspecified Acute sinusitis, unspecified Arthritis of carpometacarpal (CMC) joint of both thumbs Chronic diastolic (congestive) heart failure Segmental and somatic dysfunction of thoracic region Segmental and somatic dysfunction of pelvic region Segmental and somatic dysfunction of lumbar region Obesity Arthritis Hyperlipidemia Seasonal allergies Asthma Depression Hypothyroidism Home Medications ?Medication ?Instructions ?Recorded ?Last Taken ?Type escitalopram oxalate 20 mg tablet 20 mg PO QDAY 10/30/17 Unknown History multivitamin 1 tab PO QAM 10/30/17 Unknown History calcium 600 mg (as carbonate)-vit 1 ea PO DAILY 01/19/18 Unknown History D3 10 mcg (400 unit) chewable tablet acetaminophen 500 mg tablet 1,000 mg PO DAILY PRN Pain 08/23/19 Unknown History (Tylenol Extra Strength) albuterol sulfate 90 mcg/actuation 1 inh inhalation Q4H PRN Wheezing 08/23/19 Unknown History breath activated powder inhaler doxepin 25 mg capsule 25 mg PO DAILY 02/13/21 Unknown History levothyroxine 100 mcg tablet 100 mcg PO QDAY 07/16/21 Unknown History vitamin E 268 mg (400 unit) capsule 536 mg (2 x 268 mg (400 unit)) PO 11/02/23 Unknown Rx DAILY 90 days #180 caps simvastatin 10 mg tablet 10 mg PO QHS 1 month #30 tabs 12/14/23 Unknown Rx ursodiol 300 mg capsule 300 mg PO BID #60 caps 12/14/23 Unknown Rx metformin 500 mg tablet 500 mg PO BID 90 days #180 tabs 02/23/24 Unknown Rx oxycodone 5 mg capsule 5 mg PO Q6H PRN pain 4 days #16 08/20/24 Unknown Rx caps prednisone 5 mg tablet 5 mg PO DAILY 4 days #4 tabs 08/20/24 Unknown Rx Allergy/AdvReac Type Severity Reaction Status Date / Time Tetanus Vaccines and Toxoid Allergy Mild Swelling Verified 08/20/24 13:58 shellfish derived Allergy Swelling Verified 08/20/24 13:58 pravastatin AdvReac Intermediate Unknown Verified 08/20/24 13:58 Family History Father CAD (coronary artery disease) CABG age 80 Other Breast cancer Surgical History History of breast biopsy History of tonsillectomy History of Social History Smoking Status: Never smoker alcohol intake: never substance use type: does not use caffeine: No EXAM Physical Exam Const Vital Signs: 08/20/24 13:58 Temperature 96.6 F L Temperature Source Temporal Pulse Rate 77 Respiratory Rate 15 Blood Pressure 117/60 Blood Pressure Mean 79 Pulse Ox 99 Oxygen Delivery Method Room Air [facility] [place] Medical decision making narrative: HISTORY OF PRESENT ILLNESS: 59-year-old female presents with back pain. States she is doing lots of lifting and bending on Thursday. She notes she tried heat, chiropractic treatment, [id number] pain relievers and muscle relaxers with little r elief. She notes the pain is worse when she bears weight on her left leg. She further states Patient denies any saddle anesthesia, urinary retention, bowel or bladder incontinence, lower extremity weakness, fever or IV drug use, no recent spinal manipulation or surgery, no recent urinary catheterization. REVIEW OF SYSTEMS: Pertinent positives: Back pain Pertinent negatives: Saddle anesthesia, bowel or bladder incontinence, weakness or loss sensation in the lower extremities. PHYSICAL EXAM: Nursing triage notes reviewed, Vital signs reviewed Constitutional: please see [facility] HENT: MMM Eyes: Pupils equal round and reactive to light, Extraocular muscles intact Neck: No stridor, no JVD, full neck ROM Lungs: Clear to auscultation, No wheezing or rales. No increased work of breathing, no conversational dyspnea, no accessory muscle use, no nasal flaring. No respiratory distress noted Heart: Regular rate and rhythm, No murmurs, No rubs and No gallops, 2+ distal pulses (radial, femoral, posterior tibial) in all extremities Abdomen: Soft, there is no tenderness, rigidity, rebound or guarding, no obvious peritoneal signs, no palpable pulsatile abdominal masses, no auscultated abd ominal bruit : No CVAT Back: TTP over left lateral lumbar spinal musculature. No step-off deformities or midline tenderness noted. Extremities: No edema Neuro: Intact sensation L1-S1 dermatomal distributions. Intact 5/5 strength in hip flexion (T12-L3). Knee extension (L2-L4). Ankle dorsiflexion (L4-L5). Ankle plantar flexion (S1). Great toe extension (L5). 2+ patellar and Achilles DTRs. Skin: No rash or lesions noted MEDICAL DECISION MAKING: Chief Complaint: Back pain External records reviewed: Reviewed prior imaging: Reviewed x-ray of the lumbar spine from 2018 which showed normal lumbar lordosis, no scoliosis, normal alignment of the vertebrae, normal disc space heights. No demonstrated fracture. Factors affecting care: Hdez, CHF, hyperlipidemia, hypothyroidism Social determinants of health: Denies IV drug History obtained from others: none Consults: none [facility] Narrative: The patient was hemodynamically stable, afebrile and nontoxic-appearing. Exam without signs of acute neurologic deficits. The patient had no back pain red flag such as bowel or bladder incontinence urinary retention or saddle anesthesia. I considered the following differential diagnosis: Lumbar spine muscle strain, disc herniation, space-occupying lesion of the spine (epidural abscess, epidural hematoma, conus medullaris, cauda equina) While I considered obtaining an MRI, to rule out a space-occupying lesion of the spine the patient had no history or clinical findings suggestive of life or spine threatening etiology. The patient was given oral oxycodone, oral Tylenol, oral ibuprofen and given lidocaine patch. She was prescribed oxycodone and prednisone for home-going. The patient and/or family, caregivers express understanding. The patient and/or family, caregivers agrees with the plan. Shared decision making: I will have a discussion with the patient and or visitors regarding risk/benefits of further testing or admission. They will be made aware of of the risk/benefits inherent in this decision they will be given the opportunity to voice understanding. Total critical care time today provided was at least 0 minutes. This excludes separately billable procedures. Critical care time (if documented) is secondary to the patient having high probability of clinically significant/life threatening deterioration in the patient's condition which required my urgent intervention. Impression: 1. Acute low back pain 2. Musculoskeletal back pain Dispo: Discharge home This note was generated with [employer] software. It may contain incorrect words, spelling, and punctuation that were not noted in review of the chart prior to signing. Discharge Plan Triage Chief Complaint: Back ED Provider: Erick Scales Dx/Rx/DC Orders Clinical Impression: Low back sprain Instructions: ED Back Sprain/Strain Prescriptions: New oxycodone 5 mg capsule 5 mg PO Q6H PRN (Reason: pain) 4 Days Qty: 16 0RF prednisone 5 mg tablet 5 mg PO DAILY 4 Days Qty: 4 0RF No Action multivitamin tablet 1 tab PO QAM escitalopram oxalate 20 mg tablet 20 mg PO QDAY acetaminophen [Tylenol Extra Strength] 500 mg tablet 1,000 mg PO DAILY PRN (Reason: Pain) albuterol sulfate 90 mcg/actuation aerosol powdr breath activated 1 inh INHALATION Q4H PRN (Reason: Wheezing) doxepin 25 mg capsule 25 mg PO DAILY metformin 500 mg tablet 500 mg PO BID 90 Days Qty: 180 2RF levothyroxine 100 mcg tablet 100 mcg PO QDAY Patient Comments: ON SUNDAYS-PT TAKES ONLY 50 MCG OF SYNTHROID. Rx Instructions: 50 on thursday calcium carbonate-vitamin D3 1 EACH tablet,chewable 1 ea PO DAILY vitamin E 268 mg (400 unit) capsule 536 mg PO DAILY 90 Days Qty: 180 3RF simvastatin 10 mg tablet 10 mg PO QHS 30 Days Qty: 30 5RF ursodiol 300 mg capsule 300 mg PO BID Qty: 60 5RF Primary Care Provider: Almas Schmidt Chi Referrals: Almas Schmidt Chi, MD [Primary Care Provider] - Activity Restrictions/Additional Instructions: Thank you for trusting us with your care today! Your history and clinical exam is most consistent with musculoskeletal back strain. This is treated with rest, anti-inflammatories, stretching, abdominal and core strengthening and in the long-term weight loss. If you continue to have pain for 6 to 8 weeks imaging is indicated. Please take Tylenol (2 pills, 650 mg), ibuprofen (2 pills, 400 mg) every 6 hours as needed for pain and fever control. Please return to the emergency department if your symptoms change or worsen. Specifically develop bowel or bladder incontinence, urinary retention, loss of movement or sensation in your legs, fever or decreased sensation around your private area. Please follow with your primary care physician for further outpatient evaluation and management. Print Language: Albanian Disposition Disposition: Home, Self Care
[2024-08-20] MEDS: Ibuprofen 200 MG Tablet 400 MG PO (14:35)
[2024-08-20] MEDS: Acetaminophen 325 MG Tablet 650 MG PO (14:36)
[2024-08-20] MEDS: Lidocaine 5% Patch 1 PATCH TOPICAL (14:37)
[2024-08-20] MEDS: oxyCODONE 5 MG Tablet PO (14:37)
[2024-08-20 14:43] VITALS: BP 140/78; PULSE 64; RESP 16; TEMP 36.6; O2SAT 99
== END 2024-08-20 14:43 | disposition home or self-care (01) ==
PROVIDERS: Emergency Provider Emergency Medicine; PCP Family Medicine Geriatric Medicine; Visit Provider Emergency Medicine
DX: S39.012A Strain of muscle, fascia and tendon of lower back, initial encounter (principal); I50.32 Chronic diastolic (congestive) heart failure; E66.9 Obesity, unspecified; K75.81 Nonalcoholic steatohepatitis (NASH); X50.0XXA Overexertion from strenuous movement or load, initial encounter; M18.0 Bilateral primary osteoarthritis of first carpometacarpal joints; E78.5 Hyperlipidemia, unspecified; F32.A Depression, unspecified; E03.9 Hypothyroidism, unspecified; J45.909 Unspecified asthma, uncomplicated; Z79.899 Other long term (current) drug therapy; Z79.890 Hormone replacement therapy
CPT/HCPCS: 99283

== ENCOUNTER 2024-10-04 13:30 | Outpatient (RCR) | payer MEDICARE, MEDICAID, SELFPAY ==
--- NOTE | 2024-08-31 15:29 | HP.PTEVAL ---
Patient's Visit Information Visit Information Visit Information: LIANNA CHACKO is a 59 year old F referred to Physical Therapy by Dr. Almas Schmidt MD with a diagnosis of LOW BACK PAIN. Date of Evaluation: 08/31/24 Physical Therapist: Jessee Coffey, PT, Cert MDT, OCS Visit Plan Frequency: 2x /Week Duration: 4 Weeks Plan: PT INTERVENTIONS DLS ,JUANCARLOS EX'S ,POSTURAL EX'S AND POSTURE/BODY MECHANICS Subjective Subjective: This 59 y/o female presents to physical therapy with back pain. 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 Patient went to ER due to pain and unable to walk. Patient getting better. Patient sees chiropractor every other week. Patient initially was on pain medication and anti-inflammatory predestine and gabapentin but has stopped. Aggravating walking/standing bending and lifting left leg was worse ,but go better. Alleviating factors time and medication. Patient sleeping good. Coughing/sneezing -. Bowel/bladder-. Patient condition affects QOL and function. No more pain. 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 Objective Objective: POSTURE: mild forward posture GAIT: reciprocal pattern NEURO: denies paresthesia/tingling ,reflexes intact PALPATION: unremarkable MMT: quads/hams 4/5 ,hip flexion 4/5 ,ankle 4/5 LUMBAR ROM : flexion WFL ,extension WFL ,side glides WFL Special Tests L/S Slump test left side: Negative L/S Slump test right side: Negative L/S Left Straight Leg Raise: Negative L/S Right Straight Leg Raise: Negative Lumbar Standing: Flexion - Mechanical Response: No effect Lumbar Standing: Flexion - Symptoms During Testing: No effect Lumbar Standing: Flexion - Symptoms After Testing: No effect Lumbar Standing: Extension - Mechanical Response: No effect Lumbar Standing: Extension - Symptoms During Testing: No effect Lumbar Standing: Extension - Symptoms After Testing: No effect Lumbar Standing: Right Side Glides - Mechanical Response: No effect Lumbar Standing: Right Side [place] - Symptoms During Testing: No effect Lumbar Standing: Right Side [place] - Symptoms After Testing: No effect Lumbar Standing: Left Side [place] - Mechanical Response: No effect Lumbar Standing: Left Side [place] - Symptoms During Testing: No effect Lumbar Standing: Left Side [place] - Symptoms After Testing: No effect Lumbar Lying: Flexion - Mechanical Response: No effect Lumbar Lying: Flexion - Symptoms During Testing: No effect Lumbar Lying: Flexion - Symptoms After Testing: No effect Lumbar Lying: Extension - Mechanical Response: No effect Lumbar Lying: Extension - Symptoms During Testing: No effect Lumbar Lying: Extension - Symptoms After Testing: No effect Balance/Special Test Scores Oswestry Low Back Score: 7 Goals Goal 1:: Patient to be I with HEP Goal Time Frame: 4-6 Weeks Goal 2:: Patient to be I with posture/body mechanics 100% Goal Time Frame: 4-6 Weeks Goal 3:: Patient to diminish recurrence pf pain by 75% Goal Time Frame: 4-6 Weeks Goal 4:: Patient to improve back oswestry score by 2-3 point to improve QOL Goal Time Frame: 4-6 Weeks Rehabilitation Potential Physical Therapy Diagnosis: This patient has low back pain when bending improving with possible lumbar derangement thus benefit from skilled PT Rehabilitation Potential: Good Anticipated Interventions Patient/Client Instruction: Educate patient on: Condition and Plan of Care For the Purpose of:: To decrease pain, To increase ROM, To improve muscle performance and motor function, To improve ability to perform ADL's, To increase tolerance to activity/condition/position, To improve ability of physical actions for home/community/work/leisure, To improve health of tissue, To decrease soft tissue restriction and To increase flexibility/ROM Therapeutic Exercise to Include: Strength training, Power training, Body mechanics, Postural training, Flexibilty training and Dynamic Lumbar Stabilization For the Purpose of:: To decrease pain, To improve muscle performance and motor function, To increase tolerance to activity/condition/position, To improve ability of physical actions for home/community/work/leisure, To decrease soft tissue restriction, To increase flexibility/ROM, To reduce risk of recurrence and To prevent re-injury Text: Thank you for the opportunity to evaluate your patient. For Medicare and Medicare HMO plans, please review the plan of care and approve it. It will need to be FAXED BACK to us at [phone] for Medicare purposes. For Medicare only, by signing this I certify the plan of care. Please let me know if there are questions or concerns regarding this plan of care. Physician Signature: Date:
--- NOTE | 2024-10-04 14:21 | HP.PTDCSUM ---
Discharge Summary D/C summary: It has been my pleasure to treat LIANNA CHACKO referred by Dr. Almas Schmidt MD, with the diagnosis of LOW BACK PAIN for a total of 9 visit(s). Discharge Date: 10/04/24 Please see the following information for a summary of their discharge status. Subjective Subjective: Patient doing well ,no pain No pain with housework tasks Overall Improvement % Improvement: 90 Objective Objective/Function: POSTURE: mild forward posture GAIT: reciprocal pattern NEURO: denies paresthesia/tingling ,reflexes intact PALPATION: unremarkable MMT: quads/hams 4/5 ,hip flexion 4/5 ,ankle 4/5 LUMBAR ROM : flexion WFL ,extension WFL ,side glides WFL Goals Goal 1:: Patient to be I with HEP Goal Progress: Goal Met Goal 2:: Patient to be I with posture/body mechanics 100% Goal Progress: Goal Met Goal 3:: Patient to diminish recurrence pf pain by 75% Goal Progress: Goal Met Goal 4:: Patient to improve back oswestry score by 2-3 point to improve QOL Goal Progress: Goal Met Plan Plan: D/C TO HEP D/C Information Discharge Comments: HEP d/c sentence: If there are questions or concerns regarding this patient's physical therapy, please feel free to call me at [phone]. Thank you for the referral of this patient. Sincerely, Jessee Coffey PT, Cert MDT, OCS Balance/Gait/Functional tests Balance/Special Test Scores Oswestry Low Back Score: 0 Improvement % Improvement: 90
== END 2024-10-04 15:12 | disposition home or self-care (01) ==
LOC: PT 13:30
PROVIDERS: PCP Family Medicine Geriatric Medicine; Referring Provider Family Medicine Geriatric Medicine; Visit Provider Family Medicine Geriatric Medicine
DX: M54.50 Low back pain, unspecified (principal)
CPT/HCPCS: 97110; 97162; 97530

== ENCOUNTER → 2024-10-24 | Outpatient (CLI) | payer MEDICARE, MEDICAID, SELFPAY | END | disposition home or self-care (01) | LOC: POLAB3 16:13 | PROVIDERS: PCP Family Medicine Geriatric Medicine; Visit Provider Family Medicine Geriatric Medicine | DX: R68.83 Chills (without fever) (principal) | CPT/HCPCS: 87631 ==

== ENCOUNTER → 2024-11-03 | Outpatient (CLI) | payer MEDICARE, MEDICAID, SELFPAY ==
[2024-11-03 12:22] LABS: ALB/GLOB Ratio 1.1 RATIO (0.9-2.4); AST(SGOT) 16 U/L (15-37); Alanine Aminotransfer ALT/SGPT 18 U/L (13-56); Albumin, Serum 3.7 g/dL (3.2-5.0); Alkaline Phosphatase 72 U/L (45-117); Anion Gap 2 (5-15); BUN 20 mg/dL (7-18); BUN/Creat Ratio 19.8 RATIO (10-20); Calcium,Total 9.5 mg/dL (8.5-10.1); Chloride 105 mmol/L (98-107); Cholesterol 155 mg/dL (200); Creatinine, Serum 1.01 mg/dL (0.55-1.02); EST Glomerular Filtration Rate 59 mL/min (>60); Est Glom Filt Rate - Afr Amer 72 mL/min (>60); Globulin 3.5 g/dL (2.2-4.2); Glucose 88 mg/dL (74-106); High Density Lipoprotein 44 mg/dL; Potassium 4.6 mmol/L (3.5-5.1); Protein, Total 7.2 g/dL (6.4-8.2); Sodium Level 138 mmol/L (136-145); Triglycerides 119 mg/dL; Very Low Density Lipoprotein 24 mg/dL (5-40)
[2024-11-03 12:29] LABS: Absolute Lymphocyte Count 2.31 X10^3/uL (0.83-4.51); Absolute Neutrophil Count 2.8 X10^3/uL (2.0-7.7); Basophil# 0.04 X10^3/uL; Basophil% 0.7 % (0-1); Eosinophil# 0.15 X10^3/uL; Eosinophils% 2.5 % (0-5); Hematocrit 39.7 % (37-47); Hemoglobin 12.5 g/dL (12.0-15.0); Lymphocyte # 2.31 X10^3/ul (0.83-4.51); Lymphocyte % 38.4 % (19-41); Mean Corp Hgb Conc 31.5 g/dL (32-36); Mean Corpuscular Hgb 30.4 pg (27.0-32.0); Mean Corpuscular Volume 96.6 fL (81-99); Mean Platelet Vol. 11.2 fl (6.2-12.0); Monocyte# 0.66 X10^3/uL; NRBC Flagged by Analyzer 0 % (0-5); Neutrophil # 2.83 X10^3/uL (2.7-7.7); Neutrophil % 47.1 % (47-70); Platelet Count 221 K/mm3 (150-450); RBC Distribution Width CV 13.3 % (11.6-14.6); RBC Distribution Width SD 47.6 fl (35.1-43.9); Red Blood Count 4.11 M/mm3 (4.2-5.4)
== END | disposition home or self-care (01) ==
LOC: LAB 11:15
PROVIDERS: PCP Family Medicine Geriatric Medicine; Referring Provider Family Medicine Geriatric Medicine; Visit Provider Family Medicine Geriatric Medicine
DX: E78.5 Hyperlipidemia, unspecified (principal); R53.83 Other fatigue
CPT/HCPCS: 36415; 80053; 80061; 84443; 85025

== ENCOUNTER → 2025-01-05 | Outpatient (CLI) | payer MEDICARE, MEDICAID, SELFPAY ==
--- NOTE | 2025-01-05 10:13 | BI_ITS ---
EXAM: SCRN MAMM (CAD)W/YULISA BILAT DATE: 01/05/2025 CLINICAL HISTORY: F, Age 59 y/o , SCREENING Grandmother with breast cancer. Aunt with breast cancer. Prior left stereotactic breast biopsy and left ultrasound-guided breast biopsy. BREAST CANCER RISK ASSESSMENT: Not assessed. TECHNIQUE: Bilateral screening digital breast tomosynthesis with 2D and 3D images. Computer aided detection. COMPARISON: Prior exam(s) dated December 31, 2023.. FINDINGS: TISSUE DENSITY: The breast tissue is heterogenously dense, which may obscure small masses. Bilateral Breast Mammographic Findings: No significant masses, calcifications or other abnormalities are identified. A tissue clip marker is seen in the anterior central aspect of the left breast. No suspicious masses, areas of developing architectural distortion, or suspicious calcifications. There has been no significant interval change. BI/SCRN MAMM (CAD)W/YULISA BILAT IMPRESSION: OVERALL FINAL ASSESSMENT: BIRADS 2 BENIGN FINDING RECOMMENDATION: Routine annual follow-up in 1 Year A letter with findings and recommendations will be mailed to the patient. Reading Location: [place] [id number]
== END | disposition home or self-care (01) ==
LOC: OPBI 10:12
PROVIDERS: PCP Family Medicine Geriatric Medicine; Referring Provider Family Medicine Geriatric Medicine; Visit Provider Family Medicine Geriatric Medicine
DX: Z12.31 Encounter for screening mammogram for malignant neoplasm of breast (principal)
CPT/HCPCS: 77063; 77067

== ENCOUNTER → 2025-02-09 | Outpatient (CLI) | payer MEDICARE, MEDICAID, SELFPAY ==
[2025-02-09 10:26] LABS: Hemoglobin A1c 5.5 % (<=5.6)
[2025-02-09 10:33] LABS: ALB/GLOB Ratio 1.3 RATIO (0.9-2.4); AST(SGOT) 42 U/L (<=31); Alanine Aminotransfer ALT/SGPT 50 U/L (<=34); Albumin, Serum 3.8 g/dL (3.4-4.8); Alkaline Phosphatase 72 U/L (35-104); Anion Gap 9 (5-15); BUN 21 mg/dL (4-19); BUN/Creat Ratio 22.8 RATIO (10-20); Bilirubin, Direct 0.22 mg/dL (0.00-0.30); Calcium,Total 9.1 mg/dL (7.6-11.0); Carbon Dioxide 26.3 mmol/L (21.0-32.0); Chloride 105 mmol/L (98-108); EST Glomerular Filtration Rate 72 (>60); Glucose 106 mg/dL (70-99); Potassium 4.8 mmol/L (3.3-5.1); Protein, Total 6.9 g/dL (5.9-8.4); Sodium Level 140 mmol/L (133-145); Total Bilirubin 0.41 mg/dL (0.00-1.30)
[2025-02-09 10:38] LABS: CRP < 3.00 mg/L (0.0-3.0)
== END | disposition home or self-care (01) ==
LOC: LAB 09:24
PROVIDERS: PCP Family Medicine Geriatric Medicine; Referring Provider Internal Medicine; Visit Provider Internal Medicine
DX: K76.0 Fatty (change of) liver, not elsewhere classified (principal); I50.32 Chronic diastolic (congestive) heart failure; E66.01 Morbid (severe) obesity due to excess calories; R60.0 Localized edema; Z68.35 Body mass index [BMI] 35.0-35.9, adult; R73.03 Prediabetes
CPT/HCPCS: 36415; 80053; 82248; 83036; 86140

== ENCOUNTER → 2025-02-16 | Outpatient (CLI) | payer MEDICARE, MEDICAID, SELFPAY ==
--- NOTE | 2025-02-16 08:39 | US_ITS ---
PROCEDURE: ABD LIMITED W/ ELASTOGRAPHY, 02/16/2025 REASON FOR EXAM: LIVER FIBROSIS, F2 F3 COMPARISON: 01/28/2024 TECHNIQUE: Grayscale and color Doppler imaging of the right upper quadrant was performed. Elastography was performed for non-invasive assessment of liver tissue stiffness utilizing a Plei S-shear wave imaging unit. FINDINGS: Liver: Grossly unremarkable echotexture. 15.7 cm in length. Gallbladder: Unremarkable. Reportedly, sonographic Jose's was negative. Biliary tree: Unremarkable. CBD measures 3 mm. Pancreas: Partially obscured by shadowing bowel gas, grossly unremarkable as visualized. Right kidney: Unremarkable. 11.1 cm in length. Other: No visualized free fluid. Hepatic elastography: Number of measurements: 15 measurements across 3 regions, 5 measurements per region. US probe: CA1-7A. EQI median: 6.7 kPa EQI median velocity: 1.48 m/s IQR/Med: 22.7-24.6% (kPa) and 11.4-12.3% (m/s). If the IQR/Med is IQR/median >30% (for kPa) or >15% in m/s, the variance in the measurements is a large and the accuracy of the measurement may be in question. US/ABD Limited w/ Elastography IMPRESSION: 1. Grossly unremarkable hepatic echotexture. 2. Liver stiffness is 6.7 kPa. Per the below 2020 SRU criteria, this rules out compensated advanced chronic liver disease in the absence of other known clinical signs. If there are known clinical signs, furth er testing may be needed for confirmation. 3. Additional description as above. Assessment is per the Update to the SRU Liver Elastography Consensus Statement (2020) Note that the above assessment of liver fibrosis is vendor-neutral and intended for use in fibrosis related to viral etiologies and non-alcoholic fatty-liver disease (NAFLD); in causes other than viral hepat itis and NAFLD, the cutoff values are currently not well established. In some patients with NAFLD, the cutoff values for cACLD may be lower (7-9 kPa). Note also that in the setting of elevated LFTs, nonfasting or vascular congestion, the stage of lifer fibrosis may be overestimated. Previous SRU reference values: <1.37 m/s (5.7kPa): No to mild fibrosis 1.37 m/s - 2.2 m/s: Moderate to severe fibrosis >2.2 m/s (15kPa): Significant fibrosis / cirrhosis Reading Location: [id number]
== END | disposition home or self-care (01) ==
LOC: US 08:36
PROVIDERS: PCP Family Medicine Geriatric Medicine; Referring Provider Internal Medicine; Visit Provider Internal Medicine
DX: K76.0 Fatty (change of) liver, not elsewhere classified (principal); E66.01 Morbid (severe) obesity due to excess calories; E78.5 Hyperlipidemia, unspecified; Z68.35 Body mass index [BMI] 35.0-35.9, adult
CPT/HCPCS: 76705; 76981

== ENCOUNTER → 2025-02-22 | Outpatient (CLI) | payer MEDICARE, MEDICAID, SELFPAY ==
[2025-02-22 18:33] LABS: AST(SGOT) 65 U/L (<=31); Alanine Aminotransfer ALT/SGPT 59 U/L (<=34); Albumin, Serum 4.1 g/dL (3.4-4.8); Alkaline Phosphatase 82 U/L (35-104); Bilirubin, Direct 0.15 mg/dL (0.00-0.30); Protein, Total 7.1 g/dL (5.9-8.4); Total Bilirubin 0.36 mg/dL (0.00-1.30)
[2025-02-24 04:07] LABS: GGTP 9 IU/L (0-60)
== END | disposition home or self-care (01) ==
LOC: LAB 16:33
PROVIDERS: PCP Family Medicine Geriatric Medicine; Referring Provider Internal Medicine; Visit Provider Internal Medicine
DX: K76.0 Fatty (change of) liver, not elsewhere classified (principal); K71.9 Toxic liver disease, unspecified; E78.5 Hyperlipidemia, unspecified
CPT/HCPCS: 36415; 80076; 82977

== ENCOUNTER → 2025-04-13 | Outpatient (CLI) | payer MEDICARE, MEDICAID, SELFPAY ==
[2025-04-13 15:23] LABS: Prothrombin Time (Protime)PT. 13.7 SECONDS (11.7-14.9)
[2025-04-13 16:59] LABS: AST(SGOT) 38 U/L (<=31); Alanine Aminotransfer ALT/SGPT 43 U/L (<=34); Albumin, Serum 4.2 g/dL (3.4-4.8); Alkaline Phosphatase 81 U/L (35-104); Anion Gap 9 (5-15); BUN 22 mg/dL (4-19); BUN/Creat Ratio 19.2 RATIO (10-20); Bilirubin, Direct 0.25 mg/dL (0.00-0.30); Calcium,Total 9.2 mg/dL (7.6-11.0); Carbon Dioxide 27.9 mmol/L (21.0-32.0); Chloride 105 mmol/L (98-108); Globulin 2.3 g/dL (2.2-4.2); Glucose 132 mg/dL (70-99); HIV Nonreactive (Nonreactive); Iron 104 ug/dL (50-170); Iron Binding Capacity,Total 257 ug/dL (250-450); Iron Binding Capacity,Unsat 153 ug/dL (228-428); Potassium 4.3 mmol/L (3.3-5.1)
[2025-04-19 00:07] LABS: Albumin 3.3 g/dL (2.9-4.4); GGTP 14 IU/L (0-60); Gamma Globulin 1.0 g/dL (0.4-1.8); HEPATITIS B SURFACE AG Negative (Negative); Hep C Antibodies Non Reactive (Non Reactive); Immunoglobulin A 112 mg/dL (87-352); Immunoglobulin G 1202 mg/dL (586-1602); Immunoglobulin M 94 mg/dL (26-217); PROEL- TOTAL PROTEIN 6.2 g/dL (6.0-8.5)
== END | disposition home or self-care (01) ==
LOC: LAB 14:19
PROVIDERS: PCP Family Medicine Geriatric Medicine; Referring Provider Internal Medicine; Visit Provider Internal Medicine
DX: E03.9 Hypothyroidism, unspecified (principal); I50.32 Chronic diastolic (congestive) heart failure; E66.01 Morbid (severe) obesity due to excess calories; K71.9 Toxic liver disease, unspecified; K76.0 Fatty (change of) liver, not elsewhere classified; Z68.35 Body mass index [BMI] 35.0-35.9, adult; R63.4 Abnormal weight loss; D69.6 Thrombocytopenia, unspecified
CPT/HCPCS: 36415; 80053; 80074; 82248; 82784; 82785; 82977; 83540; 83550; 84165; 84439; 84443; 85610; 86334; 86703; 86706

== ENCOUNTER → 2025-05-23 | Outpatient (CLI) | payer MEDICARE, MEDICAID, SELFPAY | END | disposition home or self-care (01) | LOC: POLAB3 16:55 | PROVIDERS: PCP Family Medicine Geriatric Medicine; Visit Provider Family Medicine Geriatric Medicine | DX: J98.8 Other specified respiratory disorders (principal); R06.2 Wheezing | CPT/HCPCS: 36415; 87631 ==

== ENCOUNTER → 2025-06-08 | Outpatient (CLI) | payer MEDICARE, MEDICAID, SELFPAY ==
--- OUTSIDE RECORDS SUMMARY | 2025-06-08 20:42 | XMS RPT_ITS | CCD ---
Author Organization [facility] CliniSysd Care Team Providers Care Networks Software Consultant Name Role Phone Brayan, Dr. Almas Gant Primary Care Provider Brayan, Dr. Almas Gant Referring Provider MARISA Ray Attending Provider 1([facility])[phone] Friend, Dr. Allen Attending Provider Brayan, Dr. Almas Gant Primary Care Provider Brayan, Dr. Almas Gant Referring Provider 1([facility])[phone] Friend, Dr. Allen Attending Provider Brayan, Dr. Almas Gant Primary Care Provider Brayan, Dr. Almas Gant Referring Provider Jayce TRUCK RENTAL CLERK, TRUCK RENTAL CLERK-C Trang Attending Provider Brayan, Dr. Almas Gant Primary Care Provider Brayan, Dr. Almas Gant Referring Provider Pita TRUCK RENTAL CLERK, TRUCK RENTAL CLERK-C Jumana Zelaya Attending Provider [phone] Brayan, Dr. Almas Gant Primary Care Provider Brayan, Dr. Almas Gant Referring Provider Dr. Sae Saeed Attending Provider [phone] MARISA Donovan Attending Provider Brayan, Dr. Almas Gant Primary Care Provider Brayan, Dr. Almas Gant Referring Provider Dr. Sae Saeed Attending Provider MARISA Donovan Attending Provider 1([facility])[phone] Dr. Leonardo Garcia Attending Provider Brayan, Dr. Almas Gant Primary Care Provider Brayan, Dr. Almas Gant Referring Provider 1([facility])[phone] Ronny Mallory Attending Provider 1([facility])[phone] Brayan, Dr. Almas Gant Primary Care Provider 1([facility])[phone] Brayan, Dr. Almas Gant Referring Provider 1([facility])[phone] Brayan ROSAS, Dr. Almas Gant Primary Care Provider Brayan ROSAS, Dr. Almas Gant Attending Provider Brayan ROSAS, Dr. Almas Gant Referring Provider 1([facility])[phone] Christophe ROSAS, Dr. Quevedo Attending Provider 1([facility])[phone] Christophe ROSAS, Dr. Quevedo Referring Provider 1([facility])[phone] Zoya Hinkle Attending Provider 1([facility])[phone] Brayan ROSAS, Dr. Almas Gant Primary Care Provider 1([facility] )[phone] Brayan ROSAS, Dr. Almas Gant Attending Provider 1([facility])[phone] Brayan ROSAS, Dr. Almas Gant Primary Care Provider 1([facility] )[phone] Brayan ROSAS, Dr. Almas Gant Referring Provider 1([facility])[phone] Brayan ROSAS, Dr. Almas Gant Attending Provider 1([facility])[phone] Eugenio TRUCK RENTAL CLERK-CGus Attending Provider 1([facility])[phone] Brayan ROSAS, Dr. Almas Gant Primary Care Provider 1([facility] )[phone] Brayan ROSAS, Dr. Almas Gant Referring Provider 1([facility])[phone] Christophe ROSAS, Dr. Quevedo Attending Provider 1([facility])[phone] Sae Saeed Referring Unavailable Brayan, Almas Chi Primary Care Unavailable Sae Saeed Attending Unavailable Brayan, Almas Chi Primary Care Unavailable Brayna, Almas Chi Referring Unavailable Christophe, Sae Attending Unavailable Brayan, Almas Chi Referring Unavailable Zoya Jenkins Attending Unavailable Brayan, Almas Chi Primary Care Unavailable Brayan, Almas Chi Primary Care Unavailable Sae Saeed Attending Unavailable Brayan, Almas Chi Referring Unavailable Moomaw, Gus Attending Unavailable Brayan, Almas Chi Primary Care Unavailable Brayan, Almas Chi Referring Unavailable Brayan, Almas Chi Primary Care Unavailable Brayan, Almas Chi Referring Unavailable Jenkins, Zoya Attending Unavailable Brayan, Almas Chi Primary Care Unavailable Brayan, Almas Chi Referring Unavailable Christophe, Sae Attending Unavailable Christophe, Sae Referring Unavailable Brayan, Almas Chi Primary Care Unavailable Christophe, Sae Attending Unavailable Brayan, Almas Chi Attending Unavailable Brayan, Almas Chi Primary Care Unavailable Brayan, Almas Chi Attending Unavailable Brayan, Almas Chi Primary Care Unavailable Brayan, Almas Chi Attending Unavailable Brayan, Almas Chi Primary Care Unavailable Brayan, Almas Chi Referring Unavailable Brayan, Almas Chi Primary Care Unavailable Yordy, Erick Attending Unavailable Brayan, Almas Chi Attending Unavailable Brayan, Almas Chi Primary Care Unavailable Brayan, Almas Chi Referring Unavailable Brayan, Almas Chi Attending Unavailable Brayan, Almas Chi Primary Care Unavailable Brayan, Almas Chi Referring Unavailable Brayan, Almas Chi Primary Care Unavailable Christophe, Sae Attending Unavailable Christophe, Sae Referring Unavailable Brayan, Almas Chi Primary Care Unavailable Christophe, Sae Referring Unavailable Christophe, Sae Attending Unavailable Brayan, Almas Chi Referring Unavailable Brayan, Almas Chi Attending Unavailable Brayan, Almas Chi Primary Care Unavailable Allergies Allergy Classification Reported Allergen(s) Allergy Type Date of Onset Reaction(s) Facility (20 sources) Shellfish; Translations: [SHELLFISH DERIVED] Propensity to adverse reactions to drug (disorder) 6 [facility] Repository (20 sources) Pravastatin Drug Allergy 1 [facility] Comment on above: easily bruises on me dication (1 source) Shellfish Allergy to substance 1 [facility] Work Phone: (3 sources) tetanus shot Allergy to substance 1 [facility] Work Phone: (18 sources) Tetanus Vaccines and Toxoid Allergy to substance 2 [facility] (1 source) Pravastatin Drug Allergy 5 [facility] Repository (1 source) Tetanus Vaccines and Toxoid Drug allergy (disorder) 5 [facility] Repository Medications Current Medications Medication Drug Class(es) Dates Sig (Normalized) Sig (Original) acetaminophen 500 mg oral tablet (20 sources) Start: 08-23-2019 take 2 tablets by mouth once daily as needed for pain Acetaminophen (Tylenol Extra Strength) 500 mg tablet Active 1000 mg PO DAILY as needed for Pain August 23, 2019 1:00am 200 actuat albuterol 0.09 mg/actuat dry powder inhaler (20 sources) beta2-Adrenergic Agonist Start: 08-23-2019 Albuterol Sulfate 90 mcg/actuation aerosol powdr breath activated Active 1 NMA INHALATION Q4H as needed for Wheezing August 23, 2019 1:00am Start: 08-23-2019 Albuterol Sulf ate Active 1 INH INHALATION Q4H August 23, 2019 1:00am calcium carbonate 1500 mg / cholecalciferol 800 unt chewable tablet (20 sources) Vitamin D Start: 01-19-2018 Calcium Carbon ate-Vitamin D3 1 EACH tablet,chewable Active 1 NMA PO DAILY January 19, 2018 12:00am Start: 01-19-2018 Calcium Carbon ate-Vitamin D3 Active 1 EACH PO DAILY January 19, 2018 12:00am escitalopram 20 mg oral tablet (20 sources) Serotonin Reuptake Inhibitor Start: 02-09-2025 take 10 mg by mouth once daily Escitalopram Oxalate 20 mg tablet Active 10 mg PO daily February 09, 2025 11:01am Start: 10-30-2017 End: 02-09-2025 take 1 tablet by mouth once daily Escitalopram Oxalate 20 mg tablet Discontinued 20 mg PO daily October 30, 2017 1:00am February 09, 2025 11:06am metFORMIN hydrochloride 500 mg oral tablet (14 sources) Biguanide Start: 02-23-2024 End: 12-01-2024 take 1 tablet by mouth twice daily Metformin 500 mg tablet Active 500 mg PO TWICE A DAY 180 90 2 December 01, 2024 5:39pm On Hold: Order Changed Multivitamin preparation (14 sources) Start: 10-30-2017 take 1 tablet by mouth once daily in the morning Multivitamin Active 1 TABLET PO EVERY MORNING October 30, 2017 3:29pm Start: 10-30-2017 take 1 tablet by césar th once daily in the morning Multivitamin Active 1 TABLET PO EVERY MORNING October 30, 2017 12:00am Start: 10-30-2017 take 1 tablet by césar th once daily in the morning Multivitamin Active 1 TABLET PO EVERY MORNING October 30, 2017 1:00am Multivitamin tablet (7 sources) Start: 10-30-2017 Multivitamin t ablet Active 1 {tbl} PO EVERY MORNING October 30, 2017 1:00am oxyCODONE hydrochloride 5 mg oral capsule (7 sources) Opioid Agonist Start: 08-20-2024 take 1 capsule by mouth every six hours as needed for pain Oxycodone 5 mg capsule Active 5 mg PO EVERY 6 HOURS as needed for pain 16 4 0 August 20, 2024 Sprain of low back Sprain of ligaments of lumbar spine, initial encounter predniSONE 20 mg oral tablet (9 sources) Start: 03-15-2025 take 3 tablets by mouth once daily, then take 2 tablets by mouth once daily, then take 1 tablet by mouth once daily Prednisone 20 mg tablet Active 20 mg PO As Directed 30 0 March 15, 2025 12:00am 3 tabs once daily x 5 days then 2 tabs once daily x 5 days then 1 tab once daily x 5 days Start: 08-20-2024 End: 11-24-2024 take 1 tablet by mouth once daily Prednisone 5 mg tablet Discontinued 5 mg PO DAILY 4 4 0 August 20, 2024 1:00am November 24, 2024 10:29am Resmetirom (Rezdiffra) 100 mg tablet (7 sources) Start: 10-11-2024 take 1 tablet by mouth once daily Resmetirom (Rezdiffra) 100 mg tablet Active 100 mg PO daily 13 08October 11, 2024 1:00am Start: 10-11-2024 take 1 tablet by césar th once daily Resmetirom (Rezdiffra) 100 mg tablet Active 100 mg PO daily October 11, 2024 1:00am rosuvastatin calcium 20 mg oral tablet (19 sources) HMG-CoA Reductase Inhibitor Start: 02-23-2025 take 10 mg by mouth at bedtime Rosuvastatin 20 mg tablet Active 10 mg PO AT BEDTIME 15 30 5 February 23, 2025 9:19am On Hold: Order Changed Start: 01-05-2025 End: 02-23-2025 take 1 tablet by mouth at bedtime Rosuvastatin 20 mg tablet Discontinued 20 mg PO AT BEDTIME 30 January 05, 2025 12:00am February 23, 2025 9:21am Start: 09-01-2024 End: 02-09-2025 take 1 tablet by mouth once daily Rosuvastatin 10 mg tablet Discontinued 10 mg PO DAILY 30 30 September 01, 2024 1:00am February 09, 2025 11:00am Completed/Discontinued Medications Medication Drug Class(es) Dates Sig (Normalized) Sig (Original) acetaminophen 325 mg / HYDROcodone bitartrate 5 mg oral tablet (20 sources) Opioid Agonist Start: 05-23-2021 End: 07-16-2021 Hydrocodone-Acetami nophen 5-325 mg tablet Discontinued 1 {tbl} PO EVERY 6 HOURS as needed for pain 10 3 0 May 23, 2021 July 16, 2021 11:03am Sprain of right ankle Sprain of unspecified ligament of right ankle, initial encounter Start: 05-23-2021 End: 07-16-2021 take 1 tablet by mouth every six hours Hydrocodone-Acetaminophen Discontinued 1 TABLET PO EVERY 6 HOURS 10 3 May 23, 2021 July 16, 2021 11:03am amoxicillin 875 mg / clavulanate 125 mg oral tablet (14 sources) Penicillin-class Antibacterial Start: 08-08-2023 End: 12-01-2023 Amoxicillin-Pot Clavulanate 875-125 mg tablet Discontinued 1 {tbl} PO TWICE A DAY 14 August 08, 2023 1:00am December 01, 2023 1:32pm Start: 08-08-2023 End: 12-01-2023 take 1 tablet by mouth twice daily Amoxicillin-Pot Clavulanate Discontinued 1 TABLET PO TWICE A DAY August 08, 2023 1:00am December 01, 2023 1:32pm Start: 11-11-2021 take 1 tablet by césar th twice daily Amoxicillin-Pot Clavulanate Active 1 TABLET PO TWICE A DAY November 11, 2021 12:20pm citalopram 20 mg oral tablet (20 sources) Serotonin Reuptake Inhibitor Start: 10-30-2017 End: 10-30-2017 take 1 tablet by mouth once daily Citalopram 20 mg tablet Discontinued 20 mg PO daily October 30, 2017 1:00am October 30, 2017 3:34pm diphenhydramine 25 mg-acetaminophen 500 mg/15 mL oral solution (14 sources) Start: 05-17-2020 End: 02-13-2021 diphenhydramine 25 mg-acetaminophen 500 mg/15 mL oral solution Discontinued ML PO May 17, 2020 2:24pm February 13, 2021 1:05pm Start: 05-17-2020 End: 02-13-2021 diphenhydramine 25 mg-acetam inophen 500 mg/15 mL oral solution Discontinued ML PO May 16, 2020 11:00pm February 13, 2021 12:05pm Start: 05-17-2020 End: 02-13-2021 diphenhydramine 25 mg-acetam inophen 500 mg/15 mL oral solution Discontinued ML PO May 17, 2020 12:00am February 13, 2021 1:05pm Diphenhydramine-Acetaminophe n 25-500 mg-mg/mL solution (7 sources) Start: 05-17-2020 End: 02-13-2021 Diphenhydramine-Acetaminophe n 25-500 mg-mg/mL solution Discontinued mL PO as needed May 17, 2020 12:00am February 13, 2021 1:05pm doxepin hydrochloride 10 mg oral capsule (20 sources) Tricycl ic Antidep ressant Start: 02-23-2025 End: 03-25-2025 take 1 capsule by mouth at bedtime Doxepin 10 mg capsule Discontinued 10 mg PO AT BEDTIME 30 30 0 February 23, 2025 12:00am March 24, 2025 12:00am March 25, 2025 12:09am Start: 02-13-2021 End: 02-23-2025 take 1 capsule by mouth once daily Doxepin 25 mg capsule Discontinued 25 mg PO DAILY February 13, 2021 12:00am February 23, 2025 11:12am On Hold: Order Changed ergocalciferol 1.25 mg oral capsule (20 sources) Provitamin D2 Compound Start: 10-30-2017 End: 05-17-2020 Ergocalciferol (Vitamin D2) 50,000 unit capsule Discontinued 28206 U PO EVERY MONTH October 30, 2017 1:00am May 17, 2020 2:14pm fexofenadine hydrochloride 180 mg oral tablet (20 sources) Histamine-1 Receptor Antagonist Start: 08-23-2019 End: 05-17-2020 take 1 tablet by mouth once daily as needed Fexofenadine (Priya Allergy) 180 mg tablet Discontinued 180 mg PO DAILY as needed August 23, 2019 1:00am May 17, 2020 2:14pm furosemide 40 mg oral tablet (20 sources) Loop Diuretic Start: 08-23-2019 End: 05-17-2020 Furosemide 40 mg tablet Discontinued PO 60 0 August 23, 2019 1:00am May 17, 2020 2:14pm Start: 08-23-2019 End: 05-17-2020 Furosemide Discontinued PO 6 0 August 23, 2019 1:00am May 17, 2020 2:14pm grape seed extract 100 mg or al capsule (20 sources) Start: 05-17-2020 End: 02-13-2021 grape seed extract 100 mg ca psule Discontinued MG PO May 17, 2020 2:15pm February 13, 2021 1:06pm Start: 05-17-2020 End: 02-13-2021 Grape Seed Extract 100 mg ca psule Discontinued mg PO May 17, 2020 12:00am February 13, 2021 1:06pm Start: 05-17-2020 End: 02-13-2021 grape seed extract 100 mg ca psule Discontinued MG PO May 16, 2020 11:00pm February 13, 2021 12:06pm Start: 05-17-2020 End: 02-13-2021 grape seed extract 100 mg ca psule Discontinued MG PO May 17, 2020 12:00am February 13, 2021 1:06pm levothyroxine sodium 0.05 mg oral tablet (20 sources) l-Thyroxine Start: 12-22-2017 End: 03-10-2018 Levothyroxine 50 MCG tablet Discontinued 50 ug PO LOUIS December 22, 2017 12:00am March 10, 2018 2:00pm Start: 05-30-2015 End: 07-16-2021 take 1 tablet by mouth once daily Levothyroxine 100 mcg tablet Discontinued 100 ug PO daily March 10, 2018 2:00pm July 16, 2021 11:04am 50 on thursday and thursday meloxicam 15 mg oral tablet (20 sources) Nonsteroidal Anti-inflammatory Drug Start: 05-27-2021 End: 07-16-2021 take 1 tablet by mouth once daily Meloxicam 15 mg tablet Discontinued 15 mg PO DAILY 30 0 May 27, 2021 12:00am July 16, 2021 11:04am phentermine hydrochloride 30 mg oral capsule (18 sources) Sympathomimetic Amine Anorectic Start: 03-04-2022 End: 08-01-2022 take 1 capsule by mouth once daily 2 hour(s) after breakfast Phentermine 30 mg capsule Discontinued 30 mg PO DAILY 30 0 March 04, 2022 12:00am August 01, 2022 1:56pm must administer 2 hours after breakfast pravastatin sodium 20 mg oral tablet (20 sources) HMG-CoA Reductase Inhibitor Start: 05-30-2015 End: 03-08-2019 take 2 tablets by mouth at bedtime Pravastatin 20 MG tablet Discontinued 40 mg PO AT BEDTIME May 30, 2015 12:00am March 08, 2019 1:44pm Start: 05-30-2015 End: 03-08-2019 take 40 mg by mouth at bedtime Pravastatin Discontinue d 40 MG PO AT BEDTIME May 30, 2015 12:00am March 08, 2019 1:44pm simvastatin 10 mg oral tablet (20 sources) HMG-CoA Reductase Inhibitor Start: 07-30-2023 End: 09-01-2024 take 1 tablet by mouth at bedtime Simvastatin 10 mg tablet Discontinued 10 mg PO AT BEDTIME 30 30 5 December 14, 2023 9:14am September 01, 2024 12:00pm Start: 01-31-2022 End: 07-30-2023 take 1 tablet by mouth at bedtime Simvastatin 5 mg tablet Discontinued 0 .ROUTE .COMPLEX 90 0 July 16, 2022 10:57am August 01, 2022 2:10pm TAKE 1 TABLET BY MOUTH AT BEDTIME triamcinolone acetonide 40 mg/ml injectable suspension (9 sources) Corticosteroid Start: 02-13-2021 End: 02-13-2021 Kenalog (triamcinolone acetonide) 40 mg/mL suspension for injection Discontinued 40 MG INTRAARTIC ONCE February 13, 2021 12:54pm February 13, 2021 1:56pm Start: 08-23-2020 End: 08-23-2020 Kenalog (triamcinolone aceto nide) 40 mg/mL suspension for injection Discontinued 40 MG INTRAARTIC ONCE August 23, 2020 2:00pm August 23, 2020 2:53pm Start: 10-30-2017 End: 10-30-2017 Kenalog (triamcinolone aceto nide) 10 mg/mL suspension for injection Discontinued 2 MG INTRAARTIC ONCE 0.2 October 30, 2017 4:10pm October 30, 2017 4:14pm ursodiol 300 mg oral capsule (20 sources) Bile Acid Start: 12-05-2021 End: 11-24-2024 take 1 capsule by mouth twice daily Ursodiol 300 mg capsule Discontinued 300 mg PO TWICE A DAY 60 5 December 14, 2023 9:16am November 24, 2024 10:29am vitamin e 180 mg oral capsule (20 sources) Start: 08-01-2022 End: 11-24-2024 take 1 capsule by mouth once daily Vitamin E 268 mg (400 unit) capsule Discontinued 536 mg PO DAILY 180 90 3 November 02, 2023 1:24pm November 24, 2024 10:29am Start: 12-05-2021 End: 08-01-2022 take 2 capsules by mouth once daily Vitamin E 400 unit capsule Discontinued 800 U PO DAILY 60 6 December 05, 2021 12:00am August 01, 2022 2:09pm Start: 12-05-2021 End: 08-01-2022 take 800 [IU] by mouth once daily Vitamin E Discontinued 800 UNIT PO DAILY 60 December 05, 2021 12:00am August 01, 2022 2:09pm Problems Active Problems Problem Classification Problem Date Documented Date Episodic/Chronic Acute bronchitis (20 sources) Acute bronchitis; Translations: [Acute bronchitis, unspecified] Episodic Allergic reactions (3 sources) Contact dermatitis due to poison sue; Translations: [Allergic contact dermatitis due to plants, except food] Onset: 04-04-2025 03-15-2025 Episodic Chronic ulcer of skin (20 sources) Ulcer of lower extremity; Translations: [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] 03-26-2019 Chronic Coagulation and hemorrhagic disorders (1 source) Thrombocytopenia, unspecified; Translations: [Thrombocytopenia, unspecified] Onset: 03-21-2025 Chronic Complications of surgical procedures or medical care (20 sources) Wound dehiscence; Translations: [Disruption of wound, unspecified, initial encounter] 03-27-2019 Episodic Congestive heart failure; nonhypertensive (20 sources) Chronic diastolic heart failure; Translations: [Chronic diastolic (congestive) heart failure] Onset: 03-21-2025 Chronic Diabetes mellitus without complication (20 sources) High glucose level in blood; Translations: [Other abnormal glucose] Onset: 03-21-2025 07-21-2022 Episodic Disorders of lipid metabolism (20 sources) Hyperlipidemia; Translations: [Hyperlipidemia, unspecified] Onset: 03-21-2025 Chronic Hepatitis (12 sources) Nonalcoholic steatohepatitis; Translations: [Nonalcoholic steatohepatitis (PINO)] 10-21-2022 Chronic Osteoarthritis (20 sources) Arthritis of bilateral first carpometacarpal joints; Translations: [Bilateral primary osteoarthritis of first carpometacarpal joints] 07-21-2022 Chronic Other and ill-defined heart disease (4 sources) Diastolic dysfunction; Translations: [Other ill-defined heart diseases] Chronic Other diseases of veins and lymphatics (15 sources) Lymphedema; Translations: [Lymphedema, not elsewhere classified] 12-01-2023 Chronic Other diseases of veins and lymphatics (3 sources) Lymphedema, not elsewhere classified; Translations: [Other lymphedema] 12-01-2023 Chronic Other liver diseases (20 sources) Steatosis of liver; Translations: [Fatty (change of) liver, not elsewhere classified] 12-05-2021 Chronic Other liver diseases (20 sources) Fatty (change of) liver, not elsewhere classified; Translations: [Other chronic nonalcoholic liver disease] Onset: 03-21-2025 Chronic Other liver diseases (8 sources) Drug-induced disorder of liver; 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, unspecified] 02-23-2025 Chronic Other liver diseases (1 source) Toxic liver disease, unspecified; 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, unspecified] Onset: 03-21-2025 Chronic Other lower respiratory disease (1 source) Other specified respiratory disorders; Translations: [Other specified respiratory disorders] Onset: 06-03-2025 Episodic Other nutritional; endocrine; and metabolic disorders (20 sources) Obesity; Translations: [Obesity, unspecified] 07-21-2022 Chronic Other nutritional; endocrine; and metabolic disorders (4 sources) Obesity, unspecified; Translations: [Obesity, unspecified] Chronic Other nutritional; endocrine; and metabolic disorders (1 source) Morbid (severe) obesity due to excess calories; Translations: [Morbid (severe) obesity due to excess calories] Onset: 03-21-2025 Chronic Other nutritional; endocrine; and metabolic disorders (1 source) Body mass index (BMI) 35.0-35.9, adult; Translations: [Body mass index [BMI] 35.0-35.9, adult] Onset: 03-21-2025 Chronic Other nutritional; endocrine; and metabolic disorders (1 source) Abnormal weight loss; Translations: [Abnormal weight loss] Onset: 03-21-2025 Episodic Other upper respiratory infections (17 sources) Sinusitis; Translations: [Chronic sinusitis, unspecified] 08-08-2023 Chronic Other upper respiratory infections (20 sources) Acute sinusitis; Translations: [Acute sinusitis, unspecified] Episodic Residual codes; unclassified (1 source) Sleep apnea, unspecified; Translations: [Sleep apnea, unspecified] Onset: 06-01-2025 Chronic Residual codes; unclassified (20 sources) Edema of lower extremity; Translations: [Localized edema] 07-21-2022 Episodic Residual codes; unclassified (12 sources) Bilateral lower limb edema; Translations: [Localized edema] 04-06-2024 Episodic Thyroid disorders (18 sources) Hypothyroidism; Translations: [Hypothyroidism, unspecified] Onset: 04-19-2025 07-21-2022 Chronic Unclassified (1 source) Low back pain, unspecified; Translations: [Low back pain, unspecified] Onset: 01-12-2025 Past or Other Problems Problem Classification Problem Date Documented Da te Episodic/Chronic Other screening for suspected conditions (not mental disorders or infectious disease) (1 source) Encounter for screening mammogram for malignant neoplasm of breast; Translations: [Encounter for screening mammogram for malignant neoplasm of breast] Onset: 01-10-2025 Episodic Residual codes; unclassified (1 source) Localized edema; Translations: [Localized edema] Onset: 12-12-2024 Episodic Residual codes; unclassified (1 source) Chills (without fever); Translations: [Chills (without fever)] Onset: 11-09-2024 Episodic Sprains and strains (20 sources) Sprain of ankle; Translations: [Sprain of unspecified ligament of right ankle, initial encounter] Onset: 01-12-2025 05-31-2021 Episodic Results Test Name Value Interpretation Reference Range Facility M100.678on 05-23-2025 M100.678 Pending SARS-CoV-2 (COVID 19) Negative INFLUENZA A Negative INFLUENZA B Negative RSV PCR Negative Normal [facility] Comment on above: Performed By: #### L 500.4050, L3100.3425, L501.4700, L300.3900, L3890.6006, L506.0400, L501.9520, L503.6030, L3000.0375, L3200.1100, L3890.6202, L501.5101 #### [facility] [address] [place], [address] Hepatitis Panel Acuteon 08-0 COMMENT Comment Normal . [facility] Comment on above: Result Comment: Not infected with HCV unless early or acute infection is suspected (which may be delayed in an immunocompromised individual), or other evidence exists to indicate HCV infection. Performed By: #### L 500.4050, L3100.3425, L501.4700, L300.3900, L3890.6006, L506.0400, L501.9520, L503.6030, L3000.0375, L3200.1100, L3890.6202, L501.5101 #### [facility] [address] [place], [address] HEP B CORE,IgM Negative Normal Negative [facility] Comment on above: Performed By: #### L 500.4050, L3100.3425, L501.4700, L300.3900, L3890.6006, L506.0400, L501.9520, L503.6030, L3000.0375, L3200.1100, L3890.6202, L501.5101 #### [facility] [address] [place], [address] HEP B SURF AG Negative Normal Negative [facility] Comment on above: Performed By: #### L 500.4050, L3100.3425, L501.4700, L300.3900, L3890.6006, L506.0400, L501.9520, L503.6030, L3000.0375, L3200.1100, L3890.6202, L501.5101 #### [facility] [facility] [address] [place], [address] HEP C VIRUS AB Non-Reactive Normal Non Reactive [facility] Comment on above: Performed By: #### L 500.4050, L3100.3425, L501.4700, L300.3900, L3890.6006, L506.0400, L501.9520, L503.6030, L3000.0375, L3200.1100, L3890.6202, L501.5101 #### [facility] [address] [place], [address] HEPATITIS A-IgM Negative Normal Negative [facility] Comment on above: Result Comment: A ne gative anti-HAV IgM result suggests no recent or current HAV infection. Performed By: #### L 500.4050, L3100.3425, L501.4700, L300.3900, L3890.6006, L506.0400, L501.9520, L503.6030, L3000.0375, L3200.1100, L3890.6202, L501.5101 #### [facility] [address] [place], [address] SHABBIR + Protein Elect, Serumon 04-19-2025 Albumin [Mass/Vol] 3.3 g/dL Normal 2.9-4.4 [facility] Comment on above: Order Comment: N Performed By: #### L 500.4050, L3100.3425, L501.4700, L300.3900, L3890.6006, L506.0400, L501.9520, L503.6030, L3000.0375, L3200.1100, L3890.6202, L501.5101 #### [facility] [address] [place], [address] Albumin/Globulin [Mass ratio] 1.2 {ratio} Normal 0.7-1.7 [facility] Comment on above: Order Comment: N Performed By: #### L 500.4050, L3100.3425, L501.4700, L300.3900, L3890.6006, L506.0400, L501.9520, L503.6030, L3000.0375, L3200.1100, L3890.6202, L501.5101 #### [facility] [address] [place], [address] PKGPJ-6-IHPC 0.3 g/dL Normal 0.0-0.4 [facility] Comment on above: Order Comment: N Performed By: #### L 500.4050, L3100.3425, L501.4700, L300.3900, L3890.6006, L506.0400, L501.9520, L503.6030, L3000.0375, L3200.1100, L3890.6202, L501.5101 #### [facility] [address] [place], [place], [id number] (299) KLMYV-6-YRCW 0.7 g/dL Normal 0.4-1.0 [facility] Comment on above: Order Comment: N Performed By: #### L 500.4050, L3100.3425, L501.4700, L300.3900, L3890.6006, L506.0400, L501.9520, L503.6030, L3000.0375, L3200.1100, L3890.6202, L501.5101 #### [facility] [address] [place], [place], [id number] (091) BETA GLOBULIN 0.9 g/dL Normal 0.7-1.3 [facility] Comment on above: Order Comment: N Performed By: #### L 500.4050, L3100.3425, L501.4700, L300.3900, L3890.6006, L506.0400, L501.9520, L503.6030, L3000.0375, L3200.1100, L3890.6202, L501.5101 #### [facility] [address] [place], [place], [id number] (618) GAMMA GLOBULIN 1.0 g/dL Normal 0.4-1.8 [facility] Comment on above: Order Comment: N Performed By: #### L 500.4050, L3100.3425, L501.4700, L300.3900, L3890.6006, L506.0400, L501.9520, L503.6030, L3000.0375, L3200.1100, L3890.6202, L501.5101 #### [facility] [address] [place], [address] Globulin (S) [Mass/Vol] 2.9 g/dL Normal 2.2-3.9 [facility] Comment on above: Order Comment: N Performed By: #### L 500.4050, L3100.3425, L501.4700, L300.3900, L3890.6006, L506.0400, L501.9520, L503.6030, L3000.0375, L3200.1100, L3890.6202, L501.5101 #### [facility] [address] [place], [address] SHABBIR RESULT,S Comment Normal . [facility] Comment on above: Order Comment: N Result Comment: No m onoclonality detected. Performed By: #### L 500.4050, L3100.3425, L501.4700, L300.3900, L3890.6006, L506.0400, L501.9520, L503.6030, L3000.0375, L3200.1100, L3890.6202, L501.5101 #### [facility] [address] [place], [place], [id number] (076) IMMUNOGLOB A QN 112 mg/dL Normal 87-352 [facility] Comment on above: Order Comment: N Performed By: #### L 500.4050, L3100.3425, L501.4700, L300.3900, L3890.6006, L506.0400, L501.9520, L503.6030, L3000.0375, L3200.1100, L3890.6202, L501.5101 #### [facility] [address] [place], [address] IMMUNOGLOB G QN 1202 mg/dL Normal 586-1602 [facility] Comment on above: Order Comment: N Performed By: #### L 500.4050, L3100.3425, L501.4700, L300.3900, L3890.6006, L506.0400, L501.9520, L503.6030, L3000.0375, L3200.1100, L3890.6202, L501.5101 #### [facility] [address] [place], [address] IMMUNOGLOB M QN 94 mg/dL Normal 26-217 [facility] Comment on above: Order Comment: N Performed By: #### L 500.4050, L3100.3425, L501.4700, L300.3900, L3890.6006, L506.0400, L501.9520, L503.6030, L3000.0375, L3200.1100, L3890.6202, L501.5101 #### [facility] [address] [place], [place], [id number] M-Mo Not Observed Normal Not Observed [facility] Comment on above: Order Comment: N Performed By: #### L 500.4050, L3100.3425, L501.4700, L300.3900, L3890.6006, L506.0400, L501.9520, L503.6030, L3000.0375, L3200.1100, L3890.6202, L501.5101 #### [facility] [address] [place], [address] NOTE: Comment Normal . [facility] Comment on above: Order Comment: N Result Comment: Prot ein electrophoresis scan will follow via computer, mail, or iso coordinator delivery. Performed By: #### L 500.4050, L3100.3425, L501.4700, L300.3900, L3890.6006, L506.0400, L501.9520, L503.6030, L3000.0375, L3200.1100, L3890.6202, L501.5101 #### [facility] [address] [place], [place], [id number] (706) Protein [Mass/Vol] 6.2 g/dL Normal 6.0-8.5 [facility] Comment on above: Order Comment: N Performed By: #### L 500.4050, L3100.3425, L501.4700, L300.3900, L3890.6006, L506.0400, L501.9520, L503.6030, L3000.0375, L3200.1100, L3890.6202, L501.5101 #### [facility] [address] [place], [address] Immunoglobulins G/A/M/Froilan IMMUNOGLOB E QN 4 IU/mL Low 6-495 [facility] Comment on above: Order Comment: N Performed By: #### L 500.4050, L3100.3425, L501.4700, L300.3900, L3890.6006, L506.0400, L501.9520, L503.6030, L3000.0375, L3200.1100, L3890.6202, L501.5101 #### [facility] [address] [place], [address] L501.5101on 04-19-2025 GGTP 14 IU/L Normal 0-60 [facility] Comment on above: Result Comment: Perf ormed at: [address] [id number] Toggler: Chan Matta PhD, Phone: [phone] Performed at: [address] [id number] Toggler: Hailey Lao MD, Phone: [phone] Performed By: #### L 500.4050, L3100.3425, L501.4700, L300.3900, L3890.6006, L506.0400, L501.9520, L503.6030, L3000.0375, L3200.1100, L3890.6202, L501.5101 #### [facility] [address] [place], [address] Albumin Elph [Mass/Vol]Order ed By: Sae Saeed on 04-13-2025 Albumin [Mass/Vol] 3.3 g/dL 2.9-4.4 [facility] Anion gap in Serum or Plasma Ordered By: Sae Saeed on 04-13-2025 Anion gap [Moles/Vol] 9 mmol/L - [facility] BUN/creatinine ratioOrdered By: Sae Saeed on 04-13-2025 Urea nitrogen/Creatinine [Mass ratio] 19.2 mg/mg - [facility] Bilirubin directOrdered By: Sae Saeed on 04-13-2025 Bilirubin.direct [Mass/Vol] 0.25 mg/dL 0.00-0.30 [facility] Bilirubin, Directon 04-13-20 25 Bilirubin.direct [Mass/Vol] 0.25 mg/dL Normal 0.00-0.30 [facility] Comment on above: Performed By: #### L 500.4050, L3100.3425, L501.4700, L300.3900, L3890.6006, L506.0400, L501.9520, L503.6030, L3000.0375, L3200.1100, L3890.6202, L501.5101 #### [facility] [address] [place], [address] Bilirubin, totalOrdered By: Sae Saeed on 04-13-2025 Bilirubin [Mass/Vol] 0.52 mg/dL 0.00-1.30 [place] Carbon dioxide, total [Moles /volume] in Central venous bloodOrdered By: Sae Saeed on 04-13-2025 CO2 [Moles/Vol] 27.9 mmol/L 21.0-32.0 [facility] Chloride assayOrdered By: Dashawn Saeed on 04-13-2025 Chloride [Moles/Vol] 105 mmol/L 98-108 [place] Comprehensive Metabolic Prof ilon 04-13-2025 Albumin [Mass/Vol] 4.2 g/dL Normal 3.4-4.8 [facility] Comment on above: Performed By: #### L 500.4050, L3100.3425, L501.4700, L300.3900, L3890.6006, L506.0400, L501.9520, L503.6030, L3000.0375, L3200.1100, L3890.6202, L501.5101 #### [facility] [address] [place], [place], [id number] Albumin/Globulin [Mass ratio] 1.8 {ratio} Normal 0.9-2.4 [facility] Comment on above: Performed By: #### L 500.4050, L3100.3425, L501.4700, L300.3900, L3890.6006, L506.0400, L501.9520, L503.6030, L3000.0375, L3200.1100, L3890.6202, L501.5101 #### [facility] [address] [place], [place], [id number] ALK PHOS 81 U/L Normal 35-104 [facility] Comment on above: Performed By: #### L 500.4050, L3100.3425, L501.4700, L300.3900, L3890.6006, L506.0400, L501.9520, L503.6030, L3000.0375, L3200.1100, L3890.6202, L501.5101 #### [facility] [address] [place], [place], [id number] ALT [Catalytic activity/Vol] 43 U/L High <=34 [facility] Comment on above: Performed By: #### L 500.4050, L3100.3425, L501.4700, L300.3900, L3890.6006, L506.0400, L501.9520, L503.6030, L3000.0375, L3200.1100, L3890.6202, L501.5101 #### [facility] [address] [place], [place], [id number] AST [Catalytic activity/Vol] 38 U/L High <=31 [facility] Comment on above: Performed By: #### L 500.4050, L3100.3425, L501.4700, L300.3900, L3890.6006, L506.0400, L501.9520, L503.6030, L3000.0375, L3200.1100, L3890.6202, L501.5101 #### [facility] [address] [place], [place], [address] Bilirubin [Mass/Vol] 0.52 mg/dL Normal 0.00-1.30 [place] Comment on above: Performed By: #### L 500.4050, L3100.3425, L501.4700, L300.3900, L3890.6006, L506.0400, L501.9520, L503.6030, L3000.0375, L3200.1100, L3890.6202, L501.5101 #### [facility] [address] [place], [place], [address] BUN/CRE 19.2 RATIO Normal 10-20 [facility] Comment on above: Performed By: #### L 500.4050, L3100.3425, L501.4700, L300.3900, L3890.6006, L506.0400, L501.9520, L503.6030, L3000.0375, L3200.1100, L3890.6202, L501.5101 #### [facility] [address] [place], [address] Calcium [Mass/Vol] 9.2 mg/dL Normal 7.6-11.0 [facility] Comment on above: Performed By: #### L 500.4050, L3100.3425, L501.4700, L300.3900, L3890.6006, L506.0400, L501.9520, L503.6030, L3000.0375, L3200.1100, L3890.6202, L501.5101 #### [facility] [address] [place], [address] Chloride [Moles/Vol] 105 mmol/L Normal 98-108 [place] Comment on above: Performed By: #### L 500.4050, L3100.3425, L501.4700, L300.3900, L3890.6006, L506.0400, L501.9520, L503.6030, L3000.0375, L3200.1100, L3890.6202, L501.5101 #### [facility] [address] [place], [address] CO2 [Moles/Vol] 27.9 mmol/L Normal 21.0-32.0 [facility] Comment on above: Performed By: #### L 500.4050, L3100.3425, L501.4700, L300.3900, L3890.6006, L506.0400, L501.9520, L503.6030, L3000.0375, L3200.1100, L3890.6202, L501.5101 #### [facility] [address] [place], [address] Creatinine [Mass/Vol] 1.12 mg/dL Normal 0.70-1.20 [facility] Comment on above: Performed By: #### L 500.4050, L3100.3425, L501.4700, L300.3900, L3890.6006, L506.0400, L501.9520, L503.6030, L3000.0375, L3200.1100, L3890.6202, L501.5101 #### [facility] [address] [facility] [place], [place], [id number] GAP 9 Normal 5-15 [facility] Comment on above: Performed By: #### L 500.4050, L3100.3425, L501.4700, L300.3900, L3890.6006, L506.0400, L501.9520, L503.6030, L3000.0375, L3200.1100, L3890.6202, L501.5101 #### [facility] [address] [place], [address] GFR/1.73 sq M.predicted among non-blacks MDRD (S/P/Bld) [Vol rate/Area] 56 mL/min/{1.73_m2} Low >60 [facility] Comment on above: Result Comment: mL/m in/1.73m2 CKD-EPI Creatinine Equation (2020) Performed By: #### L 500.4050, L3100.3425, L501.4700, L300.3900, L3890.6006, L506.0400, L501.9520, L503.6030, L3000.0375, L3200.1100, L3890.6202, L501.5101 #### [facility] [address] [place], [place], [id number] Globulin (S) [Mass/Vol] 2.3 g/dL Normal 2.2-4.2 [facility] Comment on above: Performed By: #### L 500.4050, L3100.3425, L501.4700, L300.3900, L3890.6006, L506.0400, L501.9520, L503.6030, L3000.0375, L3200.1100, L3890.6202, L501.5101 #### [facility] [address] [place], [address] Glucose [Mass/Vol] 132 mg/dL High 70-99 [facility] Comment on above: Performed By: #### L 500.4050, L3100.3425, L501.4700, L300.3900, L3890.6006, L506.0400, L501.9520, L503.6030, L3000.0375, L3200.1100, L3890.6202, L501.5101 #### [facility] [address] [place], [address] Potassium [Moles/Vol] 4.3 mmol/L Normal 3.3-5.1 [facility] Comment on above: Performed By: #### L 500.4050, L3100.3425, L501.4700, L300.3900, L3890.6006, L506.0400, L501.9520, L503.6030, L3000.0375, L3200.1100, L3890.6202, L501.5101 #### [facility] [address] [place], [address] Sodium [Moles/Vol] 142 mmol/L Normal 133-145 [facility] Comment on above: Performed By: #### L 500.4050, L3100.3425, L501.4700, L300.3900, L3890.6006, L506.0400, L501.9520, L503.6030, L3000.0375, L3200.1100, L3890.6202, L501.5101 #### [facility] [address] [place], [address] T PROT 6.5 g/dL Normal 5.9-8.4 [facility] Comment on above: Performed By: #### L 500.4050, L3100.3425, L501.4700, L300.3900, L3890.6006, L506.0400, L501.9520, L503.6030, L3000.0375, L3200.1100, L3890.6202, L501.5101 #### [facility] [address] [facility] [place], [place], [id number] Urea nitrogen [Mass/Vol] 22 mg/dL High 4-19 [facility] Comment on above: Performed By: #### L 500.4050, L3100.3425, L501.4700, L300.3900, L3890.6006, L506.0400, L501.9520, L503.6030, L3000.0375, L3200.1100, L3890.6202, L501.5101 #### [facility] [address] [place], [address] Gamma glutamyl transferase ( GGT) measurementOrdered By: Sae Saeed on 04-13-2025 Amylase [Catalytic activity/Vol] 14 U/L 0-60 [facility] Comment on above: Performed at: - [facility] [address] [id number] Director: Chan Matta PhD, Phone: [phone] at: [address] [id number] Director: Hailey Lao MD, Phone: [phone] Glomerular filtration rate ( GFR) estimation/1.73 sq m using serum, plasma, or whole bOrdered By: Sae Saeed on 04-13-2025 GFR/1.73 sq M.predicted among non-blacks MDRD (S/P/Bld) [Vol rate/Area] 56 mL/min/{1.73_m2} Low >60 [facility] Comment on above: mL/min/1.73m2 CKD-EP I Creatinine Equation (2020) HIVon 04-13-2025 HIV Non-Reactive Normal Nonreactive [facility] Comment on above: Result Comment: Non- Reactive Reactive Repeatedly reactive samples must be confirmed according to CDC recommended confirmatory algorithms. The subresults for either HIVAG or AHIV can be used as an aid in the selection of the confirmation algorithm for reactive samples. Send out specimens with Reactive results to [facility] for confirmation. Order the HIV antibody detection and differentiation: [id number] Performed By: #### L 500.4050, L3100.3425, L501.4700, L300.3900, L3890.6006, L506.0400, L501.9520, L503.6030, L3000.0375, L3200.1100, L3890.6202, L501.5101 #### [facility] [address] [place], [address] Hepatitis B Surface Antibody on 04-13-2025 HEP B Surf Ab Non-Reactive Normal [facility] Comment on above: Result Comment: <8.5 mIU/mL: Non-Reactive 8.5<= x <11.5 mIU/mL: Indeterminate >=11.5 mIU/mL: Reactive Non Reactive: Inconsistent with immunity less than <10 mIU/mL Reactive: Consistent with immunity greater than or equal to 10 mIU/mL Performed By: #### L 500.4050, L3100.3425, L501.4700, L300.3900, L3890.6006, L506.0400, L501.9520, L503.6030, L3000.0375, L3200.1100, L3890.6202, L501.5101 #### [facility] [address] [place], [address] IgEOrdered By: Sae Saeed on 04-13-2025 IgE 4 IU/mL Low 6-495 [facility] International normalized rat io (INR) calculationOrdered By: Sae Saeed on 04-13-2025 INR Coag (Bld) [Relative time] 1.0 {INR} [facility] Interpretation of serum or p lasma protein pattern by immunofixation (narrative resultOrdered By: Sae Saeed on 04-13-2025 Protein Fractions Immunofixation Vishal [Interp] Not Observed g/dL Not Observed [facility] Iron measurement (mass/mass) Ordered By: Sae Saeed on 04-13-2025 Iron (Unsp spec) [Mass/Mass] 104 ug/dL 50-170 [facility] Iron+Iron Binding Capacityon 04-13-2025 Iron [Mass/Vol] 104 ug/dL Normal 50-170 [facility] Comment on above: Performed By: #### L 500.4050, L3100.3425, L501.4700, L300.3900, L3890.6006, L506.0400, L501.9520, L503.6030, L3000.0375, L3200.1100, L3890.6202, L501.5101 #### [facility] [address] [place], [address] IRON SATURATION 40.0 Normal 13-59 [facility] Comment on above: Performed By: #### L 500.4050, L3100.3425, L501.4700, L300.3900, L3890.6006, L506.0400, L501.9520, L503.6030, L3000.0375, L3200.1100, L3890.6202, L501.5101 #### [facility] [address] [place], [address] TIBC 257 ug/dL Normal 250-450 [facility] Comment on above: Performed By: #### L 500.4050, L3100.3425, L501.4700, L300.3900, L3890.6006, L506.0400, L501.9520, L503.6030, L3000.0375, L3200.1100, L3890.6202, L501.5101 #### [facility] [address] [place], [address] UIBC 153 ug/dL Low 228-428 [facility] Comment on above: Performed By: #### L 500.4050, L3100.3425, L501.4700, L300.3900, L3890.6006, L506.0400, L501.9520, L503.6030, L3000.0375, L3200.1100, L3890.6202, L501.5101 #### [facility] [address] [place], [address] Laboratory - Chemistry and C hemistry - challengeOrdered By: Sae Saeed on 04-13-2025 AST [Catalytic activity/Vol] 38 U/L High <32 [facility] No Panel InformationOrdered By: Sae Saeed on 04-13-2025 Addendum Document Comment . [facility] Comment on above: Protein electrophore sis scan will follow via computer,mail, or iso coordinator delivery. Hepatitis C Antibody Comment Comment . [facility] Comment on above: Not infected with HC V unless early or acute infection issuspected (which may be delayed in an immunocompromisedindividual), or other evidence exists to indicate HCVinfection. HIV (1&2) Antibody Non-Reactive Nonreactive [facility] Comment on above: Non-ReactiveReactive Repeatedly reactive samples must be confirmed according to CDC recommended confirmatory algorithms. The subresults for either HIVAG or AHIV can be used as an aid in the selection of the confirmation algorithm for reactive samples.Send out specimens with Reactive results to [facility] for confirmation.Order the HIV antibody detection and differentiation: #[id number] Unsaturated Iron Binding Capacity 153 ug/dL Low 228-428 [facility] Potassium measurement (mass/ volume)Ordered By: Sae Saeed on 04-13-2025 Potassium (Unsp spec) [Mass/Vol] 4.3 mmol/L 3.3-5.1 [facility] Prothrombin Time w/INRon INR Coag (PPP) [Relative time] 1.0 {INR} Normal [facility] Comment on above: Performed By: #### L 500.4050, L3100.3425, L501.4700, L300.3900, L3890.6006, L506.0400, L501.9520, L503.6030, L3000.0375, L3200.1100, L3890.6202, L501.5101 #### [facility] [address] [place], [address] PT Coag (PPP) [Time] 13.7 s Normal 11.7-14.9 [place] Comment on above: Performed By: #### L 500.4050, L3100.3425, L501.4700, L300.3900, L3890.6006, L506.0400, L501.9520, L503.6030, L3000.0375, L3200.1100, L3890.6202, L501.5101 #### [facility] [place], [address] Prothrombin timeOrdered By: Sae Saeed on 04-13-2025 PT Coag (PPP) [Time] 13.7 s 11.7-14.9 [place] Serum creatinine measurement (mass/volume)Ordered By: Sae Saeed on 04-13-2025 Creatinine [Mass/Vol] 1.12 mg/dL 0.70-1.20 [facility] Serum globulin measurement ( mass/volume)Ordered By: Sae Saeed on 04-13-2025 Globulin (S) [Mass/Vol] 2.9 g/dL 2.2-3.9 [facility] Serum glucose measurement (m ass/volume)Ordered By: Sae Saeed on 04-13-2025 Glucose [Mass/Vol] 132 mg/dL High 70-99 [facility] Serum hepatitis B virus surf everardo antibody detectionOrdered By: Sae Saeed on 04-13-2025 HBV surface Ab Ql (S) Non-Reactive [facility] Comment on above: <8.5 mIU/mL: Non-Shellie ctive8.5<= x <11.5 mIU/mL: Indeterminate>=11.5 mIU/mL: Reactive Non Reactive: Inconsistent with immunity less than <10 mIU/mL Reactive: Consistent with immunity greater than or equal to 10 mIU/mL Serum or plasma IgA measurem ent (mass/volume)Ordered By: Sae Saeed on 04-13-2025 IgA [Mass/Vol] 112 mg/dL 87-352 [facility] Serum or plasma IgG measurem ent (mass/volume)Ordered By: aSe Saeed on 04-13-2025 IgG [Mass/Vol] 1202 mg/dL 586-1602 [facility] Serum or plasma alanine frank otransferase (ALT) measurementOrdered By: Sae Saeed on 04-13-2025 ALT [Catalytic activity/Vol] 43 U/L High <35 [facility] Serum or plasma albumin liz urement (mass/volume)Ordered By: Sae Saeed on 04-13-2025 Albumin [Mass/Vol] 4.2 g/dL 3.4-4.8 [facility] Serum or plasma albumin/glob ulin mass ratioOrdered By: Sae Saeed on 04-13-2025 Albumin/Globulin [Mass ratio] 1.8 {ratio} 0.9-2.4 [facility] Serum or plasma alkaline palak sphatase measurementOrdered By: Sae Saeed on 04-13-2025 ALP [Catalytic activity/Vol] 81 U/L 35-104 [facility] Serum or plasma alpha 1 glob ulin measurement by electrophoresis (mass/volume)Ordered By: Sae Saeed on 04-13-2025 Alpha 1 globulin Elph [Mass/Vol] 0.3 g/dL 0.0-0.4 [facility] Alpha 1 globulin Elph [Mass/Vol] 0.7 g/dL 0.4-1.0 [facility] Serum or plasma beta globuli n measurement by electrophoresis (mass/volume)Ordered By: Sae Saeed on 04-13-2025 Beta globulin Elph [Mass/Vol] 0.9 g/dL 0.7-1.3 [facility] Serum or plasma calcium liz urement (mass/volume)Ordered By: Sae Saeed on 04-13-2025 Calcium [Mass/Vol] 9.2 mg/dL 7.6-11.0 [facility] Serum or plasma gamma globul in measurement by electrophoresis (mass/volume)Ordered By: Sae Saeed on 04-13-2025 Gamma globulin Elph [Mass/Vol] 1.0 g/dL 0.4-1.8 [facility] Serum or plasma hepatitis B virus surface antigen detection by immunoassayOrdered By: Sae Saeed on 04-13-2025 HBV surface Ag IA Ql Negative Negative [place] Serum or plasma immunoelectr ophoresis interpretation (nominal result)Ordered By: Sae Saeed on 04-13-2025 Interpretation IEP [Interp] Comment . [facility] Comment on above: No monoclonality det ected. Serum or plasma iron saturat ion measurement (mass fraction)Ordered By: Sae Saeed on 04-13-2025 Iron saturation [Mass fraction] 40.0 % 13-59 [facility] Serum or plasma protein liz urement (mass/volume)Ordered By: Sae Saeed on 04-13-2025 Protein [Mass/Vol] 6.2 g/dL 6.0-8.5 [facility] Serum or plasma urea nitroge n measurement (mass/volume)Ordered By: Sae Saeed on 04-13-2025 Urea nitrogen [Mass/Vol] 22 mg/dL High 4-19 [facility] Sodium levelOrdered By: Mansi Saeed on 04-13-2025 Sodium [Moles/Vol] 142 mmol/L 133-145 [facility] T4 Free Directon 04-13-2025 T4 FREE DIRECT 1.10 ng/dL Normal 0.76-1.46 [facility] Comment on above: Performed By: #### L 500.4050, L3100.3425, L501.4700, L300.3900, L3890.6006, L506.0400, L501.9520, L503.6030, L3000.0375, L3200.1100, L3890.6202, L501.5101 #### [facility] [address] [place], [address] T4 freeOrdered By: Sae hirsch on 04-13-2025 Free T4 [Mass/Vol] 1.10 ng/dL 0.76-1.46 [facility] TSH DL <= 0.005 mIU/L QnOrde red By: Sae Saeed on 04-13-2025 TSH Qn 0.119 uIU/mL Low 0.300-4.200 [facility] Thyroid Stim Hormone (TSH)on 04-13-2025 TSH 0.119 uIU/mL Low 0.300-4.200 [facility] Comment on above: Performed By: #### L 500.4050, L3100.3425, L501.4700, L300.3900, L3890.6006, L506.0400, L501.9520, L503.6030, L3000.0375, L3200.1100, L3890.6202, L501.5101 #### [facility] [address] [place], [address] Total proteinOrdered By: Akash Saeed on 04-13-2025 Protein [Mass/Vol] 6.5 g/dL 5.9-8.4 [facility] Urgent Care Visit Reporton 0 03-15-2025 Urgent Care Visit Report [facility] [address], [address] [place] [address] OFFICE VISIT Date of Service: 03/15/25 MR#: [id number] Acct: [id number] Name: LIANNA CHACKO Rep #: [id number] : 1965 Provider: STEWART Becker Age/Sex: 60/F Location: [facility] Status: Signed Intake Vital Signs 02/23/25 10:38 03/15/25 16:33 Height 5 ft 6 in Weight: 239 lb BMI 38.5 BP 109/74 122/60 H Blood Pressure Location Lt brachial Lt brachial Position Sitting Sitting Respiration 17 Pulse 63 75 Pulse Source NIBP Temp 97.9 F Temp Source Oral Pulse Oximetry (%) 98 96 Oxygen Delivery Method room air room air Intake Visit Reasons: POISON SUE LEGS/ARMS Chief Complaint: rash Newsroom Intern Required: No Is patient in pain?: No Allergies Tetanus Vaccines and Toxoid Allergy (Mild, Verified 03/15/25 16:33) Swelling shellfish derived Allergy (Verified 03/15/25 16:33) Swelling pravastatin Adverse Reaction (Intermediate, Verified 03/15/25 16:33) Unknown Is last menstrual period known: No Post menopausal: Yes Patient : No Have you fallen in the past year?: No Nurse's Note: itchy rash to arms and legs for over 2 weeks. concern for poison sue [facility] Medical History (Updated 03/15/25 @ 16:45 by STEWART Whitt) Contact dermatitis due to poison sue Fatty liver Elevated random blood glucose level Acute bronchitis, unspecified Acute sinusitis, unspecified Arthritis of carpometacarpal (CMC) joint of both thumbs Chronic diastolic (congestive) heart failure Segmental and somatic dysfunction of thoracic region Segmental and somatic dysfunction of pelvic region Segmental and somatic dysfunction of lumbar region Obesity Arthritis Hyperlipidemia Seasonal allergies Asthma Depression Hypothyroidism Surgical History History of breast biopsy History of tonsillectomy History of Family History Father CAD (coronary artery disease) CABG age 80 Other Breast cancer Kidney disease Social History Smoking Status: Never smoker alcohol intake: never substance use type: does not use caffeine: No HPI HPI Chief Complaint: rash Details: LIANNA CHACKO, is a 60 F who presents to the office today for HPI: Patient presents today complaining of about 2 weeks of diffuse poison sue rash over her arms and legs. She states she was walking in shorts along a [place] when initially started. She notes that symptoms do not seem to be improving even with [id number]-[id number] treatments. ROS: As noted in HPI Physical Exam: VITALS: Reviewed. GEN: Healthy appearing, well-developed, NAD. PSYCH: AOx3. Normal memory, mood, and affect. LUNGS: Normal respiratory effort. SKIN: Warm, well perfused. Scattered vesicular rash over the bilateral forearms and legs MSK: Normal gait. NEURO: Ambulating with no limitations. Normal muscle strength and tone. No focal deficits. Coding Level of Care Code Off vis,est,level 3 Diagnoses Contact dermatitis due to poison sue L23.7 Assessment and Plan Assessment and Plan (1) Contact dermatitis due to poison sue: Status: Acute Plan: Patient's presentation most consistent with contact dermatitis related to poison sue. She was given prescriptions as noted below for symptomatic relief. She was instructed to thoroughly clean and wash all clothing that may have come in contact with oils. 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, [address] Gastroenterology Visit Repor ton 02-23-2025 Gastroenterology Visit Report [facility] [address] [place] [address] OFFICE VISIT Date of Service: 02/23/25 MR#: [id number] Acct: [id number] Name: LIANNA CHACKO Rep #: [id number] : 1965 Provider: Dr. Sae plummer MD Age/Sex: 60/F Location: [facility] Status: Signed Intake Vital Signs 11/24/24 10:28 02/23/25 10:38 Height 5 ft 6 in 5 ft 6 in Weight: 239 lb BMI 38.5 BP 109/74 Blood Pressure Location Lt brachial Position Sitting Pulse 63 Pulse Oximetry (%) 98 Oxygen Delivery Method room air Intake Visit Reasons: 3 M FU Allergies Tetanus Vaccines and Toxoid Allergy (Mild, Verified 02/23/25 10:37) Swelling shellfish derived Allergy (Verified 02/23/25 10:37) Swelling pravastatin Adverse Reaction (Intermediate, Verified 02/23/25 10:37) Unknown Medications ???Medication ???Instructions ???Recorded ???Confirmed ???Type multivitamin 1 tab PO QAM 10/30/17 02/23/25 His tory calcium 600 mg (as carbonate)-vit 1 ea PO DAILY 01/19/18 02/23/25 H istory D3 10 mcg (400 unit) chewable tablet acetaminophen 500 mg tablet 1,000 mg PO DAILY PRN Pain 9 02/23/25 History (Tylenol Extra Strength) albuterol sulfate 90 mcg/actuation 1 inh inhalation Q4H PRN Wheezin g 08/23/19 02/23/25 History breath activated powder inhaler levothyroxine 100 mcg tablet 100 mcg PO QDAY 07/16/21 02/23/25 History oxycodone 5 mg capsule 5 mg PO Q6H PRN pain 4 days #16 02/23/25 Rx caps resmetirom 100 mg tablet 100 mg PO QDAY #30 tabs 10/11/24 0 02/23/25 Rx (Rezdiffra) metformin 500 mg tablet 500 mg PO BID 90 days #180 tabs 02/23/25 Rx Held on 02/09/25. Instructions: Order Changed escitalopram oxalate 20 mg tablet 10 mg PO QDAY 02/09/25 02/23/25 H istory doxepin 10 mg capsule 10 mg PO QHS 1 month #30 caps 02/1202/23/25 Rx rosuvastatin 20 mg tablet 10 mg (1/2 x 20 mg) PO QHS 1 month 02/23/25 02/23/25 Rx Held on 02/23/25. #15 tabs Instructions: Order Changed [facility] Medical History Fatty liver Elevated random blood glucose level Acute bronchitis, unspecified Acute sinusitis, unspecified Arthritis of carpometacarpal (CMC) joint of both thumbs Chronic diastolic (congestive) heart failure Segmental and somatic dysfunction of thoracic region Segmental and somatic dysfunction of pelvic region Segmental and somatic dysfunction of lumbar region Obesity Arthritis Hyperlipidemia Seasonal allergies Asthma Depression Hypothyroidism Surgical History History of breast biopsy History of tonsillectomy History of Family History Father CAD (coronary artery disease) CABG age 80 Other Breast cancer Kidney disease Social History Smoking Status: Never smoker alcohol intake: never substance use type: does not use caffeine: No HPI HPI Details: LIANNA CHACKO, is a 60 F who presents to the office today for follow up. Lianna established with this clinic 12.05.21 with referral from her PCP for non-alcoholic fatty liver. Reports she has changed her diet and eating habits to eliminate sugar, dairy, processed foods and increase in fish and lean meats. Denies alcohol drinking history, tattoos, street drug use or blood transfusions. Denies brain fog, jaundice, pruritis. Reports weight loss with diet changes and liver management. Medical history includes arthritis, asthma, CHF, depression, hyperlipidemia, obesity. US abdomen .01.02 found liver measurement 17.2cm with fatty infiltration. Liver elastography 10.30.20 measure liver at 6.5kPa compatible with F2/3 Metavir score US abdomen and elastography 10.30.21 found liver measurement 15.6cm with fatty infiltration; echogenic nodule in right liver lobe suggestive of small hemangioma. Liver stiffness measures 10.5kPa compatible with F3 Metavir score. Liver biopsy performed 12.23.21 with no evidence of cirrhosis, minimal changes. Mildly increased iron deposition; mild bile stasis present; no accumulation of abnormal proteins; no significant inflammation noted. OV 8.9.22 Continues with ursodiol and vitamin E without adverse effect. Phentermine used for one month 03.04.22; she did not have any adverse effect with this. She is staying close to 20g carbohydrate a day but did not lose weight. Reports her activity level is good with her six year old grandson who likes to walk. US abd/elastography 09.25.22- Liver measures 18.3cm 13kPa OV 2.8- Attempted to do hospital's [facility] Weight program but [facility] is not in network. Has been trying to find a covered environmental analyst. Has gained weig (more content not included)... Normal [facility] Bilirubin directOrdered By: Sae Saeed on 02-22-2025 Bilirubin.direct [Mass/Vol] 0.15 mg/dL 0.00-0.30 [facility] Bilirubin, totalOrdered By: Sae Saeed on 02-22-2025 Bilirubin [Mass/Vol] 0.36 mg/dL 0.00-1.30 [place] Gamma glutamyl transferase ( GGT) measurementOrdered By: Sae Saeed on 02-22-2025 Amylase [Catalytic activity/Vol] 9 U/L 0-60 [facility] Comment on above: Performed at: [place] [id number] Director: Chan Matta PhD, Phone: [phone] Laboratory - Chemistry and C hemistry - challengeOrdered By: Sae Saeed on 02-22-2025 AST [Catalytic activity/Vol] 65 U/L High <32 [facility] Liver Profileon 02-22-2025 Albumin [Mass/Vol] 4.1 g/dL Normal 3.4-4.8 [facility] Comment on above: Performed By: #### L 500.4050, L3100.3425, L501.4700, L300.3900, L3890.6006, L506.0400, L501.9520, L503.6030, L3000.0375, L3200.1100, L3890.6202, L501.5101 #### [facility] [address] [place], [place], [id number] ALK PHOS 82 U/L Normal 35-104 [facility] Comment on above: Performed By: #### L 500.4050, L3100.3425, L501.4700, L300.3900, L3890.6006, L506.0400, L501.9520, L503.6030, L3000.0375, L3200.1100, L3890.6202, L501.5101 #### [facility] [address] [place], [address] ALT [Catalytic activity/Vol] 59 U/L High <=34 [facility] Comment on above: Performed By: #### L 500.4050, L3100.3425, L501.4700, L300.3900, L3890.6006, L506.0400, L501.9520, L503.6030, L3000.0375, L3200.1100, L3890.6202, L501.5101 #### [facility] [address] [place], [address] AST [Catalytic activity/Vol] 65 U/L High <=31 [facility] Comment on above: Performed By: #### L 500.4050, L3100.3425, L501.4700, L300.3900, L3890.6006, L506.0400, L501.9520, L503.6030, L3000.0375, L3200.1100, L3890.6202, L501.5101 #### [facility] [address] [place], [place], [id number] Bilirubin [Mass/Vol] 0.36 mg/dL Normal 0.00-1.30 [place] Comment on above: Performed By: #### L 500.4050, L3100.3425, L501.4700, L300.3900, L3890.6006, L506.0400, L501.9520, L503.6030, L3000.0375, L3200.1100, L3890.6202, L501.5101 #### [facility] [address] [place], [place], [id number] Bilirubin.direct [Mass/Vol] 0.15 mg/dL Normal 0.00-0.30 [facility] Comment on above: Performed By: #### L 500.4050, L3100.3425, L501.4700, L300.3900, L3890.6006, L506.0400, L501.9520, L503.6030, L3000.0375, L3200.1100, L3890.6202, L501.5101 #### [facility] [address] [place], [address] Globulin (S) [Mass/Vol] 3.0 g/dL Normal 2.2-4.2 [facility] Comment on above: Performed By: #### L 500.4050, L3100.3425, L501.4700, L300.3900, L3890.6006, L506.0400, L501.9520, L503.6030, L3000.0375, L3200.1100, L3890.6202, L501.5101 #### [facility] [address] [place], [address] T PROT 7.1 g/dL Normal 5.9-8.4 [facility] Comment on above: Performed By: #### L 500.4050, L3100.3425, L501.4700, L300.3900, L3890.6006, L506.0400, L501.9520, L503.6030, L3000.0375, L3200.1100, L3890.6202, L501.5101 #### [facility] [address] [facility] [place], [place], [id number] ([address]) Serum globulin measurementOr dered By: Sae Saeed on 02-22-2025 Globulin (S) [Mass/Vol] 3.0 g/dL 2.2-4.2 [facility] Serum or plasma alanine frank otransferase (ALT) measurementOrdered By: Sae Saeed on 02-22-2025 ALT [Catalytic activity/Vol] 59 U/L High <35 [facility] Serum or plasma albumin liz urement (mass/volume)Ordered By: Sae Saeed on 02-22-2025 Albumin [Mass/Vol] 4.1 g/dL 3.4-4.8 [facility] Serum or plasma alkaline palak sphatase measurementOrdered By: Sae Saeed on 02-22-2025 ALP [Catalytic activity/Vol] 82 U/L 35-104 [facility] Total proteinOrdered By: Akash Saeed on 02-22-2025 Protein [Mass/Vol] 7.1 g/dL 5.9-8.4 [facility] ABD Limited w/ Elastographyo n 02-16-2025 ABD Limited w/ Elastography [facility] Imaging Services [address] [place] [address] ABD Limited w/ Elastography MR#: [id number] Acct: [id number] Name: LIANNA CHACKO Rep #: [id number] : 1965 F 60 From: Deny Parks MD PCP: Dr. Almas Schmidt MD Status: REG CLI Study: ABD Limited w/ Elastography Date of Exam: 02/05 Exam# [id number] Ordering Dr: Sae Saeed MD PROCEDURE: ABD LIMITED W/ ELASTOGRAPHY, 02/16/2025 REASON FOR EXAM: LIVER FIBROSIS, F2 F3 COMPARISON: 01/28/2024 TECHNIQUE: Grayscale and color Doppler imaging of the right upper quadrant was performed. Elastography was performed for non-invasive assessment of liver tissue stiffness utilizing a [employer] S-shear wave imaging unit. FINDINGS: Liver: Grossly unremarkable echotexture. 15.7 cm in length. Gallbladder: Unremarkable. Reportedly, sonographic Jose's was negative. Biliary tree: Unremarkable. CBD measures 3 mm. Pancreas: Partially obscured by shadowing bowel gas, grossly unremarkable as visualized. Right kidney: Unremarkable. 11.1 cm in length. Other: No visualized free fluid. Hepatic elastography: Number of measurements: 15 measurements across 3 regions, 5 measurements per region. US probe: CA1-7A. EQI median: 6.7 kPa EQI median velocity: 1.48 m/s IQR/Med: 22.7-24.6% (kPa) and 11.4-12.3% (m/s). If the IQR/Med is IQR/median >30% (for kPa) or >15% in m/s, the variance in the measurements is a large and the accuracy of the measurement may be in question. US/ABD Limited w/ Elastography IMPRESSION: 1. Grossly unremarkable hepatic echotexture. 2. Liver stiffness is 6.7 kPa. Per the below 2020 SRU criteria, this rules out compensated advanced chronic liver disease in the absence of other known clinical signs. If there are known clinical signs, further testing may be needed for confirmation. 3. Additional description as above. Assessment is per the Update to the SRU Liver Elastography Consensus Statement (2020) Note that the above assessment of liver fibrosis is vendor-neutral and intended for use in fibrosis related to viral etiologies and non-alcoholic fatty-liver disease (NAFLD); in causes other than viral hepatitis and NAFLD, the cutoff values are currently not well established. In some patients with NAFLD, the cutoff values for cACLD may be lower (7-9 kPa). Note also that in the setting of elevated LFTs, nonfasting or vascular congestion, the stage of lifer fibrosis may be overestimated. Previous U reference values: <1.37 m/s (5.7kPa): No to mild fibrosis 1.37 m/s - 2.2 m/s: Moderate to severe fibrosis >2.2 m/s (15kPa): Significant fibrosis / cirrhosis Reading Location: [id number] CC: Dr. Sae Saeed MD; Dr. 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 [address] [place] [address] OFFICE VISIT Date of Service: 02/16/25 MR#: [id number] Acct: [id number] Name: LIANNA CHACKO Rep #: [id number] : 1965 Provider: MARISA Villar Age/Sex: 60/F Location: [facility] Status: Signed Intake Vital Signs 02/23/24 13:27 11/24/24 10:28 02/16/25 09:24 Height 5 ft 6 in 5 ft 6 in Weight: 237 lb BP 127/78 H Blood Pressure Location Lt brachial Position Sitting Respiration 16 Pulse 69 Pulse Source Monitor Temp 97.7 F L Temp Source Temporal Pulse Oximetry (%) 96 Oxygen Delivery Method room air Intake Visit Reasons: 6 M FU Is patient in pain?: Yes Allergies Tetanus Vaccines and Toxoid Allergy (Mild, Verified 02/16/25 09:25) Swelling shellfish derived Allergy (Verified 02/16/25 09:25) Swelling pravastatin Adverse Reaction (Intermediate, Verified 02/16/25 09:25) Unknown Medications ???Medication ???Instructions ???Recorded ???Confirmed ???Type multivitamin 1 tab PO QAM 10/30/17 02/16/25 His tory calcium 600 mg (as carbonate)-vit 1 ea PO DAILY 01/19/18 02/16/25 H istory D3 10 mcg (400 unit) chewable tablet acetaminophen 500 mg tablet 1,000 mg PO DAILY PRN Pain 9 02/16/25 History (Tylenol Extra Strength) albuterol sulfate 90 mcg/actuation 1 inh inhalation Q4H PRN Wheezin g 08/23/19 02/16/25 History breath activated powder inhaler doxepin 25 mg capsule 25 mg PO DAILY 02/13/21 02/16/25 H istory levothyroxine 100 mcg tablet 100 mcg PO QDAY 07/16/21 02/16/25 History oxycodone 5 mg capsule 5 mg PO Q6H PRN pain 4 days #16 02/16/25 Rx caps resmetirom 100 mg tablet 100 mg PO QDAY #30 tabs 10/11/24 0 02/16/25 Rx (Rezdiffra) metformin 500 mg tablet 500 mg PO BID 90 days #180 tabs 02/16/25 Rx Held on 02/09/25. Instructions: Order Changed rosuvastatin 20 mg tablet 20 mg PO QHS 1 month #30 tabs 04/2 01/0602/16/25 Rx escitalopram oxalate 20 mg tablet 10 mg PO QDAY 02/09/25 02/16/25 H istory Is last menstrual period known: No Post menopausal: Yes Patient : No Have you fallen in the past year?: No PFSH Medical History Fatty liver Elevated random blood glucose level Acute bronchitis, unspecified Acute sinusitis, unspecified Arthritis of carpometacarpal (CMC) joint of both thumbs Chronic diastolic (congestive) heart failure Segmental and somatic dysfunction of thoracic region Segmental and somatic dysfunction of pelvic region Segmental and somatic dysfunction of lumbar region Obesity Arthritis Hyperlipidemia Seasonal allergies Asthma Depression Hypothyroidism Surgical History History of breast biopsy History of tonsillectomy History of Family History (Updated 02/16/25 @ 09:33 by Radha Becker) Father CAD (coronary artery disease) CABG age 80 Other Breast cancer Kidney disease Social History Smoking Status: Never smoker alcohol intake: never substance use type: does not use caffeine: No HPI HPI HPI: LIANNA CHACKO, is a 60 F who presents to the office today for follow-up of bilateral lower extremity edema, lymphedema, mild superficial venous insufficiency. Recall that prior venous reflux study has demonstrated only focal below-knee GSV reflux which is mild relative to her degree of swelling. We have previously discussed evaluation for central venous compression but this has been deferred. At last OV, plan was for continue conservative management with measured compression, daily use of lymphedema pumps, leg elevation, and exercise. Recall that her medical history is otherwise significant for chronic stable diastolic heart failure and PINO She reports she has continued to have overall stable lower extremity edema. She has not had any wounds or weeping. She is not having any pain other than that associated with her arthritis. She has continued to use her lymphedema pumps and feels these are working well. She does feel she needs new compression stockings, she has not been wearing these as often lately because they are worn out. ROS General General: Yes weight change; No appetite, fatigue, colon cancer, breast cancer or weakness HEENT HEENT: No difficulty swallowing, eye injury, eye surgery, swollen glands or hoarseness Endo Endocrine: Yes thyroid disease; No diabetes mellitus, thyroid cancer, Hair loss, heat intolerance or cold intolerance Skin Skin: No rash or changing moles Musc Musculoskeletal: Yes arthritis, rheumatoid arthritis and joint pain; No back problems or gout Cardio Cardiovascular: No murmur, pa (more content not included)... Normal [facility] Anion gap in Serum or Plasma Ordered By: Sae Saeed on 02-09-2025 Anion gap [Moles/Vol] 9 mmol/L -15 [facility] BUN/creatinine ratioOrdered By: Sae Saeed on 02-09-2025 Urea nitrogen/Creatinine [Mass ratio] 22.8 mg/mg High 10-20 [facility] Bilirubin directOrdered By: Sae Saeed on 02-09-2025 Bilirubin.direct [Mass/Vol] 0.22 mg/dL 0.00-0.30 [facility] Bilirubin, Directon 02-10-20 25 Bilirubin.direct [Mass/Vol] 0.22 mg/dL Normal 0.00-0.30 [facility] Comment on above: Performed By: #### L 500.4050, L3100.3425, L501.4700, L300.3900, L3890.6006, L506.0400, L501.9520, L503.6030, L3000.0375, L3200.1100, L3890.6202, L501.5101 #### [facility] [address] [place], [place], [id number] ([phone]) Bilirubin, totalOrdered By: Sae Saeed on 02-09-2025 Bilirubin [Mass/Vol] 0.41 mg/dL 0.00-1.30 [place] CRPon 02-09-2025 C-REACTIVE PROT < 3.00 Normal 0.0-3.0 [facility] Comment on above: Performed By: #### L 500.4050, L3100.3425, L501.4700, L300.3900, L3890.6006, L506.0400, L501.9520, L503.6030, L3000.0375, L3200.1100, L3890.6202, L501.5101 #### [facility] [address] [place], [address] Carbon dioxide, total [Moles /volume] in Central venous bloodOrdered By: Sae Saeed on 02-09-2025 CO2 [Moles/Vol] 26.3 mmol/L 21.0-32.0 [facility] Chloride assayOrdered By: Dashawn Saeed on 02-09-2025 Chloride [Moles/Vol] 105 mmol/L 98-108 [place] Comprehensive Metabolic Prof ilon 02-09-2025 Albumin [Mass/Vol] 3.8 g/dL Normal 3.4-4.8 [facility] Comment on above: Performed By: #### L 500.4050, L3100.3425, L501.4700, L300.3900, L3890.6006, L506.0400, L501.9520, L503.6030, L3000.0375, L3200.1100, L3890.6202, L501.5101 #### [facility] [address] [place], [place], [id number] Albumin/Globulin [Mass ratio] 1.3 {ratio} Normal 0.9-2.4 [facility] Comment on above: Performed By: #### L 500.4050, L3100.3425, L501.4700, L300.3900, L3890.6006, L506.0400, L501.9520, L503.6030, L3000.0375, L3200.1100, L3890.6202, L501.5101 #### [facility] [address] [place], [place], [id number] ALK PHOS 72 U/L Normal 35-104 [facility] Comment on above: Performed By: #### L 500.4050, L3100.3425, L501.4700, L300.3900, L3890.6006, L506.0400, L501.9520, L503.6030, L3000.0375, L3200.1100, L3890.6202, L501.5101 #### [facility] [address] [place], [place], [id number] ALT [Catalytic activity/Vol] 50 U/L High <=34 [facility] Comment on above: Performed By: #### L 500.4050, L3100.3425, L501.4700, L300.3900, L3890.6006, L506.0400, L501.9520, L503.6030, L3000.0375, L3200.1100, L3890.6202, L501.5101 #### [facility] [address] [place], [address] AST [Catalytic activity/Vol] 42 U/L High <=31 [facility] Comment on above: Performed By: #### L 500.4050, L3100.3425, L501.4700, L300.3900, L3890.6006, L506.0400, L501.9520, L503.6030, L3000.0375, L3200.1100, L3890.6202, L501.5101 #### [facility] [address] [place], [address] Bilirubin [Mass/Vol] 0.41 mg/dL Normal 0.00-1.30 [place] Comment on above: Performed By: #### L 500.4050, L3100.3425, L501.4700, L300.3900, L3890.6006, L506.0400, L501.9520, L503.6030, L3000.0375, L3200.1100, L3890.6202, L501.5101 #### [facility] [address] [place], [address] BUN/CRE 22.8 RATIO High 10-20 [facility] Comment on above: Performed By: #### L 500.4050, L3100.3425, L501.4700, L300.3900, L3890.6006, L506.0400, L501.9520, L503.6030, L3000.0375, L3200.1100, L3890.6202, L501.5101 #### [facility] [address] [place], [address] Calcium [Mass/Vol] 9.1 mg/dL Normal 7.6-11.0 [facility] Comment on above: Performed By: #### L 500.4050, L3100.3425, L501.4700, L300.3900, L3890.6006, L506.0400, L501.9520, L503.6030, L3000.0375, L3200.1100, L3890.6202, L501.5101 #### [facility] [address] [place], [address] Chloride [Moles/Vol] 105 mmol/L Normal 98-108 [place] Comment on above: Performed By: #### L 500.4050, L3100.3425, L501.4700, L300.3900, L3890.6006, L506.0400, L501.9520, L503.6030, L3000.0375, L3200.1100, L3890.6202, L501.5101 #### [facility] [address] [place], [place], [id number] (054) CO2 [Moles/Vol] 26.3 mmol/L Normal 21.0-32.0 [facility] Comment on above: Performed By: #### L 500.4050, L3100.3425, L501.4700, L300.3900, L3890.6006, L506.0400, L501.9520, L503.6030, L3000.0375, L3200.1100, L3890.6202, L501.5101 #### [facility] [address] [place], [address] Creatinine [Mass/Vol] 0.90 mg/dL Normal 0.70-1.20 [facility] Comment on above: Performed By: #### L 500.4050, L3100.3425, L501.4700, L300.3900, L3890.6006, L506.0400, L501.9520, L503.6030, L3000.0375, L3200.1100, L3890.6202, L501.5101 #### [facility] [address] [place], [address] GAP 9 Normal 5-15 [facility] Comment on above: Performed By: #### L 500.4050, L3100.3425, L501.4700, L300.3900, L3890.6006, L506.0400, L501.9520, L503.6030, L3000.0375, L3200.1100, L3890.6202, L501.5101 #### [facility] [address] [facility] [place], [address] GFR/1.73 sq M.predicted among non-blacks MDRD (S/P/Bld) [Vol rate/Area] 72 mL/min/{1.73_m2} Normal >60 [facility] Comment on above: Result Comment: mL/m in/1.73m2 CKD-EPI Creatinine Equation (2020) Performed By: #### L 500.4050, L3100.3425, L501.4700, L300.3900, L3890.6006, L506.0400, L501.9520, L503.6030, L3000.0375, L3200.1100, L3890.6202, L501.5101 #### [facility] [address] [place] [place], [address] Globulin (S) [Mass/Vol] 3.0 g/dL Normal 2.2-4.2 [facility] Comment on above: Performed By: #### L 500.4050, L3100.3425, L501.4700, L300.3900, L3890.6006, L506.0400, L501.9520, L503.6030, L3000.0375, L3200.1100, L3890.6202, L501.5101 #### [facility] [address] [place], [address] Glucose [Mass/Vol] 106 mg/dL High 70-99 [facility] Comment on above: Performed By: #### L 500.4050, L3100.3425, L501.4700, L300.3900, L3890.6006, L506.0400, L501.9520, L503.6030, L3000.0375, L3200.1100, L3890.6202, L501.5101 #### [facility] [address] [place], [address] Potassium [Moles/Vol] 4.8 mmol/L Normal 3.3-5.1 [facility] Comment on above: Performed By: #### L 500.4050, L3100.3425, L501.4700, L300.3900, L3890.6006, L506.0400, L501.9520, L503.6030, L3000.0375, L3200.1100, L3890.6202, L501.5101 #### [facility] [address] [place], [place], [id number] Sodium [Moles/Vol] 140 mmol/L Normal 133-145 [facility] Comment on above: Performed By: #### L 500.4050, L3100.3425, L501.4700, L300.3900, L3890.6006, L506.0400, L501.9520, L503.6030, L3000.0375, L3200.1100, L3890.6202, L501.5101 #### [facility] [address] [place], [address] T PROT 6.9 g/dL Normal 5.9-8.4 [facility] Comment on above: Performed By: #### L 500.4050, L3100.3425, L501.4700, L300.3900, L3890.6006, L506.0400, L501.9520, L503.6030, L3000.0375, L3200.1100, L3890.6202, L501.5101 #### [facility] [address] [place], [address] Urea nitrogen [Mass/Vol] 21 mg/dL High 4-19 [facility] Comment on above: Performed By: #### L 500.4050, L3100.3425, L501.4700, L300.3900, L3890.6006, L506.0400, L501.9520, L503.6030, L3000.0375, L3200.1100, L3890.6202, L501.5101 #### [facility] [address] [place], [address] Glomerular filtration rate ( GFR) estimation/1.73 sq m using serum, plasma, or whole bOrdered By: Sae Saeed on 02-09-2025 GFR/1.73 sq M.predicted among non-blacks MDRD (S/P/Bld) [Vol rate/Area] 72 mL/min/{1.73_m2} >60 [facility] Comment on above: mL/min/1.73m2 CKD-EP I Creatinine Equation (2020) Hemoglobin A1con 02-09-2025 HbA1c (Bld) [Mass fraction] 5.5 % Normal <=5.6 [facility] Comment on above: Result Comment: Norm al < 5.7 % Prediabetic 5.7 - 6.4 % Diabetic >or= 6.5 % Please note range changes. Performed By: #### L 500.4050, L3100.3425, L501.4700, L300.3900, L3890.6006, L506.0400, L501.9520, L503.6030, L3000.0375, L3200.1100, L3890.6202, L501.5101 #### [facility] [address] [place], [address] Hemoglobin A1c percentageOrd ered By: Sae Saeed on 02-09-2025 HbA1c (Bld) [Mass fraction] 5.5 % <5.7 [facility] Comment on above: Normal < 5.7 % Predi abetic 5.7 - 6.4 % Diabetic >or= 6.5 % Please note range changes. Laboratory - Chemistry and C hemistry - challengeOrdered By: Sae Saeed on 02-09-2025 AST [Catalytic activity/Vol] 42 U/L High <32 [facility] Potassium measurement (mass/ volume)Ordered By: Sae Saeed on 02-09-2025 Potassium (Unsp spec) [Mass/Vol] 4.8 mmol/L 3.3-5.1 [facility] Serum creatinine measurement (mass/volume)Ordered By: Sae Saeed on 02-09-2025 Creatinine [Mass/Vol] 0.90 mg/dL 0.70-1.20 [facility] Serum globulin measurementOr dered By: Sae Saeed on 02-09-2025 Globulin (S) [Mass/Vol] 3.0 g/dL 2.2-4.2 [facility] Serum glucose measurement (m ass/volume)Ordered By: Sae Saeed on 02-09-2025 Glucose [Mass/Vol] 106 mg/dL High 70-99 [facility] Serum or plasma C reactive p rotein measurement (mass/volume)Ordered By: Sae Saeed on 02-09-2025 CRP [Mass/Vol] mg/L 0.0-3.0 [facility] Serum or plasma alanine frank otransferase (ALT) measurementOrdered By: Sae Saeed on 02-09-2025 ALT [Catalytic activity/Vol] 50 U/L High <35 [facility] Serum or plasma albumin liz urement (mass/volume)Ordered By: Sae Saeed on 02-09-2025 Albumin [Mass/Vol] 3.8 g/dL 3.4-4.8 [facility] Serum or plasma albumin/glob ulin mass ratioOrdered By: Sae Saeed on 02-09-2025 Albumin/Globulin [Mass ratio] 1.3 {ratio} 0.9-2.4 [facility] Serum or plasma alkaline palak sphatase measurementOrdered By: Sae Saeed on 02-09-2025 ALP [Catalytic activity/Vol] 72 U/L 35-104 [facility] Serum or plasma calcium liz urement (mass/volume)Ordered By: Sae Saeed on 02-09-2025 Calcium [Mass/Vol] 9.1 mg/dL 7.6-11.0 [facility] Serum or plasma urea nitroge n measurement (mass/volume)Ordered By: Sae Saeed on 02-09-2025 Urea nitrogen [Mass/Vol] 21 mg/dL High 4-19 [facility] Sodium levelOrdered By: Akashruben nieves Christophe on 02-09-2025 Sodium [Moles/Vol] 140 mmol/L 133-145 [facility] Total proteinOrdered By: Akash olamide Christophe on 02-09-2025 Protein [Mass/Vol] 6.9 g/dL 5.9-8.4 [facility] SCRN MAMM (CAD)W/YULISA BILATo n 01-05-2025 SCRN MAMM (CAD)W/YULISA BILAT [facility] Imaging Services [address], [place] [address] SCRN MAMM (CAD)W/YULISA BILAT MR#: [id number] Acct: [id number] Name: LIANNA CHACKO Rep #: [id number] : 1965 F 59 From: Galileo barrera MD PCP: Dr. Almas Schmidt MD Status: [facility] Study: SCRN MAMM (CAD)W/YULISA BILAT Date of Exam: 12/14 01/06 Exam# [id number] Ordering Dr: Almas Schmidt MD EXAM: SCRN MAMM (CAD)W/YULISA BILAT DATE: 01/05/2025 CLINICAL HISTORY: F, Age 59 y/o , SCREENING Grandmother with breast cancer. Aunt with breast cancer. Prior left stereotactic breast biopsy and left ultrasound-guided breast biopsy. BREAST CANCER RISK ASSESSMENT: Not assessed. TECHNIQUE: Bilateral screening digital breast tomosynthesis with 2D and 3D images. Computer aided detection. COMPARISON: Prior exam(s) dated December 31, 2023.. FINDINGS: TISSUE DENSITY: The breast tissue is heterogenously dense, which may obscure small masses. Bilateral Breast Mammographic Findings: No significant masses, calcifications or other abnormalities are identified. A tissue clip marker is seen in the anterior central aspect of the left breast. No suspicious masses, areas of developing architectural distortion, or suspicious calcifications. There has been no significant interval change. BI/SCRN MAMM (CAD)W/YULISA BILAT IMPRESSION: OVERALL FINAL ASSESSMENT: BIRADS 2 BENIGN FINDING RECOMMENDATION: Routine annual follow-up in 1 Year A letter with findings and recommendations will be mailed to the patient. Reading Location: [place] [address] CC: Dr. 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 [address] OFFICE VISIT Date of Service: 11/24/24 MR#: [id number] Acct: [id number] Name: LIANNA CHACKO Rep #: [id number] : 1965 Provider: Dr. Sae plummer MD Age/Sex: 59/F Location: 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 Required: No Accompanied by: Self Is patient in pain?: No Allergies Tetanus Vaccines and Toxoid Allergy (Mild, Verified 11/24/24 10:28) Swelling shellfish derived Allergy (Verified 11/24/24 10:28) Swelling pravastatin Adverse Reaction (Intermediate, Verified 11/24/24 10:28) Unknown Medications ???Medication ???Instructions ???Recorded ???Confirmed ???Type escitalopram oxalate 20 mg tablet 20 mg PO QDAY 10/30/17 11/24/24 H istory multivitamin 1 tab PO QAM 10/30/17 11/24/24 His tory calcium 600 mg (as carbonate)-vit 1 ea PO DAILY 01/19/18 11/24/24 H istory D3 10 mcg (400 unit) chewable tablet acetaminophen 500 mg tablet 1,000 mg PO DAILY PRN Pain 9 11/24/24 History (Tylenol Extra Strength) albuterol sulfate 90 mcg/actuation 1 inh inhalation Q4H PRN Wheezin g 08/23/19 11/24/24 History breath activated powder inhaler doxepin 25 mg capsule 25 mg PO DAILY 02/13/21 11/24/24 H istory levothyroxine 100 mcg tablet 100 mcg PO QDAY 07/16/21 11/24/24 History metformin 500 mg tablet 500 mg PO BID 90 days #180 tabs 11/24/24 Rx oxycodone 5 mg capsule 5 mg PO Q6H PRN pain 4 days #16 11/24/24 Rx caps rosuvastatin 10 mg tablet 10 mg PO DAILY 1 month #30 tabs 11/24/24 Rx resmetirom 100 mg tablet 100 mg PO QDAY #30 tabs 10/11/24 0 11/24/24 Rx (Rezdiffra) PFSH Medical History Fatty liver Elevated random blood glucose level Acute bronchitis, unspecified Acute sinusitis, unspecified Arthritis of carpometacarpal (CMC) joint of both thumbs Chronic diastolic (congestive) heart failure Segmental and somatic dysfunction of thoracic region Segmental and somatic dysfunction of pelvic region Segmental and somatic dysfunction of lumbar region Obesity Arthritis Hyperlipidemia Seasonal allergies Asthma Depression Hypothyroidism Surgical History History of breast biopsy History of tonsillectomy History of Family History Father CAD (coronary artery disease) CABG age 80 Other Breast cancer Social History Smoking Status: Never smoker alcohol intake: never substance use type: does not use caffeine: No HPI HPI Details: LIANNA CHACKO, is a 59 F who presents to the office today for Lianna frankel with this clinic 12.05.21 with referral from her PCP for non-alcoholic fatty liver. Reports she has changed her diet and eating habits to eliminate sugar, dairy, processed foods and increase in fish and lean meats. Denies alcohol drinking history, tattoos, street drug use or blood transfusions. Denies brain fog, jaundice, pruritis. Reports weight loss with diet changes and liver management. Medical history includes arthritis, asthma, CHF, depression, hyperlipidemia, obesity. US abdomen 10.18.20 found liver measurement 17.2cm with fatty infiltration. Liver elastography 10.30.20 measure liver at 6.5kPa compatible with F2/3 Metavir score US abdomen and elastography 10.30.21 found liver measurement 15.6cm with fatty infiltration; echogenic nodule in right liver lobe suggestive of small hemangioma. Liver stiffness measures 10.5kPa compatible with F3 Metavir score. Biochemical workup 12.05.21 ESR, haptoglobin, A1C, ferritin, LDH, CRP, ceruloplasmin, EVERARDO, copper, ANCA, MARGARITA comp all WNL. Ammonia decreased. Liver biopsy performed 12.23.21 with no evidence of cirrhosis, minimal changes. Mildly increased iron deposition; mild bile stasis present; no accumulation of abnormal proteins; no significant inflammation noted. Phentermine started 30mg 03.04.22 for one month. Weights: 10.18.20 246lbs 12.05.21 226lbs 01.31.22 236lbs .06.05 239lbs 02.. 262lbs .. 260lbs .. 218lbs Medications include ursodiol and vitamin E (12.05.2021). Plan last visit 01.31.22: Fatty liver ??? carbohydrate restriction; start simvastatin with vitamin E and ursodiol O (more content not included)... Normal [facility] Absolute lymphocyte countOrd ered By: Almas Schmidt on 11-03-2024 Lymphocytes Auto (Unsp spec) [#/Vol] 2.31 10*3/uL 0.83-4.51 [facility] Absolute neutrophil countOrd ered By: Almas Schmidt on 11-03-2024 Neutrophils (Bld) [#/Vol] 2.8 10*3/uL 2.0-7.7 [facility] Albumin to globulin ratioOrd ered By: Almas Schmidt on 11-03-2024 Albumin/Globulin [Mass ratio] 1.1 {ratio} 0.9-2.4 [facility] Automated lymphocyte count a s percentage of total leukocytesOrdered By: Almas Schmidt on 11-03-2024 Lymphocytes/100 WBC Auto (Unsp spec) 38.4 % [facility] Basophil percentageOrdered B y: Amlas Schmidt on 11-03-2024 Basophils/100 WBC (Bld) 0.7 % 0-1 [facility] Bilirubin, totalOrdered By: Almas Schmidt on 11-03-2024 Bilirubin [Mass/Vol] 0.50 mg/dL 0.20-1.00 [place] Comment on above: For patients on eltr ombopag therapy, use of Dimension [place] TBIL is not recommended. Blood urea nitrogen (BUN)/cr eatinine ratioOrdered By: Almas Schmidt on 11-03-2024 Urea nitrogen/Creatinine [Mass ratio] 19.8 mg/mg - [facility] CBC W/Diff, Automatedon 10-16 Absolute Lymph 2.31 X10 3/uL Normal 0.83-4.51 [facility] Comment on above: Performed By: #### L 500.4050, L3100.3425, L501.4700, L300.3900, L3890.6006, L506.0400, L501.9520, L503.6030, L3000.0375, L3200.1100, L3890.6202, L501.5101 #### [facility] [address] [facility] [place], [place], [id number] (299) Absolute Neut 2.8 X10 3/uL Normal 2.0-7.7 [facility] Comment on above: Performed By: #### L 500.4050, L3100.3425, L501.4700, L300.3900, L3890.6006, L506.0400, L501.9520, L503.6030, L3000.0375, L3200.1100, L3890.6202, L501.5101 #### [facility] [address] [facility] [place], [place], [id number] Basophils/100 WBC (Bld) 0.7 % Normal 0-1 [facility] Comment on above: Performed By: #### L 500.4050, L3100.3425, L501.4700, L300.3900, L3890.6006, L506.0400, L501.9520, L503.6030, L3000.0375, L3200.1100, L3890.6202, L501.5101 #### [facility] [address] [place], [address] Eosinophils/100 WBC (Bld) 2.5 % Normal 0-5 [facility] Comment on above: Performed By: #### L 500.4050, L3100.3425, L501.4700, L300.3900, L3890.6006, L506.0400, L501.9520, L503.6030, L3000.0375, L3200.1100, L3890.6202, L501.5101 #### [facility] [address] [place], [place], [id number] (954) Erythrocyte distribution width (RBC) [Ratio] 13.3 % Normal 11.6-14.6 [facility] Comment on above: Performed By: #### L 500.4050, L3100.3425, L501.4700, L300.3900, L3890.6006, L506.0400, L501.9520, L503.6030, L3000.0375, L3200.1100, L3890.6202, L501.5101 #### [facility] [address] [place], [address] Hematocrit (Bld) [Volume fraction] 39.7 % Normal 37-47 [facility] Comment on above: Performed By: #### L 500.4050, L3100.3425, L501.4700, L300.3900, L3890.6006, L506.0400, L501.9520, L503.6030, L3000.0375, L3200.1100, L3890.6202, L501.5101 #### [facility] [address] [place], [place], [id number] (953) Hemoglobin (Bld) [Mass/Vol] 12.5 g/dL Normal 12.0-15.0 [facility] Comment on above: Performed By: #### L 500.4050, L3100.3425, L501.4700, L300.3900, L3890.6006, L506.0400, L501.9520, L503.6030, L3000.0375, L3200.1100, L3890.6202, L501.5101 #### [facility] [address] [place], [address] IG% 0.300 Normal 0.0-0.9 [facility] Comment on above: Result Comment: IG% - Immature Granulocytes (promyelocytes, myelocytes and metamyelocytes) > 1% indicates that a LEFT SHIFT is Present. Performed By: #### L 500.4050, L3100.3425, L501.4700, L300.3900, L3890.6006, L506.0400, L501.9520, L503.6030, L3000.0375, L3200.1100, L3890.6202, L501.5101 #### [facility] [address] [place], [address] Lymphocytes/100 WBC (Bld) 38.4 % Normal 19-41 [facility] Comment on above: Performed By: #### L 500.4050, L3100.3425, L501.4700, L300.3900, L3890.6006, L506.0400, L501.9520, L503.6030, L3000.0375, L3200.1100, L3890.6202, L501.5101 #### [facility] [address] [facility] [place], [address] MCH (RBC) [Entitic mass] 30.4 pg Normal 27.0-32.0 [facility] Comment on above: Performed By: #### L 500.4050, L3100.3425, L501.4700, L300.3900, L3890.6006, L506.0400, L501.9520, L503.6030, L3000.0375, L3200.1100, L3890.6202, L501.5101 #### [facility] [address] [place], [address] MCHC (RBC) [Mass/Vol] 31.5 g/dL Low 32-36 [facility] Comment on above: Performed By: #### L 500.4050, L3100.3425, L501.4700, L300.3900, L3890.6006, L506.0400, L501.9520, L503.6030, L3000.0375, L3200.1100, L3890.6202, L501.5101 #### [facility] [address] [place], [address] MCV (RBC) [Entitic vol] 96.6 fL Normal 81-99 [facility] Comment on above: Performed By: #### L 500.4050, L3100.3425, L501.4700, L300.3900, L3890.6006, L506.0400, L501.9520, L503.6030, L3000.0375, L3200.1100, L3890.6202, L501.5101 #### [facility] [address] [place], [address] Monocytes/100 WBC (Bld) 11.0 % High 0-10 [facility] Comment on above: Performed By: #### L 500.4050, L3100.3425, L501.4700, L300.3900, L3890.6006, L506.0400, L501.9520, L503.6030, L3000.0375, L3200.1100, L3890.6202, L501.5101 #### [facility] [address] [place], [address] Neutrophils/100 WBC (Bld) 47.1 % Normal 47-70 [facility] Comment on above: Performed By: #### L 500.4050, L3100.3425, L501.4700, L300.3900, L3890.6006, L506.0400, L501.9520, L503.6030, L3000.0375, L3200.1100, L3890.6202, L501.5101 #### [facility] [address] [place], [address] Nucleated RBC (Bld) [#/Vol] 0 10*3/uL Normal 0-5 [facility] Comment on above: Performed By: #### L 500.4050, L3100.3425, L501.4700, L300.3900, L3890.6006, L506.0400, L501.9520, L503.6030, L3000.0375, L3200.1100, L3890.6202, L501.5101 #### [facility] [address] [place], [address] Platelet mean volume (Bld) [Entitic vol] 11.2 fL Normal 6.2-12.0 [facility] Comment on above: Performed By: #### L 500.4050, L3100.3425, L501.4700, L300.3900, L3890.6006, L506.0400, L501.9520, L503.6030, L3000.0375, L3200.1100, L3890.6202, L501.5101 #### [facility] [address] [place], [address] Platelets (Bld) [#/Vol] 221 10*3/uL Normal 150-450 [facility] Comment on above: Performed By: #### L 500.4050, L3100.3425, L501.4700, L300.3900, L3890.6006, L506.0400, L501.9520, L503.6030, L3000.0375, L3200.1100, L3890.6202, L501.5101 #### [facility] [address] [place], [address] RBC (Bld) [#/Vol] 4.11 10*6/uL Low 4.2-5.4 [facility] Comment on above: Performed By: #### L 500.4050, L3100.3425, L501.4700, L300.3900, L3890.6006, L506.0400, L501.9520, L503.6030, L3000.0375, L3200.1100, L3890.6202, L501.5101 #### [facility] [address] [place], [address] RDW SD 47.6 fl High 35.1-43.9 [facility] Comment on above: Performed By: #### L 500.4050, L3100.3425, L501.4700, L300.3900, L3890.6006, L506.0400, L501.9520, L503.6030, L3000.0375, L3200.1100, L3890.6202, L501.5101 #### [facility] [address] [place], [address] WBC (Bld) [#/Vol] 6.0 10*3/uL Normal 4.4-11.0 [facility] Comment on above: Performed By: #### L 500.4050, L3100.3425, L501.4700, L300.3900, L3890.6006, L506.0400, L501.9520, L503.6030, L3000.0375, L3200.1100, L3890.6202, L501.5101 #### [facility] [address] [place], [address] Absolute Neut Normal 2.0-7.7 [facility] Comment on above: Result Comment: DIDN T MEAN TO PLANNING MANAGER Performed By: #### L 500.4050, L3100.3425, L501.4700, L300.3900, L3890.6006, L506.0400, L501.9520, L503.6030, L3000.0375, L3200.1100, L3890.6202, L501.5101 #### [facility] [address] [place], [address] HCT Normal 37-47 [facility] Comment on above: Result Comment: DIDN T MEAN TO PLANNING MANAGER Performed By: #### L 500.4050, L3100.3425, L501.4700, L300.3900, L3890.6006, L506.0400, L501.9520, L503.6030, L3000.0375, L3200.1100, L3890.6202, L501.5101 #### [facility] [address] [place], [address] HGB Normal 12.0-15.0 [facility] Comment on above: Result Comment: DIDN T MEAN TO PLANNING MANAGER Performed By: #### L 500.4050, L3100.3425, L501.4700, L300.3900, L3890.6006, L506.0400, L501.9520, L503.6030, L3000.0375, L3200.1100, L3890.6202, L501.5101 #### [facility] [address] [place], [address] MCH Normal 27.0-32.0 [facility] Comment on above: Result Comment: DIDN T MEAN TO PLANNING MANAGER Performed By: #### L 500.4050, L3100.3425, L501.4700, L300.3900, L3890.6006, L506.0400, L501.9520, L503.6030, L3000.0375, L3200.1100, L3890.6202, L501.5101 #### [facility] [address] [place], [address] [facility] Normal 32-36 [facility] Comment on above: Result Comment: DIDN T MEAN TO PLANNING MANAGER Performed By: #### L 500.4050, L3100.3425, L501.4700, L300.3900, L3890.6006, L506.0400, L501.9520, L503.6030, L3000.0375, L3200.1100, L3890.6202, L501.5101 #### [facility] [address] [place], [address] MCV Normal 81-99 [facility] Comment on above: Result Comment: DIDN T MEAN TO PLANNING MANAGER Performed By: #### L 500.4050, L3100.3425, L501.4700, L300.3900, L3890.6006, L506.0400, L501.9520, L503.6030, L3000.0375, L3200.1100, L3890.6202, L501.5101 #### [facility] [address] [place], [place], [address] NEUT% Normal 47-70 [facility] Comment on above: Result Comment: DIDN T MEAN TO PLANNING MANAGER Performed By: #### L 500.4050, L3100.3425, L501.4700, L300.3900, L3890.6006, L506.0400, L501.9520, L503.6030, L3000.0375, L3200.1100, L3890.6202, L501.5101 #### [facility] [address] [place], [place], [address] PLT Normal 150-450 [facility] Comment on above: Result Comment: DIDN T MEAN TO PLANNING MANAGER Performed By: #### L 500.4050, L3100.3425, L501.4700, L300.3900, L3890.6006, L506.0400, L501.9520, L503.6030, L3000.0375, L3200.1100, L3890.6202, L501.5101 #### [facility] [address] [place], [address] RBC Normal 4.2-5.4 [facility] Comment on above: Result Comment: DIDN T MEAN TO PLANNING MANAGER Performed By: #### L 500.4050, L3100.3425, L501.4700, L300.3900, L3890.6006, L506.0400, L501.9520, L503.6030, L3000.0375, L3200.1100, L3890.6202, L501.5101 #### [facility] [address] [place], [address] RDW CV Normal 11.6-14.6 [facility] Comment on above: Result Comment: DIDN T MEAN TO PLANNING MANAGER Performed By: #### L 500.4050, L3100.3425, L501.4700, L300.3900, L3890.6006, L506.0400, L501.9520, L503.6030, L3000.0375, L3200.1100, L3890.6202, L501.5101 #### [facility] [address] [place], [address] RDW SD Normal 35.1-43.9 [facility] Comment on above: Result Comment: DIDN T MEAN TO PLANNING MANAGER Performed By: #### L 500.4050, L3100.3425, L501.4700, L300.3900, L3890.6006, L506.0400, L501.9520, L503.6030, L3000.0375, L3200.1100, L3890.6202, L501.5101 #### [facility] [address] [place], [address] WBC Normal 4.4-11.0 [facility] Comment on above: Result Comment: DIDN T MEAN TO PLANNING MANAGER Performed By: #### L 500.4050, L3100.3425, L501.4700, L300.3900, L3890.6006, L506.0400, L501.9520, L503.6030, L3000.0375, L3200.1100, L3890.6202, L501.5101 #### [facility] [address] [place], [place], [id number] Carbon dioxide measurementOr dered By: Almas Schmidt on 11-03-2024 CO2 [Moles/Vol] 31.0 mmol/L 21.0-32.0 [facility] Chloride measurementOrdered By: Almas Schmidt on 11-03-2024 Chloride [Moles/Vol] 105 mmol/L 98-107 [facility] Prof ilon 11-03-2024 Albumin [Mass/Vol] 3.7 g/dL Normal 3.2-5.0 [facility] Comment on above: Performed By: #### L 500.4050, L3100.3425, L501.4700, L300.3900, L3890.6006, L506.0400, L501.9520, L503.6030, L3000.0375, L3200.1100, L3890.6202, L501.5101 #### [facility] [address] [place], [place], [id number] Albumin/Globulin [Mass ratio] 1.1 {ratio} Normal 0.9-2.4 [facility] Comment on above: Performed By: #### L 500.4050, L3100.3425, L501.4700, L300.3900, L3890.6006, L506.0400, L501.9520, L503.6030, L3000.0375, L3200.1100, L3890.6202, L501.5101 #### [facility] [address] [place], [place], [id number] ALK P 72 U/L Normal 45-117 [facility] Comment on above: Performed By: #### L 500.4050, L3100.3425, L501.4700, L300.3900, L3890.6006, L506.0400, L501.9520, L503.6030, L3000.0375, L3200.1100, L3890.6202, L501.5101 #### [facility] [address] [place], [address] ALT [Catalytic activity/Vol] 18 U/L Normal 13-56 [facility] Comment on above: Performed By: #### L 500.4050, L3100.3425, L501.4700, L300.3900, L3890.6006, L506.0400, L501.9520, L503.6030, L3000.0375, L3200.1100, L3890.6202, L501.5101 #### [facility] [address] [place], [address] AST [Catalytic activity/Vol] 16 U/L Normal 15-37 [facility] Comment on above: Performed By: #### L 500.4050, L3100.3425, L501.4700, L300.3900, L3890.6006, L506.0400, L501.9520, L503.6030, L3000.0375, L3200.1100, L3890.6202, L501.5101 #### [facility] [address] [place], [address] Bilirubin [Mass/Vol] 0.50 mg/dL Normal 0.20-1.00 [facility] Comment on above: Result Comment: For patients on eltrombopag therapy, use of Dimension [place] TBIL is not recommended. Performed By: #### L 500.4050, L3100.3425, L501.4700, L300.3900, L3890.6006, L506.0400, L501.9520, L503.6030, L3000.0375, L3200.1100, L3890.6202, L501.5101 #### [facility] [address] [place], [address] BUN/CRE 19.8 RATIO Normal 10-20 [facility] Comment on above: Performed By: #### L 500.4050, L3100.3425, L501.4700, L300.3900, L3890.6006, L506.0400, L501.9520, L503.6030, L3000.0375, L3200.1100, L3890.6202, L501.5101 #### [facility] [address] [place], [address] CA,Total 9.5 mg/dL Normal 8.5-10.1 [facility] Comment on above: Performed By: #### L 500.4050, L3100.3425, L501.4700, L300.3900, L3890.6006, L506.0400, L501.9520, L503.6030, L3000.0375, L3200.1100, L3890.6202, L501.5101 #### [facility] [address] [place], [address] Chloride [Moles/Vol] 105 mmol/L Normal 98-107 [place] Comment on above: Performed By: #### L 500.4050, L3100.3425, L501.4700, L300.3900, L3890.6006, L506.0400, L501.9520, L503.6030, L3000.0375, L3200.1100, L3890.6202, L501.5101 #### [facility] [address] [place], [address] CO2 [Moles/Vol] 31.0 mmol/L Normal 21.0-32.0 [facility] Comment on above: Performed By: #### L 500.4050, L3100.3425, L501.4700, L300.3900, L3890.6006, L506.0400, L501.9520, L503.6030, L3000.0375, L3200.1100, L3890.6202, L501.5101 #### [facility] [address] [place], [place], [id number] (783) Creatinine [Mass/Vol] 1.01 mg/dL Normal 0.55-1.02 [facility] Comment on above: Result Comment: The validity of the calculated GFR GFRAA in patients over 70 years has not been determined. Clinical correlation is essential. Performed By: #### L 500.4050, L3100.3425, L501.4700, L300.3900, L3890.6006, L506.0400, L501.9520, L503.6030, L3000.0375, L3200.1100, L3890.6202, L501.5101 #### [facility] [address] [place], [address] EST GFR - AA 72 mL/min Normal >60 [facility] Comment on above: Result Comment: Afri can Faroese GFR Calc Performed By: #### L 500.4050, L3100.3425, L501.4700, L300.3900, L3890.6006, L506.0400, L501.9520, L503.6030, L3000.0375, L3200.1100, L3890.6202, L501.5101 #### [facility] [address] [place], [place], [id number] GAP 2 Low 5-15 [facility] Comment on above: Performed By: #### L 500.4050, L3100.3425, L501.4700, L300.3900, L3890.6006, L506.0400, L501.9520, L503.6030, L3000.0375, L3200.1100, L3890.6202, L501.5101 #### [facility] [address] [place], [address] GFR/1.73 sq M.predicted among non-blacks MDRD (S/P/Bld) [Vol rate/Area] 59 mL/min/{1.73_m2} Low >60 [facility] Comment on above: Result Comment: Non- GFR Calc Performed By: #### L 500.4050, L3100.3425, L501.4700, L300.3900, L3890.6006, L506.0400, L501.9520, L503.6030, L3000.0375, L3200.1100, L3890.6202, L501.5101 #### [facility] [address] [place], [address] Globulin (S) [Mass/Vol] 3.5 g/dL Normal 2.2-4.2 [facility] Comment on above: Performed By: #### L 500.4050, L3100.3425, L501.4700, L300.3900, L3890.6006, L506.0400, L501.9520, L503.6030, L3000.0375, L3200.1100, L3890.6202, L501.5101 #### [facility] [address] [place], [address] Glucose [Mass/Vol] 88 mg/dL Normal 74-106 [facility] Comment on above: Performed By: #### L 500.4050, L3100.3425, L501.4700, L300.3900, L3890.6006, L506.0400, L501.9520, L503.6030, L3000.0375, L3200.1100, L3890.6202, L501.5101 #### [facility] [address] [place], [address] Potassium [Moles/Vol] 4.6 mmol/L Normal 3.5-5.1 [facility] Comment on above: Performed By: #### L 500.4050, L3100.3425, L501.4700, L300.3900, L3890.6006, L506.0400, L501.9520, L503.6030, L3000.0375, L3200.1100, L3890.6202, L501.5101 #### [facility] [address] [place], [address] Sodium [Moles/Vol] 138 mmol/L Normal 136-145 [facility] Comment on above: Performed By: #### L 500.4050, L3100.3425, L501.4700, L300.3900, L3890.6006, L506.0400, L501.9520, L503.6030, L3000.0375, L3200.1100, L3890.6202, L501.5101 #### [facility] [address] [place], [address] T PROT 7.2 g/dL Normal 6.4-8.2 [facility] Comment on above: Performed By: #### L 500.4050, L3100.3425, L501.4700, L300.3900, L3890.6006, L506.0400, L501.9520, L503.6030, L3000.0375, L3200.1100, L3890.6202, L501.5101 #### [facility] [address] [place], [address] Urea nitrogen [Mass/Vol] 20 mg/dL High 7-18 [facility] Comment on above: Performed By: #### L 500.4050, L3100.3425, L501.4700, L300.3900, L3890.6006, L506.0400, L501.9520, L503.6030, L3000.0375, L3200.1100, L3890.6202, L501.5101 #### [facility] [address] [place], [address] ALB Normal 3.2-5.0 [facility] Comment on above: Result Comment: DIDN T MEAN TO PLANNING MANAGER Performed By: #### L 500.4050, L3100.3425, L501.4700, L300.3900, L3890.6006, L506.0400, L501.9520, L503.6030, L3000.0375, L3200.1100, L3890.6202, L501.5101 #### [facility] [address] [place], [place], [id number] ALK P Normal 45-117 [facility] Comment on above: Result Comment: DIDN T MEAN TO PLANNING MANAGER Performed By: #### L 500.4050, L3100.3425, L501.4700, L300.3900, L3890.6006, L506.0400, L501.9520, L503.6030, L3000.0375, L3200.1100, L3890.6202, L501.5101 #### [facility] [address] [place], [place], [id number] ALT Normal 13-56 [facility] Comment on above: Result Comment: DIDN T MEAN TO PLANNING MANAGER Performed By: #### L 500.4050, L3100.3425, L501.4700, L300.3900, L3890.6006, L506.0400, L501.9520, L503.6030, L3000.0375, L3200.1100, L3890.6202, L501.5101 #### [facility] [address] [place], [place], [id number] AST Normal 15-37 [facility] Comment on above: Result Comment: DIDN T MEAN TO PLANNING MANAGER Performed By: #### L 500.4050, L3100.3425, L501.4700, L300.3900, L3890.6006, L506.0400, L501.9520, L503.6030, L3000.0375, L3200.1100, L3890.6202, L501.5101 #### [facility] [address] [place], [place], [id number] BUN Normal 7-18 [facility] Comment on above: Result Comment: DIDN T MEAN TO PLANNING MANAGER Performed By: #### L 500.4050, L3100.3425, L501.4700, L300.3900, L3890.6006, L506.0400, L501.9520, L503.6030, L3000.0375, L3200.1100, L3890.6202, L501.5101 #### [facility] [address] [place], [address] BUN/CRE Normal 10-20 [facility] Comment on above: Result Comment: DIDN T MEAN TO PLANNING MANAGER Performed By: #### L 500.4050, L3100.3425, L501.4700, L300.3900, L3890.6006, L506.0400, L501.9520, L503.6030, L3000.0375, L3200.1100, L3890.6202, L501.5101 #### [facility] [address] [place], [place], [id number] CA,Total Normal 8.5-10.1 [facility] Comment on above: Result Comment: DIDN T MEAN TO PLANNING MANAGER Performed By: #### L 500.4050, L3100.3425, L501.4700, L300.3900, L3890.6006, L506.0400, L501.9520, L503.6030, L3000.0375, L3200.1100, L3890.6202, L501.5101 #### [facility] [address] [place], [place], [address] [phone] Normal 98-107 [facility] Comment on above: Result Comment: DIDN T MEAN TO PLANNING MANAGER Performed By: #### L 500.4050, L3100.3425, L501.4700, L300.3900, L3890.6006, L506.0400, L501.9520, L503.6030, L3000.0375, L3200.1100, L3890.6202, L501.5101 #### [facility] [address] [place], [place], [id number] CO2 Normal 21.0-32.0 [facility] Comment on above: Result Comment: DIDN T MEAN TO PLANNING MANAGER Performed By: #### L 500.4050, L3100.3425, L501.4700, L300.3900, L3890.6006, L506.0400, L501.9520, L503.6030, L3000.0375, L3200.1100, L3890.6202, L501.5101 #### [facility] [address] [place], [place], [id number] (268) CREAT,SERUM Normal 0.55-1.02 [facility] Comment on above: Result Comment: DIDN T MEAN TO PLANNING MANAGER Performed By: #### L 500.4050, L3100.3425, L501.4700, L300.3900, L3890.6006, L506.0400, L501.9520, L503.6030, L3000.0375, L3200.1100, L3890.6202, L501.5101 #### [facility] [address] [place], [place], [id number] EST GFR Normal >60 [facility] Comment on above: Result Comment: DIDN T MEAN TO PLANNING MANAGER Performed By: #### L 500.4050, L3100.3425, L501.4700, L300.3900, L3890.6006, L506.0400, L501.9520, L503.6030, L3000.0375, L3200.1100, L3890.6202, L501.5101 #### [facility] [address] [place], [place], [id number] EST GFR - AA Normal >60 [facility] Comment on above: Result Comment: DIDN T MEAN TO PLANNING MANAGER Performed By: #### L 500.4050, L3100.3425, L501.4700, L300.3900, L3890.6006, L506.0400, L501.9520, L503.6030, L3000.0375, L3200.1100, L3890.6202, L501.5101 #### [facility] [address] [place], [place], [id number] GAP Normal 5-15 [facility] Comment on above: Result Comment: DIDN T MEAN TO PLANNING MANAGER Performed By: #### L 500.4050, L3100.3425, L501.4700, L300.3900, L3890.6006, L506.0400, L501.9520, L503.6030, L3000.0375, L3200.1100, L3890.6202, L501.5101 #### [facility] [address] [place], [place], [id number] GLU Normal 74-106 [facility] Comment on above: Result Comment: DIDN T MEAN TO PLANNING MANAGER Performed By: #### L 500.4050, L3100.3425, L501.4700, L300.3900, L3890.6006, L506.0400, L501.9520, L503.6030, L3000.0375, L3200.1100, L3890.6202, L501.5101 #### [facility] [address] [place], [place], [id number] Potassium Normal 3.5-5.1 [facility] Comment on above: Result Comment: DIDN T MEAN TO PLANNING MANAGER Performed By: #### L 500.4050, L3100.3425, L501.4700, L300.3900, L3890.6006, L506.0400, L501.9520, L503.6030, L3000.0375, L3200.1100, L3890.6202, L501.5101 #### [facility] [address] [place], [place], [id number] T BILI Normal 0.20-1.00 [facility] Comment on above: Result Comment: DIDN T MEAN TO PLANNING MANAGER Performed By: #### L 500.4050, L3100.3425, L501.4700, L300.3900, L3890.6006, L506.0400, L501.9520, L503.6030, L3000.0375, L3200.1100, L3890.6202, L501.5101 #### [facility] [address] [place], [address] T PROT Normal 6.4-8.2 [facility] Comment on above: Result Comment: DIDN T MEAN TO PLANNING MANAGER Performed By: #### L 500.4050, L3100.3425, L501.4700, L300.3900, L3890.6006, L506.0400, L501.9520, L503.6030, L3000.0375, L3200.1100, L3890.6202, L501.5101 #### [facility] [address] [place], [address] Comprehensive Metabolic Profil Normal 136-145 [facility] Comment on above: Result Comment: DIDN T MEAN TO PLANNING MANAGER Performed By: #### L 500.4050, L3100.3425, L501.4700, L300.3900, L3890.6006, L506.0400, L501.9520, L503.6030, L3000.0375, L3200.1100, L3890.6202, L501.5101 #### [facility] [address] [place], [address] Eosinophil percentageOrdered By: Almas Brayan on 11-03-2024 Eosinophils/100 WBC (Bld) 2.5 % 0-5 [facility] Erythrocyte distribution wid th ratioOrdered By: Almas Hernandezok on 11-03-2024 Erythrocyte distribution width (RBC) [Ratio] 13.3 % 11.6-14.6 [facility] Erythrocyte distribution wid th standard deviationOrdered By: [facility] on 11-03-2024 Erythrocyte distribution width (RBC) [Ratio] 47.6 fl High 35.1-43.9 [facility] Glomerular filtration rate ( GFR) estimationOrdered By: Almas Schmidt on 11-03-2024 GFR/1.73 sq M.predicted among non-blacks MDRD (S/P/Bld) [Vol rate/Area] 59 mL/min/{1.73_m2} Low >60 [facility] Comment on above: Non- GFR Calc Glucose measurementOrdered B y: Almas Schmidt on 11-03-2024 Glucose [Mass/Vol] 88 mg/dL 74-106 [facility] Hematocrit Auto (Bld) [Volum e fraction]Ordered By: Almas Schmidt on 11-03-2024 Hematocrit (Bld) [Volume fraction] 39.7 % 37-47 [facility] Hemoglobin measurementOrdere d By: Almas Schmidt on 11-03-2024 Hemoglobin (Bld) [Mass/Vol] 12.5 g/dL 12.0-15.0 [facility] High density lipoprotein (HD L) measurementOrdered By: Almas Schmidt on 11-03-2024 Cholesterol in HDL [Mass/Vol] 44 mg/dL >40 [facility] Comment on above: The drugs N-Acetylcy steine and Metamizole may falsely depress this assay. Reference Range HDL <40 mg/dL Low HDL Cholesterol HDL >or= 60 mg/dL High HDL Cholesterol Immature granulocytes/100 WB C Auto (Bld)Ordered By: Almas Schmidt on 11-03-2024 Immature granulocytes/100 WBC (Bld) 0.300 % 0.0-0.9 [facility] Comment on above: IG% - Immature Granu locytes (promyelocytes, myelocytes and metamyelocytes) > 1% indicates that a LEFT SHIFT is Present. Laboratory - Chemistry and C hemistry - challengeOrdered By: Almas Schmidt on 11-03-2024 AST [Catalytic activity/Vol] 16 U/L 15-37 [facility] Lipid Profileon 11-03-2024 Cholesterol [Mass/Vol] 155 mg/dL Normal [address] [facility] Comment on above: Result Comment: <200 mg/dL Desirable 200-240 mg/dL Borderline >240 mg/dL High Risk Performed By: #### L 500.4050, L3100.3425, L501.4700, L300.3900, L3890.6006, L506.0400, L501.9520, L503.6030, L3000.0375, L3200.1100, L3890.6202, L501.5101 #### [facility] [address] [place], [address] Cholesterol in HDL [Mass/Vol] 44 mg/dL Normal [facility] Comment on above: Result Comment: The drugs N-Acetylcysteine and Metamizole may falsely depress this assay. Reference Range HDL <40 mg/dL Low HDL Cholesterol HDL >or= 60 mg/dL High HDL Cholesterol Performed By: #### L 500.4050, L3100.3425, L501.4700, L300.3900, L3890.6006, L506.0400, L501.9520, L503.6030, L3000.0375, L3200.1100, L3890.6202, L501.5101 #### [facility] [address] [place], [address] Cholesterol in LDL [Mass/Vol] 87 mg/dL Normal 0-130 [facility] Comment on above: Performed By: #### L 500.4050, L3100.3425, L501.4700, L300.3900, L3890.6006, L506.0400, L501.9520, L503.6030, L3000.0375, L3200.1100, L3890.6202, L501.5101 #### [facility] [address] [place], [address] Cholesterol in VLDL [Mass/Vol] 24 mg/dL Normal 5-40 [facility] Comment on above: Performed By: #### L 500.4050, L3100.3425, L501.4700, L300.3900, L3890.6006, L506.0400, L501.9520, L503.6030, L3000.0375, L3200.1100, L3890.6202, L501.5101 #### [facility] [address] [place], [place], [id number] Triglyceride [Mass/Vol] 119 mg/dL Normal [facility] Comment on above: Result Comment: The drugs N-Acetylcysteine and Metamizole may falsely depress this assay. Serum Triglycerides Reference Interval Normal <150 mg/dL Borderline high 150 - 199 mg/dL High 200 - 499 mg/dL Very High > or = 500 mg/dL Performed By: #### L 500.4050, L3100.3425, L501.4700, L300.3900, L3890.6006, L506.0400, L501.9520, L503.6030, L3000.0375, L3200.1100, L3890.6202, L501.5101 #### [facility] [address] [place], [place], [id number] CHOL Normal 200 [facility] Comment on above: Result Comment: DIDN T MEAN TO PLANNING MANAGER Performed By: #### L 500.4050, L3100.3425, L501.4700, L300.3900, L3890.6006, L506.0400, L501.9520, L503.6030, L3000.0375, L3200.1100, L3890.6202, L501.5101 #### [facility] [address] [place], [place], [id number] HDL Normal [facility] Comment on above: Result Comment: DIDN T MEAN TO PLANNING MANAGER Performed By: #### L 500.4050, L3100.3425, L501.4700, L300.3900, L3890.6006, L506.0400, L501.9520, L503.6030, L3000.0375, L3200.1100, L3890.6202, L501.5101 #### [facility] [address] [place], [address] LDL Normal 0-130 [facility] Comment on above: Result Comment: DIDN T MEAN TO PLANNING MANAGER Performed By: #### L 500.4050, L3100.3425, L501.4700, L300.3900, L3890.6006, L506.0400, L501.9520, L503.6030, L3000.0375, L3200.1100, L3890.6202, L501.5101 #### [facility] [address] [place], [place], [id number] TRIG Normal [facility] Comment on above: Result Comment: DIDN T MEAN TO PLANNING MANAGER The drugs N-Acetylcysteine and Metamizole may falsely depress this assay. Performed By: #### L 500.4050, L3100.3425, L501.4700, L300.3900, L3890.6006, L506.0400, L501.9520, L503.6030, L3000.0375, L3200.1100, L3890.6202, L501.5101 #### [facility] [address] [place], [address] VLDL Normal 5-40 [facility] Comment on above: Result Comment: DIDN T MEAN TO PLANNING MANAGER Performed By: #### L 500.4050, L3100.3425, L501.4700, L300.3900, L3890.6006, L506.0400, L501.9520, L503.6030, L3000.0375, L3200.1100, L3890.6202, L501.5101 #### [facility] [address] [place], [place], [id number] Low density lipoprotein (LDL ) cholesterol measurementOrdered By: Almas Schmidt on 11-03-2024 Cholesterol in LDL [Mass/Vol] 87 mg/dL 0-130 [facility] MCV (mean corpuscular volume ) determinationOrdered By: Almas Schmidt on 11-03-2024 MCV (RBC) [Entitic vol] 96.6 fL 81-99 [facility] Mean corpuscular hemoglobin (MCH) determinationOrdered By: Almas Schmidt on 11-03-2024 MCH (RBC) [Entitic mass] 30.4 pg 27.0-32.0 [facility] Mean corpuscular hemoglobin concentration (MCHC) determinationOrdered By: Almas Schmidt on 11-03-2024 MCHC (RBC) [Mass/Vol] 31.5 g/dL Low 32-36 [facility] Mean platelet volume determi nationOrdered By: Almas Schmidt on 11-03-2024 Platelet mean volume (Bld) [Entitic vol] 11.2 fL 6.2-12.0 [facility] Monocyte percentageOrdered B y: Almas Schmidt on 11-03-2024 Monocytes/100 WBC (Bld) 11.0 % High 0-10 [facility] Neutrophil percentageOrdered By: Almas Schmidt on 11-03-2024 Neutrophils/100 WBC (Bld) 47.1 % 47-70 [facility] Nucleated red blood cell per centageOrdered By: Almas Schmidt on 11-03-2024 Nucleated RBC/100 WBC (Bld) [Ratio] 0 % 0-5 [facility] Platelet countOrdered By: Román Schmidt on 11-03-2024 Platelets (Bld) [#/Vol] 221 10*3/uL 150-450 [facility] Potassium measurementOrdered By: Almas Schmidt on 11-03-2024 Potassium [Moles/Vol] 4.6 mmol/L 3.5-5.1 [facility] Prothrombin Time w/INRon INR Normal [facility] Comment on above: Result Comment: DIDN T MEAN TO PLANNING MANAGER Performed By: #### L 500.4050, L3100.3425, L501.4700, L300.3900, L3890.6006, L506.0400, L501.9520, L503.6030, L3000.0375, L3200.1100, L3890.6202, L501.5101 #### [facility] [address] [place], [address] PROTIME Normal 11.7-14.9 [facility] Comment on above: Result Comment: DIDN T MEAN TO PLANNING MANAGER Performed By: #### L 500.4050, L3100.3425, L501.4700, L300.3900, L3890.6006, L506.0400, L501.9520, L503.6030, L3000.0375, L3200.1100, L3890.6202, L501.5101 #### [facility] [place], [address] RBC Auto (Bld) [#/Vol]Ordere d By: Almas Schmidt on 11-03-2024 RBC (Bld) [#/Vol] 4.11 10*6/uL Low 4.2-5.4 [facility] Serum anion gap measurementO rdered By: Almas Schmidt on 11-03-2024 Anion gap [Moles/Vol] 2 mmol/L Low 5-15 [facility] Serum globulin measurementOr dered By: Almas Schmidt 11-03-2024 Globulin (S) [Mass/Vol] 3.5 g/dL 2.2-4.2 [facility] Serum or plasma alanine frank otransferase (ALT) measurementOrdered By: Almas Schmidt 11-03-2024 ALT [Catalytic activity/Vol] 18 U/L 13-56 [facility] Serum or plasma albumin liz urement (mass/volume)Ordered By: Almas Schmidt 11-03-2024 Albumin [Mass/Vol] 3.7 g/dL 3.2-5.0 [facility] Serum or plasma alkaline palak sphatase measurementOrdered By: Almas Schmidt 11-03-2024 ALP [Catalytic activity/Vol] 72 U/L 45-117 [facility] Serum or plasma calcium liz urement (mass/volume)Ordered By: Almas Schmidt 11-03-2024 Calcium [Mass/Vol] 9.5 mg/dL 8.5-10.1 [facility] Serum or plasma cholesterol measurement (mass/volume)Ordered By: Almas Schmidt 11-03-2024 Cholesterol [Mass/Vol] 155 mg/dL <[address] [facility] Comment on above: <200 mg/dL Desirable 200-240 mg/dL Borderline >240 mg/dL High Risk Serum or plasma creatinine m easurement (mass/volume)Ordered By: Almas Schmidt 11-03-2024 Creatinine [Mass/Vol] 1.01 mg/dL 0.55-1.02 [facility] Comment on above: The validity of the calculated GFR & GFRAA in patients over 70 years has not been determined. Clinical correlation is essential. Serum or plasma thyroid stim ulating hormone (TSH) measurement (units/volume)Ordered By: Almas Schmidt on 11-03-2024 TSH Qn 2.080 uIU/mL 0.358-3.740 [facility] Serum or plasma urea nitroge n measurement (mass/volume)Ordered By: Almas Schmidt on 11-03-2024 Urea nitrogen [Mass/Vol] 20 mg/dL High 7-18 [facility] Sodium levelOrdered By: Almas Schmidt 11-03-2024 Sodium [Moles/Vol] 138 mmol/L 136-145 [facility] Thyroid Stim Hormone (TSH)on 11-03-2024 TSH 2.080 uIU/mL Normal 0.358-3.740 [facility] Comment on above: Performed By: #### L 500.4050, L3100.3425, L501.4700, L300.3900, L3890.6006, L506.0400, L501.9520, L503.6030, L3000.0375, L3200.1100, L3890.6202, L501.5101 #### [facility] [address] [place], [address] Total proteinOrdered By: Almas Schmidt 11-03-2024 Protein [Mass/Vol] 7.2 g/dL 6.4-8.2 [facility] Triglycerides measurementOrd ered By: Almas Schmidt on 11-03-2024 Triglyceride [Mass/Vol] 119 mg/dL <199 [facility] Comment on above: The drugs N-Acetylcy steine and Metamizole may falsely depress this assay.Serum Triglycerides Reference Interval Normal <150 mg/dL Borderline high 150 - 199 mg/dL High 200 - 499 mg/dL Very High > or = 500 mg/dL Very low density lipoprotein (VLDL) cholesterol measurementOrdered By: Almas Schmidt on 11-03-2024 Very low density lipoprotein (VLDL) cholesterol measurement 24 mg/dL 5-40 [facility] White blood cell (WBC) count Ordered By: Almas Schmidt on 11-03-2024 WBC (Bld) [#/Vol] 6.0 10*3/uL 4.4-11.0 [facility] Influenza virus A and B and SARS-CoV-2 (COVID-19) and Respiratory syncytial virus RNAOrdered By: Almas Schmidt on 10-24-2024 SARS-CoV-2 (COVID-19) RNA RUBY+probe Ql (Unsp spec) [facility] M100.678on 10-24-2024 M100.678 Pending SARS-CoV-2 (COVID 19) Negative INFLUENZA A Negative INFLUENZA B Negative RSV PCR Negative Normal [facility] Comment on above: Performed By: #### L 500.4050, L3100.3425, L501.4700, L300.3900, L3890.6006, L506.0400, L501.9520, L503.6030, L3000.0375, L3200.1100, L3890.6202, L501.5101 #### [facility] [address] [place], [place], [address] PT D/C Summary (1)on 025 PT D/C Summary (1) [facility] Physical Therapy [facility] [address] [place] [address] [address] [place] [address] / REHABILITATION SERVICES DISCHARGE SUMMARY MR#: [id number] Acct: [id number] Name: LIANNA CHACKO Rep #: [id number] : 1965 59 From: Jessee Coffey PT, Cert. T, OCS Referring Dr.: Dr. Almas Schmidt MD Status: REG RCR Insurance: [employer] Discharge Summary D/C summary: It has been my pleasure to treat LIANNA CHACKO referred by Dr. Almas Schmidt MD, with the diagnosis of LOW BACK PAIN for a total of 9 visit(s). Discharge Date: 10/04/24 Please see the following information for a summary of their discharge status. Subjective Subjective: Patient doing well ,no pain No pain with housework tasks Overall Improvement % Improvement: 90 Objective Objective/Function: POSTURE: mild forward posture GAIT: reciprocal pattern NEURO: denies paresthesia/tingling ,reflexes intact PALPATION: unremarkable MMT: quads/hams 4/5 ,hip flexion 4/5 ,ankle 4/5 LUMBAR ROM : flexion WFL ,extension WFL ,side glides WFL Goals Goal 1:: Patient to be I with HEP Goal Progress: Goal Met Goal 2:: Patient to be I with posture/body mechanics 100% Goal Progress: Goal Met Goal 3:: Patient to diminish recurrence pf pain by 75% Goal Progress: Goal Met Goal 4:: Patient to improve back oswestry score by 2-3 point to improve QOL Goal Progress: Goal Met Plan Plan: D/C TO HEP D/C Information Discharge Comments: HEP d/c sentence: If there are questions or concerns regarding this patient's physical therapy, please feel free to call me at [phone]. Thank you for the referral of this patient. Sincerely, Jessee Coffey, PT, Cert MDT, OCS Balance/Gait/Functiona l tests Balance/Special Test Scores Oswestry Low Back Score: 0 Improvement % Improvement: 90 10/04/24 1422 CC: Dr. Almas Schmidt MD CANDIDO Signed Normal [facility] Gastroenterology Visit Repor ton 09-01-2024 Gastroenterology Visit Report [facility] Gastroenterology [address] [place] [address] OFFICE VISIT Date of Service: 09/01/24 MR#: [id number] Acct: [id number] Name: LIANNA CHACKO Rep #: [id number] : 1965 Provider: Dr. Sae plummer MD Age/Sex: 59/F Location: [facility] Status: Signed with Addenda ADDENDUM by Dr. Sae Saeed MD on 09/01/24 at 1324 HPI Details: LIANNA CHACKO, is a 59 F who presents to the office today for Addendum AGILE 3+ SCORE IS 0.69 corelates with F3. 09/01/24 1324 Date Sae Saeed MD cc: Dr. Almas Schmidt MD * Signed ADDENDUM by Dr. Sae Saeed MD on 09/01/24 at 1111 HPI Details: LIANNA CHACKO, is a 59 F who presents to the office today for Addendum She had not done the labs ordered on 02/23/2024. Advised to do that. 09/01/24 1111 Date Sae Saeed MD cc: Dr. Almas Schmidt MD * Signed Intake Vital Signs 02/23/24 13:27 08/20/24 13:58 09/01/24 10:28 Height 5 ft 6 in 5 ft 6 in 5 ft 6 in Weight: 227 lb BMI 36.6 BP 114/67 Blood Pressure Location Rt brachial Position Sitting Pulse 64 Pulse Oximetry (%) 98 Oxygen Delivery Method room air Intake Visit Reasons: 6 M FU Chief Complaint: establish care Allergies Tetanus Vaccines and Toxoid Allergy (Mild, Verified 09/01/24 10:28) Swelling shellfish derived Allergy (Verified 09/01/24 10:28) Swelling pravastatin Adverse Reaction (Intermediate, Verified 09/01/24 10:28) Unknown Medications ???Medication ???Instructions ???Recorded ???Confirmed ???Type escitalopram oxalate 20 mg tablet 20 mg PO QDAY 10/30/17 09/01/24 History multivitamin 1 tab PO QAM 10/30/17 09/01/24 History calcium 600 mg (as carbonate)-vit 1 ea PO DAILY 01/19/18 09/01/24 History D3 10 mcg (400 unit) chewable tablet acetaminophen 500 mg tablet 1,000 mg PO DAILY PRN Pain 08/23/19 09/01/24 History (Tylenol Extra Strength) albuterol sulfate 90 mcg/actuation 1 inh inhalation Q4H PRN Wheezing 08/23/19 09/01/24 History breath activated powder inhaler doxepin 25 mg capsule 25 mg PO DAILY 02/13/21 09/01/24 History levothyroxine 100 mcg tablet 100 mcg PO QDAY 07/16/21 09/01/24 History vitamin E 268 mg (400 unit) capsule 536 mg (2 x 268 mg (400 unit)) PO 11/02/23 09/01/24 Rx DAILY 90 days #180 caps simvastatin 10 mg tablet 10 mg PO QHS 1 month #30 tabs 12/14/23 09/01/24 Rx ursodiol 300 mg capsule 300 mg PO BID #60 caps 12/14/23 09/01/24 Rx metformin 500 mg tablet 500 mg PO BID 90 days #180 tabs 02/23/24 09/01/24 Rx oxycodone 5 mg capsule 5 mg PO Q6H PRN pain 4 days #16 08/20/24 09/01/24 Rx caps prednisone 5 mg tablet 5 mg PO DAILY 4 days #4 tabs 08/20/24 09/01/24 Rx PFSH Medical History Fatty liver Elevated random blood glucose level Acute bronchitis, unspecified Acute sinusitis, unspecified Arthritis of carpometacarpal (CMC) joint of both thumbs Chronic diastolic (congestive) heart failure Segmental and somatic dysfunction of thoracic region Segmental and somatic dysfunction of pelvic region Segmental and somatic dysfunction of lumbar region Obesity Arthritis Hyperlipidemia Seasonal allergies Asthma Depression Hypothyroidism Surgical History History of breast biopsy History of tonsillectomy History of Family History Father CAD (coronary artery disease) CABG age 80 Other Breast cancer Social History Smoking Status: Never smoker alcohol intake: never substance use type: does not use caffeine: No HPI HPI Chief Complaint: establish care Details: LIANNA CHACKO, is a 59 F who presents to the office today for ROS Const Constitutional: Positive for weight change; No fatigue, fever(s) or weakness ENT ENT: No difficulty swallowing Resp Respiratory: No shortness of breath or wheezing Cardio Cardiology: No chest pain at rest or dyspnea on exertion Gastro GI: No abdominal pain, belching, bloating, change in bowel habits, change in stool character, coffee ground emesis, constipation, cramping, diarrhea, heartburn, difficulty swallowing, feeling full early, excessive flatus, incontinent of stools, Vomiting blood/hematemesis, Blood in stool, loose stools, Black,tarry stools, nausea/dyspepsia, pain with swallowing, vomiting or other Genitourinary-Female: No difficulty urinating or burning urination Musc Musculoskeletal: No joint pain Skin Skin: No yellowing of the eye or itchy eyes Neuro Neurology: No abnormal moveme (more content not included)... Normal [facility] Inital Evaluation (1) - PTon 08-31-2024 Inital Evaluation (1) - PT [facility] Physical Therapy [facility] [address] [place] [address] / REHABILITATION SERVICES INITIAL EVALUATION MR#: [id number] Acct: [id number] Name: LIANNA CHACKO Rep #: [id number] : 1965 59 From: Jessee Coffey PT, [place]. T, OCS Referring Dr.: Dr. Almas Schmidt MD Status: REG RCR Insurance: [employer] Patient's Visit Information Visit Information Visit Information: LIANNA CHACKO is a 59 year old F referred to Physical Therapy by Dr. Almas Schmidt MD with a diagnosis of LOW BACK PAIN. Date of Evaluation: 08/31/24 Physical Therapist: Jessee Coffey PT, Cert T, OCS Visit Plan Frequency: 2x /Week Duration: 4 Weeks Plan: PT INTERVENTIONS DLS ,JUANCARLOS EX'S ,POSTURAL EX'S AND POSTURE/BODY MECHANICS Subjective Subjective: This 59 y/o female presents to physical therapy with back pain. 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 Patient went to ER due to pain and unable to walk. Patient getting better. Patient sees chiropractor every other week. Patient initially was on pain medication and anti-inflammatory predestine and gabapentin but has stopped. Aggravating walking/standing bending and lifting left leg was worse ,but go better. Alleviating factors time and medication. Patient sleeping good. Coughing/sneezing -. Bowel/bladder-. Patient condition affects QOL and function. No more pain. 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 Objective Objective: POSTURE: mild forward posture GAIT: reciprocal pattern NEURO: denies paresthesia/tingling ,reflexes intact PALPATION: unremarkable MMT: quads/hams 4/5 ,hip flexion 4/5 ,ankle 4/5 LUMBAR ROM : flexion WFL ,extension WFL ,side glides WFL Special Tests L/S Slump test left side: Negative L/S Slump test right side: Negative L/S Left Straight Leg Raise: Negative L/S Right Straight Leg Raise: Negative Lumbar Standing: Flexion - Mechanical Response: No effect Lumbar Standing: Flexion - Symptoms During Testing: No effect Lumbar Standing: Flexion - Symptoms After Testing: No effect Lumbar Standing: Extension - Mechanical Response: No effect Lumbar Standing: Extension - Symptoms During Testing: No effect Lumbar Standing: Extension - Symptoms After Testing: No effect Lumbar Standing: Right Side Glides - Mechanical Response: No effect Lumbar Standing: Right Side [place] - Symptoms During Testing: No effect Lumbar Standing: Right Side [place] - Symptoms After Testing: No effect Lumbar Standing: Left Side [place] - Mechanical Response: No effect Lumbar Standing: Left Side [place] - Symptoms During Testing: No effect Lumbar Standing: Left Side [place] - Symptoms After Testing: No effect Lumbar Lying: Flexion - Mechanical Response: No effect Lumbar Lying: Flexion - Symptoms During Testing: No effect Lumbar Lying: Flexion - Symptoms After Testing: No effect Lumbar Lying: Extension - Mechanical Response: No effect Lumbar Lying: Extension - Symptoms During Testing: No effect Lumbar Lying: Extension - Symptoms After Testing: No effect Balance/Special Test Scores Oswestry Low Back Score: 7 Goals Goal 1:: Patient to be I with HEP Goal Time Frame: 4-6 Weeks Goal 2:: Patient to be I with posture/body mechanics 100% Goal Time Frame: 4-6 Weeks Goal 3:: Patient to diminish recurrence pf pain by 75% Goal Time Frame: 4-6 Weeks Goal 4:: Patient to improve back oswestry score by 2-3 point to improve QOL Goal Time Frame: 4-6 Weeks Rehabilitation Potential Physical Therapy Diagnosis: This patient has low back pain when bending improving with possible lumbar derangement thus benefit from skilled PT Rehabilitation Potential: Good Anticipated Interventions Patient/Client Instruction: Educate patient on: Condition and Plan of Care For the Purpose of:: To decrease pain, To increase ROM, To improve muscle performance and motor function, To improve ability to perform ADL's, To increase tolerance to activity/condition/pos ition, To improve ability of physical actions for home/community/work/le isure, To improve health of tissue, To decrease soft tissue restriction and To increase flexibility/ROM Therapeutic Exercise to Include: Strength training, Power training, Body mechanics, Postural training, Flexibilty training and Dynamic Lumbar Stabilization For the Purpose of:: To decrease pain, To improve muscle performance and motor function, To increase tolerance to activity/condition/pos ition, To improve ability of physical actions for home/community/work/le isure, To decrease soft tissue restriction, To increase flexibility/ROM, To reduce risk of recurrence and To prevent re-injury Text: Thank you for the opportunity to evaluate your patient. For Medicare and Medicare HMO plans, please review the plan of care and approve it. It will need to be FAXED BACK to us at [phone] for (more content not included)... Normal [facility] Emergency Department Summary on 08-20-2024 Emergency Department Summary [facility] Medical Records Department [address] [place] [address] Emergency Department Summary 08/20/24 MR#: [id number] Acct: [id number] Name: LIANNA CHACKO Rep #: [id number] : 1965 59 From: Erick Scales DO PCP: Dr. Almas Schmidt MD Status:DEP ER Location: ED HPI History of Present Illness Chief Complaint: Back [facility] Medical History Fatty liver Elevated random blood glucose level Acute bronchitis, unspecified Acute sinusitis, unspecified Arthritis of carpometacarpal (CMC) joint of both thumbs Chronic diastolic (congestive) heart failure Segmental and somatic dysfunction of thoracic region Segmental and somatic dysfunction of pelvic region Segmental and somatic dysfunction of lumbar region Obesity Arthritis Hyperlipidemia Seasonal allergies Asthma Depression Hypothyroidism Home Medications ???Medication ???Instructions ???Recorded ???Last Taken ???Type escitalopram oxalate 20 mg tablet 20 mg PO QDAY 10/30/17 Unknown History multivitamin 1 tab PO QAM 10/30/17 Unknown History calcium 600 mg (as carbonate)-vit 1 ea PO DAILY 01/19/18 Unknown History D3 10 mcg (400 unit) chewable tablet acetaminophen 500 mg tablet 1,000 mg PO DAILY PRN Pain 08/23/19 Unknown History (Tylenol Extra Strength) albuterol sulfate 90 mcg/actuation 1 inh inhalation Q4H PRN Wheezing 08/23/19 Unknown History breath activated powder inhaler doxepin 25 mg capsule 25 mg PO DAILY 02/13/21 Unknown History levothyroxine 100 mcg tablet 100 mcg PO QDAY 07/16/21 Unknown History vitamin E 268 mg (400 unit) capsule 536 mg (2 x 268 mg (400 unit)) PO 11/02/23 Unknown Rx DAILY 90 days #180 caps simvastatin 10 mg tablet 10 mg PO QHS 1 month #30 tabs 12/14/23 Unknown Rx ursodiol 300 mg capsule 300 mg PO BID #60 caps 12/14/23 Unknown Rx metformin 500 mg tablet 500 mg PO BID 90 days #180 tabs 02/23/24 Unknown Rx oxycodone 5 mg capsule 5 mg PO Q6H PRN pain 4 days #16 08/20/24 Unknown Rx caps prednisone 5 mg tablet 5 mg PO DAILY 4 days #4 tabs 08/20/24 Unknown Rx Allergy/AdvReac Type Severity Reaction Status Date / Time Tetanus Vaccines and Toxoid Allergy Mild Swelling Verified 08/20/24 13:58 shellfish derived Allergy Swelling Verified 08/20/24 13:58 pravastatin AdvReac Intermediate Unknown Verified 08/20/24 13:58 Family History Father CAD (coronary artery disease) CABG age 80 Other Breast cancer Surgical History History of breast biopsy History of tonsillectomy History of Social History Smoking Status: Never smoker alcohol intake: never substance use type: does not use caffeine: No EXAM Physical Exam Const Vital Signs: 08/20/24 13:58 Temperature 96.6 F L Temperature Source Temporal Pulse Rate 77 Respiratory Rate 15 Blood Pressure 117/60 Blood Pressure Mean 79 Pulse Ox 99 Oxygen Delivery Method Room Air MDM MDM MDM Narrative Medical decision making narrative: HISTORY OF PRESENT ILLNESS: 59-year-old female presents with back pain. States she is doing "lots of lifting and bending on Thursday". She notes she tried heat, chiropractic treatment, [id number] pain relievers and muscle relaxers with little relief. She notes the pain is worse when she bears weight on her left leg. She further states Patient denies any saddle anesthesia, urinary retention, bowel or bladder incontinence, lower extremity weakness, fever or IV drug use, no recent spinal manipulation or surgery, no recent urinary catheterization. REVIEW OF SYSTEMS: Pertinent positives: Back pain Pertinent negatives: Saddle anesthesia, bowel or bladder incontinence, weakness or loss sensation in the lower extremities. PHYSICAL EXAM: Nursing triage notes reviewed, Vital signs reviewed Constitutional: please see mdm HENT: MMM Eyes: Pupils equal round and reactive to light, Extraocular muscles intact Neck: No stridor, no JVD, full neck ROM Lungs: Clear to auscultation, No wheezing or rales. No increased work of breathing, no conversational dyspnea, no accessory muscle use, no nasal flaring. No respiratory distress noted Heart: Regular rate and rhythm, No murmurs, No rubs and No gallops, 2+ distal pulses (radial, femoral, posterior tibial) in all extremities Abdomen: Soft, there is no tenderness, rigidity, rebound or guarding, no obvious peritoneal signs, no palpable pulsatile abdominal masses, no auscultated abdominal bruit : No CVAT Back: TTP over left lateral lumbar spinal musculature. No step-off deformities or midline tenderness noted. Extremities: No edema Neuro (more content not included)... Normal [facility] MR/BMS.Terell 08-18-2024 MR/BMS.BRITTNEY [facility] Vascular Surgery [address] [place] [address] OFFICE VISIT Date of Service: 08/18/24 MR#: [id number] Acct: [id number] Name: LIANNA CHACKO Rep #: [id number] : 1965 Provider: MARISA Villar Age/Sex: 59/F Location: [facility] Status: Signed Intake Vital Signs 02/23/24 13:27 08/18/24 10:40 Height 5 ft 6 in Weight: 218 lb BP 115/74 Blood Pressure Location Lt brachial Position Sitting Respiration 16 Pulse 69 Pulse Source Monitor Temp 97.8 F Temp Source Temporal Pulse Oximetry (%) 100 Oxygen Delivery Method room air Intake Visit Reasons: 3 M FU Is patient in pain?: Yes Allergies Tetanus Vaccines and Toxoid Allergy (Mild, Verified 08/18/24 10:42) Swelling shellfish derived Allergy (Verified 08/18/24 10:42) Swelling pravastatin Adverse Reaction (Intermediate, Verified 08/18/24 10:42) Unknown Medications ???Medication ???Instructions ???Recorded ???Confirmed ???Type escitalopram oxalate 20 mg tablet 20 mg PO QDAY 10/30/17 08/18/24 History multivitamin 1 tab PO QAM 10/30/17 08/18/24 History calcium 600 mg (as carbonate)-vit 1 ea PO DAILY 01/19/18 08/18/24 History D3 10 mcg (400 unit) chewable tablet acetaminophen 500 mg tablet 1,000 mg PO DAILY PRN Pain 08/23/19 08/18/24 History (Tylenol Extra Strength) albuterol sulfate 90 mcg/actuation 1 inh inhalation Q4H PRN Wheezing 08/23/19 08/18/24 History breath activated powder inhaler doxepin 25 mg capsule 25 mg PO DAILY 02/13/21 08/18/24 History levothyroxine 100 mcg tablet 100 mcg PO QDAY 07/16/21 08/18/24 History vitamin E 268 mg (400 unit) capsule 536 mg (2 x 268 mg (400 unit)) PO 11/02/23 08/18/24 Rx DAILY 90 days #180 caps simvastatin 10 mg tablet 10 mg PO QHS 1 month #30 tabs 12/14/23 08/18/24 Rx ursodiol 300 mg capsule 300 mg PO BID #60 caps 12/14/23 08/18/24 Rx metformin 500 mg tablet 500 mg PO BID 90 days #180 tabs 02/23/24 08/18/24 Rx Is last menstrual period known: No Post menopausal: Yes Patient : No Have you fallen in the past year?: No PFSH Medical History Fatty liver Elevated random blood glucose level Acute bronchitis, unspecified Acute sinusitis, unspecified Arthritis of carpometacarpal (CMC) joint of both thumbs Chronic diastolic (congestive) heart failure Segmental and somatic dysfunction of thoracic region Segmental and somatic dysfunction of pelvic region Segmental and somatic dysfunction of lumbar region Obesity Arthritis Hyperlipidemia Seasonal allergies Asthma Depression Hypothyroidism Surgical History History of breast biopsy History of tonsillectomy History of Family History Father CAD (coronary artery disease) CABG age 80 Other Breast cancer Social History Smoking Status: Never smoker alcohol intake: never substance use type: does not use caffeine: No HPI HPI HPI: LIANNA CHACKO, is a 59 F who presents to the office today for follow-up of her lower extremity edema with associated aching, fatigue, and hemosiderin deposition. She did complete a venous reflux study which showed only focal below-knee reflux bilaterally. At last OV, ordered lymphedema pumps which she has since received and has been using 2-3 times daily for an hour at a time. She also continues to wear her measured compression stockings. She feels she has noticed some improvement in her symptoms to this point. She has not had any worsening of her edema. She does not have any wounds. No new concerns at this time. We had previously discussed venogram to evaluate for central venous compression, she had elected to defer for now and trial these pumps first. Recall that her medical history is otherwise significant for chronic stable diastolic heart failure and PINO. ROS General General: Yes weakness; No weight change, appetite, fatigue, colon cancer or breast cancer HEENT HEENT: No difficulty swallowing, eye injury, eye surgery, swollen glands or hoarseness Endo Endocrine: Yes thyroid disease; No diabetes mellitus, thyroid cancer, Hair loss, heat intolerance or cold intolerance Skin Skin: No rash or changing moles Musc Musculoskeletal: Yes arthritis, rheumatoid arthritis and joint pain; No back problems or gout Cardio Cardiovascular: No murmur, pacemaker, heart disease, atrial fibrillation, high blood pressure, heart attack, heart stent, palpitations, shortness of breat with exertion or chest pain Psych Psychiatric: Yes depression; No anxiety or hearing voices Resp Respiratory: No shortness of breath, No sleep apnea, N (more content not included)... Normal [facility] Absolute lymphocyte countOrd ered By: Almas Schmidt on 11-12-2023 Lymphocytes Auto (Unsp spec) [#/Vol] 2.21 10*3/uL 0.83-4.51 [facility] Automated lymphocyte count a s percentage of total leukocytesOrdered By: Almas Schmidt on 11-12-2023 Lymphocytes/100 WBC Auto (Unsp spec) 31.0 % 19-41 [facility] Basophil percentageOrdered B y: Almas Schmidt on 11-12-2023 Amylase [Catalytic activity/Vol] 49 U/L 25-115 [facility] Basophils/100 WBC (Bld) 0.6 % 0-1 [facility] Bilirubin [Mass/Vol] 0.30 mg/dL 0.20-1.00 [place] Comment on above: For patients on eltr ombopag therapy, use of Dimension [place] TBIL is not recommended. Chloride [Moles/Vol] 109 mmol/L 98-107 [place] Eosinophils/100 WBC (Bld) 1.5 % 0-5 [facility] Glucose [Mass/Vol] 103 mg/dL 74-106 [facility] Comment on above: Fasting Glucose resu lt from 100 to 125 mg/dL suggests IMPAIRED HOMEOSTASIS per A.D.A. criteria. Hemoglobin (Bld) [Mass/Vol] 11.7 g/dL 12.0-15.0 [facility] Monocytes/100 WBC (Bld) 9.0 % 0-10 [facility] Neutrophils (Bld) [#/Vol] 4.1 10*3/uL 2.0-7.7 [facility] Neutrophils/100 WBC (Bld) 57.6 % 47-70 [facility] Potassium [Moles/Vol] 3.8 mmol/L 3.5-5.1 [facility] Protein [Mass/Vol] 6.9 g/dL 6.4-8.2 [facility] Sodium [Moles/Vol] 139 mmol/L 136-145 [facility] WBC (Bld) [#/Vol] 7.1 10*3/uL 4.4-11.0 [facility] Determination of erythrocyte mean corpuscular volume (MCV)Ordered By: Almas Schmidt on 11-12-2023 MCV (RBC) [Entitic vol] 95.8 fL 81-99 [facility] Erythrocyte distribution wid th ratioOrdered By: Almas Schmidt on 11-12-2023 Erythrocyte distribution width (RBC) [Ratio] 13.2 % 11.6-14.6 [facility] Erythrocyte distribution wid th standard deviationOrdered By: [facility] on 11-12-2023 Erythrocyte distribution width (RBC) [Entitic vol] 46.5 fL 35.1-43.9 [facility] Hematocrit Auto (Bld) [Volum e fraction]Ordered By: [facility] on 11-12-2023 Hematocrit (Bld) [Volume fraction] 36.5 % 37-47 [facility] Immature granulocytes/100 WB C Auto (Bld)Ordered By: [facility] on 11-12-2023 Immature granulocytes/100 WBC (Bld) 0.300 % 0.0-0.9 [facility] Comment on above: IG% - Immature Granu locytes (promyelocytes, myelocytes and metamyelocytes) > 1% indicates that a LEFT SHIFT is Present. Laboratory - Chemistry and C hemistry - challengeOrdered By: [facility] on 11-12-2023 Albumin/Globulin [Mass ratio] 1.1 {ratio} 0.9-2.4 [facility] ALP [Catalytic activity/Vol] 91 U/L 45-117 [facility] ALT [Catalytic activity/Vol] 21 U/L 13-56 [facility] CO2 [Moles/Vol] 27.0 mmol/L 21.0-32.0 [facility] Globulin (S) [Mass/Vol] 3.3 g/dL 2.2-4.2 [facility] Lipase [Catalytic activity/Vol] 40 U/L 13-75 [facility] Comment on above: Please note:LIPASE r evised reference range effective 22. New Lipase methodology. Expected to produce lower values than the previous assay method. NEW Reference Range: 13 - 75 U/L Urea nitrogen/Creatinine [Mass ratio] 18.9 mg/mg 10-20 [facility] Laboratory - Hematology and Cell countsOrdered By: [facility] 11-[facility] MCH (RBC) [Entitic mass] 30.7 pg 27.0-32.0 [facility] MCHC (RBC) [Mass/Vol] 32.1 g/dL 32-36 [facility] Nucleated RBC/100 WBC (Bld) [Ratio] 0 % 0-5 [facility] Platelet mean volume (Bld) [Entitic vol] 11.8 fL 6.2-12.0 [facility] Platelets (Bld) [#/Vol] 212 10*3/uL 150-450 [facility] No Panel InformationOrdered By: Almas Schmidt on 11-12-2023 Estimated GFR (MDRD) Amer 48 mL/min >60 [facility] Comment on above: GFR Calc Estimated GFR (MDRD) Non-Af Amer 40 mL/min >60 [facility] Comment on above: Non- GFR Calc RBC Auto (Bld) [#/Vol]Ordere d By: Almas Schmidt on 11-12-2023 RBC (Bld) [#/Vol] 3.81 10*6/uL 4.2-5.4 [facility] Serum or plasma calcium liz urement (mass/volume)Ordered By: Almas Schmidt on 11-12-2023 Calcium [Mass/Vol] 8.6 mg/dL 8.5-10.1 [facility] Serum or plasma creatinine m easurement (mass/volume)Ordered By: Almas Schmidt on 11-12-2023 Creatinine [Mass/Vol] 1.43 mg/dL 0.55-1.02 [facility] Comment on above: The validity of the calculated GFR & GFRAA in patients over 70 years has not been determined. Clinical correlation is essential. Serum or plasma urea nitroge n measurement (mass/volume)Ordered By: Almas Schmidt on 11-12-2023 Urea nitrogen [Mass/Vol] 27 mg/dL 7-18 [facility] Thin prep Papanicolaou smear with manual screeningOrdered By: Almas Schmidt on 11-12-2023 Thin prep Papanicolaou smear with manual screening 3.6 g/dL 3.2-5.0 [facility] Thin prep Papanicolaou smear with manual screening 16 U/L 15-37 [facility] Thin prep Papanicolaou smear with manual screening 3 5-15 [facility] Absolute lymphocyte countOrd ered By: Almas Schmidt on 10-29-2023 Lymphocytes Auto (Unsp spec) [#/Vol] 1.86 10*3/uL 0.83-4.51 [facility] Automated lymphocyte count a s percentage of total leukocytesOrdered By: Almas Schmidt on 10-29-2023 Lymphocytes/100 WBC Auto (Unsp spec) 35.3 % 19-41 [facility] Basophil percentageOrdered B y: Almas Schmidt on 10-29-2023 Basophils/100 WBC (Bld) 0.8 % 0-1 [facility] Bilirubin [Mass/Vol] 0.40 mg/dL 0.20-1.00 [place] Comment on above: For patients on eltr ombopag therapy, use of Dimension [place] TBIL is not recommended. Chloride [Moles/Vol] 111 mmol/L 98-107 [place] Cholesterol [Mass/Vol] 128 mg/dL <[address] [facility] Comment on above: <200 mg/dL Desirable 200-240 mg/dL Borderline >240 mg/dL High Risk Eosinophils/100 WBC (Bld) 1.9 % 0-5 [facility] Glucose [Mass/Vol] 89 mg/dL 74-106 [facility] Hemoglobin (Bld) [Mass/Vol] 12.3 g/dL 12.0-15.0 [facility] Monocytes/100 WBC (Bld) 9.9 % 0-10 [facility] Neutrophils (Bld) [#/Vol] 2.7 10*3/uL 2.0-7.7 [facility] Neutrophils/100 WBC (Bld) 51.9 % 47-70 [facility] Potassium [Moles/Vol] 4.7 mmol/L 3.5-5.1 [facility] Protein [Mass/Vol] 7.1 g/dL 6.4-8.2 [facility] Sodium [Moles/Vol] 141 mmol/L 136-145 [facility] Triglyceride [Mass/Vol] 79 mg/dL <199 [facility] Comment on above: The drugs N-Acetylcy steine and Metamizole may falsely depress this assay.Serum Triglycerides Reference Interval Normal <150 mg/dL Borderline high 150 - 199 mg/dL High 200 - 499 mg/dL Very High > or = 500 mg/dL WBC (Bld) [#/Vol] 5.3 10*3/uL 4.4-11.0 [facility] Determination of erythrocyte mean corpuscular volume (MCV)Ordered By: [facility] Brayan on 10-29-2023 MCV (RBC) [Entitic vol] 97.2 fL 81-99 [facility] Erythrocyte distribution wid th ratioOrdered By: [facility] on 10-29-2023 Erythrocyte distribution width (RBC) [Ratio] 13.4 % 11.6-14.6 [facility] Erythrocyte distribution wid th standard deviationOrdered By: [facility] on 10-29-2023 Erythrocyte distribution width (RBC) [Entitic vol] 48.0 fL 35.1-43.9 [facility] Hematocrit Auto (Bld) [Volum e fraction]Ordered By: [facility] on 10-29-2023 Hematocrit (Bld) [Volume fraction] 37.6 % 37-47 [facility] Immature granulocytes/100 WB C Auto (Bld)Ordered By: [facility] 10-29-2023 Immature granulocytes/100 WBC (Bld) 0.200 % 0.0-0.9 [facility] Comment on above: IG% - Immature Granu locytes (promyelocytes, myelocytes and metamyelocytes) > 1% indicates that a LEFT SHIFT is Present. Laboratory - Chemistry and C hemistry - challengeOrdered By: [facility] on 10-29-2023 Albumin/Globulin [Mass ratio] 1.0 {ratio} 0.9-2.4 [facility] ALP [Catalytic activity/Vol] 91 U/L 45-117 [facility] ALT [Catalytic activity/Vol] 22 U/L 13-56 [facility] Cholesterol in HDL [Mass/Vol] 40 mg/dL >40 [facility] Comment on above: The drugs N-Acetylcy steine and Metamizole may falsely depress this assay. Reference Range HDL <40 mg/dL Low HDL Cholesterol HDL >or= 60 mg/dL High HDL Cholesterol Cholesterol in LDL [Mass/Vol] 72 mg/dL 0-130 [facility] CO2 [Moles/Vol] 29.0 mmol/L 21.0-32.0 [facility] Globulin (S) [Mass/Vol] 3.6 g/dL 2.2-4.2 [facility] Urea nitrogen/Creatinine [Mass ratio] 22.7 mg/mg 10-20 [facility] Laboratory - Hematology and Cell countsOrdered By: Almas Schmidt on 10-29-2023 MCH (RBC) [Entitic mass] 31.8 pg 27.0-32.0 [facility] MCHC (RBC) [Mass/Vol] 32.7 g/dL 32-36 [facility] Nucleated RBC/100 WBC (Bld) [Ratio] 0 % 0-5 [facility] Platelet mean volume (Bld) [Entitic vol] 11.7 fL 6.2-12.0 [facility] Platelets (Bld) [#/Vol] 214 10*3/uL 150-450 [facility] No Panel InformationOrdered By: Almas Schmidt on 10-29-2023 Estimated GFR (MDRD) Amer 84 mL/min >60 [facility] Comment on above: GFR Calc Estimated GFR (MDRD) Non-Af Amer 70 mL/min >60 [facility] Comment on above: Non- GFR Calc VLDL Cholesterol 16 mg/dL 5-40 [facility] RBC Auto (Bld) [#/Vol]Ordere d By: Almas Schmidt on 10-29-2023 RBC (Bld) [#/Vol] 3.87 10*6/uL 4.2-5.4 [facility] Serum or plasma calcium liz urement (mass/volume)Ordered By: Almas Schmidt on 10-29-2023 Calcium [Mass/Vol] 8.8 mg/dL 8.5-10.1 [facility] Serum or plasma creatinine m easurement (mass/volume)Ordered By: Almas Schmidt 10-29-2023 Creatinine [Mass/Vol] 0.88 mg/dL 0.55-1.02 [facility] Comment on above: The validity of the calculated GFR & GFRAA in patients over 70 years has not been determined. Clinical correlation is essential. Serum or plasma thyroid stim ulating hormone (TSH) measurement (units/volume)Ordered By: Almas Schmidt on 10-29-2023 TSH Qn 1.05 uIU/mL 0.358-3.74 [facility] Serum or plasma urea nitroge n measurement (mass/volume)Ordered By: Almas Schmidt 10-29-2023 Urea nitrogen [Mass/Vol] 20 mg/dL 7-18 [facility] Thin prep Papanicolaou smear with manual screeningOrdered By: Almas Schmidt on 10-29-2023 Thin prep Papanicolaou smear with manual screening 3.5 g/dL 3.2-5.0 [facility] Thin prep Papanicolaou smear with manual screening 21 U/L 15-37 [facility] Thin prep Papanicolaou smear with manual screening 1 5-15 [facility] Absolute lymphocyte countOrd ered By: Almas Schmidt on 05-26-2023 Lymphocytes Auto (Unsp spec) [#/Vol] 2.16 10*3/uL 0.83-4.51 [facility] Basophil percentageOrdered B y: Almas Schmidt on 05-26-2023 Basophils/100 WBC (Bld) 0.7 % 0-1 [facility] Bilirubin [Mass/Vol] 0.40 mg/dL 0.20-1.00 [place] Comment on above: For patients on eltr ombopag therapy, use of Dimension [place] TBIL is not recommended. Chloride [Moles/Vol] 106 mmol/L 98-107 [place] Cholesterol [Mass/Vol] 129 mg/dL <[address] [facility] Comment on above: <200 mg/dL Desirable 200-240 mg/dL Borderline >240 mg/dL High Risk Eosinophils/100 WBC (Bld) 2.1 % 0-5 [facility] Glucose [Mass/Vol] 97 mg/dL 74-106 [facility] Neutrophils (Bld) [#/Vol] 2.8 10*3/uL 2.0-7.7 [facility] Neutrophils/100 WBC (Bld) 49.5 % 47-70 [facility] Potassium [Moles/Vol] 4.3 mmol/L 3.5-5.1 [facility] Protein [Mass/Vol] 7.2 g/dL 6.4-8.2 [facility] Sodium [Moles/Vol] 140 mmol/L 136-145 [facility] Triglyceride [Mass/Vol] 80 mg/dL <199 [facility] Comment on above: The drugs N-Acetylcy steine and Metamizole may falsely depress this assay.Serum Triglycerides Reference Interval Normal <150 mg/dL Borderline high 150 - 199 mg/dL High 200 - 499 mg/dL Very High > or = 500 mg/dL WBC (Bld) [#/Vol] 5.7 10*3/uL 4.4-11.0 [facility] Blood erythrocytes count (nu mber/volume)Ordered By: Almas Schmidt on 05-26-2023 RBC (Bld) [#/Vol] 3.91 10*6/uL 4.2-5.4 [facility] Blood hemoglobin measurement (mass/volume)Ordered By: Almas Schmidt on 05-26-2023 Hemoglobin (Bld) [Mass/Vol] 12.4 g/dL 12.0-15.0 [facility] Blood lymphocytes/100 leukoc ytesOrdered By: Almas Brayan on 05-26-2023 Lymphocytes/100 WBC (Bld) 37.6 % 19-41 [facility] Blood monocytes/100 leukocyt esOrdered By: [facility] [place] 05-26-[facility]23 Monocytes/100 WBC (Bld) 9.9 % 0-10 [facility] Blood platelet mean volumeOr dered By: Almas Schmidt on 05-26-2023 Platelet mean volume (Bld) [Entitic vol] 12.1 fL 6.2-12.0 [facility] Determination of erythrocyte mean corpuscular volume (MCV)Ordered By: Almas Schmidt on 05-26-2023 MCV (RBC) [Entitic vol] 97.2 fL 81-99 [facility] Hematocrit Auto (Bld) [Volum e fraction]Ordered By: Almas Brayan on 05-26-2023 Hematocrit (Bld) [Volume fraction] 38.0 % 37-47 [facility] Laboratory - Chemistry and C hemistry - challengeOrdered By: Almas Brayan on 05-26-2023 ALP [Catalytic activity/Vol] 106 U/L 45-117 [facility] ALT [Catalytic activity/Vol] 21 U/L 13-56 [facility] CO2 [Moles/Vol] 29.0 mmol/L 21.0-32.0 [facility] Globulin (S) [Mass/Vol] 3.4 g/dL 2.2-4.2 [facility] Urea nitrogen/Creatinine [Mass ratio] 18.7 mg/mg 10-20 [facility] Laboratory - Hematology and Cell countsOrdered By: Almas Schmidt on 05-26-2023 Erythrocyte distribution width (RBC) [Entitic vol] 47.8 fL 35.1-43.9 [facility] Erythrocyte distribution width (RBC) [Ratio] 13.4 % 11.6-14.6 [facility] Immature granulocytes/100 WBC (Bld) 0.200 % 0.0-0.9 [facility] Comment on above: IG% - Immature Granu locytes (promyelocytes, myelocytes and metamyelocytes) > 1% indicates that a LEFT SHIFT is Present. MCH (RBC) [Entitic mass] 31.7 pg 27.0-32.0 [facility] Nucleated RBC/100 WBC (Bld) [Ratio] 0 % 0-5 [facility] MCHC Auto (RBC) [Mass/Vol]Or dered By: Almas Schmidt on 05-26-2023 MCHC (RBC) [Mass/Vol] 32.6 g/dL 32-36 [facility] No Panel InformationOrdered By: Almas Schmidt on 05-26-2023 Estimated GFR (MDRD) Amer 76 mL/min >60 [facility] Comment on above: GFR Calc Estimated GFR (MDRD) Non-Af Amer 63 mL/min >60 [facility] Comment on above: Non- GFR Calc Thyroid Stimulating Hormone (TSH) 0.83 uIU/mL 0.358-3.74 [facility] Platelets bldOrdered By: Almas Schmidt on 05-26-2023 Platelets (Bld) [#/Vol] 184 10*3/uL 150-450 [facility] Serum or plasma albumin liz urement (mass/volume)Ordered By: Almas Schmidt on 05-26-2023 Albumin [Mass/Vol] 3.8 g/dL 3.2-5.0 [facility] Serum or plasma albumin/glob ulin mass ratioOrdered By: Almas Schmidt on 05-26-2023 Albumin/Globulin [Mass ratio] 1.1 {ratio} 0.9-2.4 [facility] Serum or plasma calcium liz urement (mass/volume)Ordered By: Almas Schmidt on 05-26-2023 Calcium [Mass/Vol] 9.0 mg/dL 8.5-10.1 [facility] Serum or plasma cholesterol in HDL measurement (mass/volume)Ordered By: Almas Schmidt on 05-26-2023 Cholesterol in HDL [Mass/Vol] 35 mg/dL >40 [facility] Comment on above: The drugs N-Acetylcy steine and Metamizole may falsely depress this assay. Reference Range HDL <40 mg/dL Low HDL Cholesterol HDL >or= 60 mg/dL High HDL Cholesterol Serum or plasma cholesterol in VLDL measurement (mass/volume)Ordered By: Almas Schmidt on 05-26-2023 Cholesterol in VLDL [Mass/Vol] 16 mg/dL 5-40 [facility] Serum or plasma creatinine m easurement (mass/volume)Ordered By: Almas Schmidt on 05-26-2023 Creatinine [Mass/Vol] 0.96 mg/dL 0.55-1.02 [facility] Comment on above: The validity of the calculated GFR & GFRAA in patients over 70 years has not been determined. Clinical correlation is essential. Serum or plasma low density lipoprotein (LDL) cholesterol measurement (mass/volume)Ordered By: Almas Schmidt on 05-26-2023 Cholesterol in LDL [Mass/Vol] 78 mg/dL 0-130 [facility] Serum or plasma urea nitroge n measurement (mass/volume)Ordered By: Almas Schmidt on 05-26-2023 Urea nitrogen [Mass/Vol] 18 mg/dL 7-18 [facility] Thin prep Papanicolaou smear with manual screeningOrdered By: Almas Schmidt on 05-26-2023 Thin prep Papanicolaou smear with manual screening 24 U/L 15-37 [facility] Thin prep Papanicolaou smear with manual screening 5 5-15 [facility] No Panel InformationOrdered By: Dr. Schmidt on 12-09-2022 Thyroid Stimulating Hormone (TSH) 1.35 uIU/mL 0.358-3.74 [facility] Absolute lymphocyte countOrd ered By: Dr. Schmidt on 10-21-2022 Lymphocytes Auto (Unsp spec) [#/Vol] 2.17 10*3/uL 0.83-4.51 [facility] Basophil percentageOrdered B y: Dr. Schmidt on 10-21-2022 Basophils/100 WBC (Bld) 0.5 % 0-1 [facility] Bilirubin [Mass/Vol] 0.50 mg/dL 0.20-1.00 [place] Comment on above: For patients on eltr ombopag therapy, use of Dimension [place] TBIL is not recommended. Chloride [Moles/Vol] 106 mmol/L 98-107 [place] Eosinophils/100 WBC (Bld) 2.0 % 0-5 [facility] Glucose [Mass/Vol] 130 mg/dL 74-106 [facility] Comment on above: Fasting Glucose resu lt greater than or equal to 126 mg/dL suggests DIABETES MELLITUS per A.D.A. criteria. Neutrophils (Bld) [#/Vol] 3.2 10*3/uL 2.0-7.7 [facility] Neutrophils/100 WBC (Bld) 52.0 % 47-70 [facility] Potassium [Moles/Vol] 4.0 mmol/L 3.5-5.1 [facility] Protein [Mass/Vol] 7.4 g/dL 6.4-8.2 [facility] Sodium [Moles/Vol] 141 mmol/L 136-145 [facility] WBC (Bld) [#/Vol] 6.1 10*3/uL 4.4-11.0 [facility] Basophil percentageOrdered B y: Alejandro Friend on 10-21-2022 Cholesterol [Mass/Vol] 175 mg/dL <[address] [facility] Comment on above: <200 mg/dL Desirable 200-240 mg/dL Borderline >240 mg/dL High Risk Triglyceride [Mass/Vol] 179 mg/dL <199 [facility] Comment on above: The drugs N-Acetylcy steine and Metamizole may falsely depress this assay.Serum Triglycerides Reference Interval Normal <150 mg/dL Borderline high 150 - 199 mg/dL High 200 - 499 mg/dL Very High > or = 500 mg/dL Blood erythrocytes count (nu mber/volume)Ordered By: Dr. Schmidt on 10-21-2022 RBC (Bld) [#/Vol] 4.09 10*6/uL 4.2-5.4 [facility] Blood hemoglobin measurement (mass/volume)Ordered By: Dr. Schmidt on 10-21-2022 Hemoglobin (Bld) [Mass/Vol] 12.6 g/dL 12.0-15.0 [facility] Blood lymphocytes/100 leukoc ytesOrdered By: Dr. Schmidt on 10-21-2022 Lymphocytes/100 WBC (Bld) 35.9 % 19-41 [facility] Blood monocytes/100 leukocyt esOrdered By: Dr. Schmidt on 10-21-2022 Monocytes/100 WBC (Bld) 9.4 % 0-10 [facility] Blood platelet mean volumeOr dered By: Dr. Schmidt on 10-21-2022 Platelet mean volume (Bld) [Entitic vol] 11.4 fL 6.2-12.0 [facility] Determination of erythrocyte mean corpuscular volume (MCV)Ordered By: Dr. Schmidt on 10-21-2022 MCV (RBC) [Entitic vol] 94.6 fL 81-99 [facility] Hematocrit Auto (Bld) [Volum e fraction]Ordered By: Dr. Schmidt on 10-21-2022 Hematocrit (Bld) [Volume fraction] 38.7 % 37-47 [facility] Laboratory - Chemistry and C hemistry - challengeOrdered By: Dr. Schmidt on 10-21-2022 ALP [Catalytic activity/Vol] 87 U/L 45-117 [facility] ALT [Catalytic activity/Vol] 18 U/L 13-56 [facility] CO2 [Moles/Vol] 30.0 mmol/L 21.0-32.0 [facility] Globulin (S) [Mass/Vol] 3.6 g/dL 2.2-4.2 [facility] Urea nitrogen/Creatinine [Mass ratio] 14.4 mg/mg 10-20 [facility] Laboratory - Hematology and Cell countsOrdered By: Dr. Schmidt on 10-21-2022 Erythrocyte distribution width (RBC) [Entitic vol] 47.0 fL 35.1-43.9 [facility] Erythrocyte distribution width (RBC) [Ratio] 13.5 % 11.6-14.6 [facility] Immature granulocytes/100 WBC (Bld) 0.200 % 0.0-0.9 [facility] Comment on above: IG% - Immature Granu locytes (promyelocytes, myelocytes and metamyelocytes) > 1% indicates that a LEFT SHIFT is Present. MCH (RBC) [Entitic mass] 30.8 pg 27.0-32.0 [facility] Nucleated RBC/100 WBC (Bld) [Ratio] 0 % 0-5 [facility] MCHC Auto (RBC) [Mass/Vol]Or dered By: Dr. Schmidt on 10-21-2022 MCHC (RBC) [Mass/Vol] 32.6 g/dL 32-36 [facility] No Panel InformationOrdered By: Dr. Schmidt on 10-21-2022 Estimated GFR (MDRD) Amer 65 mL/min >60 [facility] Comment on above: GFR Calc Estimated GFR (MDRD) Non-Af Amer 53 mL/min >60 [facility] Comment on above: Non- GFR Calc Thyroid Stimulating Hormone (TSH) 5.21 uIU/mL 0.358-3.74 [facility] Vitamin D 25-Hydroxy 45.8 ng/mL [place] Comment on above: Vitamin D 25(OH) Sta tus Range Deficiency <20 ng/mL (50nmol/L) Insufficiency 20 - 30 ng/mL (50 - 75 nmol/L) Sufficiency 30 - 100 ng/mL (75 - 250 nmol/L) Toxicity >100 ng/mL (>250 nmol/L) Platelets bldOrdered By: Dr. Schmidt on 10-21-2022 Platelets (Bld) [#/Vol] 215 10*3/uL 150-450 [facility] Serum or plasma albumin liz urement (mass/volume)Ordered By: Dr. Schmidt on 10-21-2022 Albumin [Mass/Vol] 3.8 g/dL 3.2-5.0 [facility] Serum or plasma albumin/glob ulin mass ratioOrdered By: Dr. Schmidt on 10-21-2022 Albumin/Globulin [Mass ratio] 1.1 {ratio} 0.9-2.4 [facility] Serum or plasma calcium liz urement (mass/volume)Ordered By: Dr. Schmidt on 10-21-2022 Calcium [Mass/Vol] 9.1 mg/dL 8.5-10.1 [facility] Serum or plasma cholesterol in HDL measurement (mass/volume)Ordered By: Alejandro Solis on 10-21-2022 Cholesterol in HDL [Mass/Vol] 34 mg/dL >40 [facility] Comment on above: The drugs N-Acetylcy steine and Metamizole may falsely depress this assay. Reference Range HDL <40 mg/dL Low HDL Cholesterol HDL >or= 60 mg/dL High HDL Cholesterol Serum or plasma cholesterol in VLDL measurement (mass/volume)Ordered By: Alejandro Solis on 10-21-2022 Cholesterol in VLDL [Mass/Vol] 36 mg/dL 5-40 [facility] Serum or plasma creatinine m easurement (mass/volume)Ordered By: Dr. Schmidt on 10-21-2022 Creatinine [Mass/Vol] 1.11 mg/dL 0.55-1.02 [facility] Comment on above: The validity of the calculated GFR & GFRAA in patients over 70 years has not been determined. Clinical correlation is essential. Serum or plasma low density lipoprotein (LDL) cholesterol measurement (mass/volume)Ordered By: Alejandro Solis on 10-21-2022 Cholesterol in LDL [Mass/Vol] 105 mg/dL 0-130 [facility] Serum or plasma urea nitroge n measurement (mass/volume)Ordered By: Dr. Schmidt on 10-21-2022 Urea nitrogen [Mass/Vol] 16 mg/dL 7-18 [facility] Thin prep Papanicolaou smear with manual screeningOrdered By: Dr. Schmidt on 10-21-2022 Thin prep Papanicolaou smear with manual screening 18 U/L 15-37 [facility] Thin prep Papanicolaou smear with manual screening 5 5-15 [facility] INR in Blood by Coagulation assayon 12-23-2021 INR Coag (Bld) [Relative time] 1.1 {INR} [facility] Work Phone: Laboratory - Coagulationon 0 12-23-2021 aPTT Coag (Bld) [Time] 27.5 s 24.1-36.[address] [facility] Work Phone: PT Coag (PPP) [Time] 13.1 s 11.7-14.9 [place] Work Phone: Platelets bldon 12-23-2021 Platelets (Bld) [#/Vol] 222 10*3/uL 150-450 [facility] Work Phone: Atypical perinuclear antineu trophil cytoplasmic antibodies measurementon 12-05-2021 Neutrophil cytoplasmic Ab.perinuclear.atypical IF (S) [Titer] <1:20 titer Neg:<1:20 [facility] Work Phone: Comment on above: The atypical pANCA p attern has been observed in asignificant percentage of patients with ulcerative colitis,primary sclerosing cholangitis and autoimmune hepatitis. Basophil percentageon 2021 Basophil percentage < 10.0 umol/L 11-32 [facility] Work Phone: Basophil percentage < 0.2 [facility] Work Phone: [phone] Erythrocyte sedimentation ra anthony 12-05-2021 ESR (Bld) [Velocity] 10 mm/h 0-30 [place] Work Phone: No Panel Informationon 12-05 Cent[facility] B Antibody <0.2 [facility] Work Phone: Ceruloplasmin 26.0 mg/dL [facility] Work Phone: Haptoglobin 98 mg/dL [facility] Work Phone: Comment on above: Performed at: [address] [id number] Director: Cahn Matta PhD, Phone: [phone] at: [facility] [id number] Director: Hailey Lao MD, Phone: [phone] [employer] Antibody <0.2 AI [facility] Work Phone: Serum DNA double strand anti body assay (units/volume)on 12-05-2021 DNA double strand Ab Qn (S) [IU]/mL [facility] Work Phone: Comment on above: Negative <5 Equivoca l 5 - 9 Positive >9 Serum Mary-1 antibody assay (u nits/volume)on 12-05-2021 Mary-1 extractable nuclear Ab Qn (S) <0.2 AI [facility] Work Phone: Serum Scl-70 extractable nuc lear antibody assay (units/volume)on 12-05-2021 SCL-70 extractable nuclear Ab Qn (S) <0.2 [facility] Work Phone: Serum Pratt extractable nucl ear antibody detectionon 12-05-2021 Pratt extractable nuclear Ab Ql (S) <0.2 [facility] Work Phone: Serum classic neutrophil cyt oplasmic antibody assay (units/volume)on 12-05-2021 Neutrophil cytoplasmic Ab.classic Qn (S) <1:20 titer Neg:<1:20 [facility] Work Phone: Serum mitochondria antibody detectionon 12-05-2021 Mitochondria Ab Ql (S) <20.0 Units [facility] Work Phone: Comment on above: Negative 0.0 - 20.0 Equivocal 20.1 - 24.9 Positive >24.9Mitochondrial (M2) Antibodies are found in 90-96% ofpatients with primary biliary cirrhosis.Performed at: [place] [id number] Director: Chan Matta PhD, Phone: [phone] Serum or plasma C reactive p rotein measurement (mass/volume)on 12-05-2021 CRP [Mass/Vol] mg/L 0.0-3.0 [facility] Work Phone: Comment on above: C-Reactive Protein ( CRP) provides useful information for thediagnosis, therapy and monitoring of inflammatory processesand associated diseases. For the evaluation of Relative Riskfor Cardiovascular Disease, a High Sensitivity CRP (HSCRP)should be ordered. Serum or plasma actin IgG an tibody assay (units/volume)on 12-05-2021 Actin IgG Qn 12 Units [facility] Work Phone: Comment on above: Negative 0 - 19 Weak positive 20 - 30 Moderate to strong positive >30 Actin Antibodies are found in 52-85% of patients with autoimmune hepatitis or chronic active hepatitis and in 22% of patients with primary biliary cirrhosis. Serum or plasma angiotensin converting enzyme measurement (enzymatic activity/volume)on 12-05-2021 Angiotensin converting enzyme [Catalytic activity/Vol] 45 U/L [facility] Work Phone: Serum or plasma ferritin sharon surement (mass/volume)on 12-05-2021 Ferritin [Mass/Vol] 94 ng/mL 8-252 [facility] Work Phone: Serum perinuclear neutrophil cytoplasmic antibody titer by immunofluorescenceon 12-05-2021 Neutrophil cytoplasmic Ab.perinuclear IF (S) [Titer] <1:20 titer Neg:<1:20 [facility] Work Phone: Comment on above: The presence of posi tive fluorescence exhibiting P-ANCA orC-ANCA patterns alone is not specific for the diagnosis ofWegener's Granulomatosis (WG) or microscopic polyangiitis.Decisions about treatment should not be based solely onANCA IFA results. The [employer] ANCA Group Consensusrecommends follow up testing of positive sera with both CT-3 and MPO-ANCA enzyme immunoassays. As many as 5% serumsamples are positive only by EIA. Ref. AM J Clin [id number];111:507-513. Thin prep Papanicolaou smear with manual screeningon 12-05-2021 Thin prep Papanicolaou smear with manual screening 220 U/L 84-246 [facility] Work Phone: Thin prep Papanicolaou smear with manual screening 108 ug/dL [facility] Work Phone: Comment on above: Detection Limit = 5 Whole blood hemoglobin A1c/t otal hemoglobin ratio (mass fraction)on 12-05-2021 HbA1c (Bld) [Mass fraction] 5.3 % 3.8-5.6 [facility] Work Phone: Comment on above: Normal < 5.7 % Predi abetic 5.7 - 6.4 % Diabetic >or= 6.5 % Please note range changes. Laboratory - Microbiology an d Antimicrobial susceptibilityon 11-14-2021 SARS-CoV-2 (COVID-19) RNA RUBY+probe Ql (Unsp spec) Not detected Not Detect [facility] Work Phone: Comment on above: Normal Reference Ran ge: Not DetectedMethod:(RT-PCR) real-time reverse transcriptase PCRLuminex RAD Instrument*The Food and Drug Administration (FDA) has issued an Emergency Use Authorization (EAU) for the RAD SARS-CoV-2 Assay for the rapid detection of the virus that causes COVID-19. This test has been validated, but the FDAs independent review of this validation is pending.*Negative results do not preclude infection and should not be used as the sole basis for treatment or patient management. Optimum specimen types and timing for peak viral levels during infections caused by SARS-CoV-2 have not been determined. Collection of multiple specimens from the same patient may be necessary to detect the virus. The possibility of a false negative result should be considered if the patient has clinical presentation or has had recent exposure. No Panel Informationon 11-14 Influenza Types A,B Direct FA (GLORY) [facility] Work Phone: Absolute lymphocyte counton 10-16-2021 Lymphocytes Auto (Unsp spec) [#/Vol] 2.41 10*3/uL 0.83-4.51 [facility] Work Phone: Basophil percentageon 2021 Basophils/100 WBC (Bld) 0.7 % 0-1 [facility] Work Phone: Bilirubin [Mass/Vol] 0.30 mg/dL 0.20-1.00 [place] Work Phone: Comment on above: For patients on eltr ombopag therapy, use of Dimension [place] TBIL is not recommended. Chloride [Moles/Vol] 106 mmol/L 98-107 [place] Work Phone: [phone] Eosinophils/100 WBC (Bld) 4.6 % 0-5 [facility] Work Phone: Glucose [Mass/Vol] 124 mg/dL 74-106 [facility] Work Phone: Comment on above: Fasting Glucose resu lt from 100 to 125 mg/dL suggests IMPAIRED HOMEOSTASIS per A.D.A. criteria. Neutrophils (Bld) [#/Vol] 2.9 10*3/uL 2.0-7.7 [facility] Work Phone: Neutrophils/100 WBC (Bld) 47.2 % 47-70 [facility] Work Phone: Potassium [Moles/Vol] 4.3 mmol/L 3.5-5.1 [facility] Work Phone: Protein [Mass/Vol] 7.2 g/dL 6.4-8.2 [facility] Work Phone: Sodium [Moles/Vol] 138 mmol/L 136-145 [facility] Work Phone: WBC (Bld) [#/Vol] 6.1 10*3/uL 4.4-11.0 [facility] Work Phone: Blood erythrocytes count (nu mber/volume)on 10-16-2021 RBC (Bld) [#/Vol] 4.09 10*6/uL [facility].2[facility]: Blood hemoglobin measurement (mass/volume)on 10-16-2021 Hemoglobin (Bld) [Mass/Vol] 12.7 g/dL 12.0-15.0 [facility] Work Phone: Blood lymphocytes/100 leukoc yteson 10-16-2021 Lymphocytes/100 WBC (Bld) 39.4 % 19-41 [facility] Work Phone: [phone] Blood monocytes/100 leukocyt eson 10-16-2021 Monocytes/100 WBC (Bld) 7.9 % 0-10 [facility] Work Phone: [phone] Blood platelet mean volumeon 10-16-2021 Platelet mean volume (Bld) [Entitic vol] 11.3 fL 6.2-12.0 [facility] Work Phone: Determination of erythrocyte mean corpuscular volume (MCV)on 10-16-2021 MCV (RBC) [Entitic vol] 94.4 fL 81-99 [facility] Work Phone: Hematocrit Auto (Bld) [Volum e fraction]on 10-16-2021 Hematocrit (Bld) [Volume fraction] 38.6 % 37-47 [facility] Work Phone: Laboratory - Chemistry and C hemistry - challengeon 10-16-2021 ALP [Catalytic activity/Vol] 79 U/L 45-117 [facility] Work Phone: ALT [Catalytic activity/Vol] 25 U/L 13-56 [facility] Work Phone: CO2 [Moles/Vol] 27.0 mmol/L 21.0-32.0 [facility] Work Phone: Globulin (S) [Mass/Vol] 3.6 g/dL 2.2-4.2 [facility] Work Phone: Urea nitrogen/Creatinine [Mass ratio] 16.7 mg/mg 10-20 [facility] Work Phone: Laboratory - Hematology and Cell countson 10-16-2021 Erythrocyte distribution width (RBC) [Entitic vol] 45.8 fL 35.1-43.9 [facility] Work Phone: Erythrocyte distribution width (RBC) [Ratio] 13.2 % 11.6-14.6 [facility] Work Phone: Immature granulocytes/100 WBC (Bld) 0.200 % 0.0-0.9 [facility] Work Phone: Comment on above: IG% - Immature Granu locytes (promyelocytes, myelocytes and metamyelocytes) > 1% indicates that a LEFT SHIFT is Present. MCH (RBC) [Entitic mass] 31.1 pg 27.0-32.0 [facility] Work Phone: Nucleated RBC/100 WBC (Bld) [Ratio] 0 % 0-5 [facility] Work Phone: MCHC Auto (RBC) [Mass/Vol]on 10-16-2021 MCHC (RBC) [Mass/Vol] 32.9 g/dL 32-36 [facility] Work Phone: No Panel Informationon 10-16 Estimated GFR (MDRD) Amer 71 mL/min >60 [facility] Work Phone: Comment on above: GFR Calc Estimated GFR (MDRD) Non-Af Amer 59 mL/min >60 [facility] Work Phone: Comment on above: Non- GFR Calc Thyroid Stimulating Hormone (TSH) 2.27 uIU/mL 0.358-3.74 [facility] Work Phone: Vitamin D 25-Hydroxy 48.8 ng/mL [place] Work Phone: Comment on above: Vitamin D 25(OH) Sta tus Range Deficiency <20 ng/mL (50nmol/L) Insufficiency 20 - 30 ng/mL (50 - 75 nmol/L) Sufficiency 30 - 100 ng/mL (75 - 250 nmol/L) Toxicity >100 ng/mL (>250 nmol/L) Platelets bldon 10-16-2021 Platelets (Bld) [#/Vol] 240 10*3/uL 150-450 [facility] Work Phone: Serum or plasma albumin liz urement (mass/volume)on 10-16-2021 Albumin [Mass/Vol] 3.6 g/dL 3.2-5.0 [facility] Work Phone: Serum or plasma albumin/glob ulin mass ratioon 10-16-2021 Albumin/Globulin [Mass ratio] 1.0 {ratio} 0.9-2.4 [facility] Work Phone: Serum or plasma calcium liz urement (mass/volume)on 10-16-2021 Calcium [Mass/Vol] 8.9 mg/dL 8.5-10.1 [facility] Work Phone: Serum or plasma creatinine m easurement (mass/volume)on 10-16-2021 Creatinine [Mass/Vol] 1.02 mg/dL 0.55-1.02 [facility] Work Phone: Comment on above: The validity of the calculated GFR & GFRAA in patients over 70 years has not been determined. Clinical correlation is essential. Serum or plasma urea nitroge n measurement (mass/volume)on 10-16-2021 Urea nitrogen [Mass/Vol] 17 mg/dL 7-18 [facility] Work Phone: Serum or plasma uric acid me asurement (mass/volume)on 10-16-2021 Urate [Mass/Vol] 5.4 mg/dL 2.6-6.0 [facility] Work Phone: Comment on above: The drugs N-Acetylcy steine and Metamizole may falsely depress this assay. Thin prep Papanicolaou smear with manual screeningon 10-16-2021 Thin prep Papanicolaou smear with manual screening 17 U/L 15-37 [facility] Work Phone: Thin prep Papanicolaou smear with manual screening 5 5-15 [facility] Work Phone: CNOVon 10-20-2018 CNOV Office Visit (UCWSTR ) LIANNA CHACKO ([id number]) 1965 F Date Time Provider Department 10/20/18 5:30 PM DESI JEAN BAPTISTE) WSTR During your visit today, we recorded the following information about you: Temperature Pulse Respiration Blood pressure 97.7 degrees 76/minute 16/minute 98/64 Weight 107 kg Desi Jena Baptiste PA-C 10/20/2018 5:57 PM Signed 10/20/2018 Patient presents with: Dental Problem: left side jaw area swelling x this am, had wisdom tooth ground down on 09/28 SUBJECTIVE: This is a 53 year old that is here today for Complaint(s) of left jaw swelling/pain . Recent surgery with widom tooth-"ground down" per patient on 09/28, had a normal post op visit. Started this morning with swelling and pain. PAST MEDICAL HISTORY Diagnosis Date - Asthma - Seasonal allergies ALLERGIES Shellfish Derived MEDICATIONS Current Outpatient Prescriptions: PRAVASTATIN SODIUM (PRAVASTATIN ORAL) Take by mouth. citalopram hydrobromide (CELEXA) 10 mg tablet Take 10 mg by mouth once daily. Levothyroxine 100 mcg cap Take 1 tablet by mouth. Thursday through tablet on Thursday multivitamin tablet Take 1 tablet by mouth once daily. calcium, elemental, tab Take by mouth twice daily. albuterol HFA (PROAIR HFA) 90 mcg/actuation inhaler Inhale 2 Puffs as instructed every 4 hours as needed for Wheezing/Shortness of Breath. (Patient not taking: Reported on 10/20/2018 ) No current facility-administered medications for this visit. SOCIAL HISTORY Social History Marital status: Spouse name: Years of education: Number of children: Social History Main Topics Smoking status: Never Smoker Smokeless tobacco: Never Used Alcohol use: No Drug use: No REVIEW OF SYSTEMS See HPI OBJECTIVE: BP 98/64 Pulse 76 Temp 36.5 ?C (97.7 ?F) (Tympanic) Resp 16 Wt 107 kg (236 lb) APPEARANCE Well appearing, alert, in no acute distress, well-hydrated, well nourished. THROAT normal, no erythema. No obvious abscess along gum line. NECK Supple, no adenopathy; thyroid symmetric, normal size, no bruits JAW left anterior/mid jawline with tender indurated area of swelling, no overlying erythema, fluctuance ASSESSMENT/PLAN: 1. Infection of mouth - ICD9: 528.9, ICD10: K12.2 - Begin treatment with augmentin - AMOXICILLIN 875 MG-POTASSIUM CLAVULANATE 125 MG TABLET Close f/u if not resolving with dentist or oral surgeon Tylenol/motrin F/u in 3-4 days if not resolving, sooner if worsening Reviewed red flags and when to seek care sooner. The patient indicates understanding of these issues and agrees with the plan. Desi Jean Baptiste PA-C 10/20/2018 Referring Provider: SELF [[id number]] Allergies As of Date: 10/20/2018 Noted Allergy Reaction SHELLFISH DERIVED 12/17/2015 7 - Swelling Date Reviewed: 10/20/2018 Reviewed by: Sara Savage Ma - Fully Assessed Reason for Visit: Dental Problem [31] Cmt: left side jaw area swelling x this am, had wisdom tooth ground down on 09/28 Reason For Visit History Recorded Primary Visit Diagnosis:Infection of mouth [K12.2] Order(s):amoxicillin-c lavulanic acid (AUGMENTIN) 875-125 mg per tabletTake 1 tablet by mouth twice daily for 10 days.Disp: 20 tabletRfl: 0 Prescriptions as of 10/20/2018 Sig: PRAVASTATIN ORAL Take by mouth. CITALOPRAM 10 MG TABLET Take 10 mg by mouth once sam* LEVOTHYROXINE 100 MCG CAPSULE Take 1 tablet by mouth. Monda* MULTIVITAMIN TABLET Take 1 tablet by mouth once d* CALCIUM 500 MG TABLET Take by mouth twice daily. AMOXICILLIN 875 MG-POTASSIUM * Take 1 tablet by mouth twice * ALBUTEROL SULFATE HFA 90 MCG/* Inhale 2 Puffs as instructed * Patient not taking: Reported on 10/20/2018 Problem List As Of Date: 10/20/2018 (None) Prescriptions ordered this encounter Disp Refills Start End AMOXICILLIN 875 MG-POTASSIUM CLAVULA* 20 t* 0 10/20/2018 10/30/2018 Route: ORAL Sig: Take 1 tablet by mouth twice daily for 10 days. Encounter Status:Closed by DESI JENA BAPTISTE PA-C on 10/20/18 Normal [facility] PROGRESSon 10-20-2018 Protein mass conc HNO ID: [id number] Author: Desi Jean Baptiste Service: (none) Author Type: Physician Ibm Bpm Architect Type: Progress Notes Filed: 10/20/2018 5:57 PM Note Text: 10/20/2018 Patient presents with: Dental Problem: left side jaw area swelling x this am, had wisdom tooth ground down on 09/28 SUBJECTIVE: This is a 53 year old that is here today for Complaint(s) of left jaw swelling/pain . Recent surgery with widom tooth-"ground down" per patient on 09/28, had a normal post op visit. Started this morning with swelling and pain. PAST MEDICAL HISTORY Diagnosis Date - Asthma - Seasonal allergies ALLERGIES Shellfish Derived MEDICATIONS Current Outpatient Prescriptions: PRAVASTATIN SODIUM (PRAVASTATIN ORAL) Take by mouth. citalopram hydrobromide (CELEXA) 10 mg tablet Take 10 mg by mouth once daily. Levothyroxine 100 mcg cap Take 1 tablet by mouth. Thursday through Saturday1/2 tablet on Thursday multivitamin tablet Take 1 tablet by mouth once daily. calcium, elemental, tab Take by mouth twice daily. albuterol HFA (PROAIR HFA) 90 mcg/actuation inhaler Inhale 2 Puffs as instructed every 4 hours as needed for Wheezing/Shortness of Breath. (Patient not taking: Reported on 10/20/2018 ) No current facility-administered medications for this visit. SOCIAL HISTORY Social History Marital status: Spouse name: Years of education: Number of children: Social History Main Topics Smoking status: Never Smoker Smokeless tobacco: Never Used Alcohol use: No Drug use: No REVIEW OF SYSTEMS See HPI OBJECTIVE: BP 98/64 Pulse 76 Temp 36.5 ?C (97.7 ?F) (Tympanic) Resp 16 Wt 107 kg (236 lb) APPEARANCE Well appearing, alert, in no acute distress, well-hydrated, well nourished. THROAT normal, no erythema. No obvious abscess along gum line. NECK Supple, no adenopathy; thyroid symmetric, normal size, no bruits JAW left anterior/mid jawline with tender indurated area of swelling, no overlying erythema, fluctuance ASSESSMENT/PLAN: 1. Infection of mouth - ICD9: 528.9, ICD10: K12.2 - Begin treatment with augmentin - AMOXICILLIN 875 MG-POTASSIUM CLAVULANATE 125 MG TABLET Close f/u if not resolving with dentist or oral surgeon Tylenol/motrin F/u in 3-4 days if not resolving, sooner if worsening Reviewed red flags and when to seek care sooner. The patient indicates understanding of these issues and agrees with the plan. Desi Jean Baptiste PA-C 10/20/2018 Normal [facility] Vital Signs Date Time Vital Sign Value Performing Clinician Faci lity 03-15-2025 16:33-0400 Body temperature 97.9 [degF] Dr. Almas Schmidt MD Work Phone: [facility] 03-15-2025 16:33-0400 Diastolic blood pressure 60 mm[Hg] Dr. Almas Schmidt MD Work Phone: [facility] 03-15-2025 16:33-0400 Heart rate 75 /min Dr. Almas Schmidt MD Work Phone: [phone] [place] [address] 03-15-2025 16:33-0400 Respiratory rate 17 /min Dr. Almas Schmidt MD Work Phone: [phone] [place] [address] 03-15-2025 16:33-0400 SaO2% (BldA) [Mass fraction] 96 % Dr. Almas Schmidt MD Work Phone: [phone] [place] [address] 03-15-2025 16:33-0400 Systolic blood pressure 122 mm[Hg] Dr. Almas Schmidt MD Work Phone: [phone] [place] [address] 02-23-2025 10:38-0400 Body height 167.[address] Almas Schmidt MD Work Phone: [phone] [place] [address] 02-23-2025 10:38-0400 Body mass index (BMI) [Ratio] 38.5 kg/m2 Dr. Almas Schmidt MD Work Phone: [phone])[phone] [place] [address] 02-23-2025 10:38-0400 Body weight 108.[address] Almas Schmidt MD Work Phone: [phone] [place] [address] 02-23-2025 10:38-0400 Diastolic blood pressure 74 mm[Hg] Dr. Almas Schmidt MD Work Phone: [phone])446-271165 [place] [address] 02-23-2025 10:38-0400 Heart rate 63 /min Dr. Almas Schmidt MD Work Phone: [phone] [place] [address] 02-23-2025 10:38-0400 SaO2% (BldA) [Mass fraction] 98 % Dr. Almas Schmidt MD Work Phone: [phone] [place] [address] 02-23-2025 10:38-0400 Systolic blood pressure 109 mm[Hg] Dr. Almas Schmidt MD Work Phone: [phone] [place] [address] 02-16-2025 09:24-0400 Body temperature 97.7 [degF] Dr. Almas Schmidt MD Work Phone: [phone] [place] [address] 02-16-2025 09:24-0400 Body weight 107.[address] Almas Schmidt MD Work Phone: [phone] [place] [address] 02-16-2025 09:24-0400 Diastolic blood pressure 78 mm[Hg] Dr. Almas Schmidt MD Work Phone: [facility] 02-16-2025 09:24-0400 Heart rate 69 /min Dr. Almas Schmidt MD Work Phone: 4(661)390-161265 [place] [address] 02-16-2025 09:24-0400 Respiratory rate 16 /min Dr. Almas Schmidt MD Work Phone: 6(119)446-209265 [place] [address] 02-16-2025 09:24-0400 SaO2% (BldA) [Mass fraction] 96 % Dr. Almas Schmidt MD Work Phone: 8(335)519-159165 [place] [address] 02-16-2025 09:24-0400 Systolic blood pressure 127 mm[Hg] Dr. Almas Schmidt MD Work Phone: 2(860)274-539867 [place] [address] 11-24-2024 10:28-0400 Body height 167.[address] Almas Schmidt MD Work Phone: 4(939)246-984067 [place] [address] 11-24-2024 10:28-0400 Body mass index (BMI) [Ratio] 37.1 kg/m2 Dr. Almas Schmidt MD Work Phone: 0(463)399-566967 [place] [address] 11-24-2024 10:28-0400 Body weight 104.[address] Almas Schmidt MD Work Phone: 1(145)145-575665 [place] [address] 11-24-2024 10:28-0400 Diastolic blood pressure 67 mm[Hg] Dr. Almas Schmidt MD Work Phone: 8(749)667-973165 [place] [address] 11-24-2024 10:28-0400 Heart rate 71 /min Dr. Almas Schmidt MD Work Phone: 1(639)810-400765 [place] [address] 11-24-2024 10:28-0400 Respiratory rate 16 /min Dr. Almas Schmidt MD Work Phone: 2(738)784-327065 [place] [address] 11-24-2024 10:28-0400 SaO2% (BldA) [Mass fraction] 95 % Dr. Almas Schmidt MD Work Phone: 5(235)582-147565 [place] [address] 11-24-2024 10:28-0400 Systolic blood pressure 110 mm[Hg] Dr. Almas Schmidt MD Work Phone: [facility] 12-01-2023 13:27-0400 Body height 167.[address] Almas Schmidt Work Phone: [facility] 12-01-2023 13:27-0400 Body mass index (BMI) [Ratio] 34.9 kg/m2 Dr. Almas Schmidt Work Phone: [facility] 12-01-2023 13:27-0400 Body weight 98.[address] Almas Schmidt Work Phone: [facility] 12-01-2023 13:27-0400 Diastolic blood pressure 68 mm[Hg] Dr. Almas Schmidt Work Phone: [facility] 12-01-2023 13:27-0400 Heart rate 66 /min Dr. Almas Schmidt Work Phone: [facility] 12-01-2023 13:27-0400 Respiratory rate 16 /min Dr. Almas Schmidt Work Phone: [facility] 12-01-2023 13:27-0400 Systolic blood pressure 103 mm[Hg] Dr. Almas Schmidt Work Phone: [facility] 08-08-2023 11:27-0500 Body temperature 98.2 [degF] Dr. Almas Schmidt Work Phone: [facility] 08-08-2023 11:27-0500 Diastolic blood pressure 68 mm[Hg] Dr. Almas Schmidt Work Phone: [facility] 08-08-2023 11:27-0500 Heart rate 71 /min Dr. Almas Schmidt Work Phone: [facility] 08-08-2023 11:27-0500 Respiratory rate 12 /min Dr. Almas Schmidt Work Phone: [facility] 08-08-2023 11:27-0500 SaO2% (BldA) [Mass fraction] 95 % Dr. Almas Schmidt Work Phone: [facility] 08-08-2023 11:27-0500 Systolic blood pressure 118 mm[Hg] Dr. Almas Schmidt Work Phone: 4(743)316-346565 [place] [address] 07-30-2023 12:30-0500 Body height 167.[address] Almas Schmidt Work Phone: 2(933)571-493665 [place] [address] 07-30-2023 12:30-0500 Body mass index (BMI) [Ratio] 35.2 kg/m2 Dr. Almas Schmidt Work Phone: 8(004)321-801965 [place] [address] 07-30-2023 12:30-0500 Body weight 98.[address] Almas Schmidt Work Phone: 5(346)396-733367 [place] [address] 07-30-2023 12:30-0500 Diastolic blood pressure 76 mm[Hg] Dr. Almas Schmidt Work Phone: 0(910)065-189967 [place] [address] 07-30-2023 12:30-0500 Heart rate 64 /min Dr. Almas Schmidt Work Phone: 9(976)535-239865 [place] [address] 07-30-2023 12:30-0500 SaO2% (BldA) [Mass fraction] 94 % Dr. Almas Schmidt Work Phone: 5(586)924-837565 [place] [address] 07-30-2023 12:30-0500 Systolic blood pressure 134 mm[Hg] Dr. Almas Schmidt Work Phone: 2(974)164-945165 [place] [address] 10-21-2022 11:04-0500 Body height 167.[address] Almas Schmidt Work Phone: 6(468)015-526765 [place] [address] 10-21-2022 11:04-0500 Body mass index (BMI) [Ratio] 42.3 kg/m2 Dr. Almas Schmidt Work Phone: 0(750)523-538365 [place] [address] 10-21-2022 11:04-0500 Body weight 118.[address] Almas Schmidt Work Phone: 4(276)856-072165 [place] [address] 10-21-2022 11:04-0500 Diastolic blood pressure 73 mm[Hg] Dr. Amlas Schmidt Work Phone: 9(695)014-816465 [place] [address] 10-21-2022 11:04-0500 Heart rate 68 /min Dr. Almas Schmidt Work Phone: [facility] 10-21-2022 11:04-0500 SaO2% (BldA) [Mass fraction] 97 % Dr. Almas Schmidt Work Phone: [facility] 10-21-2022 11:04-0500 Systolic blood pressure 104 mm[Hg] Dr. Almas Schmidt Work Phone: [facility] 08-01-2022 12:53-0500 Body height 167.[address] Almas Schmidt Work Phone: [facility] 08-01-2022 12:53-0500 Body mass index (BMI) [Ratio] 41.3 kg/m2 Dr. Almas Schmidt Work Phone: [facility] 08-01-2022 12:53-0500 Body weight 116.[address] Almas Schmidt Work Phone: [facility] 08-01-2022 12:53-0500 Diastolic blood pressure 71 mm[Hg] Dr. Almas Schmidt Work Phone: [facility] 08-01-2022 12:53-0500 Heart rate 73 /min Dr. Almas Schmidt Work Phone: [facility] 08-01-2022 12:53-0500 Respiratory rate 18 /min Dr. Almas Schmidt Work Phone: [facility] 08-01-2022 12:53-0500 SaO2% (BldA) [Mass fraction] 100 % Dr. Almas Scmhidt Work Phone: [facility] 08-01-2022 12:53-0500 Systolic blood pressure 109 mm[Hg] Dr. Almas Schmidt Work Phone: [facility] 12-23-2021 11:21-0400 Diastolic blood pressure 76 mm[Hg] Dr. Almas Schmidt Work Phone: [facility] Work Phone: 12-23-2021 11:21-0400 Heart rate 73 /min Dr. Almas Schmidt Work Phone: [facility] Work Phone: 12-23-2021 11:21-0400 Respiratory rate 12 /min Dr. Almas Schmidt Work Phone: [facility] Work Phone: 12-23-2021 11:21-0400 SaO2% (BldA) [Mass fraction] 99 % Dr. Almas Schmidt Work Phone: [facility] Work Phone: 12-23-2021 11:21-0400 Systolic blood pressure 117 mm[Hg] Dr. Almas Schmidt Work Phone: [facility] Work Phone: 12-23-2021 09:32-0400 Body height 167.[address] Almas Schmidt Work Phone: [facility] Work Phone: 12-23-2021 09:32-0400 Body mass index (BMI) [Ratio] 37.1 kg/m2 Dr. Almas Schmidt Work Phone: [facility] Work Phone: 12-23-2021 09:32-0400 Body temperature 97.9 [degF] Dr. Almas Schmidt Work Phone: [facility] Work Phone: 12-23-2021 09:32-0400 Body weight 104.[address] Almas Schmidt Work Phone: [facility] Work Phone: 11-11-2021 10:16-0500 Body height 167.[address] Almas Schmidt Work Phone: [facility] Work Phone: 11-11-2021 10:16-0500 Body mass index (BMI) [Ratio] 35.5 kg/m2 Dr. Almas Schmidt Work Phone: [facility] Work Phone: 11-11-2021 10:16-0500 Body temperature 97.4 [degF] Dr. Almas Schmidt Work Phone: [facility] Work Phone: 11-11-2021 10:16-0500 Body weight 99.[address] Almas Schmidt Work Phone: [facility] Work Phone: 11-11-2021 10:16-0500 Diastolic blood pressure 82 mm[Hg] Dr. Almas Schmidt Work Phone: [facility] Work Phone: 11-11-2021 10:16-0500 Heart rate 73 /min Dr. Almas Schmidt Work Phone: [facility] Work Phone: 11-11-2021 10:16-0500 Respiratory rate 18 /min Dr. Almas Schmidt Work Phone: [facility] Work Phone: 11-11-2021 10:16-0500 SaO2% (BldA) [Mass fraction] 97 % Dr. Almas Schmidt Work Phone: [facility] Work Phone: 11-11-2021 10:16-0500 Systolic blood pressure 136 mm[Hg] Dr. Almas Schmidt Work Phone: [facility] Work Phone: Encounters Encounter Date Encounter Type Care Provider Facility Start: 06-08-2025 ambulatory Almas Chi Brayan Facility:[facility] Start: 05-23-2025 End: 05-23-2025 ambulatory Almas Chi Brayan Facility:[facility] Start: 04-13-2025 End: 04-13-[address] Almas Schmidt MD Work Phone: -Laboratory Start: 04-13-2025 End: 04-13-[address] Sae Saeed MD -Laboratory Work Phone: Start: 04-13-2025 End: 04-13-2025 ambulatory Sae Saeed Facility:[facility] Start: 03-15-2025 End: 03-15-2025 Patient encounter procedure Gus Sarahrafy WILLIAM -[facility] Work Phone: Start: 03-15-2025 End: 03-15-[address] Almas Schmidt MD Work Phone: [facility] Start: 02-23-2025 End: 02-23-[address] Sae Saeed MD -[facility] Work Phone: Start: 02-23-2025 End: 02-23-[address] Almas Schmidt MD Work Phone: [facility] Work Phone: Start: 02-22-2025 End: 02-22-[address] Almas Schmidt MD Work Phone: [facility] Work Phone: Start: 02-22-2025 End: 02-22-[address] Sae Saeed MD -Laboratory Work Phone: Start: 02-22-2025 End: 02-22-2025 ambulatory Sae Saeed Facility:[facility] Start: 02-16-2025 End: 02-16-[address] Almas Schmidt MD Work Phone: [facility] Work Phone: Start: 02-16-2025 End: 02-16-2025 Patient encounter procedure Zoya CUNNINGHAM -[facility] Work Phone: Start: 02-16-2025 End: 02-16-2025 ambulatory Almas Schmidt Facility:[facility] Start: 02-09-2025 End: 02-09-[address] Almas Schmidt MD Work Phone: [facility] Work Phone: Start: 02-09-2025 End: 02-09-[address] Sae Saeed MD -Laboratory Work Phone: Start: 02-09-2025 End: 02-09-2025 ambulatory Almas Chi Brayan Facility:[facility] Start: 01-05-2025 End: 01-05-[address] Almas Schmidt MD -Outpatient Breast Imaging Work Phone: Start: 01-05-2025 End: 01-05-2025 ambulatory Almas Chi Brayan Facility:[facility] Start: 11-24-2024 End: 11-24-[address] Sae Saeed MD -[facility] Work Phone: Start: 11-24-2024 End: 11-24-2024 ambulatory Almas Chi Brayan Facility:[facility] Start: 11-03-2024 End: 11-03-[address] Almas Schmidt MD -Laboratory Work Phone: Start: 11-03-2024 End: 11-03-2024 ambulatory Almas Chi Brayan Facility:[facility] Start: 10-24-2024 End: 10-24-[address] Almas Schmidt MD -Laboratory Phy Office [address] [place] [address] Start: 10-24-2024 End: 10-24-2024 ambulatory Almas Chi Brayan Facility:[facility] Start: 10-04-2024 End: 10-04-2024 ambulatory Almas Chi Brayan Facility:[facility] Start: 09-01-2024 End: 09-01-2024 ambulatory Almas Chi Brayan Facility:[facility] Start: 08-20-2024 End: 08-20-2024 Emergency department patient visit Almas Chi Brayan Facility:[facility] Start: 08-18-2024 End: 08-18-2024 ambulatory Almas Chi Brayan Facility:[facility] Start: 12-31-2023 End: 12-31-[address] Almas Schmidt Work Phone: [facility] Work Phone: Start: 12-31-2023 End: 12-31-[address] Almas Schmidt Work Phone: [facility]-Outpatient Breast Imaging Work Phone: Start: 12-01-2023 End: 12-01-[address] Almas Schmidt Work Phone: [facility] Work Phone: Start: 12-01-2023 End: 12-01-[address] Almas Schmidt Work Phone: [facility] Work Phone: Start: 12-01-2023 End: 12-01-[address] Almas Schmidt Work Phone: [facility]-Cardiovascular Services Work Phone: Start: 11-26-2023 End: 11-26-[address] Almas Schmidt Work Phone: [facility] Work Phone: Start: 11-26-2023 End: 11-26-[address] Almas Schmidt Work Phone: [facility]-Ultrasound, [facility] Work Phone: Start: 11-17-2023 End: 11-17-2023 Non-patient / Non-visit Dr. Almas Schmidt Work Phone: [facility] Work Phone: Start: 11-17-2023 End: 11-17-[address] Almas Schmidt Work Phone: [facility] Work Phone: Start: 11-17-2023 End: 11-17-[address] Almas Schmidt Work Phone: [facility]-Pulmonary Services/Neurology Work Phone: Start: 11-12-2023 End: 11-12-[address] Almas Schmidt Work Phone: [facility] Work Phone: Start: 11-12-2023 End: 11-12-[address] Almas Schmidt Work Phone: [facility], y Office 3rd Flr Start: 10-29-2023 End: 10-29-[address] Almas Schmidt Work Phone: [facility] Work Phone: Start: 10-29-2023 End: 10-29-[address] Almas Schmidt Work Phone: [facility] y Office 3rd Flr Start: 08-08-2023 End: 08-08-[address] Almas Schmidt Work Phone: [facility] Work Phone: Start: 07-30-2023 End: 07-30-[address] Almas Schmidt Work Phone: [facility] Work Phone: Start: 05-26-2023 End: 05-26-2023 ambulatory [facility] Work Phone: Start: 05-26-2023 End: 05-26-2023 Patient encounter procedure [facility] y Office 3rd Flr Start: 05-14-2023 End: 05-14-2023 Patient encounter procedure [facility], [facility] Work Phone: Start: 12-09-2022 End: 12-09-[address] Almas Schmidt Work Phone: [facility] Work Phone: Start: 12-09-2022 End: 12-09-[address] [facility] Start: 10-21-2022 End: 10-21-[address] Almas Schmidt Work Phone: [facility], y Office 3rd Flr Start: 10-21-2022 End: 10-21-[address] Almas Schmidt Work Phone: [facility] Start: 09-25-2022 End: 09-25-[address] Almas Schmidt Work Phone: [facility] Work Phone: Start: 09-25-2022 End: 09-25-[address] Almas Schmidt Work Phone: [facility], [facility] Start: 08-01-2022 End: 08-01-[address] Almas Schmidt Work Phone: [facility] Start: 07-24-2022 End: 07-24-[address] Almas Schmidt Work Phone: [facility] Work Phone: Start: 07-24-2022 End: 07-24-[address] Almas Schmidt Work Phone: [facility]-Occupational Therapy Start: 07-11-[address] Almas beltran Work Phone: [facility]-Occupational Therapy Start: 07-08-2022 End: 07-08-[address] Almas Schmidt Work Phone: [facility] Work Phone: Start: 07-08-2022 End: 07-08-[address] Almas Schmidt Work Phone: [facility]-Laboratory, Specimen Start: 04-22-2022 End: 04-22-[address] Almas Schmidt Work Phone: [facility] Start: 01-31-2022 End: 01-31-[address] Almas Schmidt Work Phone: [facility] Start: 12-23-2021 End: 12-23-[address] Almas Schmidt Work Phone: [facility]-Cat Scan, [facility] Start: 12-05-2021 End: 12-05-[address] Almas Schmidt Work Phone: [facility]-Laboratory Start: 12-05-2021 End: 12-05-[address] Almas Schmidt Work Phone: [facility] Start: 11-14-2021 End: 11-14-[address] Almas Schmidt Work Phone: [facility]-Occupational Therapy Start: 11-14-2021 End: 11-14-[address] Almas Schmidt Work Phone: [facility]-Pulmonary Services/Neurology Start: 11-11-2021 End: 11-11-[address] Almas Schmidt Work Phone: [facility] Start: 10-30-2021 End: 10-30-[address] Almas Schmidt Work Phone: [facility]-Ultrasound, [facility] Start: 10-16-2021 End: 10-16-[address] Almas Schmidt Work Phone: [facility]-Laboratory, Phy Office 3rd Flr Start: 07-16-[address] Almas Schmidt Work Phone: [facility] Start: 10-20-2018 End: 10-21-2018 Patient encounter procedure [facility] Procedures Date Procedure Procedure Detail Performing Clinician Start: 04-13-2025 Albumin/Globulin ratio Dr. Almas Schmidt MD Work Phone: Start: 04-13-2025 Hepatitis A virus an tibody, IgM type Dr. Almas Schmidt MD Work Phone: Comment on above: A negative anti-HAV IgM result suggests no recent orcurrent HAV infection. Start: 04-13-2025 Hepatitis B core ant ibody measurement, IgM type Dr. Almas Schmidt MD Work Phone: Start: 04-13-2025 Hepatitis C antibody measurement Dr. Almas Schmidt MD Work Phone: Start: 04-13-2025 [address] M measurement Dr. Almas Schmidt MD Work Phone: Start: 04-13-2025 Total iron binding c apacity measurement Dr. Almas Schmidt MD Work Phone: Start: 02-16-2025 Ultrasound elastogra phy of liver Dr. Almas Schmidt MD Work Phone: Start: 01-05-2025 Screening mammography D r. Almas Schmidt MD Work Phone: Start: 11-03-2024 Measurement of renal function Dr. Almas Schmidt MD Work Phone: Comment on above: GFR Calc Start: 10-24-2024 SARS-CoV-2, Influenz a & RSV (PCR) Dr. Almas Schmidt MD Work Phone: Start: 12-31-2023 Screening mammography D r. Almas Schmidt Work Phone: Start: 11-26-[address] Almas Schmidt Work Phone: Start: 05-14-2023 Ultrasound elastogra phy of liver Start: 09-25-[address] Almas Schmidt Work Phone: Start: 09-25-[address] Almas Schmidt Work Phone: Start: 12-23-2021 Biopsy/Inj or Needle Placement Dr. Alams Schmidt Work Phone: Start: 11-14-2021 Influenza Types A,B Direct FA (GLORY) Dr. Almas Schmidt Work Phone: Start: 11-14-2021 End: 11-14-2021 Respiratory syncytial virus antigen assay Dr. Almas Schmidt Work Phone: Start: 10-30-2021 Screening mammography D r. Almas Schmidt Work Phone: Start: 10-30-[address] Almas Schmidt Work Phone: Start: 10-30-2021 Elastography Parenchyma/Organ Dr. Almas Schmidt Work Phone: Plan of Treatment Date Care Activity Detail Author Start: 02-16-2025 Liver stiffness by US.transient elastography [facility] Start: 02-16-2025 Ultrasound elastography of liver ABD Limited w/ Elastography [facility] Start: 04-22-2022 Patient referral [facility] Work Phone: Start: 12-23-2021 Biopsy liver needle percutaneous NEEDLE BIOPSY OF LIVER [facility] Work Phone: Acute hepatitis 2000 panel - Serum [facility] [id number]. tumor marker [Units/volume] in Serum or Plasma [facility] Bilirubin.direct [Mass/volume] in Serum or Plasma [facility] C reactive protein [Mass/volume] in Serum or Plasma [facility] C reactive protein [Mass/volume] in Serum or Plasma [facility] CBC W Auto Different ial panel - Blood [facility] CBC W Auto Different ial panel - Blood [facility] Comprehensive metabo lic 2000 panel - Serum or Plasma [facility] Gamma glutamyl trans ferase measurement [facility] Gamma glutamyl trans ferase measurement [facility] Gamma glutamyl trans ferase measurement [facility] Hemoglobin A1c/Hemoglobin.total in Blood [facility] Hepatitis B virus louis rface Ab [Presence] in Serum [facility] Immunoglobulin measurement [facility] Iron and Iron bindin g capacity panel - Serum or Plasma [facility] Lactate dehydrogenas e measurement [facility] Lipid 1996 panel - S stone or Plasma [facility] Liver stiffness by US.transient elastography [facility] Liver stiffness by US.transient elastography [facility] Patient Education Biopsy Liver D c ED Procedural Sedation, (Adult) [facility] Work Phone: Patient referral [facility] Work Phone: Prothrombin time [facility] Prothrombin time [facility] Serum immunofixation [facility] T4 free measurement [facility] Thyroid stimulating hormone measurement [facility] Ultrasound elastography [place] Work Phone: [facility] [employer] [facility] Work Phone: [facility] Payers Date Payer Category Payer Self-pay [id number] 2023 Unknown [id number] 2016 Unknown [id number] 2015 Unknown [id number] Unknown [id number] Unknown [id number] Unknown [id number] Unknown [id number] 2.16.8 [id number] Unknown [id number] 2.16.8 40.1.252697.3.579.2.462 Unknown [id number] 2.16.8 40.1.454942.3.579.2.462 Unknown [id number] 2.16.8 40.1.620575.3.579.2.462 Unknown [id number] 2.16.8 40.1.632279.3.579.2.462 Unknown [id number] 2.16.8 40.1.336556.3.579.2.462 Unknown [id number] 2.16.8 40.1.327008.3.579.2.462 Unknown [id number] 2.16.8 40.1.661831.3.579.2.462 Unknown [id number] 2.16.8 40.1.543280.3.579.2.462 Unknown [id number] 2.16.8 40.1.024908.3.579.2.462 Unknown [id number] 2.16.8 40.1.038303.3.579.2.462 Unknown [id number] 2.16.8 40.1.016793.3.579.2.462 Unknown [id number] 2.16.8 40.1.595279.3.579.2.462 Unknown [id number] 2.16.8 40.1.103433.3.579.2.462 Unknown [id number] 2.16.8 40.1.821374.3.579.2.462 Unknown [id number] 2.16.8 40.1.566780.3.579.2.462 Unknown [id number] 2.16.8 40.1.619936.3.579.2.462 Social History Date Type Detail Facility Start: 12-05-2021 End: 12-01-2023 Tobacco smoking status NYIS Unknown if ever smoked [facility] Start: 1965 Sex Assigned At Female [facility] Start: 08-20-2024 Tobacco smoking stat us NHIS Never smoked tobacco (finding) [facility] Goals Date Patient Goal Desired Activity /State Mental Status Date Assessment Result Facility 12-23-2021 Cognitive function Voice/Name [facility] Work Phone: Clinical Notes 11-24-2024 to 02-17-2025 Note Date & Type Note Facility 02-17-2025 Radiology Diagnostic study note [facility] Imaging Services [address] [place], [place] [address] ABD Limited w/ Elastography MR#: [id number] Acct: [id number] Name: LIANNA CHACKO Rep #: [id number] : [id number] F 60 From: Debra Parks MD PCP: Dr. Almas Schmidt MD Status: KARINA C JACKI Study:ABD Limited w/ Elastography Date of Exa m: 02/16/25 Exam# [id number] Ordering Dr: Dashawn Saeed MD PROCEDURE: ABD LIMITED W/ ELASTOGRAPHY, 02/16/2025 REASON FOR EXAM: LIVER FIBROSIS, F2 F3 COMPARISON: 01/28/2024 TECHNIQUE: Grayscale and color Doppler imaging of the right upper quadrant was performed. Elastography was performed for non-invasive assessment of liver tissue stiffness utilizing a [employer] S-shear wave imaging unit. FINDINGS: Liver: Grossly unremarkable echotexture. 15.7 cm in length. Gallbladder: Unremarkable. Reportedly, sonographic Jose's was negative. Biliary tree: Unremarkable. CBD measures 3 mm. Pancreas: Partially obscured by shadowing bowel gas, grossly unremarkable as visualized. Right kidney: Unremarkable. 11.1 cm in length. Other: No visualized free fluid. Hepatic elastography: Number of measurements: 15 measurements across 3 regions, 5 measurements per region. US probe: CA1-7A. EQI median: 6.7 kPa EQI median velocity: 1.48 m/s IQR/Med: 22.7-24.6% (kPa) and 11.4-12.3% (m/s). If the IQR/Med is IQR/median >30% (for kPa) or >15% in m/s, the variance in the measurements is a large and the accuracy of the measurement may be in question. US/ABD Limited w/ Elastography IMPRESSION: 1. Grossly unremarkable hepatic echotexture. 2. Liver stiffness is 6.7 kPa. Per the below 2020 SRU criteria, this rules out compensated advanced chronic liver disease in the absence of other known clinical signs. If there are known clinical signs, further testing may be needed for confirmation. 3. Additional description as above. Assessment is per the Update to the SRU Liver Elastography Consensus Statement (2020) Note that the above assessment of liver fibrosis is vendor-neutral and intended for use in fibrosis related to viral etiologies and non-alcoholic fatty-liver disease (NAFLD); in causes other than viral hepatitis and NAFLD, the cutoff values are currently not well established. In some patients with NAFLD, the cutoff values for cACLD may be lower (7-9 kPa). Note also that in the setting of elevated LFTs, nonfasting or vascular congestion, the stage of lifer fibrosis may be overestimated. Previous SRU reference values: <1.37 m/s (5.7kPa): No to mild fibrosis 1.37 m/s - 2.2 m/s: Moderate to severe fibrosis >2.2 m/s (15kPa): Significant fibrosis / cirrhosis Reading Location: [id number] CC: Dr. Sae Saeed MD; Dr. 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 [facility] 02-16-2025 Evaluation note Diagnosis Onset Date Resolution Bilateral lower extremity edema acute February 16, 2025 9 :07am Lymphedema acute February 16, 2025 9:07am Drug-induced liver injury acute February 23, 2025 10:27am Metabolic dysfunction-associated steatotic liver disease (MASLD) chronic February 23, 2025 10:27am Obesity chronic February 23 10:27am Contact dermatitis due to poison sue acute March 15, 2025 4 :30pm [facility] Work Phone: 1(770) 141-956103-13-2025 Evaluation note* Diagnosis Onset Date Resolution Status Admit Date Metabolic dysfunction-associated steatotic liver disease (MASLD) chronic November 24, 2024 10:12am Obesity chronic November 24 10:12am [facility] Work Phone: 1(842) 759-568403-13-2025 Evaluation note* Diagnosis Onset Date Resolution Status Admit Date Metabolic dysfunction-associated steatotic liver disease (MASLD) chronic November 24, 2024 10:12am Obesity chronic November 24 10:12am Bilateral lower extremity edema acute February 16, 2025 9 :07am Lymphedema acute February 16, 2025 9:07am Metabolic dysfunction-associated steatotic liver disease (MASLD) chronic February 23, 2025 10:27am Obesity chronic February 23 10:27am [facility] Work Phone: 1(764) 523-868503-13-2025 Evaluation note* Diagnosis Onset Date Resolution Status Admit Date Metabolic dysfunction-associated steatotic liver disease (MASLD) chronic November 24, 2024 10:12am Obesity chronic November 24 10:12am Bilateral lower extremity edema acute February 16, 2025 9 :07am Lymphedema acute February 16, 2025 9:07am Drug-induced liver injury acute February 23, 2025 10:27am Metabolic dysfunction-associated steatotic liver disease (MASLD) chronic February 23, 2025 10:27am Obesity chronic February 23 10:27am [facility] Work Phone: Evaluation note* Diagnosis Onset Date Resolution Status Acute bronchitis, unspecified acute Acute sinusitis, unspecified acute Fatty liver acute [facility] Work Phone: Evaluation note* Diagnosis Onset Date Resolution Status Acute bronchitis, unspecified acute Acute sinusitis, unspecified acute Fatty liver acute Fatty liver acute [facility] Work Phone: Evaluation note* Diagnosis Onset Date Resolution Status Fatty liver acute Obesity acute [facility] Work Phone: Evaluation note* Diagnosis Onset Date Resolution Status Chronic diastolic (congestive) heart failure chronic Hyperlipidemia chronic [facility] Work Phone: Evaluation note* Diagnosis Onset Date Resolution Status PINO (nonalcoholic steatohepatitis) chronic [facility] Work Phone: Evaluation noteNo assessment information available [facility] Work Phone: Evaluation note* Diagnosis Onset Date Resolution Status PINO (nonalcoholic steatohepatitis) chronic Obesity chronic Sinusitis acute [facility] Work Phone: Evaluation note* Diagnosis Onset Date Resolution Status Sinusitis acute Lymphedema acute Chronic diastolic (congestive) heart failure chronic Hyperlipidemia chronic [facility] Work Phone: Evaluation note* Diagnosis Onset Date Resolution Status Lymphedema acute Chronic diastolic (congestive) heart failure chronic Hyperlipidemia [facility] Work Phone: Reason for referral (narrative)No reason for referral information availableL[facility] Work Phone: Summary Purpose Family History No Family History Records Found Relationship Condition Age at Onset Recorded Date/T jaquelin Not Specified Malignant neoplasm of breast Unknown father Coronary artery disease Unknown Relationship Condition Age at Onset Recorded Date/T jaquelin Not Specified Kidney disorder Unknown Malignant neoplasm of breast Unknown father Coronary artery disease Unknown Advance Directives No Advanced Directives Records Found Advance Directive Response Recorded Date/ Time Living Will No May 23 9:16pm Power of All Around Presser No May 23, 2021 9:16pm Advance Directive Response Recorded Date/ Time Living Will No May 23 8:16pm Power of All Around Presser No May 23, 2021 8:16pm Chief Complaint and Reason for Visit Chief Complaint Admit Date 3 M FU November 24, 2024 10: 12am SCREENING January 05, 2025 9:5 8am Reason for Visit Admit Date Metabolic dysfunction-associ ated steatotic liver disease (MASLD) November 24, 2024 10:12am Obesity November 24, 2024 10: 12am Chief Complaint HEPATIC FIBROSIS/ SC REENING Cough CHILLS OA [facility]ST [facility] JT L HAND/RX W/ PATIENT NONALCOHOLIC FATTY MAGGIE CIRR INT LABS Reason for Visit Acute bronchitis, un specified Acute sinusitis, unspecified Fatty liver Chief Complaint HEPATIC FIBROSIS/ SC REENING Cough CHILLS OA 1ST [facility] JT L HAND/RX W/ PATIENT NONALCOHOLIC FATTY MAGGIE CIRR INT LABS FATTY LIVER Reason for Visit Acute bronchitis, un specified Acute sinusitis, unspecified Fatty liver Chief Complaint HEPATIC FIBROSIS/ SC REENING Cough CHILLS OA 1ST [facility] JT L HAND/RX W/ PATIENT NONALCOHOLIC FATTY MAGGIE CIRR INT LABS FATTY LIVER 8 WK FU Reason for Visit Acute bronchitis, un specified Acute sinusitis, unspecified Fatty liver Fatty liver Chief Complaint 3 MO FU UNILATERAL PRIMARY OSTEOARTHRITIS OF FIRST CARPOMN Reason for Visit Fatty liver Obesity Chief Complaint UNILATERAL PRIMARY O STEOARTHRITIS OF FIRST CARPOMN 1 Y FU Reason for Visit Chronic diastolic (c ongestive) heart failure Hyperlipidemia Chief Complaint UNILATERAL PRIMARY O STEOARTHRITIS OF FIRST CARPOMN 1 Y FU FATTY LIVER Reason for Visit Chronic diastolic (c ongestive) heart failure Hyperlipidemia Chief Complaint FATTY LIVER 6 M FU Reason for Visit PINO (nonalcoholic s teatohepatitis) Chief Complaint PINO Chief Complaint 6 MO FU CONCERN FOR SINUS INFECTION Reason for Visit PINO (nonalcoholic s teatohepatitis) Obesity Sinusitis Chief Complaint 6 MO FU CONCERN FOR SINUS INFECTION EPIGASTRIC PAIN PREOP Reason for Visit PINO (nonalcoholic s teatohepatitis) Obesity Sinusitis Chief Complaint CONCERN FOR SINUS IN FECTION EPIGASTRIC PAIN PREOP EPIGASTRIC PAIN EPIGASTRIC PAIN 1 Y FU Reason for Visit Sinusitis Lymphedema Chronic diastolic (congestive) heart failure Hyperlipidemia Chief Complaint EPIGASTRIC PAIN PREOP EPIGASTRIC PAIN EPIGASTRIC PAIN 1 Y FU Reason for Visit Lymphedema Chronic diastolic (congestive) heart failure Hyperlipidemia Chief Complaint EPIGASTRIC PAIN PREOP EPIGASTRIC PAIN EPIGASTRIC PAIN 1 Y FU SCREENING Reason for Visit Lymphedema Chronic diastolic (congestive) heart failure Hyperlipidemia Chief Complaint Admit Date 3 M FU November 24, 2024 10: 12am SCREENING January 05, 2025 9:5 8am LIVER FIBROSIS, F2 F3 February 16, 2025 8:3 4am 6 M FU February 16, 2025 9:07a m Chief Complaint Admit Date 3 M FU November 24, 2024 10: 12am SCREENING January 05, 2025 9:5 8am LIVER FIBROSIS, F2 F3 February 16, 2025 8:3 4am 6 M FU February 16, 2025 9:07a m E-ORDER February 22, 2025 4:32 pm 3 M FU February 23, 2025 10:2 7am Reason for Visit Admit Date Metabolic dysfunction-associ ated steatotic liver disease (MASLD) November 24, 2024 10:12am Obesity November 24, 2024 10: 12am Bilateral lower extremity edema February 9:07am Lymphedema February 16, 2025 9:07a m Metabolic dysfunction-associ ated steatotic liver disease (MASLD) February 23, 2025 10:27am Obesity February 23, 2025 10:2 7am Reason for Visit Admit Date Metabolic dysfunction-associ ated steatotic liver disease (MASLD) November 24, 2024 10:12am Obesity November 24, 2024 10: 12am Bilateral lower extremity edema February 9:07am Lymphedema February 16, 2025 9:07a m Drug-induced liver injury February 23 10:27am Metabolic dysfunction-associ ated steatotic liver disease (MASLD) February 23, 2025 10:27am Obesity February 23, 2025 10:2 7am Chief Complaint Admit Date 3 M FU November 24, 2024 10: 12am SCREENING January 05, 2025 9:5 8am LIVER FIBROSIS, F2 F3 February 16, 2025 8:3 4am 6 M FU February 16, 2025 9:07a m E-ORDER February 22, 2025 4:32 pm 3 M FU February 23, 2025 10:2 7am POISON SUE LEGS/ARMS March 15, 2025 4:30 pm Chief Complaint Admit Date SCREENING January 05, 2025 9:5 8am LIVER FIBROSIS, F2 F3 February 16, 2025 8:3 4am 6 M FU February 16, 2025 9:07a m E-ORDER February 22, 2025 4:32 pm 3 M FU February 23, 2025 10:2 7am POISON SUE LEGS/ARMS March 15, 2025 4:30 pm E-ORDER- ONLY THE ONES DUE IN MarchApril 13, 2025 2:16pm Reason for Visit Admit Date Bilateral lower extremity edema February 9:07am Lymphedema February 16, 2025 9:07a m Drug-induced liver injury February 23 10:27am Metabolic dysfunction-associ ated steatotic liver disease (MASLD) February 23, 2025 10:27am Obesity February 23, 2025 10:2 7am Contact dermatitis due to poison sue Mar 4:30pm Additional Source Comments INFORMATION SOURCE (unrecogn ized section and content) DATE CREATED AUTHOR 11/03/2018 [facility] DATE CREATED AUTHOR AUTHOR'S ORGANIZ ATION 06/04/2025 [facility] Teams (unrecognized sec tion and content) Team Status: Active Member Role Status Dates Dr. Almas Schmidt MD Family Provider Active Dr. Almas Schmidt MD Primary Care Provider Active Team Status: Inactive Member Role Status Dates Dr. Almas Schmidt MD Primary Care Provider, Referring Provider Active Dr. Ronny Mallory MD Active Trang Eduardo TRUCK RENTAL CLERK, TRUCK RENTAL CLERK-C Attending Provider Active Team Status: Inactive Member Role Status Dates Dr. Almas Schmidt MD Primary Care Provider Active Dr. Alejandro Solis DO Attending Provider Active Team Status: Inactive Member Role Status Dates Dr. Almas Schmidt MD Primary Care Provider Active Dr. Cherry Blake MD Attending Provider, Referring P ce Active NATHALY RODRIGUES Active Team Status: Inactive Member Role Status Dates Dr. Almas Schmidt MD Primary Care Provider, Attending Provider Active Team Status: Inactive Member Role Status Dates Dr. Almas Schmidt MD Primary Care Provider, Referring Provider Active Jumana Lema TRUCK RENTAL CLERK, TRUCK RENTAL CLERK-C Attending Provider Active Team Status: Inactive Member Role Status Dates Dr. Almas Schmidt MD Primary Care Provi gopi, Attending Provider, Referring Provider Active Team Status: Inactive Member Role Status Dates Dr. Almas Schmidt MD Primary Care Provider Active Dr. Alejandro Solis DO Attending Provider, Referring Provider Active Team Status: Inactive Member Role Status Dates Dr. Almas Schmidt MD Primary Care Provider, Referring Provider Active Dr. Sae Saeed MD Attending Provider Active Team Status: Inactive Member Role Status Dates Dr. Almas Schmidt MD Primary Care Provider, Referring Provider Active MARISA Arias Attending Provider Active Team Status: Active Member Role Status Dates Dr. Almas Schmidt MD Primary Care Provider, Referring Provider Active Dr. Leonardo Garcia MD Attending Provider Active Team Status: Inactive Member Role Status Dates Dr. Almas Schmidt MD Primary Care Provider, Referring Provider Active Dr. Ronny Mallory MD Attending Provider Active Team Status: Active Member Role Status Dates Dr. Almas Schmidt MD Primary Care Provi gopi, Attending Provider, Referring Provider Active Team Status: Active Member Role Status Dates Dr. Almas Schmidt MD Primary Care Provider Active Team Status: Inactive Member Role Status Dates Dr. Almas Schmidt MD Primary Care Provider Active Start: October 24, 2024 End: October 24, 2024 Dr. Almas Schmidt MD Attending Provider Active Start: October 24, 2024 End: October 24, 2024 Team Status: Inactive Member Role Status Dates Dr. Almas Schmidt MD Primary Care Provider Active Start: November 03, 2024 End: November 03, 2024 Dr. Almas Schmidt MD Attending Provider Active Start: November 03, 2024 End: November 03, 2024 Dr. Almas Schmidt MD Referring Provider Active Start: November 03, 2024 End: November 03, 2024 Team Status: Inactive Member Role Status Dates Dr. Almas Schmidt MD Primary Care Provider Active Start: November 24, 2024 End: November 24, 2024 Dr. Almas Schmidt MD Referring Provider Active Start: November 24, 2024 End: November 24, 2024 Dr. Sae Saeed MD Attending Provider Active Start: November 24, 2024 End: November 24, 2024 Team Status: Inactive Member Role Status Dates Dr. Almas Schmidt MD Primary Care Provider Active Start: January 05, 2025 End: January 05, 2025 Dr. Almas Schmidt MD Attending Provider Active Start: January 05, 2025 End: January 05, 2025 Dr. Almas Schmidt MD Referring Provider Active Start: January 05, 2025 End: January 05, 2025 Team Status: Inactive Member Role Status Dates Dr. Almas Schmidt MD Primary Care Provider Active Start: February 09, 2025 End: February 09, 2025 Dr. Sae Saeed MD Attending Provider Active Start: February 09, 2025 End: February 09, 2025 Dr. Sae Saeed MD Referring Provider Active Start: February 09, 2025 End: February 09, 2025 Team Status: Active Member Role Status Dates Dr. Almas Schmidt MD Primary Care Provider Active Start: February 16, 2025 Dr. Sae Saeed MD Attending Provider Active Start: February 16, 2025 Dr. Sae Saeed MD Referring Provider Active Start: February 16, 2025 Team Status: Inactive Member Role Status Dates Dr. Almas Schmidt MD Primary Care Provider Active Start: February 16, 2025 End: February 16, 2025 Dr. Almas Schmidt MD Referring Provider Active Start: February 16, 2025 End: February 16, 2025 MARISA Villar Attending Provider Active Star t: February 16, 2025 End: February 16, 2025 Team Status: Active Member Role Status Dates Dr. Almas Schmidt MD Primary Care Provider Active Start: February 22, 2025 Dr. Sae Saeed MD Attending Provider Active Start: February 22, 2025 Dr. Sae Saeed MD Referring Provider Active Start: February 22, 2025 Team Status: Inactive Member Role Status Dates Dr. Almas Schmidt MD Primary Care Provider Active Start: February 23, 2025 End: February 23, 2025 Dr. Almas Schmidt MD Referring Provider Active Start: February 23, 2025 End: February 23, 2025 Dr. Sae Saeed MD Attending Provider Active Start: February 23, 2025 End: February 23, 2025 Team Status: Inactive Member Role Status Dates Dr. Almas Schmidt MD Primary Care Provider Active Start: February 16, 2025 End: February 16, 2025 Dr. Sae Saeed MD Attending Provider Active Start: February 16, 2025 End: February 16, 2025 Dr. Sae Saeed MD Referring Provider Active Start: February 16, 2025 End: February 16, 2025 Team Status: Inactive Member Role Status Dates Dr. Almas Schmidt MD Primary Care Provider Active Start: February 22, 2025 End: February 22, 2025 Dr. Sae Saeed MD Attending Provider Active Start: February 22, 2025 End: February 22, 2025 Dr. Sae Saeed MD Referring Provider Active Start: February 22, 2025 End: February 22, 2025 Team Status: Active Member Role/Relationship Status Dates Dr. Almas Schmidt MD Primary Care Provider Active Team Status: Inactive Member Role/Relationship Status Dates Dr. Almas Schmidt MD Primary Care Provider Active Start: November 24, 2024 End: November 24, 2024 Dr. Almas Schmidt MD Referring Provider Active Start: November 24, 2024 End: November 24, 2024 Dr. Sae Saeed MD Attending Provider Active Start: November 24, 2024 End: November 24, 2024 Team Status: Inactive Member Role/Relationship Status Dates Dr. Almas Schmidt MD Primary Care Provider Active Start: January 05, 2025 End: January 05, 2025 Dr. Almas Schmidt MD Attending Provider Active Start: January 05, 2025 End: January 05, 2025 Dr. Almas Schmidt MD Referring Provider Active Start: January 05, 2025 End: January 05, 2025 Team Status: Inactive Member Role/Relationship Status Dates Dr. Almas Schmidt MD Primary Care Provider Active Start: February 09, 2025 End: February 09, 2025 Dr. Sae Saeed MD Attending Provider Active Start: February 09, 2025 End: February 09, 2025 Dr. Sae Saeed MD Referring Provider Active Start: February 09, 2025 End: February 09, 2025 Team Status: Inactive Member Role/Relationship Status Dates Dr. Almas Schmidt MD Primary Care Provider Active Start: February 16, 2025 End: February 16, 2025 Dr. Sae Saeed MD Attending Provider Active Start: February 16, 2025 End: February 16, 2025 Dr. Sae Saeed MD Referring Provider Active Start: February 16, 2025 End: February 16, 2025 Team Status: Inactive Member Role/Relationship Status Dates Dr. Almas Schmidt MD Primary Care Provider Active Start: February 16, 2025 End: February 16, 2025 Dr. Almas Schmidt MD Referring Provider Active Start: February 16, 2025 End: February 16, 2025 MARISA Villar Attending Provider Active Star t: February 16, 2025 End: February 16, 2025 Team Status: Inactive Member Role/Relationship Status Dates Dr. Almas Schmidt MD Primary Care Provider Active Start: February 22, 2025 End: February 22, 2025 Dr. Sae Saeed MD Attending Provider Active Start: February 22, 2025 End: February 22, 2025 Dr. Sae Saeed MD Referring Provider Active Start: February 22, 2025 End: February 22, 2025 Team Status: Inactive Member Role/Relationship Status Dates Dr. Almas Schmidt MD Primary Care Provider Active Start: February 23, 2025 End: February 23, 2025 Dr. Almas Schmidt MD Referring Provider Active Start: February 23, 2025 End: February 23, 2025 Dr. Sae Saeed MD Attending Provider Active Start: February 23, 2025 End: February 23, 2025 Team Status: Inactive Member Role/Relationship Status Dates Dr. Almas Schmidt MD Primary Care Provider Active Start: March 15, 2025 End: March 15, 2025 Dr. Almas Schmidt MD Referring Provider Active Start: March 15, 2025 End: March 15, 2025 STEWART Whitt Attending Provider Active Star t: March 15, 2025 End: March 15, 2025 Team Status: Inactive Member Role/Relationship Status Dates Dr. Almas Schmidt MD Primary Care Provider Active Start: January 05, 2025 End: January 05, 2025 Dr. Almas Schmidt MD Attending Provider Active Start: January 05, 2025 End: January 05, 2025 Dr. Almas Schmidt MD Referring Provider Active Start: January 05, 2025 End: January 05, 2025 Team Status: Inactive Member Role/Relationship Status Dates Dr. Almas Schmidt MD Primary Care Provider Active Start: February 09, 2025 End: February 09, 2025 Dr. Sae Saeed MD Attending Provider Active Start: February 09, 2025 End: February 09, 2025 Dr. Sae Saeed MD Referring Provider Active Start: February 09, 2025 End: February 09, 2025 Team Status: Inactive Member Role/Relationship Status Dates Dr. Almas Schmidt MD Primary Care Provider Active Start: February 16, 2025 End: February 16, 2025 Dr. Sae Saeed MD Attending Provider Active Start: February 16, 2025 End: February 16, 2025 Dr. Sae Seaed MD Referring Provider Active Start: February 16, 2025 End: February 16, 2025 Team Status: Inactive Member Role/Relationship Status Dates Dr. Almas Schmidt MD Primary Care Provider Active Start: February 16, 2025 End: February 16, 2025 Dr. Almas Schmidt MD Referring Provider Active Start: February 16, 2025 End: February 16, 2025 MARISA Villar Attending Provider Active Star t: February 16, 2025 End: February 16, 2025 Team Status: Inactive Member Role/Relationship Status Dates Dr. Almas Schmidt MD Primary Care Provider Active Start: February 22, 2025 End: February 22, 2025 Dr. Sae Saeed MD Attending Provider Active Start: February 22, 2025 End: February 22, 2025 Dr. Sae Saeed MD Referring Provider Active Start: February 22, 2025 End: February 22, 2025 Team Status: Inactive Member Role/Relationship Status Dates Dr. Almas Schmidt MD Primary Care Provider Active Start: February 23, 2025 End: February 23, 2025 Dr. Almas Schmidt MD Referring Provider Active Start: February 23, 2025 End: February 23, 2025 Dr. Sae Saeed MD Attending Provider Active Start: February 23, 2025 End: February 23, 2025 Team Status: Inactive Member Role/Relationship Status Dates Dr. Almas Schmidt MD Primary Care Provider Active Start: March 15, 2025 End: March 15, 2025 Dr. Almas Schmidt MD Referring Provider Active Start: March 15, 2025 End: March 15, 2025 STEWART Whitt Attending Provider Active Star t: March 15, 2025 End: March 15, 2025 Team Status: Inactive Member Role/Relationship Status Dates Dr. Almas Schmidt MD Primary Care Provider Active Start: April 13, 2025 End: April 13, 2025 Dr. Sae Saeed MD Attending Provider Active Start: April 13, 2025 End: April 13, 2025 Dr. Sae Saeed MD Referring Provider Active Start: April 13, 2025 End: April 13, 2025 FOR RECORDS PERTAINING TO PATIENTS WHO ARE [...] BE BASED ON THE PRIMARY CLINICAL RECORDS. [facility] [employer] [facility]. provides no warranty or guarantee of the accuracy or completeness of information in this document.
== END | disposition home or self-care (01) ==
LOC: SL 20:25
PROVIDERS: PCP Family Medicine Geriatric Medicine; Referring Provider Family Medicine Geriatric Medicine; Visit Provider Family Medicine Geriatric Medicine
DX: G47.30 Sleep apnea, unspecified (principal)
CPT/HCPCS: 95810

== ENCOUNTER → 2025-06-19 | Outpatient (CLI) | payer MEDICARE, MEDICAID, SELFPAY ==
[2025-06-19 16:55] LABS: AST(SGOT) 50 U/L (<=31); Alanine Aminotransfer ALT/SGPT 49 U/L (<=34); Albumin, Serum 3.9 g/dL (3.4-4.8); Alkaline Phosphatase 84 U/L (35-104); Anion Gap 10 (5-15); BUN 23 mg/dL (4-19); BUN/Creat Ratio 21.3 RATIO (10-20); Calcium,Total 8.8 mg/dL (7.6-11.0); Carbon Dioxide 24.3 mmol/L (21.0-32.0); Chloride 106 mmol/L (98-108); Cholesterol 82 mg/dL (<=200); Globulin 2.9 g/dL (2.2-4.2); Glucose 101 mg/dL (70-99); Low Density Lipoprotein Calc. 29 mg/dL; Potassium 4.7 mmol/L (3.3-5.1); Triglycerides 84 mg/dL; Very Low Density Lipoprotein 17 mg/dL (5-40); cholesterol:hdl ratio screen 2.24
[2025-06-19 16:58] LABS: Hematocrit 36.5 % (37-47); Hemoglobin 12.2 g/dL (12.0-15.0); Immature Granulocytes Count 0.010 X10^3/uL (0.0-0.0); Mean Corp Hgb Conc 33.4 g/dL (32-36); Mean Corpuscular Volume 95.8 fL (81-99); Mean Platelet Vol. 11.5 fl (6.2-12.0); NRBC Flagged by Analyzer 0 % (0-5); Platelet Count 218 K/mm3 (150-450); RBC Distribution Width CV 12.7 % (11.6-14.6); RBC Distribution Width SD 44.2 fl (35.1-43.9); Red Blood Count 3.81 M/mm3 (4.2-5.4); White Blood Count 5.0 K/mm3 (4.4-11.0)
[2025-06-19 17:05] LABS: CRP < 3.00 mg/L (0.0-3.0)
[2025-06-19 17:15] LABS: Prothrombin Time (Protime)PT. 14.9 SECONDS (11.7-14.9)
[2025-06-19 17:19] LABS: LDH 211 U/L (84-246)
== END | disposition home or self-care (01) ==
LOC: LAB 15:49
PROVIDERS: PCP Family Medicine Geriatric Medicine; Referring Provider Internal Medicine; Visit Provider Internal Medicine
DX: K71.9 Toxic liver disease, unspecified (principal); I50.32 Chronic diastolic (congestive) heart failure; E66.01 Morbid (severe) obesity due to excess calories; K76.0 Fatty (change of) liver, not elsewhere classified; Z68.35 Body mass index [BMI] 35.0-35.9, adult; E03.9 Hypothyroidism, unspecified; R73.03 Prediabetes; E78.5 Hyperlipidemia, unspecified
CPT/HCPCS: 36415; 80053; 80061; 83036; 83615; 85025; 85610; 86140

== ENCOUNTER → 2025-08-07 | Outpatient (CLI) | payer MEDICARE, MEDICAID, SELFPAY | END | disposition home or self-care (01) | LOC: POLAB3 16:18 | PROVIDERS: PCP Family Medicine Geriatric Medicine; Visit Provider Family Medicine Geriatric Medicine | DX: R06.2 Wheezing (principal) | CPT/HCPCS: 87631 ==

== ENCOUNTER → 2025-08-17 | Outpatient (CLI) | payer MEDICARE, MEDICAID, SELFPAY ==
[2025-08-17 10:27] LABS: Prothrombin Time (Protime)PT. 14.0 SECONDS (11.7-14.9)
[2025-08-17 11:00] LABS: AST(SGOT) 26 U/L (<=31); Alanine Aminotransfer ALT/SGPT 23 U/L (<=34); Albumin, Serum 4.0 g/dL (3.4-4.8); Alkaline Phosphatase 104 U/L (35-104); Anion Gap 7 (5-15); BUN 19 mg/dL (4-19); BUN/Creat Ratio 19.5 RATIO (10-20); Bilirubin, Direct 0.16 mg/dL (0.00-0.30); Calcium,Total 9.1 mg/dL (7.6-11.0); Carbon Dioxide 28.0 mmol/L (21.0-32.0); Chloride 105 mmol/L (98-108); Globulin 3.0 g/dL (2.2-4.2); Glucose 105 mg/dL (70-99); LDH 198 U/L (84-246); Potassium 4.7 mmol/L (3.3-5.1)
[2025-08-17 11:32] LABS: CPK Total, Creatine Kinase 79 U/L (24-195); Cholesterol 151 mg/dL (<=200); Low Density Lipoprotein Calc. 101 mg/dL; Triglycerides 82 mg/dL; Very Low Density Lipoprotein 16 mg/dL (5-40); cholesterol:hdl ratio screen 4.48
== END | disposition home or self-care (01) ==
PROVIDERS: PCP Family Medicine Geriatric Medicine; Referring Provider Internal Medicine; Visit Provider Internal Medicine
DX: K76.0 Fatty (change of) liver, not elsewhere classified (principal); K71.9 Toxic liver disease, unspecified; E78.5 Hyperlipidemia, unspecified; E03.9 Hypothyroidism, unspecified; R74.8 Abnormal levels of other serum enzymes; R63.4 Abnormal weight loss
CPT/HCPCS: 36415; 80053; 80061; 82248; 82550; 83615; 84439; 84443; 85610